=== PATIENT | female | born 1950 ===

== ENCOUNTER 2020-10-10 16:27 | Outpatient (REF) | payer MEDICARE, SELFPAY | END 2020-10-10 16:28 | disposition home or self-care (01) | LOC: HO.LAB 16:27 | PROVIDERS: Visit Provider Internal Medicine | DX: Z20.828 Contact with and (suspected) exposure to other viral communicable diseases (principal) | CPT/HCPCS: C9803; U0003 ==

== ENCOUNTER 2020-11-04 18:41 | Emergency (ER) | payer MEDICARE, MEDICAID, SELFPAY ==
[2020-11-04 18:52] VITALS: BP 143/68; PULSE 75; RESP 18; TEMP 36.9; O2SAT 97; BMI 31.4
[2020-11-04 19:17] LABS: Glucose Urine UA NEG (NEG); Leukocyte Esterase Urine NEG (NEG); Nitrite Urine NEG (NEG); PH 5.5 (5.0-8.0); Specific Gravity - Urine 1.025 (1.005-1.025); Urine Blood NEG (NEG); Urine Ketones NEG (NEG); Urine Protein NEG (NEG-TRACE)
[2020-11-04 19:18] LABS: Appearance Urine CLEAR; Color Urine YELLOW
--- NOTE | 2020-11-04 21:12 | ED.AMS ---
HPI - Altered Mental Status General Chief Complaint: Altered Mental Status Stated Complaint: mutiple complaints Time Seen by Provider: 11/04/20 20:57 Source: patient Mode of arrival: ambulatory Limitations: no limitations History of Present Illness HPI narrative: patient is brought to emergency room by her family, according to the patient's family, the patient has been acting odd and paranoid for 1 week now. According to the patient, she is here because her primary care physician told her that her ammonia level is high which has never happened before, patient complaining diffuse itching throughout her body, abdominal bloating, nausea and vomiting. Patient denies diarrhea. Patient denies alcohol abuse Related Data Allergies Allergy/AdvReac Type Severity Reaction Status Date / Time No Known Allergies Allergy Unverified 08/15/20 15:03 Review of Systems Review of Systems: Constitutional : No Weight loss, No Fever, No Chills, No Night Sweats, No Fatigue, No Malaise ENT/Mouth : No Hearing loss, No Ear Pain, No Nasal Congestion, No Sinus Pain, No Hoarseness, No sore throat, No Rhinorrhea, No Swallowing Difficulty Eyes: No Eye Pain, No Swelling, No Redness, No Foreign Body, No Discharge, No Vision Changes Cardiovascular : No Chest Pain, No SOB, No Dyspnea on Exertion, No Orthopnea, No Edema, No Palpitations Respiratory : No Cough, No Sputum, No Wheezing, No Smoke Exposure, No Dyspnea Gastrointestinal : patient complaining of nausea and bloating, No Vomiting, No Diarrhea, No Constipation, No Hematochezia, No Melena Genitourinary : no irregular bleeding, No Dysuria, No Urinary Frequency, No Hematuria, No Urinary Incontinence, No Urgency, No Flank Pain, No Urinary Flow Changes, No Hesitancy Musculoskeletal : No joint pain, No Myalgias, No Joint Swelling Skin : No Skin Lesions, No rash, complaining of intermittent diffuse body itching Neuro : No Weakness, No Numbness, No Paresthesias, No Loss of Consciousness, No Dizziness, No Headache Psych : No Anxiety/Panic, No Depression, No SI/HI/AH/VH, No Social Issues, Heme/Lymph: No Bruising, No Bleeding,No Lymphadenopathy Endocrine : No Polyuria, No Polydipsia, No Temperature Intolerance PMF Past Medical History Medical History (Updated 11/05/20 @ 01:44 by Rebeca Berrios MD) CKD (chronic kidney disease) HTN (hypertension) Surgical History (Updated 11/04/20 @ 18:55 by Naresh Rowley) Kidney transplant recipient Social History Social History Advance Directives: No Advance Directives Information Provided: Yes Physical Exam Vital Signs: Vital Signs: Last Vital Signs Temp 98.1 F 11/04/20 22:39 Pulse 60 11/04/20 22:39 Resp 20 11/04/20 22:39 BP 139/79 11/04/20 22:39 Pulse Ox 97 11/04/20 22:39 Body Mass Index 31.4 Appearance: Alert. Oriented X3. No acute distress. Eyes: Pupils equal, round and reactive to light. ENT: Pharynx normal. Neck: Normal inspection. Neck supple. No lymph nodes noted. No crepitus CVS: Normal heart rate and rhythm. Pulses normal. Normal S1 and S2 Respiratory: No respiratory distress. Breath sounds normal. No Wheezing. No rales Abdomen: Soft and nontender. No rigidity. No distention. good BS x4 Skin: Skin warm and dry. Normal skin color. Normal skin turgor. Extremities: No lower extremity edema. No lower extremity edema. No Lacerations. No Rash Neuro: Oriented X 3. No motor deficit. No sensory deficit. Moving all extermities. No slurred speech. Psych: Pt A&Ox#, patient does not seemed confused, not acting oddly or paranoid. Patient's behavior within normal limits Course Course Course Narrative: I discussed the labs and ultrasound with the patient, patient aware that she will follow-up with surgery as outpatient. Patient instructed to call for a follow-up appointment. At this time, patient has no pain at all. However, given her symptoms of abdominal bloating and abdominal distension along with ultrasound findings, we will go ahead and ask her to follow up with surgery MDM - Altered Mental Status Lab Data Result diagrams: 11/04/20 21:35 11/04/20 21:35 Labs: Lab Results 11/04/20 11/04/20 11/04/20 Range/Units 19:08 21:34 21:35 WBC 4.5 L (4.8-10.8) X10*3/uL RBC 4.71 (4.20-5.50) X10*6/uL Hgb 12.2 (12.0-16.0) g/dl Hct 40.3 (37-47) % MCV 85.6 (80-98) fL MCH 25.9 L (27.0-33.0) pg MCHC 30.3 L (31.0-35.0) g/dl RDW 16.7 H (11.0-16.0) % Plt Count 278 (160-400) X10*3/uL MPV 10.8 (9.4-12.3) fL Immature Gran % (Auto) 0.2 (0.0-0.4) % Neut % (Auto) 60.1 (45-73) % Lymph % (Auto) 25.7 (20-40) % [place] % (Auto) 11.6 H (2-11) % Eos % (Auto) 2.2 (0-4) % Baso % (Auto) 0.2 (0-2) % Lymph # (Auto) 1.2 (1.2-4.9) X10*3/uL [place] # (Auto) 0.5 (0.1-1.2) X10*3/uL Eos # (Auto) 0.1 (0.0-0.4) X10*3/uL Baso # (Auto) 0.0 (0.0-0.2) X10*3/uL Abs Immat Gran (auto) 0.01 (0.00-0.03) X10*3/uL Absolute Neuts (auto) 2.7 (2.0-8.3) X10*3/uL Absolute Nucleated RBC 0.000 (0.0-0.012) X10*3/uL Nucleated RBC % (auto) 0.0 (0.0-0.2) /100WBC Sodium (135-145) mmol/L Potassium (3.3-5.1) mmol/l Chloride (96-108) mmol/L Carbon Dioxide (22-29) mmol/L Anion Gap (12-20) BUN (9-16) mg/dL Creatinine (0.5-1.4) mg/dL Estim Creat Clear Calc Estimated GFR Random Glucose (60-115) mg/dL Calcium (8.4-10.2) mg/dL Total Bilirubin (0.0-1.0) mg/dL Direct Bilirubin (0.0-0.5) mg/dL AST (5-31) U/L ALT (0-31) U/L Alkaline Phosphatase (39-117) U/L Ammonia 32 (13-55) umol/L Total Protein (6.5-8.0) g/dL Albumin (3.5-5.0) g/dL Lipase (8-78) U/L Urine Color YELLOW Urine Appearance CLEAR Urine pH 5.5 (5.0-8.0) Ur Specific [place] 1.025 (1.005-1.025) Urine Protein NEG (NEG-TRACE) MG/DL Urine Glucose (UA) NEG (NEG) MG/DL Urine Ketones NEG (NEG) MG/DL Urine Blood NEG (NEG) Urine Nitrite NEG (NEG) Ur Leukocyte Esterase NEG (NEG) 11/04/20 Range/Units 21:35 WBC (4.8-10.8) X10*3/uL RBC (4.20-5.50) X10*6/uL Hgb (12.0-16.0) g/dl Hct (37-47) % MCV (80-98) fL MCH (27.0-33.0) pg MCHC (31.0-35.0) g/dl RDW (11.0-16.0) % Plt Count (160-400) X10*3/uL MPV (9.4-12.3) fL Immature Gran % (Auto) (0.0-0.4) % Neut % (Auto) (45-73) % Lymph % (Auto) (20-40) % [place] % (Auto) (2-11) % Eos % (Auto) (0-4) % Baso % (Auto) (0-2) % Lymph # (Auto) (1.2-4.9) X10*3/uL [place] # (Auto) (0.1-1.2) X10*3/uL Eos # (Auto) (0.0-0.4) X10*3/uL Baso # (Auto) (0.0-0.2) X10*3/uL Abs Immat Gran (auto) (0.00-0.03) X10*3/uL Absolute Neuts (auto) (2.0-8.3) X10*3/uL Absolute Nucleated RBC (0.0-0.012) X10*3/uL Nucleated RBC % (auto) (0.0-0.2) /100WBC Sodium 138 (135-145) mmol/L Potassium 4.4 (3.3-5.1) mmol/l Chloride 101 (96-108) mmol/L Carbon Dioxide 27 (22-29) mmol/L Anion Gap 14 (12-20) BUN 18 H (9-16) mg/dL Creatinine 0.94 (0.5-1.4) mg/dL Estim Creat Clear Calc 50.2 Estimated GFR 59 Random Glucose 122 H (60-115) mg/dL Calcium 10.1 (8.4-10.2) mg/dL Total Bilirubin 0.9 (0.0-1.0) mg/dL Direct Bilirubin 0.6 H (0.0-0.5) mg/dL AST 47 H (5-31) U/L ALT 102 H (0-31) U/L Alkaline Phosphatase 303 H (39-117) U/L Ammonia (13-55) umol/L Total Protein 7.6 (6.5-8.0) g/dL Albumin 4.2 (3.5-5.0) g/dL Lipase 15 (8-78) U/L Urine Color Urine Appearance Urine pH (5.0-8.0) Ur Specific [place] (1.005-1.025) Urine Protein (NEG-TRACE) MG/DL Urine Glucose (UA) (NEG) MG/DL Urine Ketones (NEG) MG/DL Urine Blood (NEG) Urine Nitrite (NEG) Ur Leukocyte Esterase (NEG) Imaging Data US - abdomen: Radiologist's impression: PANCREAS: Visualized pancreatic head and body are normal. Tail obscured by interposed bowel gas. LIVER: Mildly increased echogenicity suggestive of hepatic steatosis. The liver is normal in size. The liver contour is normal. No focal hepatic lesion. There is no intrahepatic biliary duct dilatation seen. GALLBLADDER: Sludge present within the gallbladder. The gallbladder wall thickness is at the upper limits of normal, however no pericholecystic fluid or inflammation. Sonographic Garber sign is negative. COMMON BILE DUCT: Normal in caliber measuring 0.6 cm in diameter. RIGHT KIDNEY: [place] kidney is atrophic but otherwise unremarkable. OTHER: Right lower quadrant renal allograft is normal in appearance. No hydronephrosis. FREE FLUID: None. US/US abdomen limited IMPRESSION: Cholelithiasis without sonographic evidence of cholecystitis. Query hepatic steatosis. Unremarkable right lower quadrant renal allograft. Discharge Plan Discharge Clinical Impression: Abdominal distention, non-gaseous, Cholelithiasis without cholecystitis Patient Disposition: Home, Self-Care Instructions: Biliary Colic (ED) Additional Instructions: Por favor, llama a la oficina de cirugia hoy para hacer guerda yissel. Usted tiene lodo en grimes vesicula. Si tiene dolor abdominal, si dominick sintomas empeoran, por favor regrese a emergencias
[2020-11-04 21:43] LABS: MANUAL DIFF FLAG NO
[2020-11-04 22:06] LABS: Basophils Percent Auto 0.2 % (0-2); Eosinophils Absolute Auto 0.1 X10*3/uL (0.0-0.4); Eosinophils Percent Auto 2.2 % (0-4); Hematocrit 40.3 % (37-47); Hemoglobin 12.2 g/dl (12.0-16.0); Imm Gran Abs Auto 0.01 X10*3/uL (0.00-0.03); Imm Gran Pct Auto 0.2 % (0.0-0.4); Lymphocytes Absolute Auto 1.2 X10*3/uL (1.2-4.9); Lymphocytes Percent Auto 25.7 % (20-40); Mean Corpuscular HGB Conc 30.3 g/dl (31.0-35.0); Mean Corpuscular Hemoglobin 25.9 pg (27.0-33.0); Mean Corpuscular Volume 85.6 fL (80-98); Mean Platelet Volume 10.8 fL (9.4-12.3); Monocytes Absolute Auto 0.5 X10*3/uL (0.1-1.2); Monocytes Percent Auto 11.6 % (2-11); Neutrophils Absolute Auto 2.7 X10*3/uL (2.0-8.3); Neutrophils Percent Auto 60.1 % (45-73); Platelet Count 278 X10*3/uL (160-400); Red Blood Count 4.71 X10*6/uL (4.20-5.50); Red Cell Distribution Width 16.7 % (11.0-16.0); White Blood Count 4.5 X10*3/uL (4.8-10.8)
[2020-11-04 22:11] LABS: Ammonia 32 umol/L (13-55)
[2020-11-04 22:20] LABS: Alanine Aminotransferase 102 U/L (0-31); Albumin Level 4.2 g/dL (3.5-5.0); Alkaline Phosphatase 303 U/L (39-117); Anion Gap 14 (12-20); Aspartate Amino Transferase 47 U/L (5-31); Bilirubin Direct 0.6 mg/dL (0.0-0.5); Bilirubin Total 0.9 mg/dL (0.0-1.0); Blood Urea Nitrogen 18 mg/dL (9-16); Calcium 10.1 mg/dL (8.4-10.2); Carbon Dioxide 27 mmol/L (22-29); Chloride 101 mmol/L (96-108); Creatinine Clr Calc Pharmacy 50.2; Estimated Glomerular Filt Rate 59; Glucose Random 122 mg/dL (60-115); Lipase 15 U/L (8-78); Potassium 4.4 mmol/l (3.3-5.1); Sodium 138 mmol/L (135-145); Total Protein 7.6 g/dL (6.5-8.0)
[2020-11-04 22:39] VITALS: BP 139/79; PULSE 60; RESP 20; TEMP 36.7; O2SAT 97
--- NOTE | 2020-11-04 23:42 | US_ITS ---
EXAMINATION: US ABDOMEN LIMITED CLINICAL INFORMATION: Bloating and elevated LFTs. COMPARISON: None TECHNIQUE: Real-time imaging of the right upper quadrant abdominal viscera. FINDINGS: PANCREAS: Visualized pancreatic head and body are normal. Tail obscured by interposed bowel gas. LIVER: Mildly increased echogenicity suggestive of hepatic steatosis. The liver is normal in size. The liver contour is normal. No focal hepatic lesion. There is no intrahepatic biliary duct dilatation seen. GALLBLADDER: Sludge present within the gallbladder. The gallbladder wall thickness is at the upper limits of normal, however no pericholecystic fluid or inflammation. Sonographic Garber sign is negative. COMMON BILE DUCT: Normal in caliber measuring 0.6 cm in diameter. RIGHT KIDNEY: [place] kidney is atrophic but otherwise unremarkable. OTHER: Right lower quadrant renal allograft is normal in appearance. No hydronephrosis. FREE FLUID: None. US/US abdomen limited IMPRESSION: Cholelithiasis without sonographic evidence of cholecystitis. Query hepatic steatosis. Unremarkable right lower quadrant renal allograft.
[2020-11-05 02:00] VITALS: BP 139/79; PULSE 60
== END 2020-11-05 02:31 | disposition home or self-care (01) ==
PROVIDERS: Emergency Provider Emergency Medicine; PCP Internal Medicine
DX: R14.0 Abdominal distension (gaseous) (principal); K80.20 Calculus of gallbladder without cholecystitis without obstruction; I12.9 Hypertensive chronic kidney disease with stage 1 through stage 4 chronic kidney disease, or unspecified chronic kidney disease; N18.9 Chronic kidney disease, unspecified
CPT/HCPCS: 36415; 76705; 80048; 80076; 81003; 82140; 83690; 85025; 99283; 99284

== ENCOUNTER → 2020-11-25 15:15 | Outpatient (BNVA) | payer MEDICARE, SELFPAY | PROVIDERS: PCP Internal Medicine; Visit Provider Surgery | DX: K80.20 Calculus of gallbladder without cholecystitis without obstruction (principal); Z94.0 Kidney transplant status | CPT/HCPCS: 99202 ==

== ENCOUNTER → 2020-12-18 14:26 | Outpatient (BNVA) | payer MEDICARE, SELFPAY | PROVIDERS: PCP Internal Medicine; Visit Provider Physician Assistant | DX: R74.8 Abnormal levels of other serum enzymes (principal) | CPT/HCPCS: Q3014 ==

== ENCOUNTER → 2021-01-16 12:43 | Outpatient (BNVA) | payer MEDICARE, SELFPAY | PROVIDERS: PCP Internal Medicine; Visit Provider Physician Assistant | DX: Z76.89 Persons encountering health services in other specified circumstances (principal) | CPT/HCPCS: Q3014 ==

== ENCOUNTER 2021-08-27 07:49 | Day surgery (SDC) | payer MEDICARE, SELFPAY ==
[2021-08-22 13:34] VITALS: BMI 35.5
--- NOTE | 2021-08-22 14:04 | P.CONAN_ITS ---
Documented by User: Terrie Wood NP 08/22/21 14:08 HPI - Anesthesia Eval Consult details Narrative: 71yo F for Colonoscopy s/p renal transplant 2017. AV fistula RUE NO BP or IV on RIGHT. No dialysis at this time. PMFSH Active Problems Active Problems: All Active Problems (Updated 08/22/21 @ 13:39 by Rosie Teixeira RN) Elevated liver enzymes (Acute) Gallstone (Acute) HTN (hypertension) (Acute) CKD (chronic kidney disease) (Acute) Past Medical History Medical History (Updated 08/22/21 @ 13:39 by Rosie Teixeira RN) AV fistula CKD (chronic kidney disease) COVID-19 vaccine series completed Gallstone HTN (hypertension) Family History Family History (Updated 11/25/20 @ 15:33 by Melissa Walters Nikia) Brother History of prostate cancer Maternal Uncle History of colon cancer Maternal Grandmother History of stomach cancer Surgical History Surgical History (Updated 08/21/21 @ 13:51 by Rosie Teixeira RN) History of section Hx of colonoscopy Hx of hysterectomy Kidney transplant recipient Social History Social History (Updated 01/16/21 @ 12:47 by Anna Marie Leal Nikia) Household Members Other:: lives sharona Alcohol intake: never Patient Tobacco Use Status: Never used Tobacco Use of substances other than those prescribed or required for medical reasons: No Have you been hit, kicked, punched, or otherwise hurt by someone within the past year? If so, by whom?: No Are you DNR?: No Advance Directives: No (does not have HCP-form sent per request patient & daughter) Advance Directives Information Provided: No (as above noted) Advance Directives on File: No Recently lost weight without trying: No Eating poorly because of decreased appetite: No Nutrition Risks: No Nutritional Risk Poor oral hygiene: No (wears partial) Meds Allergies Allergy/AdvReac Type Severity Reaction Status Date / Time No Known Allergies Allergy Verified 01/16/21 12:44 Home Medications Medication Instructions Recorded Confirmed Last Taken Type amlodipine 2.5 mg tablet 2.5 mg PO DAILY 11/25/20 08/21/21 Unknown History cholecalciferol (vitamin D3) 50 50 mcg PO DAILY 11/25/20 08/21/21 Unknown History mcg (2,000 unit) chewable tablet cinacalcet 30 mg tablet 30 mg PO DAILY 11/25/20 08/21/21 Unknown History magnesium oxide 400 mg PO BID 11/25/20 12/18/20 Unknown History metoprolol tartrate 25 mg tablet 25 mg PO DAILY 11/25/20 08/21/21 Unknown History mycophenolate sodium 360 mg 360 mg PO BID 11/25/20 08/21/21 Unknown History tablet,delayed release omeprazole 20 mg capsule,delayed 20 mg PO DAILY 11/25/20 08/21/21 Unknown History release tacrolimus 1 mg capsule, 1 mg PO BID 11/25/20 08/21/21 Unknown History immediate-release Exam Exam Date and Time: August 22, 2021 1404 Height,Weight and Vital Signs: Height 5 ft Weight 82.554 kg Pertinent Lab Results Pertinent Lab Results: 07/25/21 BUN 19 Creat 1.1 K 4.5 Na 140 CO2 24 WBC 3.5 Hgb 13.3 Hct 42.7 PLT 214 Assessment and Plan Assessment Anesthesia Assessment: Chart Reviewed Documented by User: Quintin Robles MD 08/27/21 08:05 [facility] Past Medical History Medical History (Updated 08/22/21 @ 13:39 by Rosie Teixeira RN) AV fistula CKD (chronic kidney disease) COVID-19 vaccine series completed Gallstone HTN (hypertension) Family History Family History (Updated 11/25/20 @ 15:33 by DARIAN Chaudhry) Brother History of prostate cancer Maternal Uncle History of colon cancer Maternal Grandmother History of stomach cancer Family history of problems with anesthesia: No Surgical History Surgical History (Updated 08/21/21 @ 13:51 by Rosie Teixeira RN) History of section Hx of colonoscopy Hx of hysterectomy Kidney transplant recipient History of Problems with Anesthesia: No Social History Social History (Updated 01/16/21 @ 12:47 by DARIAN Bazan) Household Members Other:: lives sharona Alcohol intake: never Patient Tobacco Use Status: Never used Tobacco Use of substances other than those prescribed or required for medical reasons: No Have you been hit, kicked, punched, or otherwise hurt by someone within the past year? If so, by whom?: No Are you DNR?: No Advance Directives: No (does not have HCP-form sent per request patient & daughter) Advance Directives Information Provided: No (as above noted) Advance Directives on File: No Recently lost weight without trying: No Eating poorly because of decreased appetite: No Nutrition Risks: No Nutritional Risk Poor oral hygiene: No (wears partial) Meds Allergies Allergy/AdvReac Type Severity Reaction Status Date / Time No Known Allergies Allergy Verified 01/16/21 12:44 Home Medications Medication Instructions Recorded Confirmed Last Taken Type amlodipine 2.5 mg tablet 2.5 mg PO DAILY 11/25/20 08/21/21 Unknown History cholecalciferol (vitamin D3) 50 50 mcg PO DAILY 11/25/20 08/21/21 Unknown History mcg (2,000 unit) chewable tablet cinacalcet 30 mg tablet 30 mg PO DAILY 11/25/20 08/21/21 Unknown History magnesium oxide 400 mg PO BID 11/25/20 12/18/20 Unknown History metoprolol tartrate 25 mg tablet 25 mg PO DAILY 11/25/20 08/21/21 Unknown History mycophenolate sodium 360 mg 360 mg PO BID 11/25/20 08/21/21 Unknown History tablet,delayed release omeprazole 20 mg capsule,delayed 20 mg PO DAILY 11/25/20 08/21/21 Unknown History release tacrolimus 1 mg capsule, 1 mg PO BID 11/25/20 08/21/21 Unknown History immediate-release Exam Airway Mallampati Class: II TM Dist: >3cm Neck ROM: Full Partial: Upper Loose/Missing/Broken Teeth: Yes (many lower missing) Heart: [id number] Lungs: cta b/l Assessment and Plan Assessment Anesthesia Assessment: Anesthesia Plan Discussed Final Anesthetic Review Family History of Problems with Anesthesia: No History of Problems with Anesthesia: No NPO: Yes ASA Class: IV Final Preanesthetic Review: No Changes in Pt Med Stat, Meds/Allgs Chart Reviewed, Consent Obtained/Reviewed and Anes Risks/Benef Reviewed Patient Risk: High Procedure Risk: Low Assessment/Block/Sedation in SS: Assess/Block/Sedation-SS Anesthetic Plan Anesthetic Plan: MAC: and Agree w/ Assess. and Plan Disposition: Standard PACU
[2021-08-27 08:05] VITALS: BP 122/74; PULSE 93; RESP 16; TEMP 36.1; O2SAT 99
[2021-08-27] MEDS: 0.9 % Sodium Chloride 1,000 ML 100 ML IVCONT (08:29)
[2021-08-27 09:24] VITALS: BP 125/65; PULSE 75; RESP 16; TEMP 36.8; O2SAT 99
--- NOTE | 2021-08-27 09:25 | PM.OP ---
Brief Operative Note Date of Service: 08/27/21 Pre-op diagnosis: Screening Post-op diagnosis: other (Diverticulosis) Procedure: Colonoscopy to the cecum and TI Surgeon: Ramin Booth Anesthesia: MAC Was an [employer] used for this Procedure?: No Estimated blood loss (mL): 0 Pathology: none sent Condition: stable Disposition: PACU
[2021-08-27 09:39] VITALS: BP 111/78; PULSE 68; RESP 16; TEMP 36.8; O2SAT 97
--- NOTE | 2021-08-27 18:19 | OP_ITS ---
SURGEON: Ramin Booth MD INDICATIONS: The patient presents for evaluation of colorectal cancer screening. Full consent has been obtained from her for this, including risks of bleeding and perforation. PREOPERATIVE DIAGNOSIS: Colorectal cancer screening. POSTOPERATIVE DIAGNOSIS: PROCEDURE PERFORMED: Colonoscopy to cecum and terminal ileum. ESTIMATED BLOOD LOSS: COMPLICATIONS: ANESTHESIA: Monitored anesthesia care. ASSISTANTS: SPECIMENS: POSTOPERATIVE DIAGNOSES: Colorectal cancer screening, sigmoid diverticulosis, and internal hemorrhoids. DESCRIPTION OF PROCEDURE: The patient was placed in the left lateral decubitus position. The digital rectal exam revealed no abnormalities. The Olympus video pediatric colonoscope was entered into the rectum and advanced easily to the cecum. Once in the cecum, I did identify normal-appearing cecal pouch with appendiceal orifice and a normal-appearing ileocecal valve. The terminal ileum was cannulated and appeared normal. The scope was withdrawn back in the colon. The entire cecum and ileocecal valve appeared normal. The scope was slowly withdrawn assessing all mucosal surfaces carefully. Preparation was excellent. I did not visualize any sign of polyps, colitis, nor angiodysplasia. There was a mild amount of sigmoid diverticulosis. In the rectum, scope was retroflexed visualizing small internal hemorrhoids, but no other pathology. The rectal mucosa appeared normal. The scope was straightened and withdrawn from the patient. She tolerated the procedure well and was returned to recovery area in stable condition. IMPRESSION: 1. Mild sigmoid diverticulosis. 2. Small internal hemorrhoids. PLAN: Given today's negative exam and her age, and no family history of colon cancer, I do not think she will need any further screening colonoscopies. She will otherwise see me on a p.r.n. basis. Ramin Booth MD RMDa/APRILL / [id number]
== END 2021-08-27 10:19 | disposition home or self-care (01) ==
PROVIDERS: PCP Internal Medicine; Visit Provider Internal Medicine
PROC: 0DJD8ZZ Inspection of Lower Intestinal Tract, Via Natural or Artificial Opening Endoscopic (ICD-10-PCS; CPT 45378; principal; 2021-08-27 08:30)
DX: Z12.11 Encounter for screening for malignant neoplasm of colon (principal); K57.30 Diverticulosis of large intestine without perforation or abscess without bleeding; K64.8 Other hemorrhoids; I12.9 Hypertensive chronic kidney disease with stage 1 through stage 4 chronic kidney disease, or unspecified chronic kidney disease; N18.9 Chronic kidney disease, unspecified; Z87.19 Personal history of other diseases of the digestive system; Z94.0 Kidney transplant status
CPT/HCPCS: G0121

== ENCOUNTER 2022-10-12 14:38 | Outpatient (REF) | payer MEDICARE, SELFPAY ==
--- NOTE | ~2022-10-12 | MM_ITS ---
EXAMINATION: MM SCREENING DIGITAL BREAST TOMOSYNTHESIS, BILATERAL CLINICAL INFORMATION: Screening. Asymptomatic. COMPARISON: Mammography: 03/24/2019, 03/18/2018, 02/01/2017 TECHNIQUE: Digital breast tomosynthesis is performed in both the craniocaudal and mediolateral oblique views along with computer-aided detection (CAD). Synthesized 2D images are generated from the tomosynthesis. FINDINGS: There are scattered areas of fibroglandular density (ACR BI-RADS breast composition Category b). There are no significant masses, abnormal calcifications, or other abnormalities. Parenchymal pattern is similar to prior studies. There is no developing density or architectural abnormality. The axilla and skin contours are unremarkable. No significant changes. MM/MM tomosynthesis screening BI IMPRESSION: No mammographic evidence of malignancy. ASSESSMENT: BI-RADS 1: Negative RECOMMENDATION: Routine annual mammography screening. This patient's information was entered into a reminder system with a target due date for their next mammogram.
== END 2022-10-12 14:39 | disposition home or self-care (01) ==
LOC: HO.MAMMO 14:38
PROVIDERS: Visit Provider Internal Medicine
DX: Z12.31 Encounter for screening mammogram for malignant neoplasm of breast (principal)
CPT/HCPCS: 77063; 77067

== ENCOUNTER 2024-01-05 11:02 | Outpatient (REF) | payer OTHER, SELFPAY ==
[2024-01-05 12:46] LABS: Anion Gap 13 (12-20); Blood Urea Nitrogen 15 mg/dL (9-16); Calcium 8.9 mg/dL (8.4-10.2); Carbon Dioxide 26 mmol/L (22-29); Chloride 106 mmol/L (96-108); Cholesterol 145 mg/dL (<200); Estimated Glomerular Filt Rate 53; Glucose Random 129 mg/dL (60-115); HDL Cholesterol 53 mg/dL (>40); LDL Cholesterol Calculated 73 mg/dL (<100); Potassium 4.5 mmol/L (3.3-5.1); Sodium 140 mmol/L (135-145); Triglycerides 97 mg/dL (<150)
[2024-01-05 14:22] LABS: Reflex LDLD? No
== END 2024-01-05 11:03 | disposition home or self-care (01) ==
LOC: HO.LAB 11:02
PROVIDERS: PCP Internal Medicine; Visit Provider Internal Medicine
DX: I10 Essential (primary) hypertension (principal); E78.2 Mixed hyperlipidemia
CPT/HCPCS: 36415; 80048; 80061

== ENCOUNTER → 2024-02-02 12:45 | Outpatient (BNV) | payer OTHER, SELFPAY | PROVIDERS: PCP Internal Medicine; Visit Provider Radiology Diagnostic Radiology | DX: Z12.31 Encounter for screening mammogram for malignant neoplasm of breast (principal) | CPT/HCPCS: 77063; 77067 ==

== ENCOUNTER 2024-02-02 12:59 | Outpatient (REF) | payer OTHER, SELFPAY | END 2024-02-02 13:00 | disposition home or self-care (01) | LOC: HO.MAMMO 12:59 | PROVIDERS: PCP Internal Medicine; Visit Provider Internal Medicine | DX: Z12.31 Encounter for screening mammogram for malignant neoplasm of breast (principal) | CPT/HCPCS: 77063; 77067 ==

== ENCOUNTER 2024-02-04 14:04 | Outpatient (REF) | payer OTHER, SELFPAY ==
--- NOTE | ~2024-02-04 | XR_ITS ---
EXAMINATION: XR KNEE, LEFT CLINICAL INFORMATION: Chronic left knee pain. COMPARISON: None available. TECHNIQUE: Two views of the left knee. FINDINGS: There is mild loss of tricompartment joint space with lateral compartment periarticular spurring. No loose bodies, acute fracture or bony erosive changes. There is moderate suprapatellar joint effusion seen. XR/XR knee LT 2V IMPRESSION: Moderate degenerative changes left knee with moderate suprapatellar joint effusion. No visible acute fracture or dislocation seen.
== END 2024-02-04 14:05 | disposition home or self-care (01) ==
LOC: HO.HHCX 14:04
PROVIDERS: Visit Provider Student in an Organized Health Care Education/Training Program
DX: M25.562 Pain in left knee (principal); G89.29 Other chronic pain
CPT/HCPCS: 73560

== ENCOUNTER 2024-02-04 15:37 | Outpatient (REF) | payer OTHER, SELFPAY ==
--- NOTE | ~2024-02-04 | US_ITS ---
EXAMINATION: US VENOUS ULTRASOUND WITH DOPPLER LOWER EXTREMITY, LEFT CLINICAL INFORMATION: Left lower leg pain. COMPARISON: Left lower extremity deep venous study June 14, 2018 TECHNIQUE: Ultrasound of the deep veins is performed from the hip to the calf with compression sonography and color and pulse Doppler assessment. Spectral analysis with color-flow imaging is performed. FINDINGS: There is normal venous compression and respiratory variation and augmented flow. The visualized common femoral vein, superficial femoral vein, profunda femoral vein, popliteal vein, and the trifurcation region shows no evidence of deep venous thrombosis. Popliteal fossa cyst measuring 5.1 x 1.2 x 3.1 cm. US/US venous duplex LE LT IMPRESSION: No DVT demonstrated in the left lower extremity.
== END 2024-02-04 15:38 | disposition home or self-care (01) ==
LOC: HO.US 15:37
PROVIDERS: Visit Provider Student in an Organized Health Care Education/Training Program
DX: M79.662 Pain in left lower leg (principal)
CPT/HCPCS: 93971

== ENCOUNTER 2024-03-03 09:45 | Outpatient (REF) | payer OTHER, SELFPAY ==
--- NOTE | ~2024-03-03 | XR_ITS ---
EXAMINATION: XR KNEE, LEFT CLINICAL INFORMATION: Pain in unspecified knee. COMPARISON: 02/04/2024. TECHNIQUE: AP standing view of bilateral knees. [place] and lateral views of the left knee. FINDINGS: AP Standing View of the Right Knee: The bones are diffusely demineralized. Moderate narrowing of the medial compartment with tiny medial marginal osteophytes. Chondrocalcinosis in the medial and lateral compartments. Left Knee: Moderate joint effusion. Moderate tricompartmental osteophytes. Moderate narrowing of the medial compartment with irregularity of the subjacent articular surface of the medial femoral condyle. Chondrocalcinosis in the medial and lateral compartments. Advanced degenerative changes in the patellofemoral compartment. XR/XR knee LT 3V IMPRESSION: Moderate degenerative changes bilateral knees.
== END 2024-03-03 09:46 | disposition home or self-care (01) ==
LOC: HO.HOSX 09:45
PROVIDERS: Visit Provider Physician Assistant
DX: M17.12 Unilateral primary osteoarthritis, left knee (principal); M79.662 Pain in left lower leg
CPT/HCPCS: 73562; 99202

== ENCOUNTER 2024-03-03 10:02 | Outpatient (AMB) | payer OTHER, SELFPAY ==
--- NOTE | 2024-03-03 10:17 | A.OFFVIS_ITS ---
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 Patient reports off and on pain for about a month or 2. Pain is on the medial and lateral aspect of the knee. Patient finds relief with heating pad and a topical compound cream. Pain is worse when walking, sitting and using the stairs. 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 Patient is accompanied in the office today by her daughter. Patient is currently being followed by Dr. 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 She was referred for a LLE ultrasound to evaluate for DVTs. While in the office today the patient reports intermittent pain for 1-2 months. She reports her pain is on the medial and lateral aspect of her right knee. She finds relief with a heating pad and topical compound cream. She claims her pain increases with ambulating, sitting, and with use of stairs. She reports the edema has subsided. [facility] Medical History (Updated 03/03/24 @ 11:34 by Lorelei Archer) COVID-19 vaccine series completed AV fistula Gallstone HTN (hypertension) CKD (chronic kidney disease) Surgical History (System 01/10/24 @ 11:18 by Fouzia Llanos) Hx of hysterectomy Hx of colonoscopy History of section Kidney transplant recipient Family History (System 01/10/24 @ 11:18 by Fouzia Llanos) Brother History of prostate cancer Maternal Uncle History of colon cancer Maternal Grandmother History of stomach cancer Social History (Updated 03/03/24 @ 10:32 by Florian Styles) Household Members Other:: lives sharona Alcohol intake: never Patient Tobacco Use Status: Never used Tobacco Current occupational status: retired and disabled Review of Systems Const All systems reviewed & are unremarkable except as noted in HPI and below Physical Exam Vital Signs: BMI result Body Mass Index 35.5 Const General: cooperative and no acute distress Orientation/consciousness: patient oriented x3 Resp Effort & Inspection: normal respiratory effort and able to speak in complete sentences Cardio Peripheral pulses: Peripheral pulses 2+ throughout Skin General skin exam: no rashes or lesions noted Neuro General: patient oriented x3 Extrem Other: Left knee: Normal to inspection. No ecchymosis, erythema, or joint effusion. Tenderness to palpation to the medial or lateral joint lines. Full knee extension and flexion. NVI. Assessment & Plan Assessment & Plan (1) Osteoarthritis of left knee: Code(s): M17.12 - Unilateral primary osteoarthritis, left knee Qualifiers: Osteoarthritis type: unspecified Qualified Code(s): M17.12 - Unilateral primary osteoarthritis, left knee Plan Ms. Shay is a 73-year-old Nauruan speaking female, with a PMH of kidney transplant, who presents in the office today, as a new patient, for an evaluation of left lower extremity pain and edema. Patient is accompanied in the office today by her daughter. Patient is currently being followed by Dr. 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 She was referred for a LLE ultrasound to evaluate for DVTs. While in the office today the patient reports intermittent pain for 1-2 months. She reports her pain is on the medial and lateral aspect of her right knee. She finds relief with a heating pad and topical compound cream. She claims her pain increases with ambulating, sitting, and with use of stairs. She reports the edema has subsided. Patient was given a reaction knee brace, off the shelf, while in the office today. We discussed the role of cortisone injections at this time, however, the patient?s daughter would like to reach out to the kidney specialist to make sure a cortisone injection would not affect the kidney status post transplant. My business card was given for them to call if they wish to move forward. Follow up will be PRN, or sooner if needed. X-rays of the left knee which were obtained while in the office today and were reviewed by me, Stella Reeves PA-C, revealed osteoarthritis. Ultrasound of the left lower extremity, obtained on 02/04/2024, revealed: No DVT demonstrated in the left lower extremity. X-rays of the left knee, obtained on 02/04/2024, which revealed: Moderate degenerative changes left knee with moderate suprapatellar joint effusion. No visible acute fracture or dislocation. Ultrasound of the left lower extremity, obtained on 01/26/2024, revealed: Partially visualized nonocclusive thrombus in the peroneal veins measuring at least 3.1 cm. Patient Instructions: Scribed by Lorelei Archer biomedical engineering director, for Stella Reeves PA-C on 03/03/2024 at 10:05 am, EST. Coding Level of Care Code New Pt Level 4 (17102) Diagnoses Osteoarthritis of left knee, unspecified osteoarthritis type M17.12 Osteoarthritis type: unspecified
[2024-03-03 10:23] VITALS: BMI 35.5
== END 2024-03-03 12:08 | disposition home or self-care (01) ==
PROVIDERS: PCP Internal Medicine; Visit Provider Physician Assistant
DX: M17.12 Unilateral primary osteoarthritis, left knee (principal)
CPT/HCPCS: 99203

== ENCOUNTER 2024-04-04 11:37 | Outpatient (REF) | payer OTHER, SELFPAY ==
[2024-04-04 12:44] LABS: Estimated Average Glucose 146 mg/dL; Hemoglobin A1c % 6.7 % (<6.0)
[2024-04-04 12:55] LABS: Glucose Random 126 mg/dL (60-115)
== END 2024-04-04 11:38 | disposition home or self-care (01) ==
LOC: HO.LAB 11:37
PROVIDERS: PCP Internal Medicine; Visit Provider Internal Medicine
DX: R73.09 Other abnormal glucose (principal)
CPT/HCPCS: 36415; 82947; 83036

== ENCOUNTER 2024-05-19 11:09 | Outpatient (AMB) | payer OTHER, SELFPAY ==
--- NOTE | 2024-05-19 11:13 | A.OFFVIS_ITS ---
Intake Visit Reasons: O/V Left knee/ req injection Intake Note: Koki is a 73 year old female who presents today for a injection for her left knee. Allergies No Known Allergies Allergy (Verified 05/19/24 11:23) HPI HPI O/V Left knee/ req injection : Details: 73-year-old [place] speaking female, with a PMH of kidney transplant, who presents in the office today for follow-up of left knee pain. I last saw the patient on 03/03/2024, when she was placed in a reaction knee brace. We discussed the role of cortisone injections, however, due to the patient history of kidney transplant clearance from her kidney specialist was requested. The patient notified the office she received clearance from her provider. [facility] Medical History (Updated 03/03/24 @ 11:34 by Lorelei Archer) COVID-19 vaccine series completed AV fistula Gallstone HTN (hypertension) CKD (chronic kidney disease) Surgical History (System 01/10/24 @ 11:18 by Fouzia Llanos) Hx of hysterectomy Hx of colonoscopy History of section Kidney transplant recipient Family History (System 01/10/24 @ 11:18 by Fouzia Llanos) Brother History of prostate cancer Maternal Uncle History of colon cancer Maternal Grandmother History of stomach cancer Social History (Updated 03/03/24 @ 10:32 by Florian Styles) Household Members Other:: lives sharona Alcohol intake: never Patient Tobacco Use Status: Never used Tobacco Current occupational status: retired and disabled Review of Systems Const All systems reviewed & are unremarkable except as noted in HPI and below Physical Exam Const General: cooperative and no acute distress Orientation/consciousness: patient oriented x3 Resp Effort & Inspection: normal respiratory effort and able to speak in complete sentences Cardio Peripheral pulses: Peripheral pulses 2+ throughout Skin General skin exam: no rashes or lesions noted Neuro General: patient oriented x3 Extrem Other: Left knee: Normal to inspection. No ecchymosis, erythema, or joint effusion. Tenderness to palpation to the medial or lateral joint lines. Full knee extension and flexion. NVI. Office Procedures Joint Injection/Drain Joint Injection/Drain Primary Site: left knee Prep: site was prepped using aseptic technique, ethochloride spray was applied and injection warnings given Injected: 80 mg of, DepoMedrol, with 8 mL of (2% plain lido ) and in the joint Approach Used: anterolateral Procedure: The patient tolerated the procedure well, but had some pain with the injection and there was some relief with the local anesthesia Coding 40920 - Large joint Procedure code (CPT) selection complete Assessment & Plan Assessment & Plan (1) Osteoarthritis of left knee: Code(s): M17.12 - Unilateral primary osteoarthritis, left knee Category: Medical Qualifiers: Osteoarthritis type: unspecified Qualified Code(s): M17.12 - Unilateral primary osteoarthritis, left knee Plan Ms. Shay is a 73-year-old [place] speaking female, with a PMH of kidney transplant, who presents in the office today for follow-up of left knee pain. I last saw the patient on 03/03/2024, when she was placed in a reaction knee brace. We discussed the role of cortisone injections, however, due to the patient history of kidney transplant clearance from her kidney specialist was requested. The patient notified the office she received clearance from her provider.? The patient was offered a?cortisone injection in the left knee with 80 mg of DepoMedrol. The patient was explained the risk, benefits, and alternatives to receiving this injection. After receiving consent for the injection, the patient had the procedure done while in the office today. The patient tolerated the procedure well with no complications. Follow-up will be PRN, or sooner if needed.? Patient Instructions: Scribed by Lo Guillen outside medical sales representative, for Stella Reeves PA-C on 05/19/2024 at 11:30 AM EST.? Coding Level of Care Code Est Pt Level 3 (18036) Diagnoses Osteoarthritis of left knee, unspecified osteoarthritis type M17.12 Osteoarthritis type: unspecified CPT Codes Coding - 66794 Large joint: 38386 - Large joint ([id number])
== END 2024-05-19 11:23 | disposition home or self-care (01) ==
PROVIDERS: PCP Internal Medicine; Visit Provider Physician Assistant
DX: M17.12 Unilateral primary osteoarthritis, left knee (principal)
CPT/HCPCS: 20610; 99213

== ENCOUNTER → 2024-05-19 11:09 | Outpatient (BNVA) | payer OTHER, SELFPAY | PROVIDERS: PCP Internal Medicine; Visit Provider Physician Assistant | DX: M17.12 Unilateral primary osteoarthritis, left knee (principal); Z94.0 Kidney transplant status | CPT/HCPCS: 20610; 99212; J1010 ==

== ENCOUNTER 2024-07-13 14:26 | Outpatient (REF) | payer OTHER, SELFPAY ==
--- NOTE | ~2024-07-13 | XR_ITS ---
EXAMINATION: XR CHEST CLINICAL INFORMATION: Weight loss COMPARISON: Chest radiograph from 09/12/2019 TECHNIQUE: 2 views of the chest were obtained. FINDINGS: No focal consolidation. No pneumothorax. Trachea is midline. Cardiac no large pleural effusion. Degenerative changes of the thoracolumbar spine. Soft tissues are unremarkable. XR/XR chest 2V IMPRESSION: No acute cardiopulmonary process.
[2024-07-13 16:44] LABS: TSH reflex Free T4 1.25 uIU/mL (0.32-4.0)
[2024-07-13 16:59] LABS: Erythrocyte Sedimentation Rate 6 MM/HR (0-20)
== END 2024-07-13 14:27 | disposition home or self-care (01) ==
LOC: HO.HHCL 14:26
PROVIDERS: Visit Provider Internal Medicine
DX: R63.4 Abnormal weight loss (principal)
CPT/HCPCS: 36415; 71046; 84443; 85652

== ENCOUNTER 2024-08-11 13:44 | Outpatient (REF) | payer OTHER, SELFPAY ==
--- NOTE | ~2024-08-11 | CT_ITS ---
EXAMINATION: CT ABDOMEN AND PELVIS WITHOUT CONTRAST CLINICAL INFORMATION: Rule out pancreatic lesion. Abnormal weight loss. COMPARISON: None available. TECHNIQUE: Multidetector volumetric imaging was performed from the superior aspect of the liver through the pubic symphysis. Sagittal and coronal reformatted images were obtained on the technologist's workstation. This CT examination was performed using dose optimization techniques as appropriate, variously including the following: *Automated exposure control *Adjustment of mA and/or kV according to patient size (this includes techniques or standardized protocols for targeted exams where dose is matched to indication/reason for exam; i.e. extremities or head) *Use of iterative reconstruction technique DLP: 386 mGy-cm FINDINGS: LUNG BASES: The visualized lung bases are unremarkable. LIVER, GALLBLADDER, AND BILIARY TREE: The liver is normal in size, shape, and attenuation. No focal hepatic lesion or biliary ductal dilatation is present. The gallbladder is contracted but otherwise unremarkable with no evidence of radiopaque gallstones, or obvious pericholecystic inflammatory changes. PANCREAS: There is marked fatty replacement of the pancreas. No pancreatic mass, calcifications or ductal dilatation seen. SPLEEN: Unremarkable. ADRENAL GLANDS: Unremarkable. KIDNEYS AND URETERS: The [place] kidneys are tiny and atrophic. A transplant kidney is present in the right iliac fossa. BLADDER: Unremarkable. GASTROINTESTINAL TRACT: There is sigmoid diverticulosis present without diverticulitis. The small and large bowel are otherwise unremarkable. The appendix is unremarkable. ABDOMINAL WALL: No significant hernia is appreciated. LYMPH NODES: No retroperitoneal lymphadenopathy. VASCULAR: Calcific atherosclerotic changes are present in the ectatic aorta and iliac vessels. There is no evidence of an abdominal aortic aneurysm. PELVIC VISCERA: Unremarkable. OSSEOUS STRUCTURES: Degenerative changes are present in the lower thoracic spine. There is marked grade 1 anterolisthesis of L5 upon S1. CT/CT abdomen pelvis wo IV con IMPRESSION: 1. A cause for the patient's weight loss has not been found. 2. The thick walled appearance of the contracted gallbladder warrants gallbladder ultrasound for better assessment. 3. Incidental note made of marked fatty replacement of the pancreas, atrophic [place] kidneys with transplant kidney in the right iliac fossa, sigmoid diverticulosis without diverticulitis and degenerative changes in the spine with grade 1 anterolisthesis of L5 upon S1. Fleischner guidelines were followed. Electronically signed by: Tank Dumont MD 08/30/2024 12:39 AM EDT RP
== END 2024-08-11 13:45 | disposition home or self-care (01) ==
LOC: HO.CT 13:44
PROVIDERS: PCP Internal Medicine; Visit Provider Internal Medicine
DX: R63.4 Abnormal weight loss (principal)
CPT/HCPCS: 74176

== ENCOUNTER 2024-08-18 18:06 | Outpatient (REF) | payer OTHER, SELFPAY ==
--- NOTE | ~2024-08-18 | MR_ITS ---
EXAMINATION: MR KNEE WITHOUT CONTRAST, LEFT CLINICAL INFORMATION: Severe left knee pain. COMPARISON: Radiographs 03/03/2024. TECHNIQUE: MRI of the knee without contrast was performed using routine sequences on a high-field scanner. FINDINGS: MENISCI: Medial Meniscus: Irregular inner margin tearing of the posterior horn extending from the meniscal root. Severe degenerative changes of the extruded meniscal body. Lateral Meniscus: Severe degeneration of the extruded meniscal body with complex tearing at the junction with the anterior horn. Inner margin tearing extends along the anterior horn. LIGAMENTS: Cruciate: Mucoid degeneration and possible ill-defined partial tearing of the anterior cruciate ligament. The posterior cruciate ligament appears intact. Collateral: Intact. EXTENSOR MECHANISM: Intact. ARTICULAR CARTILAGE/BONE: Patellofemoral Compartment: Near full-thickness cartilage loss and surface irregularity throughout the lateral patellar facet as well as the superior aspect of the medial patellar facet and the lateral trochlea superiorly. Medial Compartment: There is an osteochondral lesion of the weightbearing femoral condyle, which may be the sequela of a prior subchondral insufficiency fracture. The in situ osteochondral fragment measures 1.9 x 1.4 x 0.5 cm. The underlying concave defect measures up to 0.8 cm in depth and there is extensive surrounding bone marrow edema. Cartilage thinning at the peripheral aspect of the tibia medially. Lateral Compartment: There is a partial-thickness cartilage loss of the posterior weightbearing femoral condyle. Prominent marginal osteophytes. JOINT FLUID AND BURSAE: Large joint effusion with mild diffuse synovitis. Small Jordan's cyst. MR/MR knee LT wo con IMPRESSION: 1. Irregular inner margin tearing of the posterior horn of the medial meniscus extending from the meniscal root with severe degenerative changes of the extruded meniscal body. 2. Severe degeneration and complex tearing of the lateral meniscus at the junction of the anterior horn and extruded meniscal body. 3. Moderate patellofemoral and medial compartment osteoarthritis. There is 1.9 x 1.4 x 0.5 cm in situ osteochondral lesion/unstable OCD of the weightbearing medial femoral condyle with extensive surrounding bone marrow edema. 4. Large joint effusion with mild diffuse synovitis. Small Jordan's cyst. 5. Mucoid degeneration and possible ill-defined partial tearing of the anterior cruciate ligament. Electronically signed by: Lalo Caputo MD 08/21/2024 12:03 PM EDT RP
== END 2024-08-18 18:07 | disposition home or self-care (01) ==
LOC: HO.MRI 18:06
PROVIDERS: PCP Internal Medicine; Visit Provider Internal Medicine
DX: M17.12 Unilateral primary osteoarthritis, left knee (principal)
CPT/HCPCS: 73721

== ENCOUNTER 2024-09-01 14:28 | Outpatient (AMB) | payer OTHER, SELFPAY ==
--- NOTE | 2024-09-01 14:39 | HO.NEPHOV_ITS ---
Vital Signs 09/01/24 14:42 Height 4 ft 11 in Weight 162 lb 2 oz BMI 32.7 BP 100/70 Blood Pressure Location Lt brachial Position Sitting Pulse 73 Pulse Source Pulse Oximeter Pulse Oximetry (%) 98 Oxygen Delivery Method Room Air Intake Visit Reasons: Prev Pt from RTANE/ Conf Catalogue Illustrator Required: Yes Catalogue Illustrator Services: Catalogue Illustrator Of[place] Declined [place] [place] Illustr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 be?compliant?medications.??Her tacrolimus?dosage?has?been?on?the?lower?side.??He?was?accompanied?by?daughter?fe els?highe rlevel?of?tacrolimus?was?not?tolerated?by?her?mother.??She?does?not?have?any?vas cular?or?cardiovascular?symptoms.??She?has?not?seen?a?nurse practitioner physician assistant.??She?has?no ?urinary?symptoms?or?side?effects?from?i mmunosuppression.??She?has?taken?the?flu?vaccination.??She?maintains?good?hydrat ion?and?avoids?nonsteroidal?anti-inflammatories.?[place]oes?not?have?any?nausea,?vo miting,?diarrhea,?chest?pain,?shortness? of?breath,?paroxysmal?nocturnal?dyspnea,?orthopnea,?pedal?edema,?orthostatic?sym ptoms,?hematuria.??She?has?not?had?any?antibiotics?recently.??She?denies?any?hem aturia.??She?feels?well. [facility] Medical History (Updated 09/01/24 @ 16:45 by Justo Ott MD) IgA nephropathy COVID-19 vaccine series completed AV fistula Gallstone HTN (hypertension) CKD (chronic kidney disease) Surgical History (Updated 09/01/24 @ 15:11 by Justo Ott MD) Hx of hysterectomy Hx of colonoscopy History of section Kidney transplant recipient Family History Brother History of prostate cancer Maternal Uncle History of colon cancer Maternal Grandmother History of stomach cancer Social History Household Members Other:: lives sharona Alcohol intake: never Patient Tobacco Use Status: Never used Tobacco Current occupational status: retired and disabled Review of Systems Const All systems reviewed & are unremarkable except as noted in HPI and below Physical Exam Vital Signs: Last Vital Signs Pulse 73 09/01/24 14:42 BP 100/70 09/01/24 14:42 Pulse Ox 98 09/01/24 14:42 Oxygen Delivery Method Room Air 09/01/24 14:42 BMI result Body Mass Index 32.7 Const General: comfortable and no acute distress Orientation/consciousness: patient oriented x3 HEENT Head: Yes normocephalic Mouth: Normal oral and palatal mucosa present Eyes EOM: EOMs intact bilaterally Neck Neck: Yes supple Resp Auscultation: clear to auscultation bilaterally Cardio Jugular venous distension: no JVD Rate: regular rate GI Palpation (GI): Soft to palpation Auscultation: normal bowel sounds General: Yes no CVA tenderness Back/Spine/Pelvis Back: no CVA tenderness Skin General skin exam: no rashes or lesions noted Neuro General: patient oriented x3 and moves all extremities Extrem General: Yes no pedal edema Results Reviewed Nephrology Results: Sodium 140 mmol/L (135-145) 01/05/24 Potassium 4.5 mmol/L (3.3-5.1) 01/05/24 Chloride 106 mmol/L (96-108) 01/05/24 Carbon Dioxide 26 mmol/L (22-29) 01/05/24 BUN 15 mg/dL (9-16) 01/05/24 Creatinine 1.02 mg/dL (0.5-1.4) 01/05/24 Calcium 8.9 mg/dL (8.4-10.2) 01/05/24 Assessment & Plan Assessment & Plan (1) Kidney transplant recipient: Comment: 2017 Code(s): Z94.0 - Kidney transplant status Category: Surgical (2) HTN (hypertension): Code(s): I10 - Essential (primary) hypertension Category: Medical Qualifiers: Hypertension type: primary hypertension Qualified Code(s): I10 - Essential (primary) hypertension Plan 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 nurse practitioner physician assistant.??She?maintains?good?hydration?and?avoids?nonsteroidal?anti-inflam matories.??Her?tacrolimus?levels?were?on?the?lower?side?but?the?family?has?been? reluctant?to?go?up?on?the?dose.??I?ordered?follow up?lab?work.??I?did?not?make?any?medication?changes?today.??All?questions?answer ed.??Follow-up?appointment?given. Orders: Orders Creatinine Today I10 - Essential (primary) hypertension, Z94.0 - Kidney transplant status Magnesium Today I10 - Essential (primary) hypertension, Z94.0 - Kidney transplant status Tacrolimus Prograf Today I10 - Essential (primary) hypertension, Z94.0 - Kidney transplant status UA and rflx microscopic Today I10 - Essential (primary) hypertension, Z94.0 - Kidney transplant status Complete Blood Count Auto Diff Today I10 - Essential (primary) hypertension, Z94.0 - Kidney transplant status Blood Urea Nitrogen Today I10 - Essential (primary) hypertension, Z94.0 - Kidney transplant status Electrolytes Today I10 - Essential (primary) hypertension, Z94.0 - Kidney transplant status Calcium Today I10 - Essential (primary) hypertension, Z94.0 - Kidney transplant status Phosphorus Today I10 - Essential (primary) hypertension, Z94.0 - Kidney transplant status Alanine Aminotransferase Today I10 - Essential (primary) hypertension, Z94.0 - Kidney transplant status Aspartate Amino Transferase Today I10 - Essential (primary) hypertension, Z94.0 - Kidney transplant status Protein Creatinine Ratio, Ur Today I10 - Essential (primary) hypertension, Z94.0 - Kidney transplant status Coding Level of Care Code New Pt Level 4 (59188) Diagnoses Kidney transplant recipient Z94.0 Primary hypertension I10 Hypertension type: primary hypertension
[2024-09-01 14:42] VITALS: BP 100/70; PULSE 73; O2SAT 98; BMI 32.7
== END 2024-09-01 15:16 | disposition home or self-care (01) ==
PROVIDERS: PCP Internal Medicine; Visit Provider Internal Medicine Nephrology
DX: I10 Essential (primary) hypertension (principal); Z94.0 Kidney transplant status; Z87.448 Personal history of other diseases of urinary system
CPT/HCPCS: 99204

== ENCOUNTER → 2024-09-01 14:28 | Outpatient (BNVA) | payer OTHER, SELFPAY | PROVIDERS: PCP Internal Medicine; Visit Provider Internal Medicine Nephrology | DX: I10 Essential (primary) hypertension (principal); E78.5 Hyperlipidemia, unspecified; Z94.0 Kidney transplant status; Z79.899 Other long term (current) drug therapy | CPT/HCPCS: 99202 ==

== ENCOUNTER 2024-09-07 09:14 | Outpatient (REF) | payer OTHER, SELFPAY ==
--- NOTE | ~2024-09-07 | US_ITS ---
EXAMINATION: US ABDOMEN COMPLETE CLINICAL INFORMATION: Thickened gallbladder wall on CT, ultrasound recommended by radiologist. COMPARISON: CT abdomen and pelvis 08/11/2024. Limited abdominal ultrasound 11/05/2020. TECHNIQUE: Real-time imaging of the abdominal viscera. FINDINGS: PANCREAS: The visualized portion of the pancreas head and body are normal, portion of the pancreatic body and tail, not visualized are obscured by bowel gas. ABDOMINAL AORTA: Mild atheromatous plaques. INFERIOR VENA CAVA: Visualized portions are normal. LIVER: Normal. The liver is normal in size. The liver contour is normal. Parenchymal echogenicity is normal. No focal hepatic lesion. There is no intrahepatic biliary duct dilatation seen. GALLBLADDER: Normal. The gallbladder is physiologically distended without evidence of stones, sludge, polyps, wall thickening or pericholecystic fluid. COMMON BILE DUCT: Normal in caliber measuring 0.7 cm in diameter. RIGHT KIDNEY: Atrophic, not well visualized. LEFT KIDNEY: Left kidney also atrophic, echogenic, limited visualization. SPLEEN: Normal. The spleen measures 13.4 cm in maximum dimension. FREE FLUID: None. ADDITIONAL FINDINGS: Transplanted right kidney right lower quadrant measure 13.4 cm appear within normal limits. US/US abdomen complete IMPRESSION: 1. No ultrasound evidence of gallbladder disease or gallstones. 2. Atrophic [place] kidneys. 3. 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 Electronically signed by: Corinne Ross MD 10/15/2024 06:46 PM EST
== END 2024-09-07 09:15 | disposition home or self-care (01) ==
LOC: HO.HMGCX 09:14
PROVIDERS: PCP Internal Medicine; Visit Provider Internal Medicine
DX: K82.8 Other specified diseases of gallbladder (principal)
CPT/HCPCS: 76700

== ENCOUNTER 2024-09-18 12:12 | Outpatient (AMB) | payer OTHER, SELFPAY ==
--- NOTE | 2024-09-18 12:25 | MHC.OFFVIS ---
Intake Visit Reasons: OV - left knee OA MRI review Intake Note: Koki is a 73 year old female who presents today for an MRI review of her left knee. She was last seen on 05/19/24 with Stella who injected the left knee Allergies No Known Allergies Allergy (Verified 09/01/24 14:49) HPI HPI OV - left knee OA MRI review: Details: Koki is a 73 year old female who presents today for an MRI review of her left knee. She was last seen on 05/19/24 with Stella who injected the left knee. She states when this 1st flared up several months ago she had severe pain but it has improved. She states that she has pain about twice a week and when she does she can walk for about 10 minutes and has to stop and rest and then she walks again. The most difficulty she has is with stairs and when standing from an extended time in his seated position. She had worse swelling and that has also improved. She is today here with her daughter. Her daughter is particularly concerned about the results of her recent MRI. She is, of note, a renal transplant patient. [facility] Medical History (Updated 09/01/24 @ 16:45 by Justo Ott MD) IgA nephropathy COVID-19 vaccine series completed AV fistula Gallstone HTN (hypertension) CKD (chronic kidney disease) Surgical History (Updated 09/01/24 @ 15:11 by Justo Ott MD) Hx of hysterectomy Hx of colonoscopy History of section Kidney transplant recipient Family History Brother History of prostate cancer Maternal Uncle History of colon cancer Maternal Grandmother History of stomach cancer Social History Household Members Other:: lives sharona Alcohol intake: never Patient Tobacco Use Status: Never used Tobacco Current occupational status: retired and disabled Physical Exam Extrem Other: Fairly normal gait pattern with mild joint effusion left knee and mild tenderness to palpation medial joint line and lateral retropatellar facet. 0-125 degrees of motion. Stable to varus and valgus stress. Results Reviewed Results Reviewed: I personally reviewed relevant radiographs. There is moderate tricompartmental osteoarthritis with chondrocalcinosis and a irregularity of the articular portion of the medial femoral condyle possibly consistent with subchondral collapse. I personally reviewed the MR images. 1. Irregular inner margin tearing of the posterior horn of the medial meniscus extending from the meniscal root with severe degenerative changes of the extruded meniscal body. 2. Severe degeneration and complex tearing of the lateral meniscus at the junction of the anterior horn and extruded meniscal body. 3. Moderate patellofemoral and medial compartment osteoarthritis. There is 1.9 x 1.4 x 0.5 cm in situ osteochondral lesion/unstable OCD of the weightbearing medial femoral condyle with extensive surrounding bone marrow edema. 4. Large joint effusion with mild diffuse synovitis. Small Jordan's cyst. 5. Mucoid degeneration and possible ill-defined partial tearing of the anterior cruciate ligament. Assessment & Plan Assessment & Plan (1) Osteoarthritis of left knee: Code(s): M17.12 - Unilateral primary osteoarthritis, left knee Category: Medical Qualifiers: Osteoarthritis type: unspecified Qualified Code(s): M17.12 - Unilateral primary osteoarthritis, left knee Plan: I had a extended conversation with the patient and her daughter regarding this patient's treatment options. The bottom line is that she has severe tricompartmental osteoarthritis. The daughter asked me to go through the MRI with her and I would like to elucidate the findings to clarify that this is part and parcel of degenerative osteoarthritis and that individually these components should not be thought of as treatable. This is a systemic issue with the knee joint. 1) There is a degenerative posteromedial meniscus tear with extrusion of the meniscal body. This is stable and consistent with a degenerative medial meniscus tear. This is not what is causing her symptoms and I would not recommend isolated treatment of this degenerative tear as well only worsened her arthritic symptoms and will not help her. 2) There is a complex degenerative tear of the anterior horn of the lateral meniscus. This is difficult to treat and would not help her feel any better. I do not recommend treatment for the lateral meniscus tear 3) There is tricompartmental osteoarthritis. Of note there is a large osteochondral defect of the medial femoral condyle. This is consistent with arthritis. The treatment for arthritis in a 73-year-old woman would be arthroplasty. 4) There is a large joint effusion with synovitis and a Jordan's cyst. These are all common findings in a arthritic knee. 5) There is a possible partial tear of the ACL. This is not relevant to her condition and an incidental finding by the radiologist. This does not warrant treatment and is unlikely to cause symptoms. I reviewed this with the daughter and I am not sure she believes may but the treatment for this is symptomatic. Currently the patient is suffering mild symptoms according to her. She is able to walk long distances most days. She did seem to have some benefit from a steroid injection but is not convinced. I think it is reasonable to do physical therapy and to offer her viscosupplementation i.e. a gel injection. I explained this to the patient and her daughter. They would like to proceed forward. I will arrange for a gel injection and physical therapy was ordered. Orders: Orders PT Evaluation and Treatment Today M17.12 - Unilateral primary osteoarthritis, left knee Coding Level of Care Code Est Pt Level 4 (16213) Diagnoses Osteoarthritis of left knee, unspecified osteoarthritis type M17.12 Osteoarthritis type: unspecified
== END 2024-09-18 16:09 | disposition home or self-care (01) ==
PROVIDERS: PCP Internal Medicine; Visit Provider Orthopaedic Surgery
DX: M17.12 Unilateral primary osteoarthritis, left knee (principal)
CPT/HCPCS: 99214

== ENCOUNTER → 2024-09-18 12:12 | Outpatient (BNVA) | payer OTHER, SELFPAY | PROVIDERS: PCP Internal Medicine; Visit Provider Orthopaedic Surgery | DX: M17.12 Unilateral primary osteoarthritis, left knee (principal) | CPT/HCPCS: 99212 ==

== ENCOUNTER 2024-10-24 11:51 | Outpatient (AMB) | payer OTHER, SELFPAY ==
--- NOTE | 2024-10-24 11:56 | MHC.OFFVIS ---
Intake Visit Reasons: Left Knee Durolane Injection Intake Note: Koki is a 73 year old female who presents today for left knee durolane injection Allergies No Known Allergies Allergy (Verified 09/01/24 14:49) HPI HPI Left Knee Durolane Injection: Details: Koki is a 73 year old female who presents today for left knee durolane injection PFSH Medical History (Updated 09/01/24 @ 16:45 by Justo Ott MD) IgA nephropathy COVID-19 vaccine series completed AV fistula Gallstone HTN (hypertension) CKD (chronic kidney disease) Surgical History (Updated 09/01/24 @ 15:11 by Justo Ott MD) Hx of hysterectomy Hx of colonoscopy History of section Kidney transplant recipient Family History Brother History of prostate cancer Maternal Uncle History of colon cancer Maternal Grandmother History of stomach cancer Social History Household Members Other:: lives sharona Alcohol intake: never Patient Tobacco Use Status: Never used Tobacco Current occupational status: retired and disabled Physical Exam Extrem Other: Skin clean dry and intact Office Procedures Joint Inj/Aspir; Non-Pain Clin Joint Injection/Drain Details: Injected Yoselin. Site was prepped using aseptic technique. Patient tolerated the procedure well. Approach Used: lateral parapatellar Shoulders, Hips, Knees, Knee Large Joint Injection 50939: Left Knee Coding Procedure code (CPT) selection complete Assessment & Plan Assessment & Plan (1) Osteoarthritis of left knee: Code(s): M17.12 - Unilateral primary osteoarthritis, left knee Category: Medical Qualifiers: Osteoarthritis type: unspecified Qualified Code(s): M17.12 - Unilateral primary osteoarthritis, left knee Plan: Yoselin injected without complication. A follow up in 3 months. Coding Level of Care Code Est Pt Level 2 (28280) Diagnoses Osteoarthritis of left knee, unspecified osteoarthritis type M17.12 Osteoarthritis type: unspecified CPT Codes Shoulders, Hips, Knees, - Knee Large Joint Injection 55848: Left Knee ([id number])
== END 2024-10-24 12:42 | disposition home or self-care (01) ==
PROVIDERS: PCP Internal Medicine; Visit Provider Orthopaedic Surgery
DX: M17.12 Unilateral primary osteoarthritis, left knee (principal)
CPT/HCPCS: 20610

== ENCOUNTER → 2024-10-24 11:51 | Outpatient (BNVA) | payer OTHER, SELFPAY | PROVIDERS: PCP Internal Medicine; Visit Provider Orthopaedic Surgery | DX: M17.12 Unilateral primary osteoarthritis, left knee (principal) | CPT/HCPCS: 20610; J7318 ==

== ENCOUNTER 2024-10-30 10:16 | Outpatient (REF) | payer OTHER, SELFPAY ==
[2024-10-30 10:30] LABS: MANUAL DIFF FLAG NO
[2024-10-30 10:49] LABS: Basophils Percent Auto 0.1 % (0-2); Eosinophils Absolute Auto 0.1 X10*3/uL (0.0-0.4); Eosinophils Percent Auto 0.7 % (0-4); Hematocrit 40.6 % (37.0-47.0); Hemoglobin 13.1 g/dl (12.0-16.0); Imm Gran Abs Auto 0.02 X10*3/uL (0.00-0.03); Imm Gran Pct Auto 0.3 % (0.0-0.4); Lymphocytes Absolute Auto 1.2 X10*3/uL (1.2-4.9); Lymphocytes Percent Auto 15.9 % (20-40); Mean Corpuscular HGB Conc 32.3 g/dl (31.0-35.0); Mean Corpuscular Hemoglobin 25.7 pg (27.0-33.0); Mean Corpuscular Volume 79.6 fL (80.0-98.0); Mean Platelet Volume 10.4 fL (9.4-12.3); Monocytes Absolute Auto 0.7 X10*3/uL (0.1-1.2); Monocytes Percent Auto 8.9 % (2-11); Neutrophils Absolute Auto 5.4 x10*3/uL (2.0-8.3); Neutrophils Percent Auto 74.1 % (45-73); Platelet Count 212 X10*3/uL (160-400); Red Cell Distribution Width 13.8 % (11.0-16.0); White Blood Count 7.3 X10*3/uL (4.8-10.8)
[2024-10-30 11:19] LABS: Appearance Urine Clear; Color Urine Yellow; Glucose Urine UA Negative (Negative); Leukocyte Esterase Urine Negative (Negative); Nitrite Urine Negative (Negative); Specific Gravity - Urine 1.015 (1.005-1.025); Urine Blood Negative (Negative); Urine Ketones Negative (Negative); Urine Protein Negative (Neg-Trace)
[2024-10-30 11:30] LABS: Alanine Aminotransferase 16 U/L (0-31); Anion Gap 11 (12-20); Aspartate Amino Transferase 22 U/L (5-31); Blood Urea Nitrogen 20 mg/dL (9-16); Calcium 9.3 mg/dL (8.4-10.2); Carbon Dioxide 24 mmol/L (22-29); Chloride 105 mmol/L (96-108); Estimated Glomerular Filt Rate 48; Magnesium 1.7 mg/dL (1.6-2.6); Phosphorus 3.7 mg/dL (2.7-4.5); Potassium 4.1 mmol/L (3.3-5.1); Sodium 136 mmol/L (135-145)
[2024-10-30 11:58] LABS: Creatinine Urine 82.94 mg/dL; Total Protein Urine Random < 7 mg/dL (<12)
[2024-10-31 20:48] LABS: Tacrolimus Prograf 3.2 mcg/L
== END 2024-10-30 10:17 | disposition home or self-care (01) ==
LOC: HO.LAB 10:16
PROVIDERS: PCP Internal Medicine; Visit Provider Internal Medicine Nephrology
DX: I10 Essential (primary) hypertension (principal); Z94.0 Kidney transplant status
CPT/HCPCS: 36415; 80051; 80197; 81003; 82310; 82565; 82570; 83735; 84100; 84156; 84450; 84460; 84520; 85025

== ENCOUNTER 2024-11-01 14:23 | Outpatient (AMB) | payer OTHER, SELFPAY ==
--- NOTE | 2024-11-01 14:33 | HO.NEPHOV_ITS ---
Vital Signs 11/01/24 14:36 Height 4 ft 11 in Weight 166 lb BMI 33.5 BP 110/70 Blood Pressure Location Lt brachial Position Sitting Pulse 82 Pulse Source Pulse Oximeter Pulse Oximetry (%) 97 Oxygen Delivery Method Room Air Intake Visit Reasons: Hypertension/ LVM Business Insight And Analytics Manager Required: Yes Business Insight And Analytics Manager Language: Gas Engineer Services: Business Insight And Analytics Manager Offered & Declined ([facility] intelligence manager services refused. ) Accompanied by: Daughter Allergies No Known Allergies Allergy (Verified 11/01/24 14:35) HPI Comments Details: Koki?seen?in?followfor?transplant?care?she?had?IgA?nephropathy?swelling?any?ESR D.??She?had?a?preemptive?renal?transplant.??She?w as?never?on?dialysis.??She?claims?to?be?compliant?medications.??Her tacrolimus?dosage?has?been?on?the?lower?side.??He?was?accompanied?by?daughter?fe els?higherlevel?of?tacrolimus?was?not?tolerated?by?h er?mother.??She?does?not?have?any?vascular?or?cardiovascular?symptoms.??She?has? not?seen?a?forming machine operator.??She?has?no?urinary?symptoms?or?side?effects?from?immu nosuppression.??She?has?taken?the?flu?va ccination.??She?maintains?good?hydration?and?avoids?nonsteroidal?anti-inflammato srikanth.?Shedoes?not?have?any?nausea,?vomiting,?diarrhea,?chest?pain,?shortness?of? breath,?paroxysmal?nocturnal?dyspnea,?or thopnea,?pedal?edema,?orthostatic?symptoms,?hematuria.??She?has?not?had?any?anti biotics?recently.??She?denies?any?hematuria.??She?feels?well. [facility] Medical History (Updated 09/01/24 @ 16:45 by Justo Ott MD) IgA nephropathy COVID-19 vaccine series completed AV fistula Gallstone HTN (hypertension) CKD (chronic kidney disease) Surgical History Hx of hysterectomy Hx of colonoscopy History of section Kidney transplant recipient Family History Brother History of prostate cancer Maternal Uncle History of colon cancer Maternal Grandmother History of stomach cancer Social History Household Members Other:: lives sharona Alcohol intake: never Patient Tobacco Use Status: Never used Tobacco Current occupational status: retired and disabled Review of Systems Const All systems reviewed & are unremarkable except as noted in HPI and below Physical Exam Vital Signs: Last Vital Signs Pulse 82 11/01/24 14:36 BP 110/70 11/01/24 14:36 Pulse Ox 97 11/01/24 14:36 Oxygen Delivery Method Room Air 11/01/24 14:36 BMI result Body Mass Index 33.5 Const General: comfortable and no acute distress Orientation/consciousness: patient oriented x3 HEENT Head: Yes normocephalic Mouth: Normal oral and palatal mucosa present Eyes EOM: EOMs intact bilaterally Neck Neck: Yes supple Resp Auscultation: clear to auscultation bilaterally Cardio Jugular venous distension: no JVD Rate: regular rate GI Palpation (GI): Soft to palpation Auscultation: normal bowel sounds General: Yes no CVA tenderness Back/Spine/Pelvis Back: no CVA tenderness Skin General skin exam: no rashes or lesions noted Neuro General: patient oriented x3 and moves all extremities Extrem General: Yes no pedal edema Results Reviewed Nephrology Results: Hgb 13.1 g/dl (12.0-16.0) 10/30/24 WBC 7.3 X10*3/uL (4.8-10.8) 10/30/24 Plt Count 212 X10*3/uL (160-400) 10/30/24 Sodium 136 mmol/L (135-145) 10/30/24 Potassium 4.1 mmol/L (3.3-5.1) 10/30/24 Chloride 105 mmol/L (96-108) 10/30/24 Carbon Dioxide 24 mmol/L (22-29) 10/30/24 BUN 20 mg/dL (9-16) H 10/30/24 Creatinine 1.11 mg/dL (0.5-1.4) 10/30/24 Calcium 9.3 mg/dL (8.4-10.2) 10/30/24 Phosphorus 3.7 mg/dL (2.7-4.5) 10/30/24 Urine Protein Negative mg/dL (Neg-Trace) 10/30/24 Urine Creatinine 82.94 mg/dL 10/30/24 Protein/Creatinin Ratio TNP 10/30/24 Assessment & Plan Assessment & Plan (1) Kidney transplant recipient: Comment: 2018 Code(s): Z94.0 - Kidney transplant status Category: Surgical (2) HTN (hypertension): Code(s): I10 - Essential (primary) hypertension Category: Medical Qualifiers: Hypertension type: primary hypertension Qualified Code(s): I10 - Essential (primary) hypertension Plan 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 ??Her?graft?function?has?been?stable.?Her blood?pressure?has?been?at?goal?on?current?medication?regimen..??She?has?dys lipidemia?and?is?on?lipid?lowering?agents.I increased her tacrolimus to 1.5 mg bid. F/U labs ordered. Orders: Orders Calcium 2 Months I10 - Essential (primary) hypertension, Z94.0 - Kidney transplant status Complete Blood Count Auto Diff 2 Months I10 - Essential (primary) hypertension, Z94.0 - Kidney transplant status Tacrolimus Prograf 2 Months I10 - Essential (primary) hypertension, Z94.0 - Kidney transplant status Electrolytes 2 Months I10 - Essential (primary) hypertension, Z94.0 - Kidney transplant status Blood Urea Nitrogen 2 Months I10 - Essential (primary) hypertension, Z94.0 - Kidney transplant status Creatinine 2 Months I10 - Essential (primary) hypertension, Z94.0 - Kidney transplant status Coding Level of Care Code Est Pt Level 4 (39240) Diagnoses Kidney transplant recipient Z94.0 Primary hypertension I10 Hypertension type: primary hypertension
[2024-11-01 14:36] VITALS: BP 110/70; PULSE 82; O2SAT 97; BMI 33.5
== END 2024-11-01 15:02 | disposition home or self-care (01) ==
PROVIDERS: PCP Internal Medicine; Visit Provider Internal Medicine Nephrology
DX: I10 Essential (primary) hypertension (principal); Z94.0 Kidney transplant status
CPT/HCPCS: 99214

== ENCOUNTER → 2024-11-01 14:23 | Outpatient (BNVA) | payer OTHER, SELFPAY | PROVIDERS: PCP Internal Medicine; Visit Provider Internal Medicine Nephrology | DX: I10 Essential (primary) hypertension (principal); Z94.0 Kidney transplant status | CPT/HCPCS: 99212 ==

== ENCOUNTER 2025-01-02 09:48 | Outpatient (REF) | payer OTHER, SELFPAY ==
[2025-01-02 09:59] LABS: MANUAL DIFF FLAG NO
--- OUTSIDE RECORDS SUMMARY | 2025-01-02 10:27 | XMS_ITS | Encounter Summary ---
Author Organization [employer] Address [address] [place] [address] Care Team Providers Care Beer Merchant Name Role Phone Rashaad Tinajero MD Primary Care Provide r Reason for Visit * Reason Onset Date Comments Appointment Request 02/01/2024 Encounter Details Date Type Department Care Team ([facility] st Contact Info) Description 02/01/2024 Telephone [facility] MEDICINE [address] [place], [place] [phone] Rashaad Tinajero MD [address] [place], [place] [phone] Appointment Request Social History Tobacco Use Types Packs/Day Years Used Date Smoking Tobacco: Never Passive Smoke Exposure: Never Smokeless Tobacco: Never Depression Answer Date Recorded Patient Health Questionnaire-9 Score 9 04/01/2023 Housing Stability Answer Date Recorded What is your housing situation today? I have ravin carrizales 09/28/[address] you li ve. Do you have problems with any of the following? None of the above 09/28/2023 Food Insecurity Answer Date Recorded Within the past 12 months, y ou worried that your food would run out before you got money to buy more: Never True 09/28/2023 Within the past 12 months,th e food you bought just didn't last and you didn't have enough money to get more: Never True Transportation Answer Date Recorded In the past 12 months, has l ack of transportation kept you from medical appts, meetings, work or from getting things needed for daily living? No 09/28/2023 Utilities Answer Date Recorded In the past 12 months, has t he electric, gas, oil or water company threatened to shut off services in your home? No 09/28/2023 Depression Answer Date Recorded Patient Health Questionnaire-2 Score 2 04/01/2023 Comments Unknown Sex and Gender Information Value Date Recorded Sex Assigned at Female 09/28/2022 10:15 AM EDT Legal Sex Female 10:15 AM EDT Gender Identity Female 09/28/2022 10:15 AM EDT Sexual Orientation Straight 09/28/2022 10 :15 AM EDT documented as of this encounter Miscellaneous Notes * Telephone Encounter - July Elvis - 02/01/2024 1:17 PM EST Tc from daughter requesting an follow up appointment with provider following an appointment pt had last week with net developer programmer. States net developer programmer sent pt to do an US on the left leg for Blood clot.Heel Nailing Machine Operator also started pt on new medication. Please contact pt daughter at [phone] documented in this encounter Plan of Treatment Upcoming Encounters Date Type Department Care Team (Late st Contact Info) Description 03/05/2025 2:00 PM EDT Office Visit [facility] ADULT DENTAL [address] [place] [address] Kelly, Nelly [address] [place] [address] 03/15/2025 2:15 PM EDT Office Visit [facility] MEDICINE [address] [place] [address] Rashaad Tinajero MD [address] [place] [address] documented as of this encounter Visit Diagnoses Not on filedocumented in this encounter Additional Health Concerns Assessment Noted Time PHQ-9 Depression Total Score: 9 04/01/20 23 12:16 PM EDT documented as of this encounter Care Teams Beer Merchant Relationship Specialty Start Date End Date Rashaad Tinajero MD [address] [place] [address] PCP - General Internal Medicine 06/19/15 documented as of this encounter
--- OUTSIDE RECORDS SUMMARY | 2025-01-02 10:27 | XMS_ITS | Encounter Summary ---
Author Organization [employer] Address [address] [place] [address] Care Team Providers Care Used Car Sales Supervisor Name Role Phone Rashaad Tinajero MD Primary Care Provide r Reason for Visit * Reason Onset Date Comments Results 02/07/2024 Encounter Details Date Type Department Care Team ([facility] st Contact Info) Description 02/07/2024 Telephone [facility] MEDICINE [address] [place], [place] [phone] Rashaad Tinajero MD [address] [place], [place] [phone] Results Social History Tobacco Use Types Packs/Day Years [...] t he electric, gas, oil or water [employer] threatened to shut off services in your [...] encounter Miscellaneous Notes * Telephone Encounter - Eden Navarro RN - 02/11/2024 2:57 PM EDT TC to pt daughter, Area (HIPAA in chart), daughter very upset that no one called her about her mom's results from Wednesday- and US to r/o DVTordered by Walk in provider . (DVT negative and according to the chart pt had a US with nephrology 01.26.24 for same reason also neg for DVT). Daughter called on Wednesday for results. Original message from PAR sent to green team nurses and then green team nurses forwarded to [facility] nurses as ordering provider is a [facility] provider that worked the Walk In last Wednesday02.04.24, to review and advise POC on 02.07.24. Provider communicated test results on 02.10.24. Teamnurses called pt daughter daughter today. Please see previous message. Daughter wanted to know why no one called her until today- this appeals writer apologized and explained that the nurses should have called her to let her know the message was received on 02.07.24 and that we were sending the message to the provider to request her to review and advise. Daughter told me not to make excuses and to stop making excuses. She told me that we are irresponsible and are not doing our jobs properly. Daughter repeatedly told this appeals writer that she called multiple times this week for results and no one answered her until today. This appeals writer attempted to explain that I had spoken to the nurses about how they should have called her back and kept her in the loop that the message was sent to the provider for review. Daughter continued to repeat the same language. This appeals writer attempted to let her know that I heard her and I was trying to help her. Daughter was not hearing this appeals writer nor wanted to listen any longer. She told me that I was not doing a very good job at managing staff and needed to talk to my boss. She asked for OPTOMETRIST/PRACTICE OWNER and BAKERY DEMONSTRATOR names and numbers. Names were provided aswell as extensions. FYI-Pt is scheduled to see PCP 03.07.24, first available, for a POC for knee pain including a medication concern which is documented in a different TC note. This appeals writer offered to have pt see another provider, daughter refused. Will send message to PCP. * Telephone Encounter - Heather Pandey RN - 02/11/2024 11:15 AM EDT Returned call to pt daughter regarding message below. Daughter informed of XR and US results. Pt daughter states that it took a week to get results when pt artificial fly tier received results and referredpt to Ortho right away and stated we are just now getting a call back with no further POC . Daughter states that we at the [facility] are irresponsible and that PCP is unaware of what is happening to pt . This RN advised daughter that a message was sent to human resources manager regarding her concerns and that someone will reach out to her regarding this issue, but in the meantime, I can schedule pt for thenext available appt with PCP and send a high priority message to PCP to advise on further POC in the meantime. Daughter agreed to appt with PCP on 03/07/24 and message being sent to PCP but is still not satisfied with response time and is requesting to file a formal complaint. * Telephone Encounter - Tiesha Smart MD - 02/10/2024 11:11 AM EDT Xray shows arthrits USG is neg for DVT * Telephone Encounter - Raoul Almaraz - 02/09/2024 1:17 PM EDT Tc from pt daughter requesting status on results of X-ray and Ultrasound states they were done lastweek and until today has not received anything yet. Daughter is also requesting to speak with a human resources manager in regards to the matter of delay states that pt kidney specialist has received the results butthey have not and pt leg is swollen and appears to be retaining fluids. * Telephone Encounter - Anup Moore RN - 02/07/2024 1:46 PM EDT Pt requesting xray results. Please advise on result/plan of xray of left knee. Thanks. * Telephone Encounter - Alycia Myers - 02/07/2024 11:46 AM EDT TC from pt daughter requesting call back regarding Results. States would like to review them with PCP Type of results: xray Date when done: 02/04/24 Facility: [facility] [place] TC from pt requesting call back regarding Results. Type of results: US Date when done: 02/04/24 Facility: [facility] documented in this encounter Plan of Treatment Upcoming Encounters Date Type Department Care Team (Late st Contact Info) Description 03/05/2025 2:00 PM EDT Office Visit [facility] ADULT DENTAL [address] [place] [address] Nelly Mendoza [address] [place] [address] 03/15/2025 2:15 PM EDT Office Visit [facility] MEDICINE [address] [place] [address] Rashaad Tinajero MD [address] [place] [address] documented as of this encounter Visit Diagnoses Not on filedocumented in this encounter Additional Health Concerns Assessment Noted Time PHQ-9 Depression Total Score: 9 04/01/20 23 12:16 PM EDT documented as of this encounter Care Teams Used Car Sales Supervisor Relationship Specialty Start Date End Date Rashaad Tinajero MD [address] [place] [id number] PCP - General Internal Medicine 06/19/15 documented as of this encounter
--- OUTSIDE RECORDS SUMMARY | 2025-01-02 10:28 | XMS_ITS | Encounter Summary ---
Author Organization [employer] Address [address] [facility] [address] [place] [address] Care Team Providers Care Town Justice Name Role Phone Rashaad Tinajero MD Primary Care Provide r Reason for Visit * Reason Onset Date Comments February12/25/2024 Encounter Details Date Type Department Care Team ([facility] st Contact Info) Description 12/25/2024 Telephone [facility] MEDICINE [address] [place], [place] [phone] Rashaad Tinajero MD [address] [place] [address] February Recall Social History Tobacco Use Types Packs/Day Years Used Date Smoking Tobacco: Never Passive Smoke Exposure: Never Smokeless Tobacco: Never Alcohol Use Standard Drinks/Week Comments Never 0 (1 standard drink = 0.6 oz pur e alcohol) Depression Answer Date Recorded Patient Health Questionnaire-9 Score 2 07/13/2024 Patient Health Questionnaire-9 Score 2 07/13/2024 Last PHQ-9: Questionnaire Data Not on file 0 07/13/2024 Housing Stability Answer Date Recorded What is your housing situation today? I have ravin carrizales 07/13/[address] you li ve. Do you have problems with any of the following? None of the above 07/13/2024 Food Insecurity Answer Date Recorded Within the past 12 months, y ou worried that your food would run out before you got money to buy more: Never True 07/13/2024 Within the past 12 months,th e food you bought just didn't last and you didn't have enough money to get more: Never True Transportation Answer Date Recorded In the past 12 months, has l ack of transportation kept you from medical appts, meetings, work or from getting things needed for daily living? Yes, it has kept me from medical appointments or getting medications. 07/13/2024 Utilities Answer Date Recorded In the past 12 months, has t he electric, gas, oil or water company threatened to shut off services in your home? 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 Recall letter sent. Appointment: Follow Up Note: DM Month: February With: Donnell Please schedule appointment if Patient calls Back. documented in this encounter Plan of Treatment Upcoming Encounters Date Type Department Care Team (Late st Contact Info) Description 03/05/2025 2:00 PM EDT Office Visit [facility] ADULT DENTAL [address] [place] [address] Kelly, Nelly [address] [place] [address] 03/15/2025 2:15 PM EDT Office Visit [facility] MEDICINE [address] [place] [address] Rashaad Tinajero MD [address] [place] [address] documented as of this encounter Visit Diagnoses Not on filedocumented in this encounter Additional Health Concerns Assessment Noted Time PHQ-9 Depression Total Score: 2 07/13/20 24 1:44 PM EDT documented as of this encounter Care Teams Town Justice Relationship Specialty Start Date End Date Rashaad Tinajero MD [address] [place] [address] PCP - General Internal Medicine 06/19/15 documented as of this encounter
--- OUTSIDE RECORDS SUMMARY | 2025-01-02 10:28 | XMS_ITS | Encounter Summary ---
Author Organization [employer] Address [address] [place] [address] [address] [place] [address] Care Team Providers Care Freight Checker Name Role Phone Rashaad Tinajero MD Primary Care Provide r Encounter Details Date Type Department Care Team (Late st Contact Info) Description 04/08/2023 Abstract [facility] MEDICINE [address] [place] [address] Rashaad Tinajero MD [address] [place] [address] Social History Tobacco Use Types Packs/Day Years Used Date Smoking Tobacco: Never Assessed Depression Answer Date Recorded Patient Health Questionnaire-9 Score 9 04/01/2023 Depression Answer Date Recorded Patient Health Questionnaire-2 Score 2 04/01/2023 Comments Unknown Sex and Gender Information Value Date Recorded Sex Assigned at Female 09/28/2022 10:15 AM EDT Legal Sex Female 10:15 AM EDT Gender Identity Female 09/28/2022 10:15 AM EDT Sexual Orientation Straight 09/28/2022 10 :15 AM EDT COVID-19 Exposure Response Date Recorded In the last 10 days, have yo u been in contact with someone who was confirmed or suspected to have Coronavirus/COVID-19? No / Unsure 04/01/2023 11:39 AM EDT documented as of this encounter Plan of Treatment Upcoming Encounters Date Type Department Care Team (Late st Contact Info) Description 03/05/2025 2:00 PM EDT Office Visit [facility] ADULT DENTAL [address] [place] [address] Nelly Mendoza [address] [place] [address] 03/15/2025 2:15 PM EDT Office Visit [facility] MED[facility]INE [address] [place] [address] Rashaad Tinajero MD [address] [place] [address] Pending Results Name Type Priority Associated Diagnoses Date /Time Colonoscopy GI Routine 08/19/2021 documented as of this encounter Visit Diagnoses Not on filedocumented in this encounter Additional Health Concerns Assessment Noted Time PHQ-9 Depression Total Score: 9 04/01/20 23 12:16 PM EDT documented as of this encounter Care Teams Freight Checker Relationship Specialty Start Date End Date Rashaad Tinajero MD [address] [place] [id number] PCP - General Internal Medicine 06/19/15 documented as of this encounter
--- OUTSIDE RECORDS SUMMARY | 2025-01-02 10:28 | XMS_ITS | Encounter Summary ---
Author Organization [employer] Address [address] [facility] 7[address] [place] [address] Care Team Providers Care Consulting Group Analyst Name Role Phone Rashaad Tinajero MD Primary Care Provide r Reason for Visit * Reason Onset Date Comments Appointment Request 09/28/2023 Encounter Details Date Type Department Care Team ([facility] st Contact Info) Description 09/28/2023 Telephone [facility] MEDICINE [address] [place], [place] [phone] Rashaad Tinajero MD [address] [place], [place] [phone] Appointment Request Social History Tobacco Use Types [...] encounter Miscellaneous Notes * Telephone Encounter - Thalia Shrestha - 09/28/2023 11:14 AM EDT Tc from daughter requesting a PE appt. Knowledge Manager attempted to schedule. No availability. documented in this encounter Plan of Treatment Upcoming Encounters Date Type Department Care Team (Late st Contact Info) Description 03/05/2025 2:00 PM EDT Office Visit [facility] ADULT DENTAL [address] [place] [address] Kelly, Nelly [address] [place] [address] 03/15/2025 2:15 PM EDT Office Visit [facility] MEDICINE [address] [place] [address] Rashaad Tinajero MD [address] [place] [address] documented as of this encounter Visit Diagnoses Not on filedocumented in this encounter Additional Health Concerns Assessment Noted Time PHQ-9 Depression Total Score: 9 04/01/20 23 12:16 PM EDT documented as of this encounter Care Teams Consulting Group Analyst Relationship Specialty Start Date End Date Rashaad Tinajero MD [address] [place] [address] PCP - General Internal Medicine 06/19/15 documented as of this encounter
--- OUTSIDE RECORDS SUMMARY | 2025-01-02 10:28 | XMS_ITS | Clinical Summary ---
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 Diclofenac Sodium 1 % gel Use BID as needed 100 g 2 4 Active Additional Information Patient not taking.Reported on 08/24/2024 amLODIPine (Norvasc) 2.5 MG tablet Take 2.5 mg by mouth. 3 Active Apixaban Starter Pack (Eliquis DVT/PE Starter Pack) 5 MG tablet therapy pack Take 5 mg by mouth. 4 Active ARIPiprazole (Abilify) 2 MG tablet Take 1 tablet by mouth in the morning. 1 Active cholecalciferol 50 MCG (1999 UT) capsule Take 50 mcg by mouth in the morning. Active cholecalciferol (Vitamin D-3) 50 MCG (1999 UT) tablet Take 2,000 Units by mouth. Active metoprolol tartrate (Lopressor) 25 MG tablet Take 12.5 mg by mouth. 3 Active tacrolimus (Prograf) 1 MG capsule take 1 by oral route every am and 1 at pm Active acetaminophen (Tylenol) 500 MG tabletIndicatio ns:Acute pain of left knee Take 1 tablet (500 mg) by mouth every 8 (eight) hours if needed for mild pain. 90 tablet 3 4 Active Blood Glucose Monitoring Suppl (FreeStyle Lite) w/Device kitIndications: Newly diagnosed diabetes (CMS/HCC) 1 Device Once per day. 1 kit 4 Active FreeStyle lancetsIndicati ons:Newly diagnosed diabetes (CMS/HCC) 1 each by Other route Once per day. 100 each 3 4 04/06/20 25 Active FREESTYLE LITE test stripIndication s:Newly diagnosed diabetes (CMS/HCC) Check daily 100 each 11 4 04/06/20 25 Active ferrous sulfate 325 (65 Fe) MG EC tablet 4 Active amoxicillin (Amoxil) 500 MG capsule Take 4 capsules of amoxicillin 500 mg 1 hour prior dental procedure 12 capsule 4 Active Active Problems Problem Noted Date Diagnosed Date Viral upper respiratory tract infection 11/07/20 24 Assessment & Plan (11/07/2024 2:46 PM EST): Patient with c/o mildly productive cough, no fever, no sob, no chills Exam wnl. Lungs CTA B Covid and flu negative Plan: Symptomatic measures Robitussin, tylenol, increase fluids F/u if symptoms do not improve or worsen Missing teeth, acquired 08/31/2024 Generalized gingival recession, severe 4 Dental plaque 08/31/2024 Weight loss 07/13/2024 Assessment & Plan (11/07/2024 2:13 PM EST): She gained 5 lbs since last visit. Recent blood work done by Dr. Anaya 07/13/2024 showed: Normal CBC, BMP, LFTs Of note patient is up to date on her mammogram and colorectal cancer screen. Chest x-ray today was Normal. CT Abdomen was done 08/11/2024 IMPRESSION: 1. A cause for the patient's weight loss has not been found. 2. The thick walled appearance of the contracted gallbladder warrants gallbladder ultrasound for better assessment. 3. Incidental note made of marked fatty replacement of the pancreas, atrophic tangirnaq kidneys with transplant kidney in the right iliac fossa, sigmoid diverticulosis without diverticulitis and degenerative changes in the spine with grade 1 anterolisthesis of L5 upon S1. Abd US 08/2024 showed: IMPRESSION: 1. No ultrasound evidence of gallbladder disease or gallstones. 2. Atrophic tangirnaq kidneys. 3. 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 ESR and TSH Normal Assessment & Plan (08/15/2024 2:00 PM EDT): Since December of this year patient has lost 24 lbs, unexplained. She does c/o loss of appetite but this is of unclear etiology. Recent blood work done by Dr. Anaya 07/13/2024 showed: Normal CBC, BMP, LFTs Of note patient is up to date on her mammogram and colorectal cancer screen. Chest x-ray today was Normal. I ordered a CT Abdomen ( rule out pancreatic lession ). CT was done 08/11/2024 Reading is still pending. ESR and TSH Normal Today weight is stable, has not lost any more weight. Will await CT result Assessment & Plan (07/13/2024 4:31 PM EDT): Since December this year patient has lost 24 lbs, unexplained. She does c/o loss of appetite but this is of unclear etiology. Recent blood work done by Dr. Anaya 07/13/2024 showed: Normal CBC, BMP, LFTs Of note patient is up to date on her mammogram and colorectal cancer screen. Chest x-ray today was Normal. I will order a CT Abdomen ( rule out pancreatic lession ). ESR and TSH Follow up with me in 4 weeks I discussed with patient the need to eat her 3 meals a day. 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 Only a Popliteal fossa cyst measuring 5.1 x 1.2 x 3.1 cm. Plain films showed: Moderate degenerative changes left knee with moderate suprapatellar joint effusion. No visible acute fracture or dislocation seen. Pt seen by Ortho at [facility] on 2 different occasions last 05/19/2024. Received a steroid injection with no good results. Daughter states she continues to c/o pain on her knee and is interested in getting a second opinion. patient was referred to [facility] unfortunately they do not take her insurance. Pt's daughter tells me they are willing to see Dr. Deluna at [facility] Pt underwent an MRI that showed: 1) That eve is a degenerative posteromedial meniscus tear with extrusion of the meniscal body. This is stable and consistent with a degenerative medial meniscus tear. This is not what is causing her symptoms and I would not recommend isolated treatment of this degenerative tear as well only worsened her arthritic symptoms and will not help her. 2) There is a complex degenerative tear of the anterior horn of the lateral meniscus. This is difficult to treat and would not help her feel any better. I do not recommend treatment for the lateral meniscus tear 3) There is tricompartmental osteoarthritis. Of note there is a large osteochondral defect of the medial femoral condyle. This is consistent with arthritis. The treatment for arthritis in a 73-year-old woman would be arthroplasty. 4) There is a large joint effusion with synovitis and a Jordan's cyst. These are all common findings in a arthritic knee. 5) There is a possible partial tear of the ACL. This is not relevant to her condition and an incidental finding by the radiologist. This does not warrant treatment and is unlikely to cause symptoms. Pt was seen by Orthopaedic specialist Dr. Marcello Deluna who reviewed this with the daughter and recommended symptomatic treatment for this. Currently the patient is suffering mild symptoms according to her. She is able to walk long distances most days. Dr. Deluna mentioned that he would arrange for a gel injection and physical therapy. Pt had a recent injection 10/24/2024 Assessment & Plan (08/15/2024 12:10 PM EDT): Patient had a repeat LE US that showed: No evidence of deep venous thrombosis. Only a Popliteal fossa cyst measuring 5.1 x 1.2 x 3.1 cm. Plain films showed: Moderate degenerative changes left knee with moderate suprapatellar joint effusion. No visible acute fracture or dislocation seen. Pt seen by Ortho at [facility] on 2 different occasions last 05/19/2024. Received a steroid injection with no good results. Daughter states she continues to c/o pain on her knee and is interested in getting a second opinion. patient was referred to [facility] unfortunately they do not take her insurance. Pt's daughter tells me they are willing to see Dr. Deluna at [facility] They are awaiting the MRI appointment. Assessment & Plan (07/13/2024 4:22 PM EDT): Patient had a repeat LE US that showed: No evidence of deep venous thrombosis. Only a Popliteal fossa cyst measuring 5.1 x 1.2 x 3.1 cm. Plain films showed: Moderate degenerative changes left knee with moderate suprapatellar joint effusion. No visible acute fracture or dislocation seen. Pt seen by Ortho at [facility] on 2 different occasions last 05/19/2024. Received a steroid injection with no good results. Daughter states she continues to c/o pain on her knee and is interested in getting a second opinion. Plan: Patient has been referred to [facility] Assessment & Plan (04/06/2024 1:26 PM EDT): Patient seen initially at [facility] 01/26/2024 and was diagnosed with a non oclussive peroneal vein thrombus for which she was started on Eliquis. She subsequently presented at our [facility] with c/o posterior knee pain As part of her work up she had a repeat LE US that showed: No evidence of deep venous thrombosis. Only a Popliteal fossa cyst measuring 5.1 x 1.2 x 3.1 cm. Plain films showed: Moderate degenerative changes left knee with moderate suprapatellar joint effusion. No visible acute fracture or dislocation seen. Pt seen by Ortho 03/03/2024 Assessment & Plan (02/15/2024 12:58 PM EDT): Patient seen initially at [facility] 01/26/2024 and was diagnosed with a non oclussive peroneal vein thrombus for which she was started on Eliquis. She subsequently presented at our [facility] with c/o posterior knee pain As part of her work up she had a repeat LE US that showed: No evidence of deep venous thrombosis. Only a Popliteal fossa cyst measuring 5.1 x 1.2 x 3.1 cm. Plain films showed: Moderate degenerative changes left knee with moderate suprapatellar joint effusion. No visible acute fracture or dislocation seen. Pt has already been referred to Ortho by Independent Living Advisor and today we confirmed that appointment is for next month Pt already has a follow up appointment with me in March. Acute deep vein thrombosis (DVT) of left lower e xtremity 02/15/2024 Assessment & Plan (07/13/2024 4:15 PM EDT): Resolved She completed anticoagulation for the duration recommended. Assessment & Plan (04/06/2024 1:26 PM EDT): US done at [facility] showed non oclussive thrombus in the peroneal veins measuring at least 3.1 cm. Pt was started on Eliquis 5 mg po BID started 01/26/2024 by Nephrology Pt was supposed to stay on it x 3 months (until 04/25/2024). It appears this was unprovoked although pt is rather sedentary. Assessment & Plan (02/15/2024 12:58 PM EDT): US done at [facility] showed non oclussive thrombus in the peroneal veins measuring at least 3.1 cm. Pt was started on Eliquis 5 mg po BID started 01/26/2024 by Nephrology Pt to stay on it x 3 months. It appears this was unprovoked although pt is rather sedentary. Class 2 severe obesity due t o excess calories with serious comorbidity and body mass index (BMI) of 36.0 to 36.9 in adult 01/06/2024 Assessment & Plan (01/06/2024 2:29 PM EST): Patient has been counseled and educated about diet and exercise. Personal goal of weight loss discussedPatient has comorbidity of: HTN Type 2 diabetes mellitus wit h kidney complication, without long-term current use of insulin 01/06/2024 Assessment & Plan (11/07/2024 2:14 PM EST): Here for a follow up in regards of her DM Hgb A1c 11/07/2024: 6.6 from 6.5 Pt previously referred to [employer] to adhere to Diabetic diet Plan: continue diabetic diet Assessment & Plan (08/15/2024 12:15 PM EDT): Here for a follow up FBS 04/04/2024 126 Hgb A1c 07/13/2024: 6.5 Pt previously referred to [employer] to adhere to Diabetic diet Plan; continue diabetic diet Assessment & Plan (07/13/2024 1:48 PM EDT): Here for a follow up FBS 04/04/2024 126 Hgb A1c 07/13/2024: 6.5 Pt previously referred to [employer] to adhere to Diabetic diet Plan; continue diabetic diet Assessment & Plan (04/06/2024 1:31 PM EDT): Newly diagnosed DM FBS 04/04/2024 126 Hgb A1c: 6.7 Plan: Pt referred to [employer] to adhere to Diabetic diet Assessment & Plan (01/06/2024 2:30 PM EST): Elevated FBS 129 Repeat ,add Hgb A1c Pes planus 11/04/2023 Assessment & Plan (11/04/2023 11:09 AM EST): Will refer to podiatry Preventative health care 04/01/2023 Assessment & Plan (07/13/2024 1:54 PM EDT): Mammogram: 02/02/2024 NL Birads 1 Pap Smear: 03/27/2013 NL S/P Hysterectomy, no need to continue Colonoscopy: 08/19/2021 Dr. Booth Vaccines Pneumovax: 09/09/1999 Tdap: 03/13/2015 Zoster: 03/13/2015 Dexa scan: 04/21/2016 Assessment & Plan (02/15/2024 12:59 PM EDT): Physical exam today within normal limits Mammogram: 02/02/2024 NL Birads 1 Pap Smear: 03/27/2013 NL S/P Hysterectomy, no need to continue Colonoscopy: 08/19/2021 Dr. Booth Vaccines Pneumovax: 09/09/1999 Tdap: 03/13/2015 Zoster: 03/13/2015 Dexa scan: 04/21/2016 Assessment & Plan (11/04/2023 10:57 AM EST): Physical exam today within normal limits Mammogram: 10/12/2022 NL Birads 1 Pap Smear: 03/27/2013 NL S/P Hysterectomy, no need to continue Colonoscopy: 08/19/2021 Dr. Booth Vaccines Pneumovax: 09/09/1999 Tdap: 03/13/2015 Zoster: 03/13/2015 Dexa scan: 04/21/2016 Assessment & Plan (04/01/2023 11:54 AM EDT): Mammogram: 10/12/2022 NL Birads 1 Pap Smear: 03/27/2013 NL S/P Hysterectomy, no need to continue Colonoscopy: 08/19/2021 Dr. Booth Vaccines Pneumovax: 09/09/1999 Tdap: 03/13/2015 Zoster: 03/13/2015 Dexa scan: 04/21/2016 Diverticulosis of colon 03/04/2022 Cataract 02/11/2021 Anemia of chronic disease 02/11/2021 Kidney replaced by transplant 03/01/2018 Assessment & Plan (11/07/2024 2:05 PM EST): doing well s/p Kidney transplant 09/2017. She is currently on Tacrolimus 1.5 in the morning and 1.5 in the evening. Assessment & Plan (04/01/2023 8:38 AM EDT): doing well s/p Kidney transplant 09/2017. She is currently on Myfortic 2 tabs BID and Tacrolimus 1.5 in the morning and 1.5 in the evening. Stage 3a chronic kidney disease 12/24/2016 Assessment & Plan (07/13/2024 4:16 PM EDT): S/P transplant had stable kidney allograft function. Doing well. Date of Transplant: 10/14/2017 Transplant Type: DD kidney CKD Stage: stage 3 - GFR 30-59 GFR: [address] anaya Assessment & Plan (01/06/2024 2:22 PM EST): S/P transplant had stable kidney allograft function. Doing well. Date of Transplant: 10/14/2017 Transplant Type: DD kidney CKD Stage: stage 3 - GFR 30-59 GFR: 58 Seen by Nephrology Osteoporosis 07/30/2016 Assessment & Plan (04/01/2023 8:39 AM EDT): Seen on Bone densitometry 04/21/2016 I have contacted pts drapery operator to obtain some guidance regarding the treatment for this given her CKD stage IV Essential hypertension 09/19/2015 Assessment & Plan (11/07/2024 2:03 PM EST): Pt is here for a f/u BP controlled She is on a regimen of: Amlodipine 2.5 mg po daily and Metoprolol 12.5 mg po daily Given adequate blood pressure control will continue with current medical regimen. Most recent electrolytes 10/30/2024 were stable. CXRAY done on: 05/14/2018 showed: cardiomegaly and mild interstitial edema patient advised to adhere to a low sodium diet, encouraged about medication compliance. Assessment & Plan (07/13/2024 1:45 PM EDT): Pt is here for a f/u BP controlled She is on a regimen of: Amlodipine 2.5 mg po daily and Metoprolol 12.5 mg po daily Given adequate blood pressure control will continue with current medical regimen. Most recent electrolytes 07/08/2024 were stable. CXRAY done on: 05/14/2018 showed: cardiomegaly and mild interstitial edema patient advised to adhere to a low sodium diet, encouraged about medication compliance. Assessment & Plan (04/06/2024 1:25 PM EDT): Pt is here for a f/u BP controlled She is on a regimen of: Amlodipine 2.5 mg po daily and Metoprolol 12.5 mg po daily Given adequate blood pressure control will continue with current medical regimen. Most recent electrolytes 01/05/2024 were wnl. CXRAY done on: 05/14/2018 showed: cardiomegaly and mild interstitial edema patient advised to adhere to a low sodium diet, encouraged about medication compliance. Assessment & Plan (01/06/2024 2:14 PM EST): Pt is here for a f/u She is on a regimen of: Amlodipine 2.5 mg po daily back in 01/2020 and Metoprolol 12.5 mg po daily Given adequate blood pressure control will continue with current medical regimen. Most recent electrolytes 01/05/2024 were wnl. CXRAY done on: 05/14/2018 showed: cardiomegaly and mild interstitial edema patient advised to adhere to a low sodium diet, encouraged about medication compliance. Assessment & Plan (11/04/2023 10:55 AM EST): Pt is here for a f/u She is on a regimen of: Amlodipine 2.5 mg po daily back in 01/2020 and Metoprolol 12.5 mg po daily Given adequate blood pressure control will continue with current medical regimen. Most recent electrolytes 10/30/2022 were wnl. Today will repeat CXRAY done on: 05/14/2018 showed: cardiomegaly and mild interstitial edema patient advised to adhere to a low sodium diet, encouraged about medication compliance. Assessment & Plan (04/01/2023 11:50 AM EDT): Pt is here for a f/u She is on a regimen of: Amlodipine 2.5 mg po daily back in 01/2020 and Metoprolol 12.5 mg po daily Given adequate blood pressure control will continue with current medical regimen. Most recent electrolytes 10/30/2022 were wnl. CXRAY done on: 05/14/2018 showed: cardiomegaly and mild interstitial edema patient advised to adhere to a low sodium diet, encouraged about medication compliance. Hyperlipidemia 10/31/2012 Assessment & Plan (01/06/2024 2:16 PM EST): Pt here for a f/u Patient with elevated lipids. Most recent lipid profile from: 01/05/2024 Component Ref Range & Units 1 d ago 1 yr ago 2 yr ago Triglycerides <150 mg/dL 97 101 143 Comment: Desirable Triglyceride: ? less than 150 mg/dLBorderline High Triglyceride ??150-199 mg/dLHigh Triglyceride: ?200-499 mg/dLVery High Triglyceride: ? greater than or equal to ?5OO mg/dL Cholesterol <200 mg/dL 145 Comment: Desirable Cholesterol: ?less than 200 mg/dLBorderline High Cholesterol: ??200-239 mg/dLHigh Cholesterol: ? greater than 239 mg/dL LDL Cholesterol Calculated <100 mg/dL 73 Comment: Desirable LDL: ? less than 100 mg/dLNear Optimal/Above Optimal LDL: ??110-129 mg/dLBorderline High LDL: ? 130-159 mg/dLHigh LDL: ?160-189 mg/dLVery High LDL: ? greater than or equal to ? 190 mg/dL HDL Cholesterol >40 mg/dL 53 61 R 68 R Currently on a regimen of : Vytorin 10/10 1 tab po daily Pt stopped taking Atorvastatin due to headaches The Vytorin was started by her Independent Living Advisor Plan: Continue current regimen. advised to try to adhere to a low cholesterol diet, counseled and educated about diet and exercise Assessment & Plan (11/04/2023 10:56 AM EST): Pt here for a f/u Patient with elevated lipids. Most recent lipid profile from: 10/30/2022 shows a total cholesterol of: 147 triglycerides of: 101 HDL of: 61 and LDL of: 68 Currently on a regimen of : Vytorin 10/10 1 tab po daily Pt stopped taking Atorvastatin due to headaches The Vytorin was started by her Independent Living Advisor Plan: Continue current regimen. Repeat Lipid profile advised to try to adhere to a low cholesterol diet, counseled and educated about diet and exercise Assessment & Plan (04/01/2023 11:53 AM EDT): Pt here for a f/u Patient with elevated lipids. Most recent lipid profile from: 10/30/2022 shows a total cholesterol of: 147 triglycerides of: 101 HDL of: 61 and LDL of: 68 Currently on a regimen of : Vytorin 10/ 1 tab po daily Pt stopped taking Atorvastatin due to headaches The Vytorin was started by her Independent Living Advisor Plan: Continue current regimen. advised to try to adhere to a low cholesterol diet, counseled and educated about diet and exercise IgA nephropathy 10/31/2012 10/29/2023 Assessment & Plan (01/06/2024 2:21 PM EST): Hemorrhoids 05/03/2010 Depressive disorder 05/03/2009 Assessment & Plan (04/01/2023 3:48 PM EDT): Used to follow with Dinora psychotherapist at [facility]. No longer seeing anyone on trazodone doing well. Pt with previous c/o paranoia, Pt tells me she was seen by Neurologist at [facility] and was told she was fine She saw a psychiatric prescriber once at [facility] and was prescribed Abilify 2 mg po daily with good results. He drapery operator Dr harrington has continued to prescribed Today she was evaluated by our [facility] clinician Encounters Date Type Department Care Team Description 12/25/2024 Telephone [facility] [address] [place] [address] Rashaad Tinajero MD February11/16/2024 11:00 AM EST Office Visit [facility] [address], [place] [id number] Ruiz-Petty, Chantelle, DDS Missing teeth, acquired (Primary Dx) 11/15/2024 Telephone [facility] [address] [place] [address] Rashaad Tinajero MD [facility] 11/10/2024 Telephone [facility] [address], [place] [id number] Caleb Pandey MA Rx for rollator walker 11/07/2024 1:30 PM EST Office Visit [facility] [address] [place] [address] Rashaad Tinajero MD Essential hypertension (Primary Dx); Type 2 diabetes mellitus with stage 3a chronic kidney disease, without long-term current use of insulin ([facility]); Kidney replaced by transplant; Weight loss; Primary osteoarthritis of left knee; Viral upper respiratory tract infection 11/07/2024 Travel 10/30/2024 Orders Only GENERIC EXTERNAL DATA DEPARTMENT Provider, Generic External Data 10/25/2024 Patient Outreach [facility] [place] [address] Rashaad Tinajero MD Pre-visit Planning (SDOH screening was completed on 07/13/2024) 10/20/2024 3:30 PM EST Office Visit [facility] [address] [facility] [place] [address] Godwin, Chantelle, DDS Missing teeth, acquired (Primary Dx) 10/13/2024 Telephone [facility] [place] [address] Rohini Rodarte, RN Results 10/09/2024 Telephone [facility] [place] [address] Rashaad Tinajero MD Chart Prep 10/06/2024 8:30 AM EST Office Visit [facility] [place] [address] Godwin, Chantelle, DDS Missing teeth, acquired (Primary Dx) from Last 3 Months Immunizations Name Administration Dates Next Due Hep B, Unspecified 09/22/2007,04/27/2007, 007 Influenza High-dose Quadriva lent Preservative Free 08/27/2022 Influenza injectable quadriv alent IIV4 with preservative 10/29/2016,08/26/2015 Influenza injectable quadriv alent preservative free 11/04/2023,08/22/2020,10/17/2019 Influenza, High Dose Seasona l, Preservative Free 08/15/2024,09/08/2018,09/09/2017 Influenza, IIV3, injectable 07/30/2020, 4,11/29/2011 Influenza, Split (incl. joana fied surface antigen) 08/30/2013,08/08/2012 Pneumococcal Conjugate PCV 13 09/19/2015 Pneumococcal Polysaccharide PPSV23 02/12/2012, TD (adult), 2 Lf tetanus tox oid, preservative free, adsorbed 08/27/2022,06/21/1997 Td (adult), unspecified 11/18/2011 Tdap 03/13/2015 Varicella 11/18/2011,10/19/2011 Zoster, live 03/13/2015 Social History Tobacco Use Types Packs/Day Years Used Date Smoking Tobacco: Never Passive Smoke Exposure: Never Smokeless Tobacco: Never Tobacco Cessation:Counseling Given: Not Answered Alcohol Use Standard Drinks/Week Comments Never 0 (1 standard drink = 0.6 oz pur e alcohol) Depression Answer Date Recorded Patient Health Questionnaire-9 Score 2 07/13/2024 Patient Health Questionnaire-9 Score 2 07/13/2024 Last PHQ-9: Questionnaire Data Not on file 0 07/13/2024 Housing Stability Answer Date Recorded What is your housing situation today? I have ravin all 07/13/[address] you li [...] Orientation Straight 09/28/2022 10 :15 AM EDT Last Filed Vital Signs Vital Sign Reading Time Taken Comments Blood Pressure 128/80 11/07/2024 2:20 PM EST Pulse 82 11/07/2024 1:57 PM EST Temperature 36 ??C (96.8 ??F) 11/07/2024 1:57 PM EST Respiratory Rate 20 11/07/2024 1:57 PM EST Oxygen Saturation 97% 11/07/2024 1:57 PM EST Inhaled Oxygen Concentration - - Weight 74.8 kg (165 lb) 11/07/2024 1:57 PM EST Height 149.9 cm (4' 11 ) 11/07/2024 1:57 PM EST Body Mass Index 33.33 11/07/2024 1:57 PM EST Plan of Treatment Upcoming Encounters Date Type Department Care Team (Late st Contact Info) Description 03/05/2025 2:00 PM EDT Office Visit [facility] [address] [place] [address] Kelly, Nelly [address] [place] [address] 03/15/2025 2:15 PM EDT Office Visit [facility] [address] [place] [address] Rashaad Tinajero MD [address] [place] [address] Health Maintenance Due Date Last Done Comments CT Colonography 02/03/1949 FIT DNA/Cologuard 02/03/1949 FIT 02/03/1949 FOBT 02/03/1949 Sigmoidoscopy 02/03/1949 COVID-19 Vaccine (#1) 02/03/1954 Diabetes: Foot Exam 02/03/1959 Eye Exam 02/03/1959 Zoster Vaccines (1 of 2) 05/08/2015 03/13/2015 Pneumococcal Vaccine: 50+ Years (4 of 4 - PCV20 or PCV21) 09/19/2020 09/19/2015, 02/12/2012, 09/09/1999 RSV Patients and Patients Aged 60 years or older (1 - 1-dose 75+ series) 02/04/2024 Lipid Panel 01/05/2025 01/05/2024, 12/0 12/2021, 02/03/2021 Dental Oral Exam 02/22/2025 08/24/2024, 05/27/2016 Dental Prophylaxis 03/02/2025 08/31/2024 Diabetes: Hemoglobin A1C 05/08/2025 024, 07/13/2024, 04/04/2024 Depression Screening 07/13/2025 07/13/2024, 07/13/20 24 SDOH Screening 07/13/2025 07/13/2024 Dental X-Ray: Bitewings 08/25/2025 08/24/2024, 05/27 Alcohol/Substance Use Screening 11/07/2025 11/07/2024 Tobacco Screening 11/07/2025 11/07/2024 Dental X-Ray: Full Mouth 08/25/2027 08/24/2024, 04/30 Colonoscopy 08/19/2031 08/19/2021 Colorectal Cancer Screening 08/19/2031 DTaP/Tdap/Td Vaccines (3 - Td or Tdap) 08/27/2032 08/27/2022, 03/13/2015, 11/18/2011, Additional history exists Hepatitis B Vaccines Completed 09/22/2007, 04/27/2007, 03/24/2007 Hepatitis C Screening Completed 11/13/2020 Influenza Vaccine Completed 08/15/2024, , 08/27/2022, Additional history exists HIB Vaccines Aged Out No longer eligi ble based on patient's age to complete this topic HPV Vaccines Aged Out No longer eligi ble based on patient's age to complete this topic Hepatitis A Vaccines Aged Out No long er eligible based on patient's age to complete this topic IPV Vaccines Aged Out No longer eligi ble based on patient's age to complete this topic Meningococcal Vaccine Aged Out No sindy lucrecia eligible based on patient's age to complete this topic RSV under 20 months Aged Out No longe r eligible based on patient's age to complete this topic Rotavirus Vaccines Aged Out No longer eligible based on patient's age to complete this topic Procedures Procedure Name Priority Date/Time Associated Diagnosis Comments ADJUNCTIVE GENERAL SERVICES - PROFESSIONAL VISITS - CASE PRESENTATION, SUBSEQUENT TO DETAILED AND EXTENSIVE TREATMENT PLANNING Routine 11/16/2024 11:00 AM EST Missing teeth, acquired 29,30,31,24,25,18,19, 20,28 MANDIBULAR PARTIAL DENTURE - RESIN BASE (INCLUDING, RETENTIVE/CLASPING MATERIALS, RESTS, AND TEETH) Routine 11/16/2024 11:00 AM EST Missing teeth, acquired 2,3,7,8,9,10,13,14,15 MAXILLARY PARTIAL DENTURE - RESIN BASE (INCLUDING, RETENTIVE/CLASPING MATERIALS, RESTS, AND TEETH) Routine 11/16/2024 11:00 AM EST Missing teeth, acquired POCT INFLUENZA B (ID NOW RAPID MOLECULAR) Routine 11/07/2024 3:59 PM EST Viral upper respiratory tract infection POCT INFLUENZA A (ID NOW RAPID MOLECULAR) Routine 11/07/2024 3:59 PM EST Viral upper respiratory tract infection POCT COVID-19 AG JAOCBSON ID NOW Routine 11/07/2024 3:58 PM EST Viral upper respiratory tract infection POCT GLYCATED HEMOGLOBIN, TOTAL Routine 11/07/2024 2:03 PM EST Type 2 diabetes mellitus with stage 3a chronic kidney disease, without long-term current use of insulin ([facility]) POCT GLUCOSE Routine 11/07/2024 2:02 PM EST Type 2 diabetes mellitus with stage 3a chronic kidney disease, without long-term current use of insulin ([facility]) TACROLIMUS, HIGHLY SENSITIVE, LC/MS/MS Routine 10/30/2024 10:29 AM EST ALT Routine 10/30/2024 10:29 AM EST AST Routine 10/30/2024 10:29 AM EST MAGNESIUM Routine 10/30/2024 10:29 AM EST PHOSPHATE ( PHOSPHORUS) Routine 10/30/2024 10:29 AM EST CALCIUM Routine 10/30/2024 10:29 AM EST CREATININE, SERUM Routine 10/30/2024 10: 29 AM EST UREA NITROGEN (BUN) Routine 10/30/2024 1 0:29 AM EST ELECTROLYTE PANEL Routine 10/30/2024 10: 29 AM EST CBC WITH AUTO DIFFERENTIAL Routine 10/30/2024 10:29 AM EST PROTEIN CREATININE RATIO, URINE Routine 10/30/2024 10:26 AM EST URINALYSIS WITH REFLEX TO MICROSCOPIC Routine 10/30/2024 10:26 AM EST BITE REGISTRATION Routine 10/20/2024 3:3 0 PM EST Missing teeth, acquired DENTURE IMPRESSION Routine 10/06/2024 8: 30 AM EST Missing teeth, acquired PROPHYLAXIS - ADULT Routine 08/31/2024 1 0:00 AM EDT Missing teeth, acquired Generalized gingival recession, severe Dental plaque DIAGNOSTIC - DIAGNOSTIC IMAGING - INTRAORAL - COMPREHENSIVE SERIES OF RADIOGRAPHIC IMAGES Routine 08/24/2024 10:00 AM EDT COMPREHENSIVE ORAL EVALUATION - NEW OR ESTABLISHED PATIENT Routine 08/24/2024 10:00 AM EDT Encounter for dental examination Periodontal disease Dental plaque LIPID PANEL WITH REFLEX TO DIRECT LDL Routine 01/05/2024 11:16 AM EST Essential hypertension Mixed hyperlipidemia HM COLONOSCOPY Routine 08/19/2021 ZZZ HISTORICAL HEPATITIS C AB W/REFL TO HCV RNA, QN, PCR Routine 11/13/2020 2:05 PM EST from Last 3 Months or Most Recently Relevant to Health Maintenance Results * POCT Rapid Influenza B JACOBSON ID NOW (11/07/2024 3:59 PM EST) [facility] Influenza B Negative Negative, Indeterminate [facility] QC Media Lot # [id number] [facility] Lot# Expiration Date [facility] Swab 11/07/2024 3:59 PM EST us Rashaad Kirk MD POINT OF CARE TEST EN TER/EDIT ORDERABLES Final Result Performing Organization Address [facility] Co de Phone Number [facility] [address] [place] [phone] * POCT Rapid Influenza A JACOBSON ID NOW (11/07/2024 3:59 PM EST) [facility] Influenza A Negative Negative, Indeterminate [facility] QC Media Lot # [id number] [facility] Lot# Expiration Date [facility] Swab 11/07/2024 3:59 PM EST Rashaad Kirk MD POINT OF CARE TEST EN TER/EDIT ORDERABLES Final Result Performing Organization Address [facility] de Phone Number [facility] [address] [place] [phone] * POCT Rapid Covid-19 JACOBSON ID NOW (11/07/2024 3:58 PM EST) [facility] Coronavirus Antigen PCR Negative Negative, Indeterminate, None Detected, Invalid, Specimen unsatisfactory for evaluation, Weakly Positive QC Media Lot # [id number] Lot# Expiration Date Swab 11/07/2024 3:58 PM EST us Rashaad Kirk MD POINT OF CARE TEST EN TER/EDIT ORDERABLES Final Result * (ABNORMAL) POCT HGB A1C (11/07/2024 2:03 PM EST) [facility] Hemoglobin A1C 6.6(A) 4.0 - 6.0 % QC Media Lot # [id number] Lot# Expiration Date Blood 11/07/2024 2:03 PM EST Rashaad Kirk MD POINT OF CARE TEST EN TER/EDIT ORDERABLES Final Result * POCT Glucose (11/07/2024 2:02 PM EST) Glucose Blood, POC 131 60 - 200 mg/dL Comment:Random QC Media Lot # [id number] Lot# Expiration Date Blood Capillary blood specimen / Unknown 11/07/2024 2:02 PM EST Rashaad Kirk MD POINT OF CARE TEST EN TER/EDIT ORDERABLES Final Result * Creatinine, Serum (10/30/2024 10:29 AM EST) Pathologist [facility] Creatinine, Serum 1.11 0.5 - 1.4 mg/dL [facility] Estimated Glomerular Filt Rate 48 [facility] Comment:Chronic Kidney Disea se: Estimated GFR < 60 mL/min/1.15x2Zhvdva Kidney Disease: Estimated GFR < 15 mL/min/1.73m2 10/30/2024 10:2 9 AM EST 10/30/2024 10:29 AM EST Generic External Data Provider LAB BLOOD ORDERAB LES Final Result [facility] [address] [place] [phone] * (ABNORMAL) CBC auto differential (10/30/2024 10:29 AM EST) White Blood Count 7.3 4.8 - 10.8 X10*3/uL [facility] Red Blood Count 5.10 4.20 - 5.50 X10*6/uL [facility] Hemoglobin 13.1 12.0 - 16.0 g/dl [facility] Hematocrit 40.6 37.0 - 47.0 % [facility] Mean Corpuscular Volume 79.6(L) 80.0 - 98.0 fL [facility] Mean Corpuscular Hemoglobin 25.7(L) 27.0 - 33.0 pg [facility] Mean Corpuscular HGB Conc 32.3 31.0 - 35.0 g/dl [facility] Red Cell Distribution Width 13.8 11.0 - 16.0 % [facility] Platelet Count 212 160 - 400 X10*3/uL [facility] Mean Platelet Volume 10.4 9.4 - 12.3 fL [facility] Neutrophils Percent Auto 74.1(H) 45 - 73 % [facility] Imm Gran Pct Auto 0.3 0.0 - 0.4 % [facility] Lymphocytes Percent Auto 15.9(L) 20 - 40 % [facility] Monocytes Percent Auto 8.9 2 - 11 % [facility] Eosinophils Percent Auto 0.7 0 - 4 % [facility] Basophils Percent Auto 0.1 0 - 2 % [facility] NRBC Pct Auto 0.0 0.0 - 0.2 /100WBC [facility] Neutrophils Absolute Auto 5.4 2.0 - 8.3 x10*3/uL [facility] Imm Gran Abs Auto 0.02 0.00 - 0.03 X10*3/uL [facility] Lymphocytes Absolute Auto 1.2 1.2 - 4.9 X10*3/uL [facility] Monocytes Absolute Auto 0.7 0.1 - 1.2 X10*3/uL [facility] Eosinophils Absolute Auto 0.1 0.0 - 0.4 X10*3/uL [facility] Basophils Absolute Auto 0.0 0.0 - 0.2 X10*3/uL [facility] NRBC Abs Auto 0.000 0.0 - 0.012 X10*3/uL [facility] 10/30/2024 10:2 9 AM EST 10/30/2024 10:29 AM EST Generic External Data Provider LAB BLOOD ORDERAB LES Final Result Performing Organization Address [facility] de Phone Number [facility] [address] [place] [phone] * (ABNORMAL) Tacrolimus, Highly Sensitive, LC/MS/MS (10/30/2024 10:29 AM EST) Tacrolimus 3.2(A) mcg/L [facility] Comment:No definitive therap eutic or toxic ranges have beenestablished. Optimal blood drug levels are influencedby type of transplant, patient response, time post-transplant, co-administration of other drugs, anddrug formulation. The following trough range is asuggested guideline: 5.0-20.0 mcg/L.This test was developed and its analytical performancecharacteristics have been determined by [employer]. It has not been cleared or approved by theA. This assay has been validated pursuant to the CLIAregulations and is used for clinical purposes.THIS TEST WAS PERFORMED AT:[employer] [address] [id number] CHACON MD 10/30/2024 10:2 9 AM EST 10/30/2024 10:29 AM EST Generic External Data Provider LAB BLOOD ORDERAB LES Final Result Performing Organization Address [facility] Co de Phone Number [facility] [address] [place] [phone] * (ABNORMAL) BUN (Blood Urea Nitrogen) (10/30/2024 10:29 AM EST) Urea Nitrogen (BUN) 20(H) 9 - 16 mg/dL [facility] 10/30/2024 10:2 9 AM EST 10/30/2024 10:29 AM EST Generic External Data Provider LAB BLOOD ORDERAB LES Final Result Performing Organization Address [facility] de Phone Number [facility] [address] [place] [phone] * ALT (10/30/2024 10:29 AM EST) Alanine Aminotransferase 16 0 - 31 U/L [facility] 10/30/2024 10:2 9 AM EST 10/30/2024 10:29 AM EST Generic External Data Provider LAB BLOOD ORDERAB LES Final Result Performing Organization Address [facility] Phone Number [facility] [address] [place] [phone] * AST (10/30/2024 10:29 AM EST) Aspartate Amino Transferase 22 5 - 31 U/L [facility] 10/30/2024 10:2 9 AM EST 10/30/2024 10:29 AM EST Generic External Data Provider LAB BLOOD ORDERAB LES Final Result Performing Organization Address [facility] Number [facility] [address] [place] [phone] * Phosphate (As Phosphorus) (10/30/2024 10:29 AM EST) Phosphorus 3.7 2.7 - 4.5 mg/dL [facility] 10/30/2024 10:2 9 AM EST 10/30/2024 10:29 AM EST Generic External Data Provider LAB BLOOD ORDERAB LES Final Result Performing Organization Address [facility] Number [facility] [address] [place] [phone] * Magnesium (10/30/2024 10:29 AM EST) Magnesium 1.7 1.6 - 2.6 mg/dL [facility] 10/30/2024 10:2 9 AM EST 10/30/2024 10:29 AM EST Generic External Data Provider LAB BLOOD ORDERAB LES Final Result Performing Organization Address [facility] Phone Number [facility] [address] [place] [phone] * Calcium (10/30/2024 10:29 AM EST) Pathologist [facility] Calcium 9.3 8.4 - 10.2 mg/dL [facility] 10/30/2024 10:2 9 AM EST 10/30/2024 10:29 AM EST Generic External Data Provider LAB BLOOD ORDERAB LES Final Result Performing Organization Address [facility] Number [facility] [address] [place] [phone] * (ABNORMAL) Electrolyte Panel (10/30/2024 10:29 AM EST) [facility] Sodium 136 135 - 145 mmol/L [facility] Potassium 4.1 3.3 - 5.1 mmol/L [facility] Chloride 105 96 - 108 mmol/L [facility] Carbon Dioxide 24 22 - 29 mmol/L [facility] Anion Gap 11(L) 12 - 20 [facility] 10/30/2024 10:2 9 AM EST 10/30/2024 10:29 AM EST Generic External Data Provider LAB BLOOD ORDERAB LES Final Result Performing Organization Address [facility] Phone [facility] [address] [place] [phone] * Protein Creatinine Ratio, Urine (10/30/2024 10:26 AM EST) Creatinine, Urine 82.94 mg/dL [facility] Protein, Total, Random Urine <7 <12 mg/dL [facility] Protein/Creatin ine Ratio, Ur TNP <0.2 [facility] Comment:Unable to calculate urine protein creatinine ratio due tolow creatinine or protein result. 10/30/2024 10:2 6 AM EST 10/30/2024 10:47 AM EST Generic External Data Provider LAB URINE ORDERAB LES Final Result Performing Organization Address [facility]/ZIP Co de Phone Number [facility] [address] [place] [phone] * Urinalysis with Reflex to Microscopic (10/30/2024 10:26 AM EST) Color Urine Yellow [facility] Appearance Urine Clear [facility] PH 6.0 5.0 - 9.0 [facility] Glucose Urine UA Negative Negative mg/dL [facility] Urine Blood Negative Negative [facility] Specific [place] - Urine 1.015 1.005 - 1.025 [facility] Urine Protein Negative Neg-Trace mg/dL [facility] Urine Ketones Negative Negative mg/dL [facility] Nitrite Urine Negative Negative [facility] Leukocyte Esterase Urine Negative Negative [facility] 10/30/2024 10:2 6 AM EST 10/30/2024 10:47 AM EST Generic External Data Provider LAB URINE ORDERAB LES Final Result Performing Organization Address [facility]/ZIP Co de Phone Number [facility] [address] [place] [phone] * Lipid Panel with Reflex to Direct LDL (01/05/2024 11:16 AM EST) Triglycerides 97 <150 mg/dL [facility] Comment:Desirable Triglyceri de: less than 150 mg/dLBorderline High Triglyceride 150-199 mg/dLHigh Triglyceride: 200-499 mg/dLVery High Triglyceride: greater than or equal to 5OO mg/dL Cholesterol 145 <200 mg/dL [facility] Comment:Desirable Cholestero l: less than 200 mg/dLBorderline High Cholesterol: 200-239 mg/dLHigh Cholesterol: greater than 239 mg/dL LDL Cholesterol Calculated 73 <100 mg/dL [facility] Comment:Desirable LDL: less than 100 mg/dLNear Optimal/Above Optimal LDL: 110- 129 mg/dLBorderline High LDL: 130-159 mg/dLHigh LDL: 160-189 mg/dLVery High LDL: greater than or equal to 190 mg/dL HDL Cholesterol 53 >40 mg/dL [facility] Comment:Desirable HDL: great er than 40 mg/dL Note: This HDL assay may give artificially low results in patients with liver disease. Blood 01/05/2024 11:1 6 AM EST 01/05/2024 11:16 AM EST Rashaad Kirk MD LAB BLOOD ORDERABLES Final Result [facility] [address] [place] [phone] * Colonoscopy (08/19/2021) Pathologist [facility] Colonoscopy Normal Normal Historical Provider HEALTH MAINTENANCE Final Result * HEPATITIS C AB W/REFL TO HCV RNA, QN, PCR (11/13/2020 2:05 PM EST) HEPATITIS C ANTIBODY NON-REACT ETHEL NON-REACT ETHEL [facility] INDEX 0.02 <1.00 [facility] Comment: ?? HCV antibody was non-reactive. There is no laboratory ?? evidence of HCV infection. ?? In most cases, no further action is required. However, if recent HCV exposure is suspected, a test for HCV RNA (test code 80233) is suggested. ?? For additional information please refer to http://education.[employer]/faq/HYT95u5 (This link is being provided for informational/ educational purposes only.) ?? 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
[2025-01-02 10:58] LABS: Basophils Percent Auto 0.5 % (0-2); Eosinophils Absolute Auto 0.1 X10*3/uL (0.0-0.4); Eosinophils Percent Auto 1.2 % (0-4); Hematocrit 43.2 % (37.0-47.0); Hemoglobin 13.4 g/dl (12.0-16.0); Imm Gran Abs Auto 0.01 X10*3/uL (0.00-0.03); Imm Gran Pct Auto 0.2 % (0.0-0.4); Lymphocytes Absolute Auto 1.2 X10*3/uL (1.2-4.9); Lymphocytes Percent Auto 28.4 % (20-40); Mean Corpuscular Hemoglobin 25.1 pg (27.0-33.0); Mean Corpuscular Volume 80.9 fL (80.0-98.0); Mean Platelet Volume 11.1 fL (9.4-12.3); Monocytes Absolute Auto 0.5 X10*3/uL (0.1-1.2); Monocytes Percent Auto 10.7 % (2-11); Neutrophils Absolute Auto 2.5 x10*3/uL (2.0-8.3); Platelet Count 210 X10*3/uL (160-400); Red Blood Count 5.34 X10*6/uL (4.20-5.50); Red Cell Distribution Width 14.2 % (11.0-16.0); White Blood Count 4.2 X10*3/uL (4.8-10.8)
[2025-01-02 11:13] LABS: Anion Gap 14 (12-20); Blood Urea Nitrogen 17 mg/dL (9-16); Calcium 9.1 mg/dL (8.4-10.2); Carbon Dioxide 25 mmol/L (22-29); Chloride 106 mmol/L (96-108); Estimated Glomerular Filt Rate 58; Potassium 4.5 mmol/L (3.3-5.1); Sodium 140 mmol/L (135-145)
[2025-01-03 11:39] LABS: Tacrolimus Prograf 4.9 mcg/L
== END 2025-01-02 09:49 | disposition home or self-care (01) ==
LOC: HO.LAB 09:48
PROVIDERS: PCP Internal Medicine; Visit Provider Internal Medicine Nephrology
DX: I10 Essential (primary) hypertension (principal); Z94.0 Kidney transplant status
CPT/HCPCS: 36415; 80051; 80197; 82310; 82565; 84520; 85025

== ENCOUNTER 2025-01-03 13:28 | Outpatient (AMB) | payer OTHER, SELFPAY ==
--- NOTE | 2025-01-03 13:42 | HO.NEPHOV_ITS ---
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.??She?had?a?preemptive?renal?transplant.??She?was?never?on?dialysis.??Sh e?claims?to?be?compliant?medications.??Her tacrolimus?dosage?had been adjusted.??She?was?accompanied?by?daughter?feels?h igherlevel?of?tacrolimus?was?not?tolerated?by?her?mother.??She?does?not?have?any ?vascular?or?cardiovascular?symptoms.??She?has?not?seen?a?computer systems software architect.??She?ames s?no?urinary?symptoms?or?side?effects?fr om?immunosuppression.??She?has?taken?the?flu?vaccination.??She?maintains?good?hy dration?and?avoids?nonsteroidal?anti-inflammatories.?Shedoes?not?have?any?nausea ,?vomiting,?diarrhea,?chest?pain,?shortn ess?of?breath,?paroxysmal?nocturnal?dyspnea,?orthopnea,?pedal?edema,?orthostatic ?symptoms,?hematuria.??She?has?not?had?any?antibiotics?recently.??She?denies?any ?hematuria.??She?feels?well. [facility] Medical History (Updated 09/01/24 @ 16:45 by Justo Ott MD) IgA nephropathy COVID-19 vaccine series completed AV fistula Gallstone HTN (hypertension) CKD (chronic kidney disease) Surgical History Hx of hysterectomy Hx of colonoscopy History of section Kidney transplant recipient Family History Brother History of prostate cancer Maternal Uncle History of colon cancer Maternal Grandmother History of stomach cancer Social History Household Members Other:: lives sharona Alcohol intake: never Patient Tobacco Use Status: Never used Tobacco Current occupational status: retired and disabled Review of Systems Const All systems reviewed & are unremarkable except as noted in HPI and below Physical Exam Vital Signs: Last Vital Signs Pulse 69 01/03/25 13:47 BP 108/60 01/03/25 13:47 Pulse Ox 97 01/03/25 13:47 Oxygen Delivery Method Room Air 01/03/25 13:47 BMI result Body Mass Index 33.7 Const General: comfortable and no acute distress Orientation/consciousness: patient oriented x3 HEENT Head: Yes normocephalic Mouth: Normal oral and palatal mucosa present Eyes EOM: EOMs intact bilaterally Neck Neck: Yes supple Resp Auscultation: clear to auscultation bilaterally Cardio Jugular venous distension: no JVD Rate: regular rate GI Palpation (GI): Soft to palpation Auscultation: normal bowel sounds General: Yes no CVA tenderness Back/Spine/Pelvis Back: no CVA tenderness Skin General skin exam: no rashes or lesions noted Neuro General: patient oriented x3 and moves all extremities Extrem General: Yes no pedal edema Results Reviewed Nephrology Results: Hgb 13.4 g/dl (12.0-16.0) 01/02/25 WBC 4.2 X10*3/uL (4.8-10.8) L 01/02/25 Plt Count 210 X10*3/uL (160-400) 01/02/25 Sodium 140 mmol/L (135-145) 01/02/25 Potassium 4.5 mmol/L (3.3-5.1) 01/02/25 Chloride 106 mmol/L (96-108) 01/02/25 Carbon Dioxide 25 mmol/L (22-29) 01/02/25 BUN 17 mg/dL (9-16) H 01/02/25 Creatinine 0.94 mg/dL (0.5-1.4) 01/02/25 Calcium 9.1 mg/dL (8.4-10.2) 01/02/25 Phosphorus 3.7 mg/dL (2.7-4.5) 10/30/24 Urine Protein Negative mg/dL (Neg-Trace) 10/30/24 Urine Creatinine 82.94 mg/dL 10/30/24 Protein/Creatinin Ratio TNP 10/30/24 Assessment & Plan Assessment & Plan (1) Kidney transplant recipient: Comment: 2016 Code(s): Z94.0 - Kidney transplant status Category: Surgical Plan 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 ??Her?graft?function?has?been?stable.?Her blood?pressure?has?been? at?goal?on?current?medication?regimen..??She?has?dyslipidemia?and?is?on?lipid?lo wering?agents.??She?has?secondary?hyperparathyroidism?and?takes?cinacalcet.?She? has?not?seen?a?computer systems software architect.??She?maint ains?good?hydration?and?avoids?nonsteroidal?anti- inflammatories.??Her?tacrolimus?levels?are okay.?I?ordered?follow up?lab?work.??I?did?not?make?any?medication?changes?today.??All?questions?answer ed.??Follow-up?appointment?given. Orders: Orders Complete Blood Count Auto Diff 3 Months Z94.0 - Kidney transplant status Creatinine 3 Months Z94.0 - Kidney transplant status Phosphorus 3 Months Z94.0 - Kidney transplant status Magnesium 3 Months Z94.0 - Kidney transplant status Aspartate Amino Transferase 3 Months Z94.0 - Kidney transplant status Tacrolimus Prograf 3 Months Z94.0 - Kidney transplant status Blood Urea Nitrogen 3 Months Z94.0 - Kidney transplant status Electrolytes 3 Months Z94.0 - Kidney transplant status Calcium 3 Months Z94.0 - Kidney transplant status Alanine Aminotransferase 3 Months Z94.0 - Kidney transplant status Coding Level of Care Code Est Pt Level 4 (22373) Diagnoses Kidney transplant recipient Z94.0
[2025-01-03 13:47] VITALS: BP 108/60; PULSE 69; O2SAT 97; BMI 33.7
--- OUTSIDE RECORDS SUMMARY | 2025-01-03 14:51 | XMS_ITS | Encounter Summary ---
Author Organization [employer] Address [address] [facility] [address] [place] [address] Care Team Providers Care Field Technical Support Consultant Name Role Phone Rashaad Tinajero MD Primary Care Provide r Encounter Details Date Type Department Care Team (Late st Contact Info) Description 01/02/2025 Orders Only GENERIC EXTERNAL DATA DEPARTMENT Provider, Generic External Data Social History Tobacco Use Types Packs/Day Years [...] your housing situation today? I have ravin sing 07/13/[address] you li [...] Description 03/05/2025 2:00 PM EDT Office Visit [facility] [address] [place] [address] Kelly, Nelly [address] [place] [address] 03/15/2025 2:15 PM EDT Office Visit [facility] [address] [place] [address] Rashaad Tinajero MD [address] [place] [address] documented as of this encounter Procedures Procedure Name Priority Date/Time Associated Diagnosis Comments CREATININE, SERUM Routine 01/02/2025 9:5 6 AM EST CBC WITH AUTO DIFFERENTIAL Routine 01/02/2025 9:56 AM EST TACROLIMUS, HIGHLY SENSITIVE, LC/MS/MS Routine 01/02/2025 9:56 AM EST UREA NITROGEN (BUN) Routine 01/02/2025 9 :56 AM EST CALCIUM Routine 01/02/2025 9:56 AM EST ELECTROLYTE PANEL Routine 01/02/2025 9:5 6 AM EST documented in this encounter Results * (ABNORMAL) Tacrolimus, Highly Sensitive, LC/MS/MS (01/02/2025 9:56 AM EST) Tacrolimus 4.9(A) mcg/L [facility] Comment:No definitive therap eutic or toxic ranges have beenestablished. Optimal blood drug levels are influencedby type of transplant, patient response, time post-transplant, co-administration of other drugs, anddrug formulation. The following trough range is asuggested guideline: 5.0-20.0 mcg/L.This test was developed and its analytical performancecharacteristics have been determined by [employer]. It has not been cleared or approved by theA. This assay has been validated pursuant to the CLIAregulations and is used for clinical purposes.THIS TEST WAS PERFORMED AT:[email or web address] [place] [id number] CHACON MD 01/02/2025 9:56 AM EST 01/02/2025 9:56 AM EST Generic External Data Provider LAB BLOOD ORDERAB LES Final Result Performing Organization Address [facility] Co de Phone Number [facility] [address] [place] [phone] * Calcium (01/02/2025 9:56 AM EST) Calcium 9.1 8.4 - 10.2 mg/dL [facility] 01/02/2025 9:56 AM EST 01/02/2025 9:56 AM EST [employer] External Data Provider LAB BLOOD ORDERAB LES Final Result Performing Organization Address [facility] Co de Phone Number [facility] [address] [place] [phone] * Creatinine, Serum (01/02/2025 9:56 AM EST) Creatinine, Serum 0.94 0.5 - 1.4 mg/dL [facility] Estimated Glomerular Filt Rate 58 [facility] Comment:Chronic Kidney Disea se: Estimated GFR < 60 mL/min/1.30t4Lsqcbu Kidney Disease: Estimated GFR < 15 mL/min/1.73m2 01/02/2025 9:56 AM EST 01/02/2025 9:56 AM EST Generic External Data Provider LAB BLOOD ORDERAB LES Final Result Performing Organization Address [facility] Co de Phone Number [facility] [address] [place] [phone] * (ABNORMAL) BUN (Blood Urea Nitrogen) (01/02/2025 9:56 AM EST) Urea Nitrogen (BUN) 17(H) 9 - 16 mg/dL [facility] 01/02/2025 9:56 AM EST 01/02/2025 9:56 AM EST us Generic External Data Provider LAB BLOOD ORDERAB LES Final Result Performing Organization Address [facility] de Phone Number [facility] [address] [place] [phone] * Electrolyte Panel (01/02/2025 9:56 AM EST) Sodium 140 135 - 145 mmol/L [facility] Potassium 4.5 3.3 - 5.1 mmol/L [facility] Chloride 106 96 - 108 mmol/L [facility] Carbon Dioxide 25 22 - 29 mmol/L [facility] Anion Gap 14 12 - 20 [facility] 01/02/2025 9:56 AM EST 01/02/2025 9:56 AM EST Generic External Data Provider LAB BLOOD ORDERAB LES Final Result Performing Organization Address [facility] Co de Phone Number [facility] [address] [place] [phone] * (ABNORMAL) CBC auto differential (01/02/2025 9:56 AM EST) White Blood Count 4.2(L) 4.8 - 10.8 X10*3/uL [facility] Red Blood Count 5.34 4.20 - 5.50 X10*6/uL [facility] Hemoglobin 13.4 12.0 - 16.0 g/dl [facility] Hematocrit 43.2 37.0 - 47.0 % [facility] Mean Corpuscular Volume 80.9 80.0 - 98.0 fL [facility] Mean Corpuscular Hemoglobin 25.1(L) 27.0 - 33.0 pg [facility] Mean Corpuscular HGB Conc 31.0 31.0 - 35.0 g/dl [facility] Red Cell Distribution Width 14.2 11.0 - 16.0 % [facility] Platelet Count 210 160 - 400 X10*3/uL [facility] Mean Platelet Volume 11.1 9.4 - 12.3 fL [facility] Neutrophils Percent Auto 59.0 45 - 73 % [facility] Imm Gran Pct Auto 0.2 0.0 - 0.4 % [facility] Lymphocytes Percent Auto 28.4 20 - 40 % [facility] Monocytes Percent Auto 10.7 2 - 11 % [facility] Eosinophils Percent Auto 1.2 0 - 4 % [facility] Basophils Percent Auto 0.5 0 - 2 % [facility] NRBC Pct Auto 0.0 0.0 - 0.2 /100WBC [facility] Neutrophils Absolute Auto 2.5 2.0 - 8.3 x10*3/uL [facility] Imm Gran Abs Auto 0.01 0.00 - 0.03 X10*3/uL [facility] Lymphocytes Absolute Auto 1.2 1.2 - 4.9 X10*3/uL [facility] Monocytes Absolute Auto 0.5 0.1 - 1.2 X10*3/uL [facility] Eosinophils Absolute Auto 0.1 0.0 - 0.4 X10*3/uL [facility] Basophils Absolute Auto 0.0 0.0 - 0.2 X10*3/uL [facility] NRBC Abs Auto 0.000 0.0 - 0.012 X10*3/uL [facility] 01/02/2025 9:56 AM EST 01/02/2025 9:56 AM EST us Generic External Data Provider LAB BLOOD ORDERAB LES Final Result Performing Organization Address City/State/[facility] Co de Phone Number [facility] [address] [place] [phone] documented in this encounter Visit Diagnoses Not on filedocumented in this encounter Additional Health Concerns Assessment Noted Time PHQ-9 Depression Total Score: 2 07/13/20 24 1:44 PM EDT documented as of this encounter Care Teams Field Technical Support Consultant Relationship Specialty Start Date End Date Rashaad Tinajero MD [address] [place] [phone] PCP - General Internal Medicine 06/19/15 documented as of this encounter
--- OUTSIDE RECORDS SUMMARY | 2025-01-03 14:51 | XMS_ITS | Encounter Summary ---
Author Organization [employer] Address [address] [facility] 7t [place] [address] Care Team Providers Care Chief Deputy Clerk/Bailiff Name Role Phone Rashaad iTnajero MD Primary Care Provide r Reason for Visit * Reason Onset Date Comments Results 02/07/2024 Encounter Details Date Type Department Care Team ([facility] st Contact Info) Description 02/07/2024 Telephone [facility] [address] [place], [place] [phone] Rashaad Tinajero MD [address] [place], [place] [phone] Results Social History Tobacco Use Types Packs/Day [...] t he electric, gas, oil or water Location Labs threatened to shut off services in your [...] and then green team nurses forwarded to [facility] nurses as ordering provider is a [facility] provider that worked the Walk In last Wednesday02.04.24, to review and advise POC on 02.07.24. Provider communicated test results on 02.10.24. Teamnurses called pt daughter daughter today. Please see previous message. Daughter wanted to know why no one called her until today- this movie writer apologized and explained that the nurses [...] our jobs properly. Daughter repeatedly told this movie writer that she called multiple times this week for results and no one answered her until today. This movie writer attempted to explain that I had spoken to the nurses about how they should have called her back and kept her in the loop that the message was sent to the provider for review. Daughter continued to repeat the same language. This movie writer attempted to let her know that I heard her and I was trying to help her. Daughter was not hearing this movie writer nor wanted to listen any longer. She told me that I was not doing a very good job at managing staff and needed to talk to my boss. She asked for RAT BREEDER and RN TELEMETRY names and numbers. Names were provided aswell as extensions. FYI-Pt is scheduled to see PCP 03.07.24, first available, for a POC for knee pain including a medication concern which is documented in a different TC note. This movie writer offered to have pt see another provider, daughter refused. Will send message to PCP. * Telephone Encounter - Heather Pandey RN - 02/11/2024 11:15 AM EDT Returned call to pt daughter regarding message below. Daughter informed of XR and US results. Pt daughter states that it took a week to get results when pt watch dial stoner received results and referredpt to Ortho right away and stated we are just now getting a call back with no further POC . Daughter states that we at the rust are irresponsible and that PCP is unaware of what is happening to pt . This RN advised daughter that a message was sent to manager landscape regarding her concerns and that someone will [...] is also requesting to speak with a manager landscape in regards to the matter of delay [...] results: xray Date when done: 02/04/24 Facility: [facility] [place] TC from pt requesting call back regarding Results. Type of results: US Date when done: 02/04/24 Facility: [facility] documented in this encounter Plan of Treatment Upcoming Encounters Date Type Department Care Team (Late st Contact Info) Description 03/05/2025 2:00 PM EDT Office Visit [facility] [address] [place] [address] Nelly Mendoza [address] [place] [address] 03/15/2025 2:15 PM EDT Office Visit [facility] [address] [place] [address] Rashaad Tinajero MD [address] [place] [address] documented as of this encounter Visit Diagnoses Not on filedocumented in this encounter Additional Health Concerns Assessment Noted Time PHQ-9 Depression Total Score: 9 04/01/20 23 12:16 PM EDT documented as of this encounter Care Teams Chief Deputy Clerk/Bailiff Relationship Specialty Start Date End Date Rashaad Tinajero MD [address] [place] [phone] PCP - General Internal Medicine 06/19/15 documented as of this encounter
--- OUTSIDE RECORDS SUMMARY | 2025-01-03 14:51 | XMS_ITS | Encounter Summary ---
Author Organization [employer] Address [address] [facility] 7t [place] [address] Care Team Providers Care Plastics Repairer Name Role Phone Rashaad Tinajero MD Primary Care Provide r Reason for Visit * Reason Onset Date Comments Appointment Request 02/01/2024 Encounter Details Date Type Department Care Team ([facility] st Contact Info) Description 02/01/2024 Telephone [facility] [address] [place], [place] [phone] Rashaad Tinajero MD [address] [place], [place] [phone] Appointment Request Social History Tobacco Use Types [...] an appointment pt had last week with sleeve setter lockstitch. States sleeve setter lockstitch sent pt to do an US on the left leg for Blood clot.Outside Sales Inspector also started pt on new medication. Please contact pt daughter at [phone] documented in this encounter Plan of Treatment Upcoming Encounters Date Type Department Care Team (Late st Contact Info) Description 03/05/2025 2:00 PM EDT Office Visit [facility] [address] [place] [address] Kelly, Nelly [address] [place] [address] 03/15/2025 2:15 PM EDT Office Visit [facility] [address] [place] [address] Rashaad Tinajero MD [address] [place] [address] documented as of this encounter Visit Diagnoses Not on filedocumented in this encounter Additional Health Concerns Assessment Noted Time PHQ-9 Depression Total Score: 9 04/01/20 23 12:16 PM EDT documented as of this encounter Care Teams Plastics Repairer Relationship Specialty Start Date End Date Rashaad Tinajero MD [address] [place] [address] PCP - General Internal Medicine 06/19/15 documented as of this encounter
--- OUTSIDE RECORDS SUMMARY | 2025-01-03 14:52 | XMS_ITS | Encounter Summary ---
Author Organization [employer] Address [address] [facility] 7t [place] [address] Care Team Providers Care Putty Tinter Maker Name Role Phone Rashaad Tinajero MD Primary Care Provide r Reason for Visit * Reason Onset Date Comments Appointment Request 09/28/2023 Encounter Details Date Type Department Care Team ([facility] st Contact Info) Description 09/28/2023 Telephone [facility] [address] [place], [place] [phone] Rashaad Tinajero MD [address] [place], [place] [phone] Appointment Request Social History Tobacco Use Types [...] Tc from daughter requesting a PE appt. Sales Merchandise Associate attempted to schedule. No availability. documented in this encounter Plan of Treatment Upcoming Encounters Date Type Department Care Team (Late st Contact Info) Description 03/05/2025 2:00 PM EDT Office Visit [facility]ULT D[facility] [address] [place] [address] Kelly, Nelly [address] [place] [address] 03/15/2025 2:15 PM EDT Office Visit [facility] MED[facility]INE [address] [place] [address] Rashaad Tinajero MD [address] [place] [address] documented as of this encounter Visit Diagnoses Not on filedocumented in this encounter Additional Health Concerns Assessment Noted Time PHQ-9 Depression Total Score: 9 04/01/20 23 12:16 PM EDT documented as of this encounter Care Teams Putty Tinter Maker Relationship Specialty Start Date End Date Rashaad Tinajero MD [address] [place] [address] PCP - General Internal Medicine 06/19/15 documented as of this encounter
--- OUTSIDE RECORDS SUMMARY | 2025-01-03 14:52 | XMS_ITS | Encounter Summary ---
Author Organization [employer] Address [address] [facility] 7t [place] [address] Care Team Providers Care Rental Manager Name Role Phone Rashaad Tinajero MD Primary Care Provide r Reason for Visit * Reason Onset Date Comments February12/25/2024 Encounter Details Date Type Department Care Team ([facility] st Contact Info) Description 12/25/2024 Telephone [facility] MED[facility] [address] [place], [place] [phone] Rashaad Tinajero MD [address] [place] [address] February Recall Social History Tobacco Use Types [...] [place] - 12/25/2024 2:15 PM EST T/C- Energy Conservation Representative Left Voice Mail to return call to schedule an appointment. Recall letter sent. Appointment: Follow Up Note: DM Month: February With: Donnell Please schedule appointment if Patient calls Back. documented in this encounter Plan of Treatment Upcoming Encounters Date Type Department Care Team (Late st Contact Info) Description 03/05/2025 2:00 PM EDT Office Visit [facility]ULT [facility] [address] [place] [address] Kelly, Nelly [address] [place] [address] 03/15/2025 2:15 PM EDT Office Visit [facility] MEDICINE [address] [place] [address] Rashaad Tinajero MD [address] [place] [address] documented as of this encounter Visit Diagnoses Not on filedocumented in this encounter Additional Health Concerns Assessment Noted Time PHQ-9 Depression Total Score: 2 07/13/20 24 1:44 PM EDT documented as of this encounter Care Teams Rental Manager Relationship Specialty Start Date End Date Rashaad Tinajero MD [address] [place] [address] PCP - General Internal Medicine 06/19/15 documented as of this encounter
--- OUTSIDE RECORDS SUMMARY | 2025-01-03 14:52 | XMS_ITS | Clinical Summary ---
Author Organization [employer] Address [address] [place] [address] 7[address] [place] [address] Care Team Providers Care Certified Respiratory Therapist Name Role Phone Rashaad Tinajero MD Primary [...] marked fatty replacement of the pancreas, atrophic eagle kidneys with transplant kidney in the right iliac fossa, sigmoid diverticulosis without diverticulitis and degenerative changes in the spine with grade 1 anterolisthesis of L5 upon S1. Abd US 08/2024 showed: IMPRESSION: 1. No ultrasound evidence of gallbladder disease or gallstones. 2. Atrophic eagle kidneys. 3. Transplanted right kidney right lower [...] dislocation seen. Pt seen by Ortho at [facility] on 2 different occasions last 05/19/2024. Received a steroid injection with no good results. Daughter states she continues to c/o pain on her knee and is interested in getting a second opinion. patient was referred to [facility] unfortunately they do not take her insurance. Pt's daughter tells me they are willing to see Dr. Deluna at [facility] Pt underwent an MRI that showed: 1) [...] dislocation seen. Pt seen by Ortho at [facility] on 2 different occasions last 05/19/2024. Received a steroid injection with no good results. Daughter states she continues to c/o pain on her knee and is interested in getting a second opinion. patient was referred to [facility] unfortunately they do not take her insurance. Pt's daughter tells me they are willing to see Dr. Deluna at [facility] They are awaiting the MRI appointment. Assessment [...] dislocation seen. Pt seen by Ortho at [facility] on 2 different occasions last 05/19/2024. Received a steroid injection with no good results. Daughter states she continues to c/o pain on her knee and is interested in getting a second opinion. 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 She subsequently presented at our [facility] with c/o posterior knee pain As part [...] has already been referred to Ortho by Head Operator and today we confirmed that appointment is for next month Pt already has a follow up appointment with me in March. Acute deep vein thrombosis (DVT) of left lower e xtremity 02/15/2024 Assessment & Plan (07/13/2024 4:15 PM EDT): Resolved She completed anticoagulation for the duration recommended. Assessment & Plan (04/06/2024 1:26 PM EDT): US done at [facility] showed non oclussive thrombus in the peroneal veins measuring at least 3.1 cm. Pt was started on Eliquis 5 mg po BID started 01/26/2024 by Nephrology Pt was supposed to stay on it x 3 months (until 04/25/2024). It appears this was unprovoked although pt is rather sedentary. Assessment & Plan (02/15/2024 12:58 PM EDT): US done at [facility] showed non oclussive thrombus in the peroneal [...] 6.6 from 6.5 Pt previously referred to [facility] to adhere to Diabetic diet Plan: continue diabetic diet Assessment & Plan (08/15/2024 12:15 PM EDT): Here for a follow up FBS 04/04/2024 126 Hgb A1c 07/13/2024: 6.5 Pt previously referred to [facility] to adhere to Diabetic diet Plan; continue diabetic diet Assessment & Plan (07/13/2024 1:48 PM EDT): Here for a follow up FBS 04/04/2024 126 Hgb A1c 07/13/2024: 6.5 Pt previously referred to [facility] to adhere to Diabetic diet Plan; continue diabetic diet Assessment & Plan (04/06/2024 1:31 PM EDT): Newly diagnosed DM FBS 04/04/2024 126 Hgb A1c: 6.7 Plan: Pt referred to [facility] to adhere to Diabetic diet Assessment & [...] Bone densitometry 04/21/2016 I have contacted pts barrel rifler hook to obtain some guidance regarding the treatment [...] headaches The Vytorin was started by her Head Operator Plan: Continue current regimen. advised to try [...] headaches The Vytorin was started by her Head Operator Plan: Continue current regimen. Repeat Lipid profile [...] headaches The Vytorin was started by her Head Operator Plan: Continue current regimen. advised to try to adhere to a low cholesterol diet, counseled and educated about diet and exercise IgA nephropathy 10/31/2012 10/29/2023 Assessment & Plan (01/06/2024 2:21 PM EST): Hemorrhoids 05/03/2010 Depressive disorder 05/03/2009 Assessment & Plan (04/01/2023 3:48 PM EDT): Used to follow with Dinora psychotherapist at [facility]. No longer seeing anyone on trazodone doing well. Pt with previous c/o paranoia, Pt tells me she was seen by Neurologist at [facility] and was told she was fine She saw a psychiatric prescriber once at [facility] and was prescribed Abilify 2 mg po daily with good results. He barrel rifler hook Dr harrington has continued to prescribed Today she was evaluated by our [facility] clinician Encounters Date Type Department Care Team Description 01/02/2025 Orders Only GENERIC EXTERNAL DATA DEPARTMENT Provider, Generic External Data 12/25/2024 Telephone [facility] [address] [place] [address] Rashaad Tinajero MD February11/16/2024 11:00 AM EST Office Visit [facility] [address] [place] [address] Ruiz-Petty, Chantelle, DDS Missing teeth, acquired (Primary Dx) 11/15/2024 Telephone [facility] [address] [place] [address] Rashaad Tinajero MD [facility] 11/10/[address] [address] Caleb Pandey [place] Rx for rollator walker 11/07/2024 1:30 PM EST Office Visit [address] [address] Rashaad Tinajero MD Essential hypertension (Primary Dx); Type 2 diabetes mellitus with stage 3a chronic kidney disease, without long-term current use of insulin ([facility]); Kidney replaced by transplant; Weight loss; Primary osteoarthritis of left knee; Viral upper respiratory tract infection 11/07/2024 Travel 10/30/2024 Orders Only GENERIC EXTERNAL DATA DEPARTMENT Provider, Generic External Data 10/25/2024 Patient Outreach [address] [address] Rashaad Tinajero MD Pre-visit Planning (SDOH screening was completed on 07/13/2024) 10/20/2024 3:30 PM EST Office Visit [facility] [address] [place] [phone] Pravin Connellyfemia, DDS Missing teeth, acquired (Primary Dx) 10/13/[address] [address] Rohini Rodarte, RN Results 10/09/[address] [address] Rashaad Tinajero MD Chart Prep 10/06/2024 8:30 AM EST Office Visit [facility] [address] [place] [phone] Pravin Connellyfemia, DDS Missing teeth, acquired (Primary Dx) from [...] Description 03/05/2025 2:00 PM EDT Office Visit [facility] [address] [place] [address] Kelly, Nelly [address] [place] [address] 03/15/2025 2:15 PM EDT Office Visit [facility] [address] [place] [address] Rashaad Tinajero MD [address] [place] [address] Health Maintenance Due Date Last Done Comments [...] 75+ series) 02/04/2024 Lipid Panel 01/05/2025 01/05/2024, 12/12/2021, 02/03/2021 Dental Oral Exam 02/22/2025 08/24/2024, 05/27/2016 [...] Procedure Name Priority Date/Time Associated Diagnosis Comments TACROLIMUS, HIGHLY SENSITIVE, LC/MS/MS Routine 01/02/2025 9:56 AM EST CALCIUM Routine 01/02/2025 9:56 AM EST CREATININE, SERUM Routine 01/02/2025 9:5 6 AM EST UREA NITROGEN (BUN) Routine 01/02/2025 9 :56 AM EST ELECTROLYTE PANEL Routine 01/02/2025 9:5 6 AM EST CBC WITH AUTO DIFFERENTIAL Routine 01/02/2025 9:56 AM EST [employer] - PROFESSIONAL VISITS - [...] upper respiratory tract infection POCT COVID-19 AG JACOBSON ID NOW Routine 11/07/2024 3:58 PM EST Viral upper respiratory tract infection POCT GLYCATED HEMOGLOBIN, TOTAL Routine 11/07/2024 2:03 PM EST Type 2 diabetes mellitus with stage 3a chronic kidney disease, without long-term current use of insulin ([facility]) POCT GLUCOSE Routine 11/07/2024 2:02 PM EST Type 2 diabetes mellitus with stage 3a chronic kidney disease, without long-term current use of insulin ([facility]) TACROLIMUS, HIGHLY SENSITIVE, LC/MS/MS Routine 10/30/2024 10:29 [...] Recently Relevant to Health Maintenance Results * Creatinine, Serum (01/02/2025 9:56 AM EST) Only the most recent of2 resultswithin the time period is included. Creatinine, Serum 0.94 0.5 - 1.4 mg/dL [facility] Estimated Glomerular Filt Rate 58 [facility] Comment:Chronic Kidney Disea se: Estimated GFR < 60 mL/min/1.56h6Nhofwm Kidney Disease: Estimated GFR < 15 mL/min/1.73m2 01/02/2025 9:56 AM EST 01/02/2025 9:56 AM EST us Generic External Data Provider LAB BLOOD ORDERAB LES Final Result [facility] [address] [place] [phone] * (ABNORMAL) CBC auto differential (01/02/2025 9:56 AM EST) Only the most recent of2 resultswithin the time period is included. White Blood Count 4.2(L) 4.8 - 10.8 X10*3/uL [facility] Red Blood Count 5.34 4.20 - 5.50 X10*6/uL [facility] Hemoglobin 13.4 12.0 - 16.0 g/dl [facility] Hematocrit 43.2 37.0 - 47.0 % [facility] Mean Corpuscular Volume 80.9 80.0 - 98.0 fL [facility] Mean Corpuscular Hemoglobin 25.1(L) 27.0 - 33.0 pg [facility] Mean Corpuscular HGB Conc 31.0 31.0 - 35.0 g/dl [facility] Red Cell Distribution Width 14.2 11.0 - 16.0 % [facility] Platelet Count 210 160 - 400 X10*3/uL [facility] Mean Platelet Volume 11.1 9.4 - 12.3 fL [facility] Neutrophils Percent Auto 59.0 45 - 73 % [facility] Imm Gran Pct Auto 0.2 0.0 - 0.4 % [facility] Lymphocytes Percent Auto 28.4 20 - 40 % [facility] Monocytes Percent Auto 10.7 2 - 11 % [facility] Eosinophils Percent Auto 1.2 0 - 4 % [facility] Basophils Percent Auto 0.5 0 - 2 % [facility] NRBC Pct Auto 0.0 0.0 - 0.2 /100WBC [facility] Neutrophils Absolute Auto 2.5 2.0 - 8.3 x10*3/uL [facility] Imm Gran Abs Auto 0.01 0.00 - 0.03 X10*3/uL [facility] Lymphocytes Absolute Auto 1.2 1.2 - 4.9 X10*3/uL [facility] Monocytes Absolute Auto 0.5 0.1 - 1.2 X10*3/uL [facility] Eosinophils Absolute Auto 0.1 0.0 - 0.4 X10*3/uL [facility] Basophils Absolute Auto 0.0 0.0 - 0.2 X10*3/uL [facility] NRBC Abs Auto 0.000 0.0 - 0.012 X10*3/uL [facility] 01/02/2025 9:56 AM EST 01/02/2025 9:56 AM EST us Generic External Data Provider LAB BLOOD ORDERAB LES Final Result Performing Organization Address [facility] Co de Phone Number [facility] [address] [place] [phone] * (ABNORMAL) Tacrolimus, Highly Sensitive, LC/MS/MS (01/02/2025 9:56 AM EST) Only the most recent of2 resultswithin the time period is included. Tacrolimus 4.9(A) mcg/L [facility] Comment:No definitive therap eutic or toxic ranges have beenestablished. Optimal blood drug levels are influencedby type of transplant, patient response, time post-transplant, co-administration of other drugs, anddrug formulation. The following trough range is asuggested guideline: 5.0-20.0 mcg/L.This test was developed and its analytical performancecharacteristics have been determined by [employer]. It has not been cleared or approved by theA. This assay has been validated pursuant to the CLIAregulations and is used for clinical purposes.THIS TEST WAS PERFORMED AT:[employer] [address] [id number] CHACON MD 01/02/2025 9:56 AM EST 01/02/2025 9:56 AM EST Generic External Data Provider LAB BLOOD ORDERAB LES Final Result Performing Organization Address [facility] de Phone Number [facility] [address] [place] [phone] * (ABNORMAL) BUN (Blood Urea Nitrogen) (01/02/2025 9:56 AM EST) Only the most recent of2 resultswithin the time period is included. Urea Nitrogen (BUN) 17(H) 9 - 16 mg/dL [facility] 01/02/2025 9:56 AM EST 01/02/2025 9:56 AM EST Generic External Data Provider LAB BLOOD ORDERAB LES Final Result Performing Organization Address [facility]/ZIP Co de Phone Number [facility] [address] [place] [phone] * Calcium (01/02/2025 9:56 AM EST) Only the most recent of2 resultswithin the time period is included. Pathologist [facility] Calcium 9.1 8.4 - 10.2 mg/dL [facility] 01/02/2025 9:56 AM EST 01/02/2025 9:56 AM EST Generic External Data Provider LAB BLOOD ORDERAB LES Final Result Performing Organization Address [facility] de Phone Number [facility] [address] [place] [phone] * Electrolyte Panel (01/02/2025 9:56 AM EST) Only the most recent of2 resultswithin the time period is included. [facility] Sodium 140 135 - 145 mmol/L [facility] Potassium 4.5 3.3 - 5.1 mmol/L [facility] Chloride 106 96 - 108 mmol/L [facility] Carbon Dioxide 25 22 - 29 mmol/L [facility] Anion Gap 14 12 - 20 [facility] 01/02/2025 9:56 AM EST 01/02/2025 9:56 AM EST Generic External Data Provider LAB BLOOD ORDERAB LES Final Result Performing Organization Address [facility] Co de Phone Number [facility] [address] [place] [phone] * POCT Rapid Influenza B JACOBSON ID NOW (11/07/2024 3:59 PM EST) Pathologist [facility] Influenza B Negative Negative, Indeterminate [facility] QC Media Lot # [id number] [facility] Lot# Expiration Date [id number] [facility] Swab 11/07/2024 3:59 PM EST us Rashaad Kirk MD POINT OF CARE TEST EN TER/EDIT ORDERABLES Final Result Performing Organization Address [facility] Co de Phone Number [facility] [address] [place] [phone] * POCT Rapid Influenza A JACOBSON ID NOW (11/07/2024 3:59 PM EST) Pathologist [facility] Influenza A Negative Negative, Indeterminate [facility] QC Media Lot # [id number] [facility] Lot# Expiration Date [facility] Swab 11/07/2024 3:59 PM EST us Rashaad Kirk MD POINT OF CARE TEST EN TER/EDIT ORDERABLES Final Result Performing Organization Address [facility] Phone Number [facility] [address] [place] [phone] * POCT Rapid Covid-19 JACOBSON ID NOW (11/07/2024 3:58 PM EST) Pathologist [facility] Coronavirus Antigen PCR Negative Negative, Indeterminate, None Detected, Invalid, Specimen unsatisfactory for evaluation, Weakly Positive QC Media Lot # [id number] Lot# Expiration Date [id number] Swab 11/07/2024 3:58 PM EST us Rashaad Kirk MD POINT OF CARE TEST EN TER/EDIT ORDERABLES Final Result * (ABNORMAL) POCT HGB A1C (11/07/2024 2:03 PM EST) Pathologist [facility] Hemoglobin A1C 6.6(A) 4.0 - 6.0 % QC Media Lot # [id number] Lot# Expiration Date [id number] Blood 11/07/2024 2:0 3 PM EST Rashaad Kirk MD POINT OF CARE TEST EN TER/EDIT ORDERABLES Final Result * POCT Glucose (11/07/2024 2:02 PM EST) Glucose Blood, POC 131 60 - 200 mg/dL Comment:Random QC Media Lot # [id number] Lot# Expiration Date Blood Capillary blood specimen / Unknown 11/07/2024 2:02 PM EST Rashaad Kirk MD POINT OF CARE TEST EN TER/EDIT ORDERABLES Final Result * ALT (10/30/2024 10:29 AM EST) Alanine Aminotransferase 16 0 - 31 U/L [facility] 10/30/2024 10:2 9 AM EST 10/30/2024 10:29 AM EST Generic External Data Provider LAB BLOOD ORDERAB LES Final Result Performing Organization Address [facility]/ZIP Co de Phone Number [facility] [address] [place] [phone] * AST (10/30/2024 10:29 AM EST) Aspartate Amino Transferase 22 5 - 31 U/L [facility] 10/30/2024 10:2 9 AM EST 10/30/2024 10:29 AM EST Generic External Data Provider LAB BLOOD ORDERAB LES Final Result Performing Organization Address [facility] Co de Phone Number [facility] [address] [place] [phone] * Phosphate (As Phosphorus) (10/30/2024 10:29 AM EST) Phosphorus 3.7 2.7 - 4.5 mg/dL [facility] 10/30/2024 10:2 9 AM EST 10/30/2024 10:29 AM EST Generic External Data Provider LAB BLOOD ORDERAB LES Final Result Performing Organization Address [facility] Co de Phone Number [facility] [address] [place] [phone] * Magnesium (10/30/2024 10:29 AM EST) Magnesium 1.7 1.6 - 2.6 mg/dL [facility] 10/30/2024 10:2 9 AM EST 10/30/2024 10:29 AM EST Generic External Data Provider LAB BLOOD ORDERAB LES Final Result Performing Organization Address [facility] Phone Number [facility] [address] [place] [phone] * Protein Creatinine Ratio, Urine (10/30/2024 10:26 AM EST) Creatinine, Urine 82.94 mg/dL [facility] Protein, Total, Random Urine <7 <12 mg/dL [facility] Protein/Creatin ine Ratio, Ur TNP <0.2 [facility] Comment:Unable to calculate urine protein creatinine ratio due tolow creatinine or protein result. 10/30/2024 10:2 6 AM EST 10/30/2024 10:47 AM EST Generic External Data Provider LAB URINE ORDERAB LES Final Result Performing Organization Address [facility] Co de Phone Number [facility] [address] [place] [phone] * Urinalysis with Reflex to Microscopic (10/30/2024 10:26 AM EST) Color Urine Yellow [facility] Appearance Urine Clear [facility] PH 6.0 5.0 - 9.0 [facility] Glucose Urine UA Negative Negative mg/dL [facility] Urine Blood Negative Negative [facility] Specific [place] - Urine 1.015 1.005 - 1.025 [facility] Urine Protein Negative Neg-Trace mg/dL [facility] Urine Ketones Negative Negative mg/dL [facility] Nitrite Urine Negative Negative [facility] Leukocyte Esterase Urine Negative Negative [facility] 10/30/2024 10:2 6 AM EST 10/30/2024 10:47 AM EST us Generic External Data Provider LAB URINE ORDERAB LES Final Result [facility] [address] [place] [phone] * Lipid Panel with Reflex to Direct LDL (01/05/2024 11:16 AM EST) Triglycerides 97 <150 mg/dL [facility] Comment:Desirable Triglyceri de: less than 150 mg/dLBorderline High Triglyceride 150-199 mg/dLHigh Triglyceride: 200-499 mg/dLVery High Triglyceride: greater than or equal to 5OO mg/dL Cholesterol 145 <200 mg/dL [facility] Comment:Desirable Cholestero l: less than 200 mg/dLBorderline High Cholesterol: 200-239 mg/dLHigh Cholesterol: greater than 239 mg/dL LDL Cholesterol Calculated 73 <100 mg/dL [facility] Comment:Desirable LDL: less than 100 mg/dLNear Optimal/Above Optimal LDL: 110- 129 mg/dLBorderline High LDL: 130-159 mg/dLHigh LDL: 160-189 mg/dLVery High LDL: greater than or equal to 190 mg/dL HDL Cholesterol 53 >40 mg/dL [facility] Comment:Desirable HDL: great er than 40 mg/dL Note: This HDL assay may give artificially low results in patients with liver disease. Blood 01/05/2024 11:1 6 AM EST 01/05/2024 11:16 AM EST us Rashaad Kirk MD LAB BLOOD ORDERABLES Final Result [facility] [address] [place] [phone] * Colonoscopy (08/19/2021) Colonoscopy Normal Normal Historical Provider MD HEALTH MAINTENANCE Final Result * HEPATITIS C [...] a test for HCV RNA (test code 93927) is suggested. ?? For additional information please refer to http://education.[employer]/faq/TME26r0 (This link is being provided for informational/ educational purposes only.) ?? 11/13/2020 2:05 PM EST Rashaad Kirk MD HISTORICAL/NON ORDERA BLE LABS Final Result [facility] [address] from Last 3 Months or Most Recently Relevant to Health Maintenance Insurance [facility] COMPLETE [facility] - [facility] Care Teams Certified Respiratory Therapist Relationship Specialty Start Date End Date Rashaad Tinajero MD [address] [place] [phone] PCP - General Internal Medicine 06/19/15
--- OUTSIDE RECORDS SUMMARY | 2025-01-03 14:52 | XMS_ITS | Encounter Summary ---
Author Organization [employer] Address [address] [place] [address] [address] [place] [address] Care Team Providers Care Special Tester Name Role Phone Rashaad Tinajero MD Primary Care Provide r Encounter Details Date Type Department Care Team (Late st Contact Info) Description 04/08/2023 Abstract [facility] MEDICINE [address] [place] [address] Rashaad Tinajero MD [address] [place] [address] Social History Tobacco Use Types Packs/Day Years [...] Description 03/05/2025 2:00 PM EDT Office Visit [facility] ADULT DENTAL [address] [place] [address] Nelly Mendoza [address] [place] [address] 03/15/2025 2:15 PM EDT Office Visit [facility] MEDICINE [address] [place] [address] Rashaad Tinajero MD [address] [place] [address] Pending Results Name Type Priority Associated Diagnoses Date /Time Colonoscopy GI Routine 08/19/2021 documented as of this encounter Visit Diagnoses Not on filedocumented in this encounter Additional Health Concerns Assessment Noted Time PHQ-9 Depression Total Score: 9 04/01/20 23 12:16 PM EDT documented as of this encounter Care Teams Special Tester Relationship Specialty Start Date End Date Rashaad Tinajero MD [address] [place] [id number] PCP - General Internal Medicine 06/19/15 documented as of this encounter
== END 2025-01-03 13:59 | disposition home or self-care (01) ==
PROVIDERS: PCP Internal Medicine; Visit Provider Internal Medicine Nephrology
DX: Z94.0 Kidney transplant status (principal)
CPT/HCPCS: 99214

== ENCOUNTER → 2025-01-03 13:28 | Outpatient (BNVA) | payer OTHER, SELFPAY | PROVIDERS: PCP Internal Medicine; Visit Provider Internal Medicine Nephrology | DX: Z94.0 Kidney transplant status (principal) | CPT/HCPCS: 99212 ==

== ENCOUNTER 2025-01-31 17:03 | Outpatient (REF) | payer OTHER, SELFPAY ==
--- OUTSIDE RECORDS SUMMARY | 2025-01-31 19:26 | XMS_ITS | Encounter Summary ---
Author Organization [employer] Address [address] [place] [address] 7[address] [place] [address] Care Team Providers Care Loader Magazine Grinder Name Role Phone Rashaad Tinajero MD Primary Care Provide r Reason for Visit * Reason Comments Walk-In UTI Symptoms; strong odor and dark urine stated pt's daughter Encounter Details Date Type Department Care Team ([facility] st Contact Info) Description 01/31/2025 3:20 PM EST Office Visit [facility] [address] [place] [address] Joana Benitez MD [address] [place], [place] [phone] UTI symptoms Social History Tobacco Use Types Packs/Day Years [...] AM EDT documented as of this encounter Last Filed Vital Signs Vital Sign Reading Time Taken Comments Blood Pressure 137/78 01/31/2025 3:05 PM EST Pulse 70 01/31/2025 3:05 PM EST Temperature 36.8 ??C (98.2 ??F) 01/31/2025 3:05 PM ES T Respiratory Rate 20 01/31/2025 3:05 PM EST Oxygen Saturation 99% 01/31/2025 3:05 PM EST Inhaled Oxygen Concentration - - Weight 76.7 kg (169 lb 3.2 oz) 01/31/2025 3:05 P M EST Height 149.9 cm (4' 11 ) 01/31/2025 3:05 PM EST Body Mass Index 34.17 01/31/2025 3:05 PM EST documented in this encounter Progress Notes * Joana Courtney MD - 01/31/2025 3:20 PM EST SUBJECTIVE: Koki Shay is a 73 y.o. year old female who presents for UTI symptoms . Acute Concerns: Patient comes today complaining with daughter who reports yesterday urine odor was really strong and that the color was darkish color they got really concerned because patient is status post renal transplant and they wanted to check if she has a UTI or not. Patient denies urinary frequency, urinaryurgency, dysuria, suprapubic pain or pressure, flank pain no urinary symptoms at all Social History Social History Narrative Not on file Patient Active Problem List Diagnosis Hyperlipidemia Essential hypertension Diverticulosis of colon Depressive disorder Stage 3a chronic kidney disease ([facility]) Cataract Anemia of chronic disease Hemorrhoids Kidney replaced by transplant Osteoporosis Preventative health care IgA nephropathy Pes planus Class 2 severe obesity due to excess calories with serious comorbidity and body mass index (BMI) of36.0 to 36.9 in adult ([facility]) Type 2 diabetes mellitus with kidney complication, without long-term current use of insulin [place] Osteoarthritis of left knee Acute deep vein thrombosis (DVT) of left lower extremity [place] Tertiary hyperparathyroidism ([facility] Weight loss Missing teeth, acquired Generalized gingival recession, severe Dental plaque Viral upper respiratory tract infection UTI symptoms No family history on file. Review of Systems Constitutional: Negative. HENT: Negative. Respiratory: Negative. Genitourinary: Negative for decreased urine volume, difficulty urinating, dyspareunia, dysuria, enuresis, flank pain, frequency, genital sores, hematuria, menstrual problem, pelvic pain, urgency, vaginal bleeding, vaginal discharge and vaginal pain. OBJECTIVE: Vitals: 01/31/25 1505 BP: 137/78 BP Location: Left arm Patient Position: Sitting BP Cuff Size: Large adult Pulse: 70 Resp: 20 Temp: 98.2 ??F (36.8 ??C) TempSrc: Oral SpO2: 99% Weight: 169 lb 3.2 oz (76.7 kg) Height: 4' 11 (1.499 m) Physical Exam Constitutional: Appearance: Normal appearance. Pulmonary: Effort: Pulmonary effort is normal. Breath sounds: Normal breath sounds. Abdominal: General: Abdomen is flat. Palpations: Abdomen is soft. Tenderness: There is no abdominal tenderness. There is no right CVA tenderness or left CVA tenderness. Musculoskeletal: Right lower leg: No edema. Left lower leg: No edema. Neurological: Mental Status: She is alert. Follow Up: No follow-ups on file. Current Outpatient Medications on File Prior to Visit Medication Sig Dispense Refill acetaminophen (Tylenol) 500 MG tablet Take 1 tablet (500 mg) by mouth every 8 (eight) hours if needed for mild pain. 90 tablet 3 amLODIPine (Norvasc) 2.5 MG tablet Take 2.5 mg by mouth. amoxicillin (Amoxil) 500 MG capsule Take 4 capsules of amoxicillin 500 mg 1 hour prior dental procedure 12 capsule 0 Apixaban Starter Pack (Eliquis DVT/PE Starter Pack) 5 MG tablet therapy pack Take 5 mg by mouth. ARIPiprazole (Abilify) 2 MG tablet Take 1 tablet by mouth in the morning. Blood Glucose Monitoring Suppl (FreeStyle Lite) w/Device kit 1 Device Once per day. 1 kit 0 cholecalciferol (Vitamin D-3) 50 MCG (2000 UT) tablet Take 2,000 Units by mouth. cholecalciferol 50 MCG (2000 UT) capsule Take 50 mcg by mouth in the morning. Diclofenac Sodium 1 % gel Use BID as needed (Patient not taking: Reported on 08/24/2024) 100 g 2 ferrous sulfate 325 (65 Fe) MG EC tablet FreeStyle lancets 1 each by Other route Once per day. 100 each 3 FREESTYLE LITE test strip Check daily 100 each 11 metoprolol tartrate (Lopressor) 25 MG tablet Take 12.5 mg by mouth. tacrolimus (Prograf) 1 MG capsule take 1 by oral route every am and 1 at pm No current facility-administered medications on file prior to visit. Problem List Items Addressed This Visit UTI symptoms Patient and daughter were reassured, UA done at the office negative for UTI, but I did tell them I will send sample for culture I advised to drink plenty of water and do not hold the urine Relevant Orders POCT Urinalysis (Completed) Culture, Urine, Routine documented in this encounter Miscellaneous Notes * Assessment & Plan Note - Joana Courtney MD - 01/31/2025 3:55 PM EST Associated Problem(s): UTI symptoms Patient and daughter were reassured, UA done at the office negative for UTI, but I did tell them I will send sample for culture I advised to drink plenty of water and do not hold the urine documented in this encounter Plan of Treatment Upcoming Encounters Date Type Department Care Team (Late st Contact Info) Description 03/05/2025 2:00 PM EDT Office Visit [facility] [address] [place] [address] Nelly Mendoza [address] [place] [address] 03/15/2025 2:15 PM EDT Office Visit [facility] MEDICINE [address] [place] [address] Rashaad Tinajero MD [address] [place] [address] Scheduled Orders Name Type Priority Associated Diagnoses Orde r Schedule Culture, Urine, Routine Microbiology Routine UTI symptoms Ordered: 01/31/2025 documented as of this encounter Procedures Procedure Name Priority Date/Time Associated Diagnosis Comments POCT URINALYSIS DIPSTICK Routine 01/31/2025 3:15 PM EST UTI symptoms documented in this encounter Results * POCT Urinalysis (01/31/2025 3:15 PM EST) Color, UA Yellow Clarity, UA Clear Glucose, UA Negative Bilirubin, UA Negative Ketones, UA Negative Spec Grav, UA 1.020 Blood, UA Negative Negative, None Detected pH, UA 5.5 Protein, UA Negative Urobilinogen, UA 0.2 Leukocytes, UA Negative Negative, Rare, Trace Nitrite, UA Negative Negative, None Detected Appearance, UA yellow QC Media Lot # [id number] Lot# Expiration Date Urine 01/31/2025 3:15 PM EST Joana Courtney MD POINT OF CARE TEST EN TER/EDIT ORDERABLES Final Result documented in this encounter Visit Diagnoses Diagnosis UTI symptoms documented in this encounter Additional Health Concerns Assessment Noted Time PHQ-9 Depression Total Score: 2 07/13/20 24 1:44 PM EDT documented as of this encounter Care Teams Loader Magazine Grinder Relationship Specialty Start Date End Date Rashaad Tinajero MD [address] [place] [id number] PCP - General Internal Medicine 06/19/15 documented as of this encounter
--- OUTSIDE RECORDS SUMMARY | 2025-01-31 19:26 | XMS_ITS | Encounter Summary ---
Author Organization [employer] Address [address] [facility] 7t [place] [address] Care Team Providers Care Youth Pastor Name Role Phone Rashaad Tinajero MD Primary Care Provide r Reason for Visit * Reason Onset Date Comments Appointment Request 09/28/2023 Encounter Details Date Type Department Care Team ([facility] st Contact Info) Description 09/28/2023 Telephone [facility] MEDICINE [address] [place], [place] [phone] Rashaad Tinajero MD [address] [place], [place] [phone] Appointment Request Social History Tobacco Use Types [...] Tc from daughter requesting a PE appt. Dental Laboratory Supervisor attempted to schedule. No availability. documented in this encounter Plan of Treatment Upcoming Encounters Date Type Department Care Team (Late st Contact Info) Description 03/05/2025 2:00 PM EDT Office Visit [facility] ADULT DENTAL [address] [place] [address] Kelly, Nelly [address] [place] [address] 03/15/2025 2:15 PM EDT Office Visit [facility] MEDICINE [address] [place] [address] Rashaad Tinajero MD [address] [place] [address] documented as of this encounter Visit Diagnoses Not on filedocumented in this encounter Additional Health Concerns Assessment Noted Time PHQ-9 Depression Total Score: 9 04/01/20 23 12:16 PM EDT documented as of this encounter Care Teams Youth Pastor Relationship Specialty Start Date End Date Rashaad Tinajero MD [address] [place] [address] PCP - General Internal Medicine 06/19/15 documented as of this encounter
--- OUTSIDE RECORDS SUMMARY | 2025-01-31 19:26 | XMS_ITS | Clinical Summary ---
Author Organization [employer] Address [address] [place] [address] 7[address] [place] [address] Care Team Providers Care Pantograph I Engraver Name Role Phone Rashaad Tinajero MD Primary [...] (FreeStyle Lite) w/Device kitIndications: Newly diagnosed diabetes ([facility]/HCC) 1 Device Once per day. 1 kit [...] Active Problems Problem Noted Date Diagnosed Date UTI symptoms 01/31/2025 Assessment & Plan (01/31/2025 3:55 PM EST): Patient and daughter were reassured, UA done at the office negative for UTI, but I did tell them I will send sample for culture I advised to drink plenty of water and do not hold the urine Viral upper respiratory tract infection 11/07/20 24 [...] visit. Recent blood work done by Dr. Freire 07/13/2024 showed: Normal CBC, BMP, LFTs Of [...] marked fatty replacement of the pancreas, atrophic nez perce kidneys with transplant kidney in the right iliac fossa, sigmoid diverticulosis without diverticulitis and degenerative changes in the spine with grade 1 anterolisthesis of L5 upon S1. Abd US 08/2024 showed: IMPRESSION: 1. No ultrasound evidence of gallbladder disease or gallstones. 2. Atrophic nez perce kidneys. 3. 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 ESR and TSH Normal Assessment & Plan (08/15/2024 2:00 PM EDT): Since December of this year patient has lost 24 lbs, unexplained. She does c/o loss of appetite but this is of unclear etiology. Recent blood work done by Dr. Freire 07/13/2024 showed: Normal CBC, BMP, LFTs Of [...] Plan (07/13/2024 4:31 PM EDT): Since December of this year patient has lost 24 lbs, unexplained. She does c/o loss of appetite but this is of unclear etiology. Recent blood work done by Dr. Freire 07/13/2024 showed: Normal CBC, BMP, LFTs Of [...] dislocation seen. Pt seen by Ortho at [facility] on 2 different occasions last 05/19/2024. Received a steroid injection with no good results. Daughter states she continues to c/o pain on her knee and is interested in getting a second opinion. patient was referred to [facility] unfortunately they do not take her insurance. Pt's daughter tells me they are willing to see Dr. Deluna at [facility] Pt underwent an MRI that showed: 1) [...] dislocation seen. Pt seen by Ortho at [facility] on 2 different occasions last 05/19/2024. Received a steroid injection with no good results. Daughter states she continues to c/o pain on her knee and is interested in getting a second opinion. patient was referred to [facility] unfortunately they do not take her insurance. Pt's daughter tells me they are willing to see Dr. Deluna at [facility] They are awaiting the MRI appointment. Assessment [...] dislocation seen. Pt seen by Ortho at [facility] on 2 different occasions last 05/19/2024. Received a steroid injection with no good results. Daughter states she continues to c/o pain on her knee and is interested in getting a second opinion. Plan: Patient has been referred to [facility] Assessment & Plan (04/06/2024 1:26 PM EDT): Patient seen initially at [facility] 01/26/2024 and was diagnosed with a non oclussive peroneal vein thrombus for which she was started on Eliquis. She subsequently presented at our [facility] with c/o posterior knee pain As part [...] 12:58 PM EDT): Patient seen initially at [facility] 01/26/2024 and was diagnosed with a non oclussive peroneal vein thrombus for which she was started on Eliquis. She subsequently presented at our [facility] with c/o posterior knee pain As part [...] has already been referred to Ortho by Restaurant Area Manager and today we confirmed that appointment is for next month Pt already has a follow up appointment with me in March. Acute deep vein thrombosis (DVT) of left lower e xtremity 02/15/2024 Assessment & Plan (07/13/2024 4:15 PM EDT): Resolved She completed anticoagulation for the duration recommended. Assessment & Plan (04/06/2024 1:26 PM EDT): US done at [facility] showed non oclussive thrombus in the peroneal veins measuring at least 3.1 cm. Pt was started on Eliquis 5 mg po BID started 01/26/2024 by Nephrology Pt was supposed to stay on it x 3 months (until 04/25/2024). It appears this was unprovoked although pt is rather sedentary. Assessment & Plan (02/15/2024 12:58 PM EDT): US done at [facility] showed non oclussive thrombus in the peroneal [...] 6.6 from 6.5 Pt previously referred to [employer] to adhere to Diabetic diet Plan: continue diabetic diet Assessment & Plan (08/15/2024 12:15 PM EDT): Here for a follow up FBS 04/04/2024 126 Hgb A1c 07/13/2024: 6.5 Pt previously referred to [employer] to adhere to Diabetic diet Plan; continue diabetic diet Assessment & Plan (07/13/2024 1:48 PM EDT): Here for a follow up FBS 04/04/2024 126 Hgb A1c 07/13/2024: 6.5 Pt previously referred to [employer] to adhere to Diabetic diet Plan; continue diabetic diet Assessment & Plan (04/06/2024 1:31 PM EDT): Newly diagnosed DM FBS 04/04/2024 126 Hgb A1c: 6.7 Plan: Pt referred to [employer] to adhere to Diabetic diet Assessment & [...] 30-59 GFR: [address] freire Assessment & Plan (01/06/2024 2:22 PM EST): S/P transplant had stable kidney allograft function. Doing well. Date of Transplant: 10/14/2017 Transplant Type: DD kidney CKD Stage: stage 3 - GFR 30-59 GFR: 58 Seen by Nephrology Osteoporosis 07/30/2016 Assessment & Plan (04/01/2023 8:39 AM EDT): Seen on Bone densitometry 04/21/2016 I have contacted pts mortgage processing clerk to obtain some guidance regarding the treatment [...] Currently on a regimen of : Vytorin 09/07 1 tab po daily Pt stopped taking Atorvastatin due to headaches The Vytorin was started by her Restaurant Area Manager Plan: Continue current regimen. advised to try [...] headaches The Vytorin was started by her Restaurant Area Manager Plan: Continue current regimen. Repeat Lipid profile [...] headaches The Vytorin was started by her Restaurant Area Manager Plan: Continue current regimen. advised to try to adhere to a low cholesterol diet, counseled and educated about diet and exercise IgA nephropathy 10/31/2012 10/29/2023 Assessment & Plan (01/06/2024 2:21 PM EST): Hemorrhoids 05/03/2010 Depressive disorder 05/03/2009 Assessment & Plan (04/01/2023 3:48 PM EDT): Used to follow with Dinora psychotherapist at [facility]. No longer seeing anyone on trazodone doing well. Pt with previous c/o paranoia, Pt tells me she was seen by Neurologist at [facility] and was told she was fine She saw a psychiatric prescriber once at [facility] and was prescribed Abilify 2 mg po daily with good results. He mortgage processing clerk Dr harrington has continued to prescribed Today she was evaluated by our [facility] clinician Encounters Date Type Department Care Team Description 01/31/2025 3:20 PM EST Office Visit [facility] [address] [place] [phone] Joana Benitez MD UTI symptoms 01/02/2025 Orders Only GENERIC EXTERNAL DATA DEPARTMENT Provider, Generic External Data 12/25/2024 Telephone [facility] [address] [place] [address] Rashaad Tinajero MD February Recall 11/16/2024 11:00 AM EST Office Visit [facility] [address] [facility] [place] [address] RuizDeanneChantelle nicole, DDS Missing teeth, acquired (Primary Dx) 11/15/2024 Telephone [facility] [address] [place] [address] Rashaad Tinajero MD [facility] 11/10/2024 Telephone [facility] [address] [facility] [place] [address] Caleb Pandey MA Rx for rollator walker 11/07/2024 1:30 PM EST Office Visit [facility] [address] [facility] [place] [address] Rashaad Tinajero MD Essential hypertension (Primary Dx); Type 2 diabetes mellitus with stage 3a chronic kidney disease, without long-term current use of insulin ([facility]); Kidney replaced by transplant; Weight loss; Primary osteoarthritis of left knee; Viral upper respiratory tract infection 11/07/2024 Travel from Last 3 Months Immunizations Name Administration [...] Mass Index 34.17 01/31/2025 3:05 PM EST Plan of Treatment Upcoming Encounters Date Type Department Care Team (Late st Contact Info) Description 03/05/2025 2:00 PM EDT Office Visit [facility] [address] [place] [address] Kelly, Nelly [address] [place] [address] 03/15/2025 2:15 PM EDT Office Visit [facility] [address] [place] [address] Rashaad Tinajero MD [address] [place] [address] Health Maintenance Due Date Last Done Comments [...] Routine 01/31/2025 3:15 PM EST UTI symptoms TACROLIMUS, HIGHLY SENSITIVE, LC/MS/MS Routine 01/02/2025 9:56 AM EST CALCIUM Routine 01/02/2025 9:56 AM EST CREATININE, SERUM Routine 01/02/2025 9:5 6 AM EST UREA NITROGEN (BUN) Routine 01/02/2025 9 :56 AM EST ELECTROLYTE PANEL Routine 01/02/2025 9:5 6 AM EST CBC WITH AUTO DIFFERENTIAL Routine 01/02/2025 9:56 AM EST CASE PRESENTATION, DETAILED AND EXTENSIVE TREATMENT PLANNING Routine 11/16/2024 [...] upper respiratory tract infection POCT COVID-19 AG JACOBOSN ID NOW Routine 11/07/2024 3:58 PM EST Viral upper respiratory tract infection POCT GLYCATED HEMOGLOBIN, TOTAL Routine 11/07/2024 2:03 PM EST Type 2 diabetes mellitus with stage 3a chronic kidney disease, without long-term current use of insulin ([facility]/HCC) POCT GLUCOSE Routine 11/07/2024 2:02 PM EST Type 2 diabetes mellitus with stage 3a chronic kidney disease, without long-term current use of insulin (CMS/HCC) PROPHYLAXIS - ADULT Routine 08/31/2024 1 0:00 AM EDT Missing teeth, acquired Generalized gingival recession, severe Dental plaque INTRAORAL - COMPLETE SERIES OF RADIOGRAPHIC IMAGES Routine 08/24/2024 10:00 [...] Relevant to Health Maintenance Results * POCT Urinalysis (01/31/2025 3:15 PM [...] TER/EDIT ORDERABLES Final Result * Creatinine, Serum (01/02/2025 9:56 AM EST) Creatinine, Serum 0.94 0.5 - 1.4 mg/dL [facility] Estimated Glomerular Filt Rate 58 [facility] Comment:Chronic Kidney Disea se: Estimated GFR < 60 mL/min/1.25t0Naoufh Kidney Disease: Estimated GFR < 15 mL/min/1.73m2 01/02/2025 9:56 AM EST 01/02/2025 9:56 AM EST us Generic External Data Provider LAB BLOOD ORDERAB LES Final Result [facility] [address] [place] [phone] * (ABNORMAL) CBC auto differential (01/02/2025 9:56 AM EST) White Blood Count 4.2(L) 4.8 - 10.8 X10*3/uL [facility] Red Blood Count 5.34 4.20 - 5.50 X10*6/uL [facility] Hemoglobin 13.4 12.0 - 16.0 g/dl [facility] Hematocrit 43.2 37.0 - 47.0 % [facility] Mean Corpuscular Volume 80.9 80.0 - 98.0 fL [facility] Mean Corpuscular Hemoglobin 25.1(L) 27.0 - 33.0 pg [facility] Mean Corpuscular HGB Conc 31.0 31.0 - 35.0 g/dl [facility] Red Cell Distribution Width 14.2 11.0 - 16.0 % [facility] Platelet Count 210 160 - 400 X10*3/uL [facility] Mean Platelet Volume 11.1 9.4 - 12.3 fL [facility] Neutrophils Percent Auto 59.0 45 - 73 % [facility] Imm Gran Pct Auto 0.2 0.0 - 0.4 % [facility] Lymphocytes Percent Auto 28.4 20 - 40 % [facility] Monocytes Percent Auto 10.7 2 - 11 % [facility] Eosinophils Percent Auto 1.2 0 - 4 % [facility] Basophils Percent Auto 0.5 0 - 2 % [facility] NRBC Pct Auto 0.0 0.0 - 0.2 /100WBC [facility] Neutrophils Absolute Auto 2.5 2.0 - 8.3 x10*3/uL [facility] Imm Gran Abs Auto 0.01 0.00 - 0.03 X10*3/uL [facility] Lymphocytes Absolute Auto 1.2 1.2 - 4.9 X10*3/uL [facility] Monocytes Absolute Auto 0.5 0.1 - 1.2 X10*3/uL [facility] Eosinophils Absolute Auto 0.1 0.0 - 0.4 X10*3/uL [facility] Basophils Absolute Auto 0.0 0.0 - 0.2 X10*3/uL [facility] NRBC Abs Auto 0.000 0.0 - 0.012 X10*3/uL [facility] 01/02/2025 9:56 AM EST 01/02/2025 9:56 AM EST Generic External Data Provider LAB BLOOD ORDERAB LES Final Result Performing Organization Address [facility] Co de Phone Number [facility] [address] [place] [phone] * (ABNORMAL) Tacrolimus, Highly Sensitive, LC/MS/MS (01/02/2025 9:56 AM EST) Tacrolimus 4.9(A) mcg/L [facility] Comment:No definitive therap eutic or toxic ranges have beenestablished. Optimal blood drug levels are influencedby type of transplant, patient response, time post-transplant, co-administration of other drugs, anddrug formulation. The following trough range is asuggested guideline: 5.0-20.0 mcg/L.This test was developed and its analytical performancecharacteristics have been determined by [employer]. It has not been cleared or approved by theFDA. This assay has been validated pursuant to the CLIAregulations and is used for clinical purposes.THIS TEST WAS PERFORMED AT:[facility] [address] [id number] CHACON MD 01/02/2025 9:56 AM EST 01/02/2025 9:56 AM EST us Generic External Data Provider LAB BLOOD ORDERAB LES Final Result Performing Organization Address City/[facility]/ZIP Co de Phone Number [facility] [address] [place] [phone] * (ABNORMAL) BUN (Blood Urea Nitrogen) (01/02/2025 9:56 AM EST) Urea Nitrogen (BUN) 17(H) 9 - 16 mg/dL [facility] 01/02/2025 9:56 AM EST 01/02/2025 9:56 AM EST us Generic External Data Provider LAB BLOOD ORDERAB LES Final Result Performing Organization Address [facility] Co or Phone Number [facility] [address] [place] [phone] * Calcium (01/02/2025 9:56 AM EST) Calcium 9.1 8.4 - 10.2 mg/dL [facility] 01/02/2025 9:56 AM EST 01/02/2025 9:56 AM EST us Generic External Data Provider LAB BLOOD ORDERAB LES Final Result Performing Organization Address [facility] de Phone Number [facility] [address] [place] [phone] * Electrolyte Panel (01/02/2025 9:56 AM EST) Sodium 140 135 - 145 mmol/L [facility] Potassium 4.5 3.3 - 5.1 mmol/L [facility] Chloride 106 96 - 108 mmol/L [facility] Carbon Dioxide 25 22 - 29 mmol/L [facility] Anion Gap 14 12 - 20 [facility] 01/02/2025 9:56 AM EST 01/02/2025 9:56 AM EST us Generic External Data Provider LAB BLOOD ORDERAB LES Final Result Performing Organization Address [facility]/State/ZIP Co de Phone Number [facility] [address] [place] [phone] * POCT Rapid Influenza B JACOBSON ID NOW (11/07/2024 3:59 PM EST) Influenza B Negative Negative, Indeterminate [facility] QC Media Lot # [id number] [facility] Lot# Expiration Date [facility] Swab 11/07/2024 3:59 PM EST us Rashaad Kirk MD POINT OF CARE TEST EN TER/EDIT ORDERABLES Final Result Performing Organization Address [facility] Co de Phone Number [facility] [address] [place] [phone] * POCT Rapid Influenza A JACOBSON ID NOW (11/07/2024 3:59 PM EST) Influenza A Negative Negative, Indeterminate [facility] QC Media Lot # [id number] [facility] Lot# Expiration Date [facility] Swab 11/07/2024 3:59 PM EST us Rashaad Kirk MD POINT OF CARE TEST EN TER/EDIT ORDERABLES Final Result Performing Organization Address City/[facility]/ZIP Co de Phone Number [facility] [address] [place] [phone] * POCT Rapid Covid-19 JACOBSON ID NOW (11/07/2024 3:58 PM EST) Coronavirus Antigen PCR Negative Negative, Indeterminate, None Detected, Invalid, Specimen unsatisfactory for evaluation, Weakly Positive QC Media Lot # [id number] Lot# Expiration Date Swab 11/07/2024 3:58 PM EST us Rashaad Kirk MD POINT OF CARE TEST EN TER/EDIT ORDERABLES Final Result * (ABNORMAL) POCT HGB A1C (11/07/2024 2:03 PM EST) Hemoglobin A1C 6.6(A) 4.0 - 6.0 % QC Media Lot # [id number] Lot# Expiration Date ,831,130 Blood 11/07/2024 2:03 PM EST Rashaad Kirk MD POINT OF CARE TEST EN TER/EDIT ORDERABLES Final Result * POCT Glucose (11/07/2024 2:02 PM EST) Glucose Blood, POC 131 60 - 200 mg/dL Comment:Random QC Media Lot # [id number] Lot# Expiration Date 209,514 Blood Capillary blood specimen / Unknown 11/07/2024 2:02 PM EST Rashaad Kirk MD POINT OF CARE TEST EN TER/EDIT ORDERABLES Final Result * Lipid Panel with Reflex to Direct LDL (01/05/2024 11:16 AM EST) Triglycerides 97 <150 mg/dL [facility] Comment:Desirable Triglyceri de: less than 150 mg/dLBorderline High Triglyceride 150-199 mg/dLHigh Triglyceride: 200-499 mg/dLVery High Triglyceride: greater than or equal to 5OO mg/dL Cholesterol 145 <200 mg/dL [facility] Comment:Desirable Cholestero l: less than 200 mg/dLBorderline High Cholesterol: 200-239 mg/dLHigh Cholesterol: greater than 239 mg/dL LDL Cholesterol Calculated 73 <100 mg/dL [facility] Comment:Desirable LDL: less than 100 mg/dLNear Optimal/Above Optimal LDL: 110- 129 mg/dLBorderline High LDL: 130-159 mg/dLHigh LDL: 160-189 mg/dLVery High LDL: greater than or equal to 190 mg/dL HDL Cholesterol 53 >40 mg/dL [facility] Comment:Desirable HDL: great er than 40 mg/dL Note: This HDL assay may give artificially low results in patients with liver disease. Blood 01/05/2024 11:1 6 AM EST 01/05/2024 11:16 AM EST Rashaad Kirk MD LAB BLOOD ORDERABLES Final Result [facility] [address] [place] [phone] * Colonoscopy (08/19/2021) Colonoscopy Normal Normal Historical Provider HEALTH MAINTENANCE Final Result * HEPATITIS C AB W/REFL TO HCV RNA, QN, PCR (11/13/2020 2:05 PM EST) HEPATITIS C ANTIBODY NON-REACT [facility] NON-REACT [facility] INDEX 0.02 <1.00 [facility] Comment: ?? HCV antibody was non-reactive. There is no laboratory ?? evidence of HCV infection. ?? In most cases, no further action is required. However, if recent HCV exposure is suspected, a test for HCV RNA (test code 42254) is suggested. ?? For additional information please refer to http://education.[employer]/faq/FUC46s1 (This link is being provided for informational/ educational purposes only.) ?? 11/13/2020 2:05 PM EST Rashaad Kirk MD HISTORICAL/NON ORDERA BLE LABS Final Result [facility] [address] from Last 3 Months or Most Recently Relevant to Health Maintenance Insurance [facility] [place] [phone] DENTAL - [facility] Care Teams Pantograph I Engraver Relationship Specialty Start Date End Date Rashaad Tinajero MD [address] [place] [phone] PCP - General Internal Medicine 06/19/15
--- OUTSIDE RECORDS SUMMARY | 2025-01-31 19:26 | XMS_ITS | Encounter Summary ---
Author Organization [employer] Address [address] [place] [address] [address] [place] [address] Care Team Providers Care Obedience Trainer Name Role Phone Rashaad Tinajero MD Primary Care Provide r Encounter Details Date Type Department Care Team (Late st Contact Info) Description 04/08/[address] [facility] [address] [place] [address] Rashaad Tinajero MD [address] [place] [address] Social History Tobacco Use Types Packs/Day Years [...] Description 03/05/2025 2:00 PM EDT Office Visit [facility] [address] [place] [address] Nelly Mendoza [address] [place] [address] 03/15/2025 2:15 PM EDT Office Visit [facility] [address] [place] [address] Rashaad Tinajero MD [address] [place] [address] Pending Results Name Type Priority Associated Diagnoses Date /Time Colonoscopy GI Routine 08/19/2021 documented as of this encounter Visit Diagnoses Not on filedocumented in this encounter Additional Health Concerns Assessment Noted Time PHQ-9 Depression Total Score: 9 04/01/20 23 12:16 PM EDT documented as of this encounter Care Teams Obedience Trainer Relationship Specialty Start Date End Date Rashaad Tinajero MD [address] [place] [phone] PCP - General Internal Medicine 06/19/15 documented as of this encounter
--- OUTSIDE RECORDS SUMMARY | 2025-01-31 19:26 | XMS_ITS | Encounter Summary ---
Author Organization [email or web address] Address [address] [facility] 7t [place] [address] Care Team Providers Care Heel Breaster Name Role Phone Rashaad Tinajero MD Primary Care Provide r Reason for Visit * Reason Onset Date Comments Results 02/07/2024 Encounter Details Date Type Department Care Team ([facility] st Contact Info) Description 02/07/[address] [facility] MED[facility]INE [address] [place], [place] [phone] Rashaad Tinajero MD [address] [place], [place] [phone] Results Social History Tobacco Use Types Packs/Day [...] t he electric, gas, oil or water [employer] threatened to shut off services in your [...] and then green team nurses forwarded to [facility] nurses as ordering provider is a [facility] provider that worked the Walk In last Wednesday02.04.24, to review and advise POC on 02.07.24. Provider communicated test results on 02.10.24. Teamnurses called pt daughter daughter today. Please see previous message. Daughter wanted to know why no one called her until today- this medical technical writer apologized and explained that the nurses [...] our jobs properly. Daughter repeatedly told this medical technical writer that she called multiple times this week for results and no one answered her until today. This medical technical writer attempted to explain that I had spoken to the nurses about how they should have called her back and kept her in the loop that the message was sent to the provider for review. Daughter continued to repeat the same language. This medical technical writer attempted to let her know that I heard her and I was trying to help her. Daughter was not hearing this medical technical writer nor wanted to listen any longer. She told me that I was not doing a very good job at managing staff and needed to talk to my boss. She asked for BATTERY BUILDER and TECHNICAL SERVICES ASSISTANT names and numbers. Names were provided aswell as extensions. FYI-Pt is scheduled to see PCP 03.07.24, first available, for a POC for knee pain including a medication concern which is documented in a different TC note. This medical technical writer offered to have pt see another provider, daughter refused. Will send message to PCP. * Telephone Encounter - Heather Pandey RN - 02/11/2024 11:15 AM EDT Returned call to pt daughter regarding message below. Daughter informed of XR and US results. Pt daughter states that it took a week to get results when pt campus recruiting coordinator received results and referredpt to Ortho right away and stated we are just now getting a call back with no further POC . Daughter states that we at the [facility] are irresponsible and that PCP is unaware of what is happening to pt . This RN advised daughter that a message was sent to manager registration regarding her concerns and that someone will [...] also requesting to speak with a manager registration in regards to the matter of delay [...] results: xray Date when done: 02/04/24 Facility: [facility] [place] TC from pt requesting call back regarding Results. Type of results: US Date when done: 02/04/24 Facility: [facility] documented in this encounter Plan of Treatment Upcoming Encounters Date Type Department Care Team (Late st Contact Info) Description 03/05/2025 2:00 PM EDT Office Visit [facility] ADULT DENTAL [address] [place] [address] Nelly Mendoza [address] [place] [address] 03/15/2025 2:15 PM EDT Office Visit [facility] MEDICINE [address] [place] [address] Rashaad Tinajero MD [address] [place] [address] documented as of this encounter Visit Diagnoses Not on filedocumented in this encounter Additional Health Concerns Assessment Noted Time PHQ-9 Depression Total Score: 9 04/01/20 23 12:16 PM EDT documented as of this encounter Care Teams Heel Breaster Relationship Specialty Start Date End Date Rashaad Tinajero MD [address] [place] [phone] PCP - General Internal Medicine 06/19/15 documented as of this encounter
--- OUTSIDE RECORDS SUMMARY | 2025-01-31 19:26 | XMS_ITS | Encounter Summary ---
Author Organization [employer] Address [address] [facility] 7t [place] [address] Care Team Providers Care Makeup Sales Consultant Name Role Phone Rashaad Tinajero MD [...] Description 03/05/2025 2:00 PM EDT Office Visit [facility] ADULT DENTAL [address] [place] [address] Kelly, Nelly [address] [place] [address] 03/15/2025 2:15 PM EDT Office Visit [facility] MEDICINE [address] [place] [address] Rashaad Tinajero MD [address] [place] [address] documented as of this encounter Procedures Procedure [...] (01/02/2025 9:56 AM EST) Tacrolimus 4.9(A) mcg/L [facility] Comment:No definitive therap eutic or toxic ranges have beenestablished. Optimal blood drug levels are influencedby type of transplant, patient response, time post-transplant, co-administration of other drugs, anddrug formulation. The following trough range is asuggested guideline: 5.0-20.0 mcg/L.This test was developed and its analytical performancecharacteristics have been determined by [employer]. It has not been cleared or approved by theA. This assay has been validated pursuant to the CLIAregulations and is used for clinical purposes.THIS TEST WAS PERFORMED AT:[facility] [place] [id number] CHACON MD 01/02/2025 9:56 AM EST 01/02/2025 9:56 AM EST Generic External Data Provider LAB BLOOD ORDERAB LES Final Result Performing Organization Address [facility] [address]/[facility] Co de Phone Number [facility] [address] [place] [phone] * Calcium (01/02/2025 9:56 AM EST) Calcium 9.1 8.4 - 10.2 mg/dL [facility] 01/02/2025 9:56 AM EST 01/02/2025 9:56 AM EST [employer] External Data Provider LAB BLOOD ORDERAB LES Final Result Performing Organization Address [facility] [address]/[facility] Co de Phone Number [facility] [address] [place] [phone] * Creatinine, Serum (01/02/2025 9:56 AM EST) Creatinine, Serum 0.94 0.5 - 1.4 mg/dL [facility] Estimated Glomerular Filt Rate 58 [facility] Comment:Chronic Kidney Disea se: Estimated GFR < 60 mL/min/1.73l5Tncclf Kidney Disease: Estimated GFR < 15 mL/min/1.73m2 01/02/2025 9:56 AM EST 01/02/2025 9:56 AM EST Generic External Data Provider LAB BLOOD ORDERAB LES Final Result Performing Organization Address [facility] [address]/[facility] Co de Phone Number [facility] [address] [place] [phone] * (ABNORMAL) BUN (Blood Urea Nitrogen) (01/02/2025 9:56 AM EST) Urea Nitrogen (BUN) 17(H) 9 - 16 mg/dL [facility] 01/02/2025 9:56 AM EST 01/02/2025 9:56 AM EST us Generic External Data Provider LAB BLOOD ORDERAB LES Final Result Performing Organization Address [facility] de Phone Number [facility] [address] [place] [phone] Electrolyte Panel (01/02/2025 9:56 AM EST) Sodium 140 135 - 145 mmol/L [facility] Potassium 4.5 3.3 - 5.1 mmol/L [facility] Chloride 106 96 - 108 mmol/L [facility] Carbon Dioxide 25 22 - 29 mmol/L [facility] Anion Gap 14 12 - 20 [facility] 01/02/2025 9:56 AM EST 01/02/2025 9:56 AM EST Generic External Data Provider LAB BLOOD ORDERAB LES Final Result Performing Organization Address [facility] [address]/[facility] Co de Phone Number [facility] [address] [place] [phone] * (ABNORMAL) CBC auto differential (01/02/2025 9:56 AM EST) White Blood Count 4.2(L) 4.8 - 10.8 X10*3/uL [facility] Red Blood Count 5.34 4.20 - 5.50 X10*6/uL [facility] Hemoglobin 13.4 12.0 - 16.0 g/dl [facility] Hematocrit 43.2 37.0 - 47.0 % [facility] Mean Corpuscular Volume 80.9 80.0 - 98.0 fL [facility] Mean Corpuscular Hemoglobin 25.1(L) 27.0 - 33.0 pg [facility] Mean Corpuscular HGB Conc 31.0 31.0 - 35.0 g/dl [facility] Red Cell Distribution Width 14.2 11.0 - 16.0 % [facility] Platelet Count 210 160 - 400 X10*3/uL [facility] Mean Platelet Volume 11.1 9.4 - 12.3 fL [facility] Neutrophils Percent Auto 59.0 45 - 73 % [facility] Imm Gran Pct Auto 0.2 0.0 - 0.4 % [facility] Lymphocytes Percent Auto 28.4 20 - 40 % [facility] Monocytes Percent Auto 10.7 2 - 11 % [facility] Eosinophils Percent Auto 1.2 0 - 4 % [facility] Basophils Percent Auto 0.5 0 - 2 % [facility] NRBC Pct Auto 0.0 0.0 - 0.2 /100WBC [facility] Neutrophils Absolute Auto 2.5 2.0 - 8.3 x10*3/uL [facility] Imm Gran Abs Auto 0.01 0.00 - 0.03 X10*3/uL [facility] Lymphocytes Absolute Auto 1.2 1.2 - 4.9 X10*3/uL [facility] Monocytes Absolute Auto 0.5 0.1 - 1.2 X10*3/uL [facility] Eosinophils Absolute Auto 0.1 0.0 - 0.4 X10*3/uL [facility] Basophils Absolute Auto 0.0 0.0 - 0.2 X10*3/uL [facility] NRBC Abs Auto 0.000 0.0 - 0.012 X10*3/uL [facility] 01/02/2025 9:56 AM EST 01/02/2025 9:56 AM EST us Generic External Data Provider LAB BLOOD ORDERAB LES Final Result Performing Organization Address City/State/[facility] Co de Phone Number [facility] [address] [place] [phone] documented in this encounter Visit Diagnoses Not on filedocumented in this encounter Additional Health Concerns Assessment Noted Time PHQ-9 Depression Total Score: 2 07/13/20 24 1:44 PM EDT documented as of this encounter Care Teams Makeup Sales Consultant Relationship Specialty Start Date End Date Rashaad Tinajero MD [address] [place] [phone] PCP - General Internal Medicine 06/19/15 documented as of this encounter
--- OUTSIDE RECORDS SUMMARY | 2025-01-31 19:26 | XMS_ITS | Encounter Summary ---
Author Organization [employer] Address [address] [facility] 7t [place] [address] Care Team Providers Care Parimutuel Cashier Name Role Phone Rashaad Tinajero MD Primary Care Provide r Reason for Visit * Reason Onset Date Comments Appointment Request 02/01/2024 Encounter Details Date Type Department Care Team ([facility] st Contact Info) Description 02/01/2024 Telephone [facility] MEDICINE [address] [place], [place] [phone] Rashaad Tinajero MD [address] [place], [place] [phone] Appointment Request Social History Tobacco Use Types [...] an appointment pt had last week with supervisor hard candy. States supervisor hard candy sent pt to do an US on the left leg for Blood clot.Corn Grower also started pt on new medication. Please contact pt daughter at [phone] documented in this encounter Plan of Treatment Upcoming Encounters Date Type Department Care Team (Late st Contact Info) Description 03/05/2025 2:00 PM EDT Office Visit [facility] ADULT DENTAL [address] [place] [address] Kelly, Nelly [address] [place] [address] 03/15/2025 2:15 PM EDT Office Visit [facility] MEDICINE [address] [place] [address] Rashaad Tinajero MD [address] [place] [address] documented as of this encounter Visit Diagnoses Not on filedocumented in this encounter Additional Health Concerns Assessment Noted Time PHQ-9 Depression Total Score: 9 04/01/20 23 12:16 PM EDT documented as of this encounter Care Teams Parimutuel Cashier Relationship Specialty Start Date End Date Rashaad Tinajero MD [address] [place] [address] PCP - General Internal Medicine 06/19/15 documented as of this encounter
== END 2025-01-31 17:04 | disposition home or self-care (01) ==
LOC: HO.HHCLNP 17:03
PROVIDERS: Visit Provider Internal Medicine
DX: R39.9 Unspecified symptoms and signs involving the genitourinary system (principal)
CPT/HCPCS: 87086

== ENCOUNTER 2025-03-22 10:10 | Outpatient (REF) | payer OTHER, SELFPAY ==
[2025-03-22 10:26] LABS: MANUAL DIFF FLAG NO
[2025-03-22 10:41] LABS: Basophils Percent Auto 0.5 % (0-2); Eosinophils Absolute Auto 0.1 X10*3/uL (0.0-0.4); Eosinophils Percent Auto 1.9 % (0-4); Hematocrit 39.3 % (37.0-47.0); Hemoglobin 12.8 g/dl (12.0-16.0); Imm Gran Abs Auto 0.01 X10*3/uL (0.00-0.03); Imm Gran Pct Auto 0.3 % (0.0-0.4); Lymphocytes Absolute Auto 1.1 X10*3/uL (1.2-4.9); Lymphocytes Percent Auto 29.2 % (20-40); Mean Corpuscular HGB Conc 32.6 g/dl (31.0-35.0); Mean Corpuscular Volume 79.9 fL (80.0-98.0); Monocytes Absolute Auto 0.4 X10*3/uL (0.1-1.2); Neutrophils Absolute Auto 2.1 x10*3/uL (2.0-8.3); Neutrophils Percent Auto 56.1 % (45-73); Platelet Count 208 X10*3/uL (160-400); Red Blood Count 4.92 X10*6/uL (4.20-5.50); Red Cell Distribution Width 13.6 % (11.0-16.0); White Blood Count 3.7 X10*3/uL (4.8-10.8)
[2025-03-22 11:15] LABS: Alanine Aminotransferase 13 U/L (0-31); Anion Gap 13 (12-20); Aspartate Amino Transferase 23 U/L (5-31); Blood Urea Nitrogen 18 mg/dL (9-16); Calcium 9.2 mg/dL (8.4-10.2); Carbon Dioxide 24 mmol/L (22-29); Chloride 105 mmol/L (96-108); Cholesterol 136 mg/dL (<200); Estimated Glomerular Filt Rate 54; HDL Cholesterol 59 mg/dL (>40); LDL Cholesterol Calculated 63 mg/dL (<100); Magnesium 1.7 mg/dL (1.6-2.6); Phosphorus 3.4 mg/dL (2.7-4.5); Potassium 4.4 mmol/L (3.3-5.1); Sodium 138 mmol/L (135-145); Triglycerides 73 mg/dL (<150)
--- OUTSIDE RECORDS SUMMARY | 2025-03-22 11:43 | XMS_ITS | Encounter Summary ---
Author Organization [employer] Address [address] [facility] 7t [place] [address] Care Team Providers Care Racecar Driver Name Role Phone Rashaad Tinajero MD Primary Care Provide r Reason for Visit * Reason Onset Date Comments Appointment Request 02/01/2024 Encounter Details Date Type Department Care Team ([facility] st Contact Info) Description 02/01/2024 Telephone [facility] MEDICINE [address] [place], [place] [phone] Rashaad Tinajero MD [address] [place], [place] [phone] Appointment Request Social History Tobacco Use Types [...] an appointment pt had last week with grinder set up operator thread tool. States grinder set up operator thread tool sent pt to do an US on the left leg for Blood clot.Director It Project also started pt on new medication. Please contact pt daughter at [phone] documented in this encounter Plan of Treatment Upcoming Encounters Date Type Department Care Team (Late st Contact Info) Description 09/17/2025 1:00 PM EDT Office Visit [facility] ADULT DENTAL [address] [place] [address] KellyNicholasNelly [address] [place] [address] documented as of this encounter Visit Diagnoses Not on filedocumented in this encounter Additional Health Concerns Assessment Noted Time PHQ-9 Depression Total Score: 9 04/01/20 23 12:16 PM EDT documented as of this encounter Care Teams Racecar Driver Relationship Specialty Start Date End Date Rashaad Tinajero MD [address] [place] [address] PCP - General Internal Medicine 06/19/15 documented as of this encounter
--- OUTSIDE RECORDS SUMMARY | 2025-03-22 11:43 | XMS_ITS | Encounter Summary ---
Author Organization [employer] Address [address] [place] [address] 7t [place] [address] Care Team Providers Care Verification Engineer Name Role Phone Rashaad Tinajero MD Primary Care Provide r Encounter Details Date Type Department Care Team (Late st Contact Info) Description 04/08/2023 Abstract [facility] MEDICINE [address] [place] [address] Rashaad Tinajero MD [address] [place] [address] Social History Tobacco Use Types Packs/Day Years [...] Description 09/17/2025 1:00 PM EDT Office Visit [facility] ADULT DENTAL [address] [place] [address] Nelly Mendoza [address] [place] [address] Pending Results Name Type Priority Associated Diagnoses Date /Time Hm Colonoscopy GI Routine 08/19/2021 documented as of this encounter Visit Diagnoses Not on filedocumented in this encounter Additional Health Concerns Assessment Noted Time PHQ-9 Depression Total Score: 9 04/01/20 23 12:16 PM EDT documented as of this encounter Care Teams Verification Engineer Relationship Specialty Start Date End Date Rashaad Tinajero MD [address] [place] [address] PCP - General Internal Medicine 06/19/15 documented as of this encounter
--- OUTSIDE RECORDS SUMMARY | 2025-03-22 11:43 | XMS_ITS | Encounter Summary ---
Author Organization [employer] Address [address] [facility] 7t [place] [address] Care Team Providers Care Volleyball Assistant Coach Name Role Phone Rashaad Tinajero MD Primary Care Provide r Reason for Visit * Reason Onset Date Comments Appointment Request 09/28/2023 Encounter Details Date Type Department Care Team ([facility] st Contact Info) Description 09/28/2023 Telephone [facility] MEDICINE [address] [place], [place] [phone] Rashaad Tinajero MD [address] [place], [place] [phone] Appointment Request Social History Tobacco Use Types [...] Tc from daughter requesting a PE appt. Farm Implement Mechanic attempted to schedule. No availability. documented in this encounter Plan of Treatment Upcoming Encounters Date Type Department Care Team (Late st Contact Info) Description 09/17/2025 1:00 PM EDT Office Visit [facility] ADULT DENTAL [address] [place] [address] Kelly, Nelly [address] [place] [address] documented as of this encounter Visit Diagnoses Not on filedocumented in this encounter Additional Health Concerns Assessment Noted Time PHQ-9 Depression Total Score: 9 04/01/20 23 12:16 PM EDT documented as of this encounter Care Teams Volleyball Assistant Coach Relationship Specialty Start Date End Date Rashaad Tinajero MD [address] [place] [address] PCP - General Internal Medicine 06/19/15 documented as of this encounter
--- OUTSIDE RECORDS SUMMARY | 2025-03-22 11:43 | XMS_ITS | Clinical Summary ---
Author Organization [employer] Address [address] [place] [address] [address] [place] [address] Care Team Providers Care Cafeteria Aide Name Role Phone Rashaad Tinajero MD Primary Care Provide r Allergies Active Allergy Reactions Criticality Noted Date Comments Rosuvastatin 10/31/2012 Medications * This document contains information received from the source organization and may not represent a complete record from that organization. amLODIPine (Norvasc) 2.5 MG tablet Take 2.5 mg by mouth. 3 Active ARIPiprazole (Abilify) 2 MG tablet Take 1 tablet by mouth in the morning. 1 Active cholecalcifero l 50 MCG (1999) capsule Take 50 mcg by mouth in the morning. Active metoprolol tartrate (Lopressor) 25 MG tablet Take 12.5 mg by mouth. 3 Active tacrolimus (Prograf) 1 MG capsule take 1 by oral route every am and 1 at pm Active acetaminophen (Tylenol) 500 MG tabletIndicati ons:Acute pain of left knee Take 1 tablet (500 mg) by mouth every 8 (eight) hours if needed for mild pain. 90 tablet 3 4 Active ferrous sulfate 325 (65 Fe) MG EC tablet 4 Active amoxicillin (Amoxil) 500 MG capsule Take 4 capsules of amoxicillin 500 mg 1 hour prior dental procedure 12 capsule 4 Active Diclofenac Sodium 1 % gel Use BID as needed 100 g 2 4 03/15/20 25 Discontin ued(Thera py completed ) Apixaban Starter Pack (Eliquis DVT/PE Starter Pack) 5 MG tablet therapy pack Take 5 mg by mouth. 4 03/15/20 25 Discontin ued(Thera py completed ) cholecalcifero l (Vitamin D-3) 50 MCG (1999) tablet Take 2,000 Units by mouth. 03/15/20 25 Discontin ued(Thera py completed ) Blood Glucose Monitoring Suppl (FreeStyle Lite) w/Device kitIndications :Newly diagnosed diabetes (CMS/HCC) 1 Device Once per day. 1 kit 4 03/15/20 25 Discontin ued(Thera py completed ) FreeStyle lancetsIndicat ions:Newly diagnosed diabetes (CMS/HCC) 1 each by Other route Once per day. 100 each 3 4 03/15/20 25 Discontin ued(Thera py completed ) FREESTYLE LITE test stripIndicatio ns:Newly diagnosed diabetes (CMS/HCC) Check daily 100 each 11 4 03/15/20 25 Discontin ued(Thera py completed ) Active Problems Problem Noted Date Diagnosed Date [...] 08/31/2024 Weight loss 07/13/2024 Assessment & Plan (03/15/2025 2:21 PM EDT): Pt continues to gain weight Recent blood work done by Dr. Anaya [...] marked fatty replacement of the pancreas, atrophic [place] kidneys with transplant kidney in the right iliac fossa, sigmoid diverticulosis without diverticulitis and degenerative changes in the spine with grade 1 anterolisthesis of L5 upon S1. Abd US 08/2024 showed: IMPRESSION: 1. No ultrasound evidence of gallbladder disease or gallstones. 2. Atrophic [place] kidneys. 3. 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 Abd US 08/2024 showed: IMPRESSION: 1. No ultrasound evidence of gallbladder disease or gallstones. 2. Atrophic [place] kidneys. 3. Transplanted right kidney right lower [...] & Plan (07/13/2024 4:31 PM EDT): Since February of this year patient has lost 24 [...] day. 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 Pt seen by Ortho at [facility] on 2 different occasions last 05/19/2024. Received a steroid injection with no good results. Daughter states she continues to c/o pain on her knee and is interested in getting a second opinion. patient was referred to [facility] unfortunately they do not take her insurance. Pt's daughter tells me they are willing to see Dr. Deluna at [facility] Pt underwent an MRI that showed: 1) [...] dislocation seen. Pt seen by Ortho at [facility] on 2 different occasions last 05/19/2024. Received a steroid injection with no good results. Daughter states she continues to c/o pain on her knee and is interested in getting a second opinion. patient was referred to [facility] unfortunately they do not take her insurance. Pt's daughter tells me they are willing to see Dr. Deluna at [facility] They are awaiting the MRI appointment. Assessment [...] dislocation seen. Pt seen by Ortho at [facility] on 2 different occasions last 05/19/2024. Received a steroid injection with no good results. Daughter states she continues to c/o pain on her knee and is interested in getting a second opinion. Plan: Patient has been referred to [facility] Assessment & Plan (04/06/2024 1:26 PM EDT): Patient seen [place] [facility] [place] and was diagnosed with a non oclussive peroneal vein thrombus for which she was started on Eliquis. She subsequently presented at our [facility] with c/o posterior knee pain As part [...] 12:58 PM EDT): Patient seen initially at [facility] [place]20[place] and was diagnosed with a non oclussive peroneal vein thrombus for which she was started on Eliquis. She subsequently presented at our [facility] with c/o posterior knee pain As part [...] has already been referred to Ortho by [employer] and today we confirmed that appointment is for next month Pt already has a follow up appointment with me in March. Obesity due to excess calories with serious saleem rbidity 01/06/2024 Assessment & Plan (03/15/2025 2:22 PM EDT): Patient has been counseled and educated about diet and exercise. Personal goal of weight loss discussedPatient has comorbidity of: HTN Assessment & Plan (01/06/2024 2:29 PM EST): Patient has been counseled and educated about diet and exercise. Personal goal of weight loss discussedPatient has comorbidity of: HTN Type 2 diabetes mellitus wit h kidney complication, without long-term current use of insulin 01/06/2024 Assessment & Plan (03/15/2025 2:22 PM EDT): Patient here for a follow up in regards of her DM Hgb A1c 03/15/2025: 6.6 Pt previously referred to [facility] [employer] to adhere to Diabetic diet Plan: continue diabetic diet alone Assessment & Plan (11/07/2024 2:14 PM EST): Here for a follow up in regards of her DM Hgb A1c 11/07/2024: 6.6 from 6.5 Pt previously referred to [employer] to adhere to Diabetic diet Plan: continue diabetic diet Assessment & Plan (08/15/2024 12:15 PM EDT): Here for a follow up FBS 04/04/2024 126 Hgb A1c 07/13/2024: 6.5 Pt previously referred to [employer] to adhere to Diabetic diet Plan; continue diabetic diet Assessment & Plan (07/13/2024 1:48 PM EDT): Here for a follow up FBS 04/04/2024 126 Hgb A1c 07/13/2024: 6.5 Pt previously referred to [employer] to adhere to Diabetic diet Plan; continue diabetic diet Assessment & Plan (04/06/2024 1:31 PM EDT): Newly diagnosed DM FBS 04/04/2024 126 Hgb A1c: 6.7 Plan: Pt referred to [employer] to adhere to Diabetic diet Assessment & Plan (01/06/2024 2:30 PM EST): Elevated FBS 129 Repeat ,add Hgb A1c Pes planus 11/04/2023 Assessment & Plan (11/04/2023 11:09 AM EST): Will refer to podiatry Preventative health care 04/01/2023 Assessment & Plan (03/15/2025 2:28 PM EDT): Mammogram: 02/02/2024 NL Birads 1, repeat ordered Pap Smear: 03/27/2013 NL S/P Hysterectomy, no need to continue Colonoscopy: 08/19/2021 Dr. Booth Vaccines Pneumovax: 09/09/1999 Td: 2021 Zoster: 03/13/2015 Dexa scan: 04/21/2016 Assessment & Plan (07/13/2024 1:54 PM EDT): [...] chronic kidney disease 12/24/2016 Assessment & Plan (03/15/2025 2:31 PM EDT): S/P transplant had stable kidney allograft function. Doing well. Date of Transplant: 10/14/2017 Transplant Type: DD kidney CKD Stage: stage 3 - GFR 30-59 GFR: 58 Seen by Nephrology last 01/03/2025: Dr Tru kumar Assessment & Plan (07/13/2024 4:16 PM EDT): [...] Bone densitometry 04/21/2016 I have contacted pts president & ceo to obtain some guidance regarding the treatment for this given her CKD stage IV Essential hypertension 09/19/2015 Assessment & Plan (03/15/2025 2:19 PM EDT): Pt is here for a f/u BP controlled She is on a regimen of: Amlodipine 2.5 mg po daily and Metoprolol 12.5 mg po daily Given adequate blood pressure control will continue with current medical regimen. Most recent electrolytes Lab Results Component Value Date NA 140 01/02/2025 NA 136 10/30/2024 K 4.5 01/02/2025 K 4.1 10/30/2024 CL 106 01/02/2025 CL 105 10/30/2024 BUN 17 (H) 01/02/2025 BUN 20 (H) 10/30/2024 CREATININE 0.94 01/02/2025 CREATININE 1.11 10/30/2024 Stable CXRAY done on: 05/14/2018 showed: cardiomegaly and mild interstitial edema patient advised to adhere to a low sodium diet, encouraged about medication compliance. Assessment & Plan (11/07/2024 2:03 PM EST): [...] headaches The Vytorin was started by her [employer] Helper Plan: Continue current regimen. advised to try [...] headaches The Vytorin was started by her Exterminator Helper Plan: Continue current regimen. Repeat Lipid profile [...] headaches The Vytorin was started by her Exterminator Helper Plan: Continue current regimen. advised to try to adhere to a low cholesterol diet, counseled and educated about diet and exercise IgA nephropathy 10/31/2012 10/29/2023 Assessment & Plan (01/06/2024 2:21 PM EST): Hemorrhoids 05/03/2010 Depressive disorder 05/03/2009 Assessment & Plan (04/01/2023 3:48 PM EDT): Used to follow with Dinora psychotherapist at [facility]. No longer seeing anyone on trazodone doing well. Pt with previous c/o paranoia, Pt tells me she was seen by Neurologist at [facility] and was told she was fine She saw a psychiatric prescriber once [place] [facility] and was prescribed Abilify 2 mg po daily with good results. He president & ceo Dr harrington has continued to prescribed Today she was evaluated by our [facility] clinician Resolved Problems Problem Noted Date Diagnosed Date Resolved Date UTI symptoms 01/31/2025 03/15/2025 Assessment & Plan (01/31/2025 3:55 PM EST): Patient and daughter were reassured, UA done at the office negative for UTI, but I did tell them I will send sample for culture I advised to drink plenty of water and do not hold the urine Acute deep vein thrombosis ( DVT) of left lower extremity 02/15/2024 03/15/2025 Assessment & Plan (07/13/2024 4:15 PM EDT): Resolved She completed anticoagulation for the duration recommended. Assessment & Plan (04/06/2024 1:26 PM EDT): US done [place] [facility] showed non oclussive thrombus in the peroneal veins measuring at least 3.1 cm. Pt was started on Eliquis 5 mg po BID started 01/26/2024 by Nephrology Pt was supposed to stay on it x 3 months (until 04/25/2024). It appears this was unprovoked although pt is rather sedentary. Assessment & Plan (02/15/2024 12:58 PM EDT): US done [place] [facility] showed non oclussive thrombus in the peroneal veins measuring at least 3.1 cm. Pt was started on Eliquis 5 mg po BID started 01/26/2024 by Nephrology Pt to stay on it x 3 months. It appears this was unprovoked although pt is rather sedentary. Encounters Date Type Department Care Team Description 03/22/2025 Orders Only GENERIC EXTERNAL DATA DEPARTMENT Provider, Generic External Data 03/20/2025 Telephone [facility] MED[facility] [address] [facility] [place] [address] Rashaad Tinajero MD Appointment Request 03/15/2025 2:15 PM EDT Office Visit [facility] [address] [facility] [place] [address] Rashaad Tinajero MD Essential hypertension (Primary Dx); Type 2 diabetes mellitus with stage 3a chronic kidney disease, without long-term current use of insulin (CMS/HCC); Stage 3a chronic kidney disease (CMS/HCC); Weight loss; Tertiary hyperparathyroidism (CMS/HCC); Class 1 obesity due to excess calories with serious comorbidity and body mass index (BMI) of 34.0 to 34.9 in adult; Dietary counseling; Exercise counseling; Preventative health care; Breast cancer screening by mammogram 03/15/2025 Travel 03/08/2025 1:00 PM EDT Office Visit [facility] D[facility]AL [address] [facility] [address] Nelly Mendoza Dental plaque (Primary Dx); Generalized gingival recession, severe; Missing teeth, acquired 03/08/2025 Patient Outreach [facility] [address] [place] [address] Rashaad Tinajero MD Pre-visit Planning (SDOH unable to reach [facility]) 03/05/2025 2:00 PM EDT Office Visit [facility] ADULT DENTAL [address] [place] [address] Nelly Mendoza 02/27/2025 Telephone [facility] MED[facility]INE [address] [place] [address] Rashaad Tinajero MD Chart Prep 01/31/2025 3:20 PM EST Office Visit [facility] WALK[facility]IN [facility] [address] [place] [address] Joana Benitez MD UTI symptoms 01/02/2025 Orders Only GENERIC EXTERNAL DATA DEPARTMENT Provider, Generic External Data 12/25/2024 Telephone [facility] [address] [place] [address] Rashaad Tinajero MD February Recall from Last 3 Months Immunizations Name Administration [...] Sign Reading Time Taken Comments Blood Pressure 136/75 03/15/2025 2:15 PM EDT Pulse 70 03/15/2025 2:15 PM EDT Temperature 36.2 ??C (97.1 ??F) 03/15/2025 2:15 PM ED T Respiratory Rate 18 03/15/2025 2:15 PM EDT Oxygen Saturation 98% 03/15/2025 2:15 PM EDT Inhaled Oxygen Concentration - - Weight 78.3 kg (172 lb 9.6 oz) 03/15/2025 2:15 P M EDT Height 149.9 cm (4' 11 ) 03/15/2025 2:15 PM EDT Body Mass Index 34.86 03/15/2025 2:15 PM EDT Plan of Treatment Upcoming Encounters Date Type Department Care Team (Late st Contact Info) Description 09/17/2025 1:00 PM EDT Office Visit [facility] ADULT DENTAL [address] [place], [place] [phone] Kelly, Nelly [address] [place], [place] [phone] Health Maintenance Due Date Last Done Comments COVID-19 Vaccine (#1) 02/03/1956 Diabetes: Foot Exam 02/03/1959 Eye Exam 02/03/1959 Zoster Vaccines (1 of 2) 05/08/2015 03/13/2015 Pneumococcal Vaccine: 50+ Years (4 of 4 - PCV20 or PCV21) 09/19/2020 09/19/2015, 02/12/2012, 09/09/1999 RSV Patients and Patients Aged 60 years or older (1 - 1-dose 75+ series) 02/04/2024 Dental Oral Exam 02/22/2025 08/24/2024, 05/27/2016 Depression Screening 07/13/2025 07/13/2024, 07/13/20 24 SDOH Screening 07/13/2025 07/13/2024 Dental X-Ray: Bitewings 08/25/2025 08/24/2024, 05/27 Dental Prophylaxis 09/08/2025 03/08/2025, 08/31/2024 Diabetes: Hemoglobin A1C 09/14/2025 025, 11/07/2024, 07/13/2024, Additional history exists Alcohol/Substance Use Screening 11/07/2025 11/07/2024 Tobacco Screening 03/15/2026 03/15/2025 Lipid Panel 03/22/2026 03/22/2025, 02/05/2024, 10/30/2022, Additional history exists Dental X-Ray: Full Mouth 08/25/2027 08/24/2024, 06/07/2016 DTaP/Tdap/Td Vaccines (3 - Td or Tdap) 08/27/2032 08/27/2022, 03/13/2015, 11/18/2011, Additional history exists Hepatitis B Vaccines Completed 09/22/2007, 04/27/2007, 03/24/2007 Hepatitis C Screening Completed 11/13/2020 Colonoscopy Discontinued 08/19/2021 Colorectal Cancer Screening Discontinued Influenza Vaccine Completed 08/15/2024, , 08/27/2022, Additional history exists CT Colonography Discontinued FIT DNA/Cologuard Discontinued FIT Discontinued FOBT Discontinued HIB Vaccines Aged Out No longer eligi [...] on patient's age to complete this topic Sigmoidoscopy Discontinued Procedures Procedure Name Priority Date/Time Associated Diagnosis Comments ALT Routine 03/22/2025 10:24 AM EDT AST Routine 03/22/2025 10:24 AM EDT MAGNESIUM Routine 03/22/2025 10:24 AM EDT PHOSPHATE ( PHOSPHORUS) Routine 03/22/2025 10:24 AM EDT CALCIUM Routine 03/22/2025 10:24 AM EDT CREATININE, SERUM Routine 03/22/2025 10: 24 AM EDT UREA NITROGEN (BUN) Routine 03/22/2025 1 0:24 AM EDT ELECTROLYTE PANEL Routine 03/22/2025 10: 24 AM EDT CBC WITH AUTO DIFFERENTIAL Routine 03/22/2025 10:24 AM EDT LIPID PANEL, STANDARD Routine 03/22/2025 10:24 AM EDT Essential hypertension POCT GLYCOSYLATED HEMOGLOBIN (HGB A1C) Routine 03/15/2025 2:17 PM EDT Type 2 diabetes mellitus with stage 3a chronic kidney disease, without long-term current use of insulin ([facility]) POCT GLUCOSE Routine 03/15/2025 2:17 PM EDT Type 2 diabetes mellitus with stage 3a chronic kidney disease, without long-term current use of insulin ([facility]) ORAL HYGIENE INSTRUCTIONS Routine 03/08/2025 1:00 PM EDT Dental plaque Generalized gingival recession, severe Missing teeth, acquired PROPHYLAXIS - ADULT Routine 03/08/2025 1 :00 PM EDT Dental plaque NO CHARGE VISIT Routine 03/05/2025 2:00 PM EDT CULTURE, URINE, ROUTINE Routine 01/31/2025 3:29 PM EST UTI symptoms POCT URINALYSIS DIPSTICK Routine 01/31/2025 3:15 PM EST UTI symptoms TACROLIMUS, HIGHLY SENSITIVE, LC/MS/MS Routine 01/02/2025 9:56 AM EST CALCIUM Routine 01/02/2025 9:56 AM EST CREATININE, SERUM Routine 01/02/2025 9:5 6 AM EST UREA NITROGEN (BUN) Routine 01/02/2025 9 :56 AM EST ELECTROLYTE PANEL Routine 01/02/2025 9:5 6 AM EST CBC WITH AUTO DIFFERENTIAL Routine 01/02/2025 9:56 AM EST INTRAORAL - COMPLETE SERIES OF RADIOGRAPHIC IMAGES Routine 08/24/2024 10:00 AM EDT COMPREHENSIVE ORAL EVALUATION - NEW OR ESTABLISHED PATIENT Routine 08/24/2024 10:00 AM EDT Encounter for dental examination Periodontal disease Dental plaque HM COLONOSCOPY Routine 08/19/2021 ZZZ HISTORICAL HEPATITIS C AB W/REFL TO HCV RNA, QN, PCR Routine 11/13/2020 2:05 PM EST from Last 3 Months or Most Recently Relevant to Health Maintenance Results * Creatinine, Serum (03/22/2025 10:24 AM EDT) Only the most recent of2 resultswithin the time period is included. Creatinine, Serum 1.00 0.5 - 1.4 mg/dL [facility] Estimated Glomerular Filt Rate 54 [facility] Comment:Chronic Kidney Disea se: Estimated GFR < 60 mL/min/[id number] Kidney Disease: Estimated GFR < 15 mL/min/1.73m2 03/22/2025 10:2 4 AM EDT 03/22/2025 10:24 AM EDT us Generic External Data Provider LAB BLOOD ORDERAB LES Final Result [facility] [address] [place] [phone] * (ABNORMAL) CBC auto differential (03/22/2025 10:24 AM EDT) Only the most recent of2 resultswithin the time period is included. White Blood Count 3.7(L) 4.8 - 10.8 X10*3/uL [facility] Red Blood Count 4.92 4.20 - 5.50 X10*6/uL [facility] Hemoglobin 12.8 12.0 - 16.0 g/dl [facility] Hematocrit 39.3 37.0 - 47.0 % [facility] Mean Corpuscular Volume 79.9(L) 80.0 - 98.0 fL [facility] Mean Corpuscular Hemoglobin 26.0(L) 27.0 - 33.0 pg [facility] Mean Corpuscular HGB Conc 32.6 31.0 - 35.0 g/dl [facility] Red Cell Distribution Width 13.6 11.0 - 16.0 % [facility] Platelet Count 208 160 - 400 X10*3/uL [facility] Mean Platelet Volume 10.0 9.4 - 12.3 fL [facility] Neutrophils Percent Auto 56.1 45 - 73 % [facility] Imm Gran Pct Auto 0.3 0.0 - 0.4 % [facility] Lymphocytes Percent Auto 29.2 20 - 40 % [facility] Monocytes Percent Auto 12.0(H) 2 - 11 % [facility] Eosinophils Percent Auto 1.9 0 - 4 % [facility] Basophils Percent Auto 0.5 0 - 2 % [facility] NRBC Pct Auto 0.0 0.0 - 0.2 /100WBC [facility] Neutrophils Absolute Auto 2.1 2.0 - 8.3 x10*3/uL [facility] Imm Gran Abs Auto 0.01 0.00 - 0.03 X10*3/uL [facility] Lymphocytes Absolute Auto 1.1(L) 1.2 - 4.9 X10*3/uL [facility] Monocytes Absolute Auto 0.4 0.1 - 1.2 X10*3/uL [facility] Eosinophils Absolute Auto 0.1 0.0 - 0.4 X10*3/uL [facility] Basophils Absolute Auto 0.0 0.0 - 0.2 X10*3/uL [facility] NRBC Abs Auto 0.000 0.0 - 0.012 X10*3/uL [facility] 03/22/2025 10:2 4 AM EDT 03/22/2025 10:24 AM EDT us Generic External Data Provider LAB BLOOD ORDERAB LES Final Result Performing Organization Address [facility] Phone Number [facility] [address] [place] [phone] * (ABNORMAL) BUN (Blood Urea Nitrogen) (03/22/2025 10:24 AM EDT) Only the most recent of2 resultswithin the time period is included. Urea Nitrogen (BUN) 18(H) 9 - 16 mg/dL [facility] 03/22/2025 10:2 4 AM EDT 03/22/2025 10:24 AM EDT us Generic External Data Provider LAB BLOOD ORDERAB LES Final Result Performing Organization Address [facility] [address] [place] [phone] * ALT (03/22/2025 10:24 AM EDT) Alanine Aminotransferase 13 0 - 31 U/L [facility] 03/22/2025 10:2 4 AM EDT 03/22/2025 10:24 AM EDT us Generic External Data Provider LAB BLOOD ORDERAB LES Final Result Performing Organization Address [facility] Phone Number [facility] [address] [place] [address] [phone] * AST (03/22/2025 10:24 AM EDT) Aspartate Amino Transferase 23 5 - 31 U/L [facility] 03/22/2025 10:2 4 AM EDT 03/22/2025 10:24 AM EDT us Generic External Data Provider LAB BLOOD ORDERAB LES Final Result [facility] [address] [place] [address] [phone] * Phosphate (As Phosphorus) (03/22/2025 10:24 AM EDT) Phosphorus 3.4 2.7 - 4.5 mg/dL [facility] 03/22/2025 10:2 4 AM EDT 03/22/2025 10:24 AM EDT Generic External Data Provider LAB BLOOD ORDERAB LES Final Result Performing Organization Address [facility] Co de Phone Number [facility] [address] [place] [address] [phone] * Magnesium (03/22/2025 10:24 AM EDT) Magnesium 1.7 1.6 - 2.6 mg/dL [facility] 03/22/2025 10:2 4 AM EDT 03/22/2025 10:24 AM EDT Generic External Data Provider LAB BLOOD ORDERAB LES Final Result Performing Organization Address [facility] Number [facility] [address] [place] [address] [phone] * Calcium (03/22/2025 10:24 AM EDT) Only the most recent of2 resultswithin the time period is included. Calcium 9.2 8.4 - 10.2 mg/dL [facility] 03/22/2025 10:2 4 AM EDT 03/22/2025 10:24 AM EDT Generic External Data Provider LAB BLOOD ORDERAB LES Final Result Performing Organization Address [facility] Co de Phone Number [facility] [address] [place] [phone] * Lipid Panel, Standard (03/22/2025 10:24 AM EDT) Triglycerides 73 <150 mg/dL [facility] Comment:Desirable Triglyceri de: less than 150 mg/dLBorderline High Triglyceride 150-199 mg/dLHigh Triglyceride: 200-499 mg/dLVery High Triglyceride: greater than or equal to 5OO mg/dL Cholesterol 136 <200 mg/dL [facility] Comment:Desirable Cholestero l: less than 200 mg/dLBorderline High Cholesterol: 200-239 mg/dLHigh Cholesterol: greater than 239 mg/dL LDL Cholesterol Calculated 63 <100 mg/dL [facility] Comment:Desirable LDL: less than 100 mg/dLNear Optimal/Above Optimal LDL: 110- 129 mg/dLBorderline High LDL: 130-159 mg/dLHigh LDL: 160-189 mg/dLVery High LDL: greater than or equal to 190 mg/dL HDL Cholesterol 59 >40 mg/dL [facility] Comment:Desirable HDL: great er than 40 mg/dL Note: This HDL assay may give artificially low results in patients with liver disease. Blood Venous blood specimen / Unknown 03/22/2025 10:24 AM EDT 03/22/2025 10:24 AM EDT us Rashaad Kirk MD LAB BLOOD ORDERABLES Final Result [facility] [address] [place] [phone] * Electrolyte Panel (03/22/2025 10:24 AM EDT) Only the most recent of2 resultswithin the time period is included. Sodium 138 135 - 145 mmol/L [facility] Potassium 4.4 3.3 - 5.1 mmol/L [facility] Chloride 105 96 - 108 mmol/L [facility] Carbon Dioxide 24 22 - 29 mmol/L [facility] Anion Gap 13 12 - 20 [facility] 03/22/2025 10:2 4 AM EDT 03/22/2025 10:24 AM EDT us Generic External Data Provider LAB BLOOD ORDERAB LES Final Result Performing Organization Address City/[facility]/ZIP Co de Phone Number [facility] [address] [place] [phone] * (ABNORMAL) POCT glycosylated hemoglobin (Hgb A1c) (03/15/2025 2:17 PM EDT) Hemoglobin A1C 6.6(A) 4.0 - 6.0 % QC Media Lot # [id number] Lot# Expiration Date , Blood Capillary blood specimen / Unknown 03/15/2025 2:17 PM EDT us Rashaad Kirk MD POINT OF CARE TEST EN TER/EDIT ORDERABLES Final Result * POCT glucose manually resulted (03/15/2025 2:17 PM EDT) Glucose Blood, POC 163 60 - 200 mg/dL QC Media Lot # [id number] Lot# Expiration Date [id number] Blood Capillary blood specimen / Unknown 03/15/2025 2:17 PM EDT us Rashaad Kirk MD POINT OF CARE TEST EN TER/EDIT ORDERABLES Final Result * Culture, Urine, Routine (01/31/2025 3:29 PM EST) Urine Urine specimen obtained by clean catch procedure / Unknown 01/31/2025 3:29 PM EST 01/31/2025 5:04 PM EST Comment:UACC Narrative [facility] - 02/02/2025 11:52 AM EST Urine Culture Report Result Urine Culture < 10,000 cfu/ml Specimen Source: Urine clean catch us Joana Courtney MD LAB MICROBIOLOGY - GE NERAL ORDERABLES Final Result [facility] [address] [place] [phone] * POCT Urinalysis (01/31/2025 3:15 PM EST) [...] Expiration Date Urine 01/31/2025 3:15 PM EST us Joana Courtney MD POINT OF CARE TEST EN TER/EDIT ORDERABLES Final Result * (ABNORMAL) Tacrolimus, Highly Sensitive, LC/MS/MS (01/02/2025 9:56 AM EST) Tacrolimus 4.9(A) mcg/L [facility] Comment:No definitive therap eutic or toxic ranges have beenestablished. Optimal blood drug levels are influencedby type of transplant, patient response, time post-transplant, co-administration of other drugs, anddrug formulation. The following trough range is asuggested guideline: 5.0-20.0 mcg/L.This test was developed and its analytical performancecharacteristics have been determined by [facility]. It has not been cleared or approved by theFDA. This assay has been validated pursuant to the CLIAregulations and is used for clinical purposes.THIS TEST WAS PERFORMED AT:[facility] [place] [phone] CHACON MD 01/02/2025 9:56 AM EST 01/02/2025 9:56 AM EST us Generic External Data Provider LAB BLOOD ORDERAB LES Final Result [facility] [address] [place] [phone] * Colonoscopy (08/19/2021) Colonoscopy Normal Normal Historical Provider MD HEALTH MAINTENANCE Final Result * HEPATITIS C AB W/REFL TO HCV RNA, QN, PCR (11/13/2020 2:05 PM EST) HEPATITIS C ANTIBODY NON-REACT ETHEL NON-REACT ETHEL [facility] INDEX 0.02 <1.00 [facility] Comment: ?? HCV antibody was non-reactive. There is no laboratory ?? evidence of HCV infection. ?? In most cases, no further action is required. However, if recent HCV exposure is suspected, a test for HCV RNA (test code 96509) is suggested. ?? For additional information please refer to [email or web address]/[email or web address] (This link is being provided for informational/ educational purposes only.) ?? 11/13/2020 2:05 PM EST Rashaad Kirk MD HISTORICAL/NON ORDERA BLE LABS Final Result [facility] [address] from Last 3 Months or Most Recently Relevant to Health Maintenance Insurance [facility] Care Teams Cafeteria Aide Relationship Specialty Start Date End Date Rashaad Tinajero MD [address] [place] [phone] PCP - General Internal Medicine 06/19/15
--- OUTSIDE RECORDS SUMMARY | 2025-03-22 11:43 | XMS_ITS | Encounter Summary ---
Author Organization [employer] Address [address] [facility] 7t [place] [address] Care Team Providers Care Cafeteria Food Server Name Role Phone Rashaad Tinajero MD Primary Care Provide r Encounter Details Date Type Department Care Team (Late st Contact Info) Description 03/22/2025 Orders Only GENERIC EXTERNAL DATA [...] Description 09/17/2025 1:00 PM EDT Office Visit [facility] [address] [place] [phone] Kelly, Nelly [address] [place] [address] documented as of this encounter Procedures Procedure Name Priority Date/Time Associated Diagnosis Comments CREATININE, SERUM Routine 03/22/2025 10: 24 AM EDT CBC WITH AUTO DIFFERENTIAL Routine 03/22/2025 10:24 AM EDT UREA NITROGEN (BUN) Routine 03/22/2025 1 0:24 AM EDT ALT Routine 03/22/2025 10:24 AM EDT AST Routine 03/22/2025 10:24 AM EDT PHOSPHATE ( PHOSPHORUS) Routine 03/22/2025 10:24 AM EDT MAGNESIUM Routine 03/22/2025 10:24 AM EDT CALCIUM Routine 03/22/2025 10:24 AM EDT ELECTROLYTE PANEL Routine 03/22/2025 10: 24 AM EDT documented in this encounter Results * ALT (03/22/2025 10:24 AM EDT) Alanine Aminotransferase 13 0 - 31 U/L [facility] 03/22/2025 10:2 4 AM EDT 03/22/2025 10:24 AM EDT us Generic External Data Provider LAB BLOOD ORDERAB LES Final Result Performing Organization Address [facility] de Phone Number [facility] [address] [place] [address] [phone] * AST (03/22/2025 10:24 AM EDT) Aspartate Amino Transferase 23 5 - 31 U/L [facility] 03/22/2025 10:2 4 AM EDT 03/22/2025 10:24 AM EDT Generic External Data Provider LAB BLOOD ORDERAB LES Final Result Performing Organization Address [facility] de Phone Number [facility] [address] [place] [address] [phone] * Magnesium (03/22/2025 10:24 AM EDT) Magnesium 1.7 1.6 - 2.6 mg/dL [facility] 03/22/2025 10:2 4 AM EDT 03/22/2025 10:24 AM EDT Generic External Data Provider LAB BLOOD ORDERAB LES Final Result Performing Organization Address [facility] de Phone Number [facility] [address] [place] [address] [phone] * Phosphate (As Phosphorus) (03/22/2025 10:24 AM EDT) Phosphorus 3.4 2.7 - 4.5 mg/dL [facility] 03/22/2025 10:2 4 AM EDT 03/22/2025 10:24 AM EDT us Generic External Data Provider LAB BLOOD ORDERAB LES Final Result Performing Organization Address [facility] Co de Phone Number [facility] [address] [place] [address] [phone] * Calcium (03/22/2025 10:24 AM EDT) Calcium 9.2 8.4 - 10.2 mg/dL [facility] 03/22/2025 10:2 4 AM EDT 03/22/2025 10:24 AM EDT Generic External Data Provider LAB BLOOD ORDERAB LES Final Result Performing Organization Address [facility] Co de Phone Number [facility] [address] [place] [address] [phone] * Creatinine, Serum (03/22/2025 10:24 AM EDT) Creatinine, Serum 1.00 0.5 - 1.4 mg/dL [facility] Estimated Glomerular Filt Rate 54 [facility] Comment:Chronic Kidney Disea se: Estimated GFR < 60 mL/min/1.73e0Qhiolb Kidney Disease: Estimated GFR < 15 mL/min/1.73m2 03/22/2025 10:2 4 AM EDT 03/22/2025 10:24 AM EDT Generic External Data Provider LAB BLOOD ORDERAB LES Final Result Performing Organization Address [facility] Co de Phone Number [facility] [address] [place] [phone] * (ABNORMAL) BUN (Blood Urea Nitrogen) (03/22/2025 10:24 AM EDT) Urea Nitrogen (BUN) 18(H) 9 - 16 mg/dL [facility] 03/22/2025 10:2 4 AM EDT 03/22/2025 10:24 AM EDT Generic External Data Provider LAB BLOOD ORDERAB LES Final Result Performing Organization Address [facility]/ZIP Co de Phone Number [facility] [address] [place] [phone] * Electrolyte Panel (03/22/2025 10:24 AM EDT) [facility] Sodium 138 135 - 145 mmol/L [facility] Potassium 4.4 3.3 - 5.1 mmol/L [facility] Chloride 105 96 - 108 mmol/L [facility] Carbon Dioxide 24 22 - 29 mmol/L [facility] Anion Gap 13 12 - 20 [facility] 03/22/2025 10:2 4 AM EDT 03/22/2025 10:24 AM EDT Generic External Data Provider LAB BLOOD ORDERAB LES Final Result Performing Organization Address [facility] de Phone Number [facility] [address] [place] [address] [phone] * (ABNORMAL) CBC auto differential (03/22/2025 10:24 AM EDT) [facility] White Blood Count 3.7(L) 4.8 - 10.8 X10*3/uL [facility] Red Blood Count 4.92 4.20 - 5.50 X10*6/uL [facility] Hemoglobin 12.8 12.0 - 16.0 g/dl [facility] Hematocrit 39.3 37.0 - 47.0 % [facility] Mean Corpuscular Volume 79.9(L) 80.0 - 98.0 fL [facility] Mean Corpuscular Hemoglobin 26.0(L) 27.0 - 33.0 pg [facility] Mean Corpuscular HGB Conc 32.6 31.0 - 35.0 g/dl [facility] Red Cell Distribution Width 13.6 11.0 - 16.0 % [facility] Platelet Count 208 160 - 400 X10*3/uL [facility] Mean Platelet Volume 10.0 9.4 - 12.3 fL [facility] Neutrophils Percent Auto 56.1 45 - 73 % [facility] Imm Gran Pct Auto 0.3 0.0 - 0.4 % [facility] Lymphocytes Percent Auto 29.2 20 - 40 % [facility] Monocytes Percent Auto 12.0(H) 2 - 11 % [facility] Eosinophils Percent Auto 1.9 0 - 4 % [facility] Basophils Percent Auto 0.5 0 - 2 % [facility] NRBC Pct Auto 0.0 0.0 - 0.2 /100WBC [facility] Neutrophils Absolute Auto 2.1 2.0 - 8.3 x10*3/uL [facility] Imm Gran Abs Auto 0.01 0.00 - 0.03 X10*3/uL [facility] Lymphocytes Absolute Auto 1.1(L) 1.2 - 4.9 X10*3/uL [facility] Monocytes Absolute Auto 0.4 0.1 - 1.2 X10*3/uL [facility] Eosinophils Absolute Auto 0.1 0.0 - 0.4 X10*3/uL [facility] Basophils Absolute Auto 0.0 0.0 - 0.2 X10*3/uL [facility] NRBC Abs Auto 0.000 0.0 - 0.012 X10*3/uL [facility] 03/22/2025 10:2 4 AM EDT 03/22/2025 10:24 AM EDT us Generic External Data Provider LAB BLOOD ORDERAB LES Final Result [facility] [address] [place] [phone] documented in this encounter Visit Diagnoses Not on filedocumented in this encounter Additional Health Concerns Assessment Noted Time PHQ-9 Depression Total Score: 2 07/13/20 24 1:44 PM EDT documented as of this encounter Care Teams Cafeteria Food Server Relationship Specialty Start Date End Date Rashaad Tinajero MD [address] [place] [phone] PCP - General Internal Medicine 06/19/15 documented as of this encounter
--- OUTSIDE RECORDS SUMMARY | 2025-03-22 11:43 | XMS_ITS | Encounter Summary ---
Author Organization [employer] Address [address] [facility] 7t [place] [address] Care Team Providers Care Printed Circuit Boards Router Name Role Phone Rashaad Tinajero MD Primary Care Provide r Reason for Visit * Reason Onset Date Comments Appointment Request 03/20/2025 Encounter Details Date Type Department Care Team ([facility] st Contact Info) Description 03/20/2025 Telephone [facility] [address] [place], [place] [phone] Rashaad Tinajero MD [address] [place] [address] Appointment Request Social History Tobacco Use Types [...] encounter Miscellaneous Notes * Telephone Encounter - Nancy Palomares - 03/20/2025 9:14 AM EDT Called Patient left vm, advised to call back and schedule f/u with PCP 15 min around 06/14/2025 forDM ok to schedule if Patient calls back. documented in this encounter Plan of Treatment Upcoming Encounters Date Type Department Care Team (Late st Contact Info) Description 09/17/2025 1:00 PM EDT Office Visit [facility] [address] [place] [phone] Kelly, Nelly [address] [place] [phone] documented as of this encounter Visit Diagnoses Not on filedocumented in this encounter Additional Health Concerns Assessment Noted Time PHQ-9 Depression Total Score: 2 07/13/20 24 1:44 PM EDT documented as of this encounter Care Teams Printed Circuit Boards Router Relationship Specialty Start Date End Date Rashaad Tinajero MD [address] [place] [address] PCP - General Internal Medicine 06/19/15 documented as of this encounter
--- OUTSIDE RECORDS SUMMARY | 2025-03-22 11:43 | XMS_ITS | Encounter Summary ---
Author Organization [employer] Address [address] [facility] 7t [place] [address] Care Team Providers Care Evening Anchor Name Role Phone Rashaad Tinajero MD Primary Care Provide r Reason for Visit * Reason Onset Date Comments Results 02/07/2024 Encounter Details Date Type Department Care Team ([facility] st Contact Info) Description 02/07/2024 Telephone [facility] [address] [place], [place] [phone] Rashaad Tinajero MD [address] [place], [place] [phone] Results Social History Tobacco Use Types Packs/Day [...] t he electric, gas, oil or water [employer] threatened to shut off services in your [...] and then green team nurses forwarded to [facility] nurses as ordering provider is a [facility] provider that worked the Walk In last Wednesday02.04.24, to review and advise POC on 02.07.24. Provider communicated test results on 02.10.24. Teamnurses called pt daughter daughter today. Please see previous message. Daughter wanted to know why no one called her until today- this specifications writer apologized and explained that the nurses [...] our jobs properly. Daughter repeatedly told this specifications writer that she called multiple times this week for results and no one answered her until today. This specifications writer attempted to explain that I had spoken to the nurses about how they should have called her back and kept her in the loop that the message was sent to the provider for review. Daughter continued to repeat the same language. This specifications writer attempted to let her know that I heard her and I was trying to help her. Daughter was not hearing this specifications writer nor wanted to listen any longer. She told me that I was not doing a very good job at managing staff and needed to talk to my boss. She asked for TYPEWRITER REPAIRER and BRIM GREASER OPERATOR names and numbers. Names were provided aswell as extensions. FYI-Pt is scheduled to see PCP 03.07.24, first available, for a POC for knee pain including a medication concern which is documented in a different TC note. This specifications writer offered to have pt see another provider, daughter refused. Will send message to PCP. * Telephone Encounter - Heather Pandey RN - 02/11/2024 11:15 AM EDT Returned call to pt daughter regarding message below. Daughter informed of XR and US results. Pt daughter states that it took a week to get results when pt buyer agent received results and referredpt to Ortho right away and stated we are just now getting a call back with no further POC . Daughter states that we at the [facility] are irresponsible and that PCP is unaware of what is happening to pt . This RN advised daughter that a message was sent to baseball club manager regarding her concerns and that someone [...] is also requesting to speak with a baseball club manager in regards to the matter of [...] results: xray Date when done: 02/04/24 Facility: [facility] [place] TC from pt requesting call back regarding Results. Type of results: US Date when done: 02/04/24 Facility: [facility] documented in this encounter Plan of Treatment Upcoming Encounters Date Type Department Care Team (Late st Contact Info) Description 09/17/2025 1:00 PM EDT Office Visit [facility] [address] [place] [phone] Kelly Nelly [address] [place] [address] documented as of this encounter Visit Diagnoses Not on filedocumented in this encounter Additional Health Concerns Assessment Noted Time PHQ-9 Depression Total Score: 9 04/01/20 23 12:16 PM EDT documented as of this encounter Care Teams Evening Anchor Relationship Specialty Start Date End Date Rashaad Tinajero MD [address] [place] [address] PCP - General Internal Medicine 06/19/15 documented as of this encounter
[2025-03-23 07:54] LABS: Tacrolimus Prograf 4.5 mcg/L
== END 2025-03-22 10:11 | disposition home or self-care (01) ==
LOC: HO.LAB 10:10
PROVIDERS: Absent Provider Internal Medicine; PCP Internal Medicine; Visit Provider Internal Medicine Nephrology
DX: I10 Essential (primary) hypertension (principal); Z94.0 Kidney transplant status
CPT/HCPCS: 36415; 80051; 80061; 80197; 82310; 82565; 83735; 84100; 84450; 84460; 84520; 85025

== ENCOUNTER 2025-03-30 13:34 | Outpatient (AMB) | payer OTHER, SELFPAY ==
--- NOTE | 2025-03-30 13:38 | HO.NEPHOV_ITS ---
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 tolerated?by?her?mother.??She?does?not?have?any?vascular?or?cardiovascular?sympt oms.??She?has?not?seen?a?wet milling wheel operator.? ?She?has?no?urinary?symptoms?or?side?effects?from?immunosuppression.??She?has?ta oliver?the?flu?vaccination.??She?maintains?good?hydration?and?avoids?nonsteroidal?a nti-inflammatories.?Shedoes?not?have?any ?nausea,?vomiting,?diarrhea,?chest?pain,?shortness?of?breath,?paroxysmal?nocturn al?dyspnea,?orthopnea,?pedal?edema,?orthostatic?symptoms,?hematuria.??She?has?no t?had?any?antibiotics?recently.??She?denies?any?hematuria.??She?feels?well. [facility] Medical History (Updated 03/30/25 @ 13:41 by Justo Ott MD) IgA nephropathy COVID-19 vaccine series completed AV fistula Gallstone HTN (hypertension) CKD (chronic kidney disease) Surgical History Hx of hysterectomy Hx of colonoscopy History of section Kidney transplant recipient Family History Brother History of prostate cancer Maternal Uncle History of colon cancer Maternal Grandmother History of stomach cancer Social History Household Members Other:: lives sharona Alcohol intake: never Patient Tobacco Use Status: Never used Tobacco Current occupational status: retired and disabled Review of Systems Const All systems reviewed & are unremarkable except as noted in HPI and below Physical Exam Const General: comfortable and no acute distress Orientation/consciousness: patient oriented x3 HEENT Head: Yes normocephalic Mouth: Normal oral and palatal mucosa present Eyes EOM: EOMs intact bilaterally Neck Neck: Yes supple Resp Auscultation: clear to auscultation bilaterally Cardio Jugular venous distension: no JVD Rate: regular rate GI Palpation (GI): Soft to palpation Auscultation: normal bowel sounds General: Yes no CVA tenderness Back/Spine/Pelvis Back: no CVA tenderness Skin General skin exam: no rashes or lesions noted Neuro General: patient oriented x3 and moves all extremities Extrem General: Yes no pedal edema Results Reviewed Nephrology Results: Hgb 12.8 g/dl (12.0-16.0) 03/22/25 WBC 3.7 X10*3/uL (4.8-10.8) L 03/22/25 Plt Count 208 X10*3/uL (160-400) 03/22/25 Sodium 138 mmol/L (135-145) 03/22/25 Potassium 4.4 mmol/L (3.3-5.1) 03/22/25 Chloride 105 mmol/L (96-108) 03/22/25 Carbon Dioxide 24 mmol/L (22-29) 03/22/25 BUN 18 mg/dL (9-16) H 03/22/25 Creatinine 1.00 mg/dL (0.5-1.4) 03/22/25 Calcium 9.2 mg/dL (8.4-10.2) 03/22/25 Phosphorus 3.4 mg/dL (2.7-4.5) 03/22/25 Urine Protein Negative mg/dL (Neg-Trace) 10/30/24 Urine Creatinine 82.94 mg/dL 10/30/24 Protein/Creatinin Ratio TNP 12/02/24 Assessment & Plan Assessment & Plan (1) HTN (hypertension): Code(s): I10 - Essential (primary) hypertension Category: Medical Qualifiers: Hypertension type: primary hypertension Qualified Code(s): I10 - Essential (primary) hypertension (2) Kidney transplant recipient: Comment: 2016 Code(s): Z94.0 - Kidney transplant status Category: Surgical Plan 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 I did not make any medication changes today; F/U given Orders: Orders Complete Blood Count Auto Diff 3 Months I10 - Essential (primary) hypertension, Z94.0 - Kidney transplant status Calcium 3 Months I10 - Essential (primary) hypertension, Z94.0 - Kidney transplant status Creatinine 3 Months I10 - Essential (primary) hypertension, Z94.0 - Kidney transplant status Phosphorus 3 Months I10 - Essential (primary) hypertension, Z94.0 - Kidney transplant status Magnesium 3 Months I10 - Essential (primary) hypertension, Z94.0 - Kidney transplant status Alanine Aminotransferase 3 Months I10 - Essential (primary) hypertension, Z94.0 - Kidney transplant status Aspartate Amino Transferase 3 Months I10 - Essential (primary) hypertension, Z94.0 - Kidney transplant status Tacrolimus Prograf 3 Months I10 - Essential (primary) hypertension, Z94.0 - Kidney transplant status Electrolytes 3 Months I10 - Essential (primary) hypertension, Z94.0 - Kidney transplant status Blood Urea Nitrogen 3 Months I10 - Essential (primary) hypertension, Z94.0 - Kidney transplant status Coding Level of Care Code Est Pt Level 4 (44064) Diagnoses Primary hypertension I10 Hypertension type: primary hypertension Kidney transplant recipient Z94.0
[2025-03-30 13:44] VITALS: BP 100/70; PULSE 91; O2SAT 97; BMI 34.1
--- OUTSIDE RECORDS SUMMARY | 2025-03-30 13:49 | XMS_ITS | Encounter Summary ---
Author Organization [employer] Address [address] [facility] [address] [place] [address] Care Team Providers Care Developer Designer Name Role Phone Rashaad Tinajero MD Primary Care Provide r Reason for Visit * Reason Onset Date Comments Appointment Request 02/01/2024 Encounter Details Date Type Department Care Team ([facility] st Contact Info) Description 02/01/2024 Telephone [facility] MEDICINE [address] [place], [place] [phone] Rashaad Tinajero MD [address] [place], [place] [phone] Appointment Request Social History Tobacco Use Types [...] an appointment pt had last week with chief radiologic technologist. States chief radiologic technologist sent pt to do an US on the left leg for Blood clot.Social Media Intern also started pt on new medication. Please contact pt daughter at [phone] documented in this encounter Plan of Treatment Upcoming Encounters Date Type Department Care Team (Late st Contact Info) Description 09/17/2025 1:00 PM EDT Office Visit [facility] ADULT DENTAL [address] [place] [address] KellyNicholasNelly [address] [place] [address] documented as of this encounter Visit Diagnoses Not on filedocumented in this encounter Additional Health Concerns Assessment Noted Time PHQ-9 Depression Total Score: 9 04/01/20 23 12:16 PM EDT documented as of this encounter Care Teams Developer Designer Relationship Specialty Start Date End Date Rashaad Tinajero MD [address] [place] [address] PCP - General Internal Medicine 06/19/15 documented as of this encounter
--- OUTSIDE RECORDS SUMMARY | 2025-03-30 13:49 | XMS_ITS | Encounter Summary ---
Author Organization [employer] Address [address] [place] [address] 7[address] [place] [address] Care Team Providers Care Biological Aide Name Role Phone Rashaad Tinajero MD Primary Care Provide r Encounter Details Date Type Department Care Team (Late st Contact Info) Description 04/08/2023 Abstract [facility] MEDICINE [address] [place] [address] Rashaad Tinajero MD [address] [place] [address] Social History Tobacco Use Types Packs/Day Years [...] Description 09/17/2025 1:00 PM EDT Office Visit [facility] ADULT DENTAL [address] [place] [address] Nelly Mendoza [address] [place] [address] Pending Results Name Type Priority Associated Diagnoses Date /Time Hm Colonoscopy GI Routine 08/19/2021 documented as of this encounter Visit Diagnoses Not on filedocumented in this encounter Additional Health Concerns Assessment Noted Time PHQ-9 Depression Total Score: 9 04/01/20 23 12:16 PM EDT documented as of this encounter Care Teams Biological Aide Relationship Specialty Start Date End Date Rashaad Tinajero MD [address] [place] [address] PCP - General Internal Medicine 06/19/15 documented as of this encounter
--- OUTSIDE RECORDS SUMMARY | 2025-03-30 13:49 | XMS_ITS | Encounter Summary ---
Author Organization [employer] Address [address] [facility] [address] [place] [address] Care Team Providers Care Spinning Lathe Operator Hydraulic Name Role Phone Rashaad Tinajero MD Primary Care Provide r Reason for Visit * Reason Onset Date Comments Appointment Request 09/28/2023 Encounter Details Date Type Department Care Team ([facility] st Contact Info) Description 09/28/2023 Telephone [facility] MED[facility]INE [address] [place], [place] [phone] Rashaad Tinajero MD [address] [place], [place] [phone] Appointment Request Social History Tobacco Use Types [...] Tc from daughter requesting a PE appt. [place] attempted to schedule. No availability. documented in this encounter Plan of Treatment Upcoming Encounters Date Type Department Care Team (Late st Contact Info) Description 09/17/2025 1:00 PM EDT Office Visit [facility] ADULT DENTAL [address] [place] [address] Kelly, Nelly [address] [place] [address] documented as of this encounter Visit Diagnoses Not on filedocumented in this encounter Additional Health Concerns Assessment Noted Time PHQ-9 Depression Total Score: 9 04/01/20 23 12:16 PM EDT documented as of this encounter Care Teams Spinning Lathe Operator Hydraulic Relationship Specialty Start Date End Date Rashaad Tinajero MD [address] [place] [address] PCP - General Internal Medicine 06/19/15 documented as of this encounter
--- OUTSIDE RECORDS SUMMARY | 2025-03-30 13:49 | XMS_ITS | Encounter Summary ---
Author Organization [employer] Address [address] [facility] [address] [place] [address] Care Team Providers Care National Sales Consultant Name Role Phone Rashaad Tinajero MD Primary Care Provide r Reason for Visit * Reason Onset Date Comments Results 02/07/2024 Encounter Details Date Type Department Care Team ([facility] st Contact Info) Description 02/07/2024 Telephone [facility] MEDICINE [address] [place], [place] [phone] Rashaad Tinajero MD [address] [place], [place] [phone] Results Social History Tobacco Use Types Packs/Day [...] t he electric, gas, oil or water [employer] threatened to shut off services in your [...] encounter Miscellaneous Notes * Telephone Encounter - dEen Navarro RN - 02/11/2024 2:57 PM EDT [...] and then green team nurses forwarded to [facility] nurses as ordering provider is a [facility] provider that worked the Walk In last Wednesday02.04.24, to review and advise POC on 02.07.24. Provider communicated test results on 02.10.24. Teamnurses called pt daughter daughter today. Please see previous message. Daughter wanted to know why no one called her until today- this designer writer apologized and explained that the nurses [...] our jobs properly. Daughter repeatedly told this designer writer that she called multiple times this week for results and no one answered her until today. This designer writer attempted to explain that I had spoken to the nurses about how they should have called her back and kept her in the loop that the message was sent to the provider for review. Daughter continued to repeat the same language. This designer writer attempted to let her know that I heard her and I was trying to help her. Daughter was not hearing this designer writer nor wanted to listen any longer. She told me that I was not doing a very good job at managing staff and needed to talk to my boss. She asked for [employer]PER[employer]OR [employer] and APPLICATION SUPPORT names and numbers. Names were provided aswell as extensions. FYI-Pt is scheduled to see PCP 03.07.24, first available, for a POC for knee pain including a medication concern which is documented in a different TC note. This designer writer offered to have pt see another provider, daughter refused. Will send message to PCP. * Telephone Encounter - Heather Pandey RN - 02/11/2024 11:15 AM EDT Returned call to pt daughter regarding message below. Daughter informed of XR and US results. Pt daughter states that it took a week to get results when pt temporary help agency referral clerk received results and referredpt to Ortho right away and stated we are just now getting a call back with no further POC . Daughter states that we at the [facility] are irresponsible and that PCP is unaware of what is happening to pt . This RN advised daughter that a message was sent to proposal development manager regarding her concerns and that someone [...] is also requesting to speak with a proposal development manager in regards to the matter of [...] results: xray Date when done: 02/04/24 Facility: [facility] [place] TC from pt requesting call back regarding Results. Type of results: US Date when done: 02/04/24 Facility: [facility] documented in this encounter Plan of Treatment Upcoming Encounters Date Type Department Care Team (Late st Contact Info) Description 09/17/2025 1:00 PM EDT Office Visit [facility] ADULT DENTAL [address] [place] [address] Kelly Nelly [address] [place] [address] documented as of this encounter Visit Diagnoses Not on filedocumented in this encounter Additional Health Concerns Assessment Noted Time PHQ-9 Depression Total Score: 9 04/01/20 23 12:16 PM EDT documented as of this encounter Care Teams National Sales Consultant Relationship Specialty Start Date End Date Rashaad Tinajero MD [address] [place] [address] PCP - General Internal Medicine 06/19/15 documented as of this encounter
--- OUTSIDE RECORDS SUMMARY | 2025-03-30 13:49 | XMS_ITS | Clinical Summary ---
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 Abd US 08/2024 showed: IMPRESSION: 1. No ultrasound evidence of gallbladder disease or gallstones. 2. Atrophic [place] kidneys. 3. 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 Abd US 08/2024 showed: IMPRESSION: 1. No ultrasound evidence of gallbladder disease or gallstones. 2. Atrophic [place] kidneys. 3. Transplanted right kidney right lower [...] seen. Pt seen by Ortho at [facility] on 2 different occasions last 05/19/2024. Received a steroid injection with no good results. Daughter states she continues to c/o pain on her knee and is interested in getting a second opinion. patient was referred to [facility] unfortunately they do not take her insurance. Pt's daughter tells me they are willing to see Dr. Deluna at [facility] Pt underwent an MRI that showed: 1) [...] seen. Pt seen by Ortho at [facility] on 2 different occasions last 05/19/2024. Received a steroid injection with no good results. Daughter states she continues to c/o pain on her knee and is interested in getting a second opinion. patient was referred to [facility] unfortunately they do not take her insurance. Pt's daughter tells me they are willing to see Dr. Deluna at [facility] They are awaiting the MRI appointment. Assessment [...] seen. Pt seen by Ortho at [facility] on 2 different occasions last 05/19/2024. Received a steroid injection with no good results. Daughter states she continues to c/o pain on her knee and is interested in getting a second opinion. 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 She subsequently presented at our [facility] with c/o posterior knee pain As part [...] has already been referred to Ortho by Laundry Bag Punch Operator and today we confirmed that appointment [...] A1c 03/15/2025: 6.6 Pt previously referred to Telecommunications Professional to adhere to Diabetic diet Plan: continue diabetic diet alone Assessment & Plan (11/07/2024 2:14 PM EST): Here for a follow up in regards of her DM Hgb A1c 11/07/2024: 6.6 from 6.5 Pt previously referred to Telecommunications Professional to adhere to Diabetic diet Plan: continue diabetic diet Assessment & Plan (08/15/2024 12:15 PM EDT): Here for a follow up FBS 04/04/2024 126 Hgb A1c 07/13/2024: 6.5 Pt previously referred to Telecommunications Professional to adhere to Diabetic diet Plan; continue diabetic diet Assessment & Plan (07/13/2024 1:48 PM EDT): Here for a follow up FBS 04/04/2024 126 Hgb A1c 07/13/2024: 6.5 Pt previously referred to Telecommunications Professional to adhere to Diabetic diet Plan; continue diabetic diet Assessment & Plan (04/06/2024 1:31 PM EDT): Newly diagnosed DM FBS 04/04/2024 126 Hgb A1c: 6.7 Plan: Pt referred to Telecommunications Professional to adhere to Diabetic diet Assessment & [...] Bone densitometry 04/21/2016 I have contacted pts chick sexer to obtain some guidance regarding the treatment [...] headaches The Vytorin was started by her Laundry Bag Punch Operator Plan: Continue current regimen. advised to [...] headaches The Vytorin was started by her Laundry Bag Punch Operator Plan: Continue current regimen. Repeat Lipid [...] headaches The Vytorin was started by her Laundry Bag Punch Operator Plan: Continue current regimen. advised to try to adhere to a low cholesterol diet, counseled and educated about diet and exercise IgA nephropathy 10/31/2012 10/29/2023 Assessment & Plan (01/06/2024 2:21 PM EST): Hemorrhoids 05/03/2010 Depressive disorder 05/03/2009 Assessment & Plan (04/01/2023 3:48 PM EDT): Used to follow with Dinora psychotherapist at [facility]. No longer seeing anyone on trazodone doing well. Pt with previous c/o paranoia, Pt tells me she was seen by Neurologist at [facility] and was told she was fine She saw a psychiatric prescriber once at [facility] and was prescribed Abilify 2 mg po daily with good results. He chick sexer Dr harrington has continued to prescribed Today she was evaluated by our [facility] clinician Resolved Problems Problem Noted [...] (04/06/2024 1:26 PM EDT): US done at [facility] showed non oclussive thrombus in the peroneal veins measuring at least 3.1 cm. Pt was started on Eliquis 5 mg po BID started 01/26/2024 by Nephrology Pt was supposed to stay on it x 3 months (until 04/25/2024). It appears this was unprovoked although pt is rather sedentary. Assessment & Plan (02/15/2024 12:58 PM EDT): US done at [facility] showed non oclussive thrombus in [...] DEPARTMENT Provider, Generic External Data 03/20/2025 Telephone [facility] MEDICINE [address] [place] [address] Rashaad Tinajero MD Appointment Request 03/15/2025 2:15 PM EDT Office Visit [facility] MEDICINE [address] [place] [address] Rashaad Tinajero MD Essential hypertension (Primary Dx); [...] Travel 03/08/2025 1:00 PM EDT Office Visit [facility] ADULT DENTAL [address] [place] [address] Nelly Mendoza Dental plaque (Primary Dx); Generalized gingival recession, severe; Missing teeth, acquired 03/08/2025 Patient Outreach [facility] CHC MED & PEDS [address] [place] [address] Rashaad Tinajero MD Pre-visit Planning (SDOH unable to reach [facility]) 03/05/2025 2:00 PM EDT Office Visit [facility] ADULT DENTAL [address] [place] [address] Nelly Mendoza 02/27/2025 Telephone [facility] MEDICINE [address] [place] [address] Rashaad Tinajero MD Chart Prep 01/31/2025 3:20 PM EST Office Visit [facility] WALK-IN CENTER [address] [place] [address] Joana Benitez MD UTI symptoms 01/02/2025 Orders Only GENERIC EXTERNAL DATA DEPARTMENT Provider, Generic External Data from Last 3 Months Immunizations Name Administration [...] Description 09/17/2025 1:00 PM EDT Office Visit [facility] ADULT DENTAL [address] [place], [place] [phone] Kelly Nelly [address] [place], [place] [phone] Health Maintenance Due Date Last Done Comments [...] Screening 03/15/2026 03/15/2025 Lipid Panel 03/22/2026 03/22/2025, 05/2024, 10/30/2022, Additional history exists Dental X-Ray: Full Mouth 08/25/2027 08/24/2024, 04/30 DTaP/Tdap/Td Vaccines (3 - Td or Tdap) [...] Diagnosis Comments TACROLIMUS, HIGHLY SENSITIVE, LC/MS/MS Routine 03/22/2025 10:24 AM EDT ALT Routine 03/22/2025 10:24 AM [...] disease, without long-term current use of insulin ([facility]) POCT GLUCOSE Routine 03/15/2025 2:17 PM EDT Type 2 diabetes mellitus with stage 3a chronic kidney disease, without long-term current use of insulin ([facility]) ORAL HYGIENE INSTRUCTIONS Routine 03/08/2025 1:00 [...] Creatinine, Serum 1.00 0.5 - 1.4 mg/dL [facility] Estimated Glomerular Filt Rate 54 [facility] Comment:Chronic Kidney Disea se: Estimated GFR < 60 mL/min/[id number] Kidney Disease: Estimated GFR < 15 mL/min/1.73m2 03/22/2025 10:2 4 AM EDT 03/22/2025 10:24 AM EDT us Generic External Data Provider LAB BLOOD ORDERAB LES Final Result [facility] [address] [place] [phone] * (ABNORMAL) CBC auto differential (03/22/2025 10:24 AM EDT) Only the most recent of2 resultswithin the time period is included. White Blood Count 3.7(L) 4.8 - 10.8 X10*3/uL [facility] Red Blood Count 4.92 4.20 - 5.50 X10*6/uL [facility] Hemoglobin 12.8 12.0 - 16.0 g/dl [facility] Hematocrit 39.3 37.0 - 47.0 % [facility] Mean Corpuscular Volume 79.9(L) 80.0 - 98.0 fL [facility] Mean Corpuscular Hemoglobin 26.0(L) 27.0 - 33.0 pg [facility] Mean Corpuscular HGB Conc 32.6 31.0 - 35.0 g/dl [facility] Red Cell Distribution Width 13.6 11.0 - 16.0 % [facility] Platelet Count 208 160 - 400 X10*3/uL [facility] Mean Platelet Volume 10.0 9.4 - 12.3 fL [facility] Neutrophils Percent Auto 56.1 45 - 73 % [facility] Imm Gran Pct Auto 0.3 0.0 - 0.4 % [facility] Lymphocytes Percent Auto 29.2 20 - 40 % [facility] Monocytes Percent Auto 12.0(H) 2 - 11 % [facility] Eosinophils Percent Auto 1.9 0 - 4 % [facility] Basophils Percent Auto 0.5 0 - 2 % [facility] NRBC Pct Auto 0.0 0.0 - 0.2 /100WBC [facility] Neutrophils Absolute Auto 2.1 2.0 - 8.3 x10*3/uL [facility] Imm Gran Abs Auto 0.01 0.00 - 0.03 X10*3/uL [facility] Lymphocytes Absolute Auto 1.1(L) 1.2 - 4.9 X10*3/uL [facility] Monocytes Absolute Auto 0.4 0.1 - 1.2 X10*3/uL [facility] Eosinophils Absolute Auto 0.1 0.0 - 0.4 X10*3/uL [facility] Basophils Absolute Auto 0.0 0.0 - 0.2 X10*3/uL [facility] NRBC Abs Auto 0.000 0.0 - 0.012 X10*3/uL [facility] 03/22/2025 10:2 4 AM EDT 03/22/2025 10:24 AM EDT us Generic External Data Provider LAB BLOOD ORDERAB LES Final Result Performing Organization Address [facility] Co de Phone Number [facility] [address] [place] [phone] * (ABNORMAL) Tacrolimus, Highly Sensitive, LC/MS/MS (03/22/2025 10:24 AM EDT) Only the most recent of2 resultswithin the time period is included. Tacrolimus 4.5(A) mcg/L [facility] Comment:No definitive therap eutic or toxic ranges have beenestablished. Optimal blood drug levels are influencedby type of transplant, patient response, time post-transplant, co-administration of other drugs, anddrug formulation. The following trough range is asuggested guideline: 5.0-20.0 mcg/L.This test was developed and its analytical performancecharacteristics have been determined by [employer]. It has not been cleared or approved by theFDA. This assay has been validated pursuant to the CLIAregulations and is used for clinical purposes.THIS TEST WAS PERFORMED AT:[employer] [address] [phone] CHACON MD 03/22/2025 10:2 4 AM EDT 03/22/2025 10:24 AM EDT Generic External Data Provider LAB BLOOD ORDERAB LES Final Result Performing Organization Address [facility] Co de Phone Number [facility] [address] [place] [phone] * (ABNORMAL) BUN (Blood Urea Nitrogen) (03/22/2025 10:24 AM EDT) Only the most recent of2 resultswithin the time period is included. Urea Nitrogen (BUN) 18(H) 9 - 16 mg/dL [facility] 03/22/2025 10:2 4 AM EDT 03/22/2025 10:24 AM EDT us Generic External Data Provider LAB BLOOD ORDERAB LES Final Result Performing Organization Address [facility]/ZIP Co de Phone Number [facility] [address] [place] [phone] * ALT (03/22/2025 10:24 AM EDT) Alanine Aminotransferase 13 0 - 31 U/L [facility] 03/22/2025 10:2 4 AM EDT 03/22/2025 10:24 AM EDT us Generic External Data Provider LAB BLOOD ORDERAB LES Final Result Performing Organization Address [facility] [place] Phone Number [facility] [address] [place] [phone] * AST (03/22/2025 10:24 AM EDT) Aspartate Amino Transferase 23 5 - 31 U/L [facility] 03/22/2025 10:2 4 AM EDT 03/22/2025 10:24 AM EDT us Generic External Data Provider LAB BLOOD ORDERAB LES Final Result Performing Organization Address [facility] Co de Phone Number [facility] [address] [place] [phone] * Phosphate (As Phosphorus) (03/22/2025 10:24 AM EDT) Phosphorus 3.4 2.7 - 4.5 mg/dL [facility] 03/22/2025 10:2 4 AM EDT 03/22/2025 10:24 AM EDT us Generic External Data Provider LAB BLOOD ORDERAB LES Final Result Performing Organization Address [facility] Co de Phone Number [facility] [address] [place] [phone] * Magnesium (03/22/2025 10:24 AM EDT) Magnesium 1.7 1.6 - 2.6 mg/dL [facility] 03/22/2025 10:2 4 AM EDT 03/22/2025 10:24 AM EDT Generic External Data Provider LAB BLOOD ORDERAB LES Final Result Performing Organization Address City/[facility]/ZIP Co de Phone Number [facility] [address] [place] [phone] * Calcium (03/22/2025 10:24 AM EDT) Only the most recent of2 resultswithin the time period is included. Pathologist [facility] Calcium 9.2 8.4 - 10.2 mg/dL [facility] 03/22/2025 10:2 4 AM EDT 03/22/2025 10:24 AM EDT Generic External Data Provider LAB BLOOD ORDERAB LES Final Result Performing Organization Address City/[facility] de Phone Number [facility] [address] [place] [phone] * Lipid Panel, Standard (03/22/2025 10:24 AM EDT) Triglycerides 73 <150 mg/dL [facility] Comment:Desirable Triglyceri de: less than 150 mg/dLBorderline High Triglyceride 150-199 mg/dLHigh Triglyceride: 200-499 mg/dLVery High Triglyceride: greater than or equal to 5OO mg/dL Cholesterol 136 <200 mg/dL [facility] Comment:Desirable Cholestero l: less than 200 mg/dLBorderline High Cholesterol: 200-239 mg/dLHigh Cholesterol: greater than 239 mg/dL LDL Cholesterol Calculated 63 <100 mg/dL [facility] Comment:Desirable LDL: less than 100 mg/dLNear Optimal/Above Optimal LDL: 110- 129 mg/dLBorderline High LDL: 130-159 mg/dLHigh LDL: 160-189 mg/dLVery High LDL: greater than or equal to 190 mg/dL HDL Cholesterol 59 >40 mg/dL [facility] Comment:Desirable HDL: great er than 40 mg/dL Note: This HDL assay may give artificially low results in patients with liver disease. Blood Venous blood specimen / Unknown 03/22/2025 10:24 AM EDT 03/22/2025 10:24 AM EDT us Rashaad Kirk MD LAB BLOOD ORDERABLES Final Result Performing Organization Address [facility] Co de Phone Number [facility] [address] [place] [phone] * Electrolyte Panel (03/22/2025 10:24 AM EDT) Only the most recent of2 resultswithin the time period is included. Sodium 138 135 - 145 mmol/L [facility] Potassium 4.4 3.3 - 5.1 mmol/L [facility] Chloride 105 96 - 108 mmol/L [facility] Carbon Dioxide 24 22 - 29 mmol/L [facility] Anion Gap 13 12 - 20 [facility] 03/22/2025 10:2 4 AM EDT 03/22/2025 10:24 AM EDT us Generic External Data Provider LAB BLOOD ORDERAB LES Final Result Performing Organization Address [facility] Co de Phone Number [facility] [address] [place] [phone] * (ABNORMAL) POCT glycosylated hemoglobin (Hgb A1c) (03/15/2025 2:17 PM EDT) Hemoglobin A1C 6.6(A) 4.0 - 6.0 % QC Media Lot # [id number] Lot# Expiration Date 773, Blood Capillary blood specimen / Unknown 03/15/2025 2:17 PM EDT Result [facility] Rashaad Kirk MD POINT OF CARE TEST EN TER/EDIT ORDERABLES Final Result * POCT glucose manually resulted (03/15/2025 2:17 PM EDT) Glucose Blood, POC 163 60 - 200 mg/dL QC Media Lot # [id number] Lot# Expiration Date Blood Capillary blood specimen / Unknown 03/15/2025 2:17 PM EDT Result [facility] Rashaad Kirk MD POINT OF CARE TEST EN TER/EDIT ORDERABLES Final Result * Culture, Urine, Routine (01/31/2025 3:29 PM EST) Urine Urine specimen obtained by clean catch procedure / Unknown 01/31/2025 3:29 PM EST 01/31/2025 5:04 PM EST Comment:UACC Narrative [facility] - 02/02/2025 11:52 AM EST Urine Culture Report Result Urine Culture < 10,000 cfu/ml Specimen Source: Urine clean catch Joana Courtney MD LAB MICROBIOLOGY - NERGA ORDERABLES Final Result [facility] [address] [place] [phone] * POCT Urinalysis (01/31/2025 3:15 PM [...] TEST EN TER/EDIT ORDERABLES Final Result * Hm Colonoscopy (08/19/2021) Colonoscopy Normal Normal Historical Provider HEALTH MAINTENANCE Final Result * HEPATITIS C AB W/REFL TO HCV RNA, QN, PCR (11/13/2020 2:05 PM EST) HEPATITIS C ANTIBODY NON-REACT ETHEL NON-REACT [facility] INDEX 0.02 <1.00 [facility] Comment: ?? HCV antibody was non-reactive. There is no laboratory ?? evidence of HCV infection. ?? In most cases, no further action is required. However, if recent HCV exposure is suspected, a test for HCV RNA (test code 66580) is suggested. ?? For additional information please refer to http://[employer]/faq/OOQ33j2 (This link is being provided for informational/ educational purposes only.) ?? 11/13/2020 2:05 PM EST Rashaad Kirk MD HISTORICAL/NON ORDERA BLE LABS Final Result Performing Organization Address City/State/[facility] Co de Phone Number [facility] [address] from Last 3 Months or Most Recently Relevant to Health Maintenance Insurance [facility] [address] [address] [facility] Care Teams Chief Pilot Relationship Specialty Start Date End Date Rashaad Tinajero MD [address] [place] [phone] PCP - General Internal Medicine 06/19/15
== END 2025-03-30 14:04 | disposition home or self-care (01) ==
LOC: HO.HKA 13:35
PROVIDERS: PCP Internal Medicine; Visit Provider Internal Medicine Nephrology
DX: I10 Essential (primary) hypertension (principal); Z94.0 Kidney transplant status
CPT/HCPCS: 99214

== ENCOUNTER → 2025-03-30 13:34 | Outpatient (BNVA) | payer OTHER, SELFPAY | PROVIDERS: PCP Internal Medicine; Visit Provider Internal Medicine Nephrology | DX: I10 Essential (primary) hypertension (principal); Z94.0 Kidney transplant status | CPT/HCPCS: 99212 ==

== ENCOUNTER 2025-06-08 14:22 | Outpatient (AMB) | payer OTHER, SELFPAY ==
--- OUTSIDE RECORDS SUMMARY | 2025-06-08 14:26 | XMS_ITS | Encounter Summary ---
Author Organization [employer] Address [address] [facility] 7t [place] [address] Care Team Providers Care Scientific Research Manager Name Role Phone Rashaad Tinajero MD Primary Care Provide r Reason for Visit * Reason Onset Date Comments Results 02/07/2024 Encounter Details Date Type Department Care Team ([facility] st Contact Info) Description 02/07/2024 Telephone [facility] MEDICINE [address] [place], [place] [phone] Rashaad Tinajero MD [address] [place], [place] [phone] Results Social History Tobacco Use Types Packs/Day Years Used Date Smoking Tobacco: Never Passive Smoke Exposure: Never Smokeless Tobacco: Never Depression Answer Date Recorded Patient Health Questionnaire-9 Score 9 04/01/2023 Housing Stability Answer Date Recorded What is your housing situation today? I have ravinaura carrizales 09/28/[address] you [...] t he electric, gas, oil or water Shipping Company threatened to shut off services in your [...] and then green team nurses forwarded to [facility] nurses as ordering provider is a [facility] provider that worked the Walk In last Wednesday02.04.24, to review and advise POC on 02.07.24. Provider communicated test results on 02.10.24. Teamnurses called pt daughter daughter today. Please see previous message. Daughter wanted to know why no one called her until today- this engineering technical writer apologized and explained that the [...] our jobs properly. Daughter repeatedly told this engineering technical writer that she called multiple times this week for results and no one answered her until today. This engineering technical writer attempted to explain that I had spoken to the nurses about how they should have called her back and kept her in the loop that the message was sent to the provider for review. Daughter continued to repeat the same language. This engineering technical writer attempted to let her know that I heard her and I was trying to help her. Daughter was not hearing this engineering technical writer nor wanted to listen any longer. She told me that I was not doing a very good job at managing staff and needed to talk to my boss. She asked for PLAYROOM ATTENDANT and TRIMMER MACHINE OPERATOR names and numbers. Names were provided aswell as extensions. FYI-Pt is scheduled to see PCP 03.07.24, first available, for a POC for knee pain including a medication concern which is documented in a different TC note. This engineering technical writer offered to have pt see another provider, daughter refused. Will send message to PCP. * Telephone Encounter - Heather Pandey RN - 02/11/2024 11:15 AM EDT Returned call to pt daughter regarding message below. Daughter informed of XR and US results. Pt daughter states that it took a week to get results when pt drilling fluids specialist received results and referredpt to Ortho right away and stated we are just now getting a call back with no further POC . Daughter states that we at the [facility] are irresponsible and that PCP is unaware of what is happening to pt . This RN advised daughter that a message was sent to educational manager regarding her concerns and that someone [...] is also requesting to speak with a educational manager in regards to the matter of [...] results: xray Date when done: 02/04/24 Facility: walk in [facility] from pt requesting call back regarding Results. Type of results: US Date when done: 02/04/24 Facility: [facility] documented in this encounter Plan of Treatment Upcoming Encounters Date Type Department Care Team (Late st Contact Info) Description 06/21/2025 3:00 PM EDT Office Visit [facility] MEDICINE [address] [place] [address] Rashaad Tinajero MD [address] [place] [address] 09/17/2025 1:00 PM EDT Office Visit [facility] ADULT DENTAL [address] [place] [address] Nelly Mendoza [address] [place] [address] documented as of this encounter Visit Diagnoses Not on filedocumented in this encounter Additional Health Concerns Assessment Noted Time PHQ-9 Depression Total Score: 9 04/01/20 23 12:16 PM EDT documented as of this encounter Care Teams Scientific Research Manager Relationship Specialty Start Date End Date Rashaad Tinajero MD [address] [place] [phone] PCP - General Internal Medicine 06/19/15 documented as of this encounter
--- NOTE | 2025-06-08 14:32 | MHC.OFFWIV ---
Intake Vital Signs 06/08/25 14:33 Height 4 ft 11 in Weight 172 lb BMI 34.7 BP 120/74 Blood Pressure Location Lt brachial Position Sitting Pulse 81 Pulse Source Pulse Oximeter Temp 98.2 F Temp Source Oral Pulse Oximetry (%) 97 Oxygen Delivery Method Room Air Intake Visit Reasons: EP LT knee swelling/Pain Intake Note: presents with radiating left knee pain and swelling after tripping last week, denies falling Patient Tobacco Use Status: Never used Tobacco Allergies No Known Allergies Allergy (Verified 06/08/25 14:37) Do you need a note to return to daycare/school/sports/work: No HPI HPI Comments History of Present Illness Details This is a 74-year-old Turkmen speaking female with a past medical history of hypertension, chronic kidney disease s/p renal transplant presenting for evaluation of left knee pain. Patient states that she has had chronic pain in her left knee for over 1 year but approximately 2 weeks ago she tripped over a branch in her yard, twisting her left knee, which exacerbated her chronic pain. The patient's grandson, who is interpreting, is unaware of what medication she has been taking for her discomfort. Patient states that her pain is worse with ambulation. She denies having any fevers or chills. [facility] Medical History IgA nephropathy COVID-19 vaccine series completed AV fistula Gallstone HTN (hypertension) CKD (chronic kidney disease) Surgical History Hx of hysterectomy Hx of colonoscopy History of section Kidney transplant recipient Family History Brother History of prostate cancer Maternal Uncle History of colon cancer Maternal Grandmother History of stomach cancer Social History Household Members Other:: lives sharona Alcohol intake: never Patient Tobacco Use Status: Never used Tobacco Current occupational status: retired and disabled Review of Systems Const All systems reviewed & are unremarkable except as noted in HPI and below Reports no additional complaints, Denies body aches, Denies chills and Denies fever(s) Musc Reports arthralgias (left knee) Skin/Breast Reports system reviewed and no additional complaints, except as documented, Denies change in pigmentation, Denies changing lesions and Denies lesions Neuro Reports no additional complaints Physical Exam Vital Signs: Last Vital Signs Temp 98.2 F 06/08/25 14:33 Pulse 81 06/08/25 14:33 BP 120/74 06/08/25 14:33 Pulse Ox 97 06/08/25 14:33 Oxygen Delivery Method Room Air 06/08/25 14:33 BMI result Body Mass Index 34.7 Const General: cooperative, comfortable, no acute distress, well developed and other (obese) Nutritional Appearance: obese Orientation/consciousness: patient oriented x3 Limitations: no limitations Skin Other: There is no erythema or warmth to touch upon examination of the left knee; there is minimal edema focally located on the medial aspect of the anterior left knee that is not tender to direct examination. Neuro General: patient oriented x3 Extrem General: Yes full ROM (passive ROM left knee intact, no pain to palpation of anterior knee joint), No calf tenderness and Yes edema (minimal medial left knee edema) Left lower extremity: full ROM, no joint enlargement, hip/thigh (minimal discomfort distal iliotibial band only) and knee Details: abnormal to inspection, normal ROM and knee ligament exam normal; no abrasions, no crepitus, no deformity and no unusual warmth Psych Appearance: grossly normal Mental Status: mental status grossly normal Affect: normal affect Attitude: cooperative Assessment & Plan Assessment & Plan (1) Strain of left knee: Comment: Patient is evaluated with her grandson. There is no evidence of a cellulitis or septic knee upon clinical evaluation. Given her history, coupled with her examination no further imaging is warranted at this time. Patient will be discharged home with anti-inflammatory medication. Code(s): S86.912A - Strain of unspecified muscle(s) and tendon(s) at lower leg level, left leg, initial encounter Qualifiers: Encounter type: initial encounter Qualified Code(s): S86.912A - Strain of unspecified muscle(s) and tendon(s) at lower leg level, left leg, initial encounter Plan: Prednisone 40 mg daily x5 days; follow-up with PCP within 7-10 days. Medications: New prednisone 40 mg (2 x 20 mg) PO DAILY 10 tabs 0RF Coding Level of Care Code Est Pt Level 3 (43608) Diagnoses Strain of left knee, initial encounter S86.912A Encounter type: initial encounter Time Spent (min) 20
[2025-06-08 14:33] VITALS: BP 120/74; PULSE 81; TEMP 36.8; O2SAT 97; BMI 34.7
== END 2025-06-08 15:20 | disposition home or self-care (01) ==
PROVIDERS: PCP Internal Medicine; Visit Provider Physician Assistant
DX: S86.912A Strain of unspecified muscle(s) and tendon(s) at lower leg level, left leg, initial encounter (principal)

== ENCOUNTER → 2025-06-08 14:22 | Outpatient (BNVA) | payer OTHER, SELFPAY | PROVIDERS: PCP Internal Medicine; Visit Provider Physician Assistant | DX: S86.912A Strain of unspecified muscle(s) and tendon(s) at lower leg level, left leg, initial encounter (principal) | CPT/HCPCS: 99212 ==

== ENCOUNTER 2025-06-27 09:39 | Outpatient (REF) | payer OTHER, SELFPAY ==
[2025-06-27 10:05] LABS: MANUAL DIFF FLAG NO
--- OUTSIDE RECORDS SUMMARY | 2025-06-27 10:13 | XMS_ITS | Encounter Summary ---
Author Organization [employer] Address [address] [place] [address] Care Team Providers Care Fixed Income Manager Name Role Phone Rashaad Tinajero MD Primary Care Provide r Reason for Visit * Reason Onset Date Comments Results 02/07/2024 Encounter Details Date Type Department Care Team ([facility] st Contact Info) Description 02/07/2024 Telephone [facility] MEDICINE [address], [place] [phone] Rashaad Tinajero MD [address], [place] [phone] Results Social History Tobacco Use Types Packs/Day [...] t he electric, gas, oil or water [employer] threatened to shut off services in your [...] and then green team nurses forwarded to [facility] nurses as ordering provider is a [facility] provider that worked the Walk In last Wednesday02.04.24, to review and advise POC on 02.07.24. Provider communicated test results on 02.10.24. Teamnurses called pt daughter daughter today. Please see previous message. Daughter wanted to know why no one called her until today- this machine sign writer apologized and explained that the nurses [...] our jobs properly. Daughter repeatedly told this machine sign writer that she called multiple times this week for results and no one answered her until today. This machine sign writer attempted to explain that I had spoken to the nurses about how they should have called her back and kept her in the loop that the message was sent to the provider for review. Daughter continued to repeat the same language. This machine sign writer attempted to let her know that I heard her and I was trying to help her. Daughter was not hearing this machine sign writer nor wanted to listen any longer. She told me that I was not doing a very good job at managing staff and needed to talk to my boss. She asked for COKE PRODUCTION HEATER and RAW MATERIAL PLANNER names and numbers. Names were provided aswell as extensions. FYI-Pt is scheduled to see PCP 03.07.24, first available, for a POC for knee pain including a medication concern which is documented in a different TC note. This machine sign writer offered to have pt see another provider, daughter refused. Will send message to PCP. * Telephone Encounter - Heather Pandey RN - 02/11/2024 11:15 AM EDT Returned call to pt daughter regarding message below. Daughter informed of XR and US results. Pt daughter states that it took a week to get results when pt bilingual nanny received results and referredpt to Ortho right away and stated we are just now getting a call back with no further POC . Daughter states that we at the [facility] are irresponsible and that PCP is unaware of what is happening to pt . This RN advised daughter that a message was sent to manager leadership development regarding her concerns and that someone will [...] also requesting to speak with a manager leadership development in regards to the matter of delay [...] results: xray Date when done: 02/04/24 Facility: [facility] [place] TC from pt requesting call back regarding Results. Type of results: US Date when done: 02/04/24 Facility: [facility] [place] documented in this encounter Plan of Treatment Upcoming Encounters Date Type Department Care Team (Late st Contact Info) Description 09/17/2025 1:00 PM EDT Office Visit [facility] ADULT DENTAL [address] [place] [address] Kelly, Nelly [address] [place] [address] documented as of this encounter Visit Diagnoses Not on filedocumented in this encounter Additional Health Concerns Assessment Noted Time PHQ-9 Depression Total Score: 9 04/01/20 23 12:16 PM EDT documented as of this encounter Care Teams Fixed Income Manager Relationship Specialty Start Date End Date Rashaad Tinajero MD [address] [place] [address] PCP - General Internal Medicine 06/19/15 documented as of this encounter
[2025-06-27 10:27] LABS: Hematocrit 41.4 % (37.0-47.0); Hemoglobin 13.3 g/dl (12.0-16.0); Imm Gran Abs Auto 0.00 X10*3/uL (0.00-0.03); Imm Gran Pct Auto 0.0 % (0.0-0.4); Lymphocytes Absolute Auto 1.1 X10*3/uL (1.2-4.9); Mean Corpuscular HGB Conc 32.1 g/dl (31.0-35.0); Mean Corpuscular Hemoglobin 25.6 pg (27.0-33.0); Mean Corpuscular Volume 79.6 fL (80.0-98.0); NRBC Abs Auto 0.000 X10*3/uL (0.0-0.012); NRBC Pct Auto 0.0 /100WBC (0.0-0.2); Platelet Count 191 X10*3/uL (160-400); Red Blood Count 5.20 X10*6/uL (4.20-5.50); White Blood Count 3.4 X10*3/uL (4.8-10.8)
[2025-06-27 11:00] LABS: Alanine Aminotransferase 17 U/L (0-31); Anion Gap 12 (12-20); Aspartate Amino Transferase 26 U/L (5-31); Blood Urea Nitrogen 15 mg/dL (9-16); Calcium 8.8 mg/dL (8.4-10.2); Carbon Dioxide 24 mmol/L (22-29); Chloride 107 mmol/L (96-108); Estimated Glomerular Filt Rate 53; Magnesium 1.7 mg/dL (1.6-2.6); Potassium 4.2 mmol/L (3.3-5.1); Sodium 139 mmol/L (135-145)
[2025-06-28 11:23] LABS: Tacrolimus Prograf 4.7 mcg/L
== END 2025-06-27 09:40 | disposition home or self-care (01) ==
LOC: HO.LAB 09:39
PROVIDERS: PCP Internal Medicine; Visit Provider Internal Medicine Nephrology
DX: Z51.81 Encounter for therapeutic drug level monitoring (principal); I10 Essential (primary) hypertension; Z94.0 Kidney transplant status; Z79.621 Long term (current) use of calcineurin inhibitor
CPT/HCPCS: 36415; 80048; 80197; 83735; 84100; 84450; 84460; 85025

== ENCOUNTER 2025-06-29 15:42 | Outpatient (AMB) | payer OTHER, SELFPAY ==
--- NOTE | 2025-06-29 15:44 | HO.NEPHOV_ITS ---
Vital Signs 06/29/25 15:49 Height 4 ft 11 in Weight 170 lb 2 oz BMI 34.4 BP 110/70 Blood Pressure Location Lt brachial Position Sitting Pulse 79 Pulse Source Pulse Oximeter Pulse Oximetry (%) 98 Oxygen Delivery Method Room Air Intake Visit Reasons: 3 MO FU/ LVM International First Officer Required: Yes International First Officer Language: Hospitality Team Member Services: International First Officer Offered & Declined ([facility] International First Officer services refused ) Accompanied by: Grand Child Allergies No Known Allergies Allergy (Verified 06/29/25 15:48) HPI Comments Details: Koki?seen?in?followfor?transplant?care?she?had?IgA?nephropathy?swelling?any?ESR D.??She?had?a?preemptive?renal?transplant.??She ?was?never?on?dialysis.??She?claims?to?be?compliant?medications.??HerShe?was?acc ompanied?by?daughter?feels?higherlevel?of?tacrolimus?was?not?tolerated?by?her?mo ther.??She?does?not?have?any?vascular?or ?cardiovascular?symptoms.??She?has?not?seen?a?publication director.??She?has?no?urinary ?symptoms?or?side?effects?from?immunosuppression.??She?has?taken?the?flu?vaccina tion.??She?maintains?good?hydration?and? avoids?nonsteroidal?anti-inflammatories.?Shedoes?not?have?any?nausea,?vomiting,? diarrhea,?chest?pain,?shortness?of?breath,?paroxysmal?nocturnal?dyspnea,?orthopn ea,?pedal?edema,?orthostatic?symptoms,?h ematuria.??She?has?not?had?any?antibiotics?recently.??She?denies?any?hematuria.? ?She?feels?well. [facility] Medical History IgA nephropathy COVID-19 vaccine series completed AV fistula Gallstone HTN (hypertension) CKD (chronic kidney disease) Surgical History Hx of hysterectomy Hx of colonoscopy History of section Kidney transplant recipient Family History Brother History of prostate cancer Maternal Uncle History of colon cancer Maternal Grandmother History of stomach cancer Social History Household Members Other:: lives sharona Alcohol intake: never Patient Tobacco Use Status: Never used Tobacco Current occupational status: retired and disabled Review of Systems Const All systems reviewed & are unremarkable except as noted in HPI and below Physical Exam Vital Signs: Last Vital Signs Pulse 79 06/29/25 15:49 BP 110/70 06/29/25 15:49 Pulse Ox 98 06/29/25 15:49 Oxygen Delivery Method Room Air 06/29/25 15:49 BMI result Body Mass Index 34.4 Const General: comfortable and no acute distress Orientation/consciousness: patient oriented x3 HEENT Head: Yes normocephalic Mouth: Normal oral and palatal mucosa present Eyes EOM: EOMs intact bilaterally Neck Neck: Yes supple Resp Auscultation: clear to auscultation bilaterally Cardio Jugular venous distension: no JVD Rate: regular rate GI Palpation (GI): Soft to palpation Auscultation: normal bowel sounds General: Yes no CVA tenderness Back/Spine/Pelvis Back: no CVA tenderness Skin General skin exam: no rashes or lesions noted Neuro General: patient oriented x3 and moves all extremities Extrem General: Yes no pedal edema Results Reviewed Nephrology Results: Hgb, (12.0-16.0) 13.3 g/dl 06/27/25 WBC, (4.8-10.8) 3.4 X10*3/uL L 06/27/25 Plt Count, (160-400) 191 X10*3/uL 06/27/25 Sodium, (135-145) 139 mmol/L 06/27/25 Potassium, (3.3-5.1) 4.2 mmol/L 06/27/25 Chloride, (96-108) 107 mmol/L 06/27/25 Carbon Dioxide, (22-29) 24 mmol/L 06/27/25 BUN, (9-16) 15 mg/dL 06/27/25 Creatinine, (0.5-1.4) 1.02 mg/dL 06/27/25 Calcium, (8.4-10.2) 8.8 mg/dL 06/27/25 Phosphorus, (2.7-4.5) 3.6 mg/dL 06/27/25 Assessment & Plan Assessment & Plan (1) HTN (hypertension): Code(s): I10 - Essential (primary) hypertension Category: Medical Qualifiers: Hypertension type: primary hypertension Qualified Code(s): I10 - Essential (primary) hypertension (2) Kidney transplant recipient: Comment: 2019 Code(s): Z94.0 - Kidney transplant status Category: Surgical Plan A urea?had?ESRD?from?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? 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 I did not make any medication changes today; F/U given Orders: Orders Tacrolimus Prograf 2 Months I10 - Essential (primary) hypertension, Z94.0 - Kidney transplant status Calcium 2 Months I10 - Essential (primary) hypertension, Z94.0 - Kidney transplant status Phosphorus 2 Months I10 - Essential (primary) hypertension, Z94.0 - Kidney transplant status Parathyroid Hormone Intact 2 Months I10 - Essential (primary) hypertension, Z94.0 - Kidney transplant status Vitamin D 25-OH Total 2 Months I10 - Essential (primary) hypertension, Z94.0 - Kidney transplant status Hemoglobin A1c 2 Months I10 - Essential (primary) hypertension, Z94.0 - Kidney transplant status Complete Blood Count Auto Diff 2 Months I10 - Essential (primary) hypertension, Z94.0 - Kidney transplant status Electrolytes 2 Months I10 - Essential (primary) hypertension, Z94.0 - Kidney transplant status Blood Urea Nitrogen 2 Months I10 - Essential (primary) hypertension, Z94.0 - Kidney transplant status Creatinine 2 Months I10 - Essential (primary) hypertension, Z94.0 - Kidney transplant status Coding Level of Care Code Est Pt Level 4 (90102) Diagnoses Primary hypertension I10 Hypertension type: primary hypertension Kidney transplant recipient Z94.0
--- OUTSIDE RECORDS SUMMARY | 2025-06-29 15:44 | XMS_ITS | Encounter Summary ---
Author Organization [employer] Address [address] [place] [address] Care Team Providers Care Performance Test Architect Name Role Phone Rashaad Tinajero MD Primary Care Provide r Reason for Visit * Reason Onset Date Comments Results 02/07/2024 Encounter Details Date Type Department Care Team ([facility] st Contact Info) Description 02/07/2024 Telephone [facility] MEDICINE [address] [place], [place] [phone] Rashaad Tinajero MD [address] [place], [place] [phone] Results Social History Tobacco Use Types Packs/Day [...] t he electric, gas, oil or water [employer] threatened to shut off services in your [...] and then green team nurses forwarded to [facility] nurses as ordering provider is a [facility] provider that worked the Walk In last Wednesday02.04.24, to review and advise POC on 02.07.24. Provider communicated test results on 02.10.24. Teamnurses called pt daughter daughter today. Please see previous message. Daughter wanted to know why no one called her until today- this creative services writer apologized and explained that the nurses [...] our jobs properly. Daughter repeatedly told this creative services writer that she called multiple times this week for results and no one answered her until today. This creative services writer attempted to explain that I had spoken to the nurses about how they should have called her back and kept her in the loop that the message was sent to the provider for review. Daughter continued to repeat the same language. This creative services writer attempted to let her know that I heard her and I was trying to help her. Daughter was not hearing this creative services writer nor wanted to listen any longer. She told me that I was not doing a very good job at managing staff and needed to talk to my boss. She asked for [employer]DC ARCHITECT and ASSOCIATE CIVIL ENGINEER names and numbers. Names were provided aswell as extensions. FYI-Pt is scheduled to see PCP 03.07.24, first available, for a POC for knee pain including a medication concern which is documented in a different TC note. This creative services writer offered to have pt see another provider, daughter refused. Will send message to PCP. * Telephone Encounter - Heather Pandey RN - 02/11/2024 11:15 AM EDT Returned call to pt daughter regarding message below. Daughter informed of XR and US results. Pt daughter states that it took a week to get results when pt concrete float maker received results and referredpt to Ortho right away and stated we are just now getting a call back with no further POC . Daughter states that we at the [facility] are irresponsible and that PCP is unaware of what is happening to pt . This RN advised daughter that a message was sent to dairy store manager regarding her concerns and that someone [...] is also requesting to speak with a dairy store manager in regards to the matter of [...] results: xray Date when done: 02/04/24 Facility: [facility] [place] TC from pt requesting call back regarding Results. Type of results: US Date when done: 02/04/24 Facility: [facility] [place] documented in this encounter Plan of Treatment Upcoming Encounters Date Type Department Care Team (Late st Contact Info) Description 09/17/2025 1:00 PM EDT Office Visit [facility] ADULT DENTAL [address] [place] [address] Kelly, Nelly [address] [place] [address] documented as of this encounter Visit Diagnoses Not on filedocumented in this encounter Additional Health Concerns Assessment Noted Time PHQ-9 Depression Total Score: 9 04/01/20 23 12:16 PM EDT documented as of this encounter Care Teams Performance Test Architect Relationship Specialty Start Date End Date Rashaad Tinajero MD [address] [place] [address] PCP - General Internal Medicine 06/19/15 documented as of this encounter
[2025-06-29 15:49] VITALS: BP 110/70; PULSE 79; O2SAT 98; BMI 34.4
== END 2025-06-29 16:04 | disposition home or self-care (01) ==
LOC: HO.HKA 15:42
PROVIDERS: PCP Internal Medicine; Visit Provider Internal Medicine Nephrology
DX: I10 Essential (primary) hypertension (principal); Z94.0 Kidney transplant status
CPT/HCPCS: 99214

== ENCOUNTER → 2025-06-29 15:42 | Outpatient (BNVA) | payer OTHER, SELFPAY | PROVIDERS: PCP Internal Medicine; Visit Provider Internal Medicine Nephrology | DX: I10 Essential (primary) hypertension (principal); Z94.0 Kidney transplant status | CPT/HCPCS: 99212 ==

== ENCOUNTER 2025-07-20 15:32 | Outpatient (REF) | payer OTHER, SELFPAY ==
--- OUTSIDE RECORDS SUMMARY | 2025-07-20 15:33 | XMS_ITS | Encounter Summary ---
Author Organization [employer] Address [address] [place] [address] Care Team Providers Care Pharmaceutical Plant Operator Name Role Phone Rashaad Tinajero MD Primary Care Provide r Reason for Visit * Reason Onset Date Comments Results 02/07/2024 Encounter Details Date Type Department Care Team ([facility] st Contact Info) Description 02/07/2024 Telephone [facility] MEDICINE [address] [place], [place] [phone] Rashaad Tinajero MD [address] [place], [place] [phone] Results Social History Tobacco Use Types Packs/Day [...] t he electric, gas, oil or water [email or web address] threatened to shut off services in your [...] and then green team nurses forwarded to [facility] nurses as ordering provider is a [facility] provider that worked the Walk In last Wednesday02.04.24, to review and advise POC on 02.07.24. Provider communicated test results on 02.10.24. Teamnurses called pt daughter daughter today. Please see previous message. Daughter wanted to know why no one called her until today- this news writer apologized and explained that the nurses [...] our jobs properly. Daughter repeatedly told this news writer that she called multiple times this week for results and no one answered her until today. This news writer attempted to explain that I had spoken to the nurses about how they should have called her back and kept her in the loop that the message was sent to the provider for review. Daughter continued to repeat the same language. This news writer attempted to let her know that I heard her and I was trying to help her. Daughter was not hearing this news writer nor wanted to listen any longer. She told me that I was not doing a very good job at managing staff and needed to talk to my boss. She asked for SOLAR SYSTEM INSTALLER and OBSTETRICS TECH names and numbers. Names were provided aswell as extensions. FYI-Pt is scheduled to see PCP 03.07.24, first available, for a POC for knee pain including a medication concern which is documented in a different TC note. This news writer offered to have pt see another provider, daughter refused. Will send message to PCP. * Telephone Encounter - Heather Pandey RN - 02/11/2024 11:15 AM EDT Returned call to pt daughter regarding message below. Daughter informed of XR and US results. Pt daughter states that it took a week to get results when pt teenage babysitter received results and referredpt to Ortho right away and stated we are just now getting a call back with no further POC . Daughter states that we at the [facility] are irresponsible and that PCP is unaware of what is happening to pt . This RN advised daughter that a message was sent to online communications manager regarding her concerns and that someone [...] for DVT * Telephone Encounter - Raoul Amlaraz - 02/09/2024 1:17 PM EDT Tc from pt daughter requesting status on results of X-ray and Ultrasound states they were done lastweek and until today has not received anything yet. Daughter is also requesting to speak with a online communications manager in regards to the matter of [...] results: xray Date when done: 02/04/24 Facility: [facility] [place] TC from pt requesting call back regarding Results. Type of results: US Date when done: 02/04/24 [place] [facility] [place] documented in this encounter Plan of Treatment Upcoming Encounters Date Type Department Care Team (Late st Contact Info) Description 09/17/2025 1:00 PM EDT Office Visit [facility] ADULT DENTAL [address] [place] [address] Kelly, Nelly [address] [place] [address] documented as of this encounter Visit Diagnoses Not on filedocumented in this encounter Additional Health Concerns Assessment Noted Time PHQ-9 Depression Total Score: 9 04/01/20 23 12:16 PM EDT documented as of this encounter Care Teams Pharmaceutical Plant Operator Relationship Specialty Start Date End Date Rashaad Tinajero MD [address] [place] [address] PCP - General Internal Medicine 06/19/15 documented as of this encounter
== END 2025-07-20 15:33 | disposition home or self-care (01) ==
LOC: HO.MAMMO 15:32
PROVIDERS: PCP Internal Medicine; Visit Provider Internal Medicine
DX: Z12.31 Encounter for screening mammogram for malignant neoplasm of breast (principal)
CPT/HCPCS: 77063; 77067

== ENCOUNTER → 2025-07-20 15:45 | Outpatient (BNV) | payer OTHER, SELFPAY | PROVIDERS: PCP Internal Medicine; Visit Provider Internal Medicine | DX: Z12.31 Encounter for screening mammogram for malignant neoplasm of breast (principal) | CPT/HCPCS: 77063; 77067 ==

== ENCOUNTER 2025-08-28 09:42 | Outpatient (REF) | payer OTHER, SELFPAY ==
[2025-08-28 10:01] LABS: MANUAL DIFF FLAG NO
[2025-08-28 10:33] LABS: Hematocrit 41.9 % (37.0-47.0); Hemoglobin 13.2 g/dl (12.0-16.0); Imm Gran Abs Auto 0.01 X10*3/uL (0.00-0.03); Imm Gran Pct Auto 0.2 % (0.0-0.4); Lymphocytes Absolute Auto 1.2 X10*3/uL (1.2-4.9); Mean Corpuscular HGB Conc 31.5 g/dl (31.0-35.0); Mean Corpuscular Hemoglobin 25.6 pg (27.0-33.0); Mean Corpuscular Volume 81.2 fL (80.0-98.0); NRBC Abs Auto 0.000 X10*3/uL (0.0-0.012); NRBC Pct Auto 0.0 /100WBC (0.0-0.2); Platelet Count 213 X10*3/uL (160-400); Red Blood Count 5.16 X10*6/uL (4.20-5.50); White Blood Count 4.3 X10*3/uL (4.8-10.8)
--- OUTSIDE RECORDS SUMMARY | 2025-08-28 10:34 | XMS_ITS | Encounter Summary ---
Author Organization [employer] Address [address] [place] [address] Care Team Providers Care Customer Advocacy Manager Name Role Phone Rashaad Tinajero MD Primary Care Provide r Reason for Visit * Reason Onset Date Comments Appointment Request 02/01/2024 Encounter Details Date Type Department Care Team ([facility] st Contact Info) Description 02/01/2024 Telephone [facility] MEDICINE [address] [place], [place] [phone] Rashaad Tinajero MD [address] [place], [place] [phone] Appointment Request Social History Tobacco Use Types [...] an appointment pt had last week with funeral home assistant. States funeral home assistant sent pt to do an US on the left leg for Blood clot.[employer] also started pt on new medication. Please contact pt daughter at [phone] documented in this encounter Plan of Treatment Upcoming Encounters Date Type Department Care Team (Late st Contact Info) Description 09/17/2025 12:45 PM EDT Office Visit [facility] ADULT DENTAL [address] [place] [address] Kelly, Nelly [address] [place] [address] 11/06/2025 3:00 PM EST Office Visit [facility] MEDICINE [address] [place] [address] Rashaad Tinajero MD [address] [place] [address] documented as of this encounter Visit Diagnoses Not on filedocumented in this encounter Additional Health Concerns Assessment Noted Time PHQ-9 Depression Total Score: 9 04/01/20 23 12:16 PM EDT documented as of this encounter Care Teams Customer Advocacy Manager Relationship Specialty Start Date End Date Rashaad Tinajero MD [address] [place] [address] PCP - General Internal Medicine 06/19/15 documented as of this encounter
--- OUTSIDE RECORDS SUMMARY | 2025-08-28 10:34 | XMS_ITS | Encounter Summary ---
Author Organization [employer] Address [address] [facility] [address] [place] [address] Care Team Providers Care Gliding Pilot Instructor Name Role Phone Rashaad Tinajero MD Primary Care Provide r Reason for Visit * Reason Onset Date Comments Results 02/07/2024 Encounter Details Date Type Department Care Team ([facility] st Contact Info) Description 02/07/2024 Telephone [facility] [address], [place] [phone] Rashaad Tinajero MD [address], [place] [phone] Results Social History Tobacco Use Types Packs/Day [...] t he electric, gas, oil or water [employer] threatened to shut off services in your [...] and then green team nurses forwarded to [facility] nurses as ordering provider is a [facility] provider that worked the Walk In last Wednesday02.04.24, to review and advise POC on 02.07.24. Provider communicated test results on 02.10.24. Teamnurses called pt daughter daughter today. Please see previous message. Daughter wanted to know why no one called her until today- this television script writer apologized and explained that the nurses [...] our jobs properly. Daughter repeatedly told this television script writer that she called multiple times this week for results and no one answered her until today. This television script writer attempted to explain that I had spoken to the nurses about how they should have called her back and kept her in the loop that the message was sent to the provider for review. Daughter continued to repeat the same language. This television script writer attempted to let her know that I heard her and I was trying to help her. Daughter was not hearing this television script writer nor wanted to listen any longer. She told me that I was not doing a very good job at managing staff and needed to talk to my boss. She asked for CANDLE MAKER and BASS VIOL REPAIRER names and numbers. Names were provided aswell as extensions. FYI-Pt is scheduled to see PCP 03.07.24, first available, for a POC for knee pain including a medication concern which is documented in a different TC note. This television script writer offered to have pt see another provider, daughter refused. Will send message to PCP. * Telephone Encounter - Heather Pandey RN - 02/11/2024 11:15 AM EDT Returned call to pt daughter regarding message below. Daughter informed of XR and US results. Pt daughter states that it took a week to get results when pt infectious disease technician received results and referredpt to Ortho right away and stated we are just now getting a call back with no further POC . Daughter states that we at the [facility] are irresponsible and that PCP is unaware of what is happening to pt . This RN advised daughter that a message was sent to manager residential regarding her concerns and that someone will [...] also requesting to speak with a manager residential in regards to the matter of delay [...] Date when done: 02/04/24 Facility: walk in center TC from pt requesting call back regarding Results. Type of results: US Date when done: 02/04/24 [place] [facility] [place] in this encounter Plan of Treatment Upcoming Encounters Date Type Department Care Team (Late st Contact Info) Description 09/17/2025 12:45 PM EDT Office Visit [facility] [address] [place] [address] Nelly Mendoza [address] [place] [address] 11/06/2025 3:00 PM EST Office Visit [facility] [address] [place] [address] Rashaad Tinajero MD [address] [place] [address] documented as of this encounter Visit Diagnoses Not on filedocumented in this encounter Additional Health Concerns Assessment Noted Time PHQ-9 Depression Total Score: 9 04/01/20 23 12:16 PM EDT documented as of this encounter Care Teams Gliding Pilot Instructor Relationship Specialty Start Date End Date Rashaad Tinajero MD [address] [place] [address] PCP - General Internal Medicine 06/19/15 documented as of this encounter
--- OUTSIDE RECORDS SUMMARY | 2025-08-28 10:34 | XMS_ITS | Encounter Summary ---
Author Organization [employer] Address [address] [place] [address] [address] [place] [address] Care Team Providers Care Facility Maintenance Worker Name Role Phone Rashaad Tinajero MD Primary Care Provide r Encounter Details Date Type Department Care Team (Late st Contact Info) Description 04/08/2023 Abstract [facility] MED[facility] [address] [place] [address] Rashaad Tinajero MD [address] [place] [address] Social History Tobacco Use Types Packs/Day Years [...] Description 09/17/2025 12:45 PM EDT Office Visit [facility] AD[facility] DENT[facility] [address] [place] [address] Nelly Mendoza [address] [place] [address] 11/06/2025 3:00 PM EST Office Visit [facility] MED[facility] [address] [place] [address] Rashaad Tinajero MD [address] [place] [address] Pending Results Name Type Priority Associated Diagnoses Date /Time Colonoscopy GI Routine 08/19/2021 documented as of this encounter Visit Diagnoses Not on filedocumented in this encounter Additional Health Concerns Assessment Noted Time PHQ-9 Depression Total Score: 9 04/01/20 23 12:16 PM EDT documented as of this encounter Care Teams Facility Maintenance Worker Relationship Specialty Start Date End Date Rashaad Tinajero MD [address] [place] [address] PCP - General Internal Medicine 06/19/15 documented as of this encounter
--- OUTSIDE RECORDS SUMMARY | 2025-08-28 10:34 | XMS_ITS | Encounter Summary ---
Author Organization [employer] Address [address] [facility] [address] [place] [address] Care Team Providers Care Child & Adolescent Psychiatrist Name Role Phone Rashaad Tinajero MD Primary Care Provide r Reason for Visit * Reason Onset Date Comments Appointment Request 09/28/2023 Encounter Details Date Type Department Care Team ([facility] st Contact Info) Description 09/28/2023 Telephone [facility] [address] [place], [place] [phone] Rashaad Tinajero MD [address], [place] [phone] Appointment Request Social History Tobacco Use Types [...] Tc from daughter requesting a PE appt. Kitchen Designer attempted to schedule. No availability. documented in this encounter Plan of Treatment Upcoming Encounters Date Type Department Care Team (Late st Contact Info) Description 09/17/2025 12:45 PM EDT Office Visit [facility]ULT [facility] [address] [place] [address] Kelly, Nelly [address] [place] [address] 11/06/2025 3:00 PM EST Office Visit [facility] [address] [place] [address] Rashaad Tinajero MD [address] [place] [address] documented as of this encounter Visit Diagnoses Not on filedocumented in this encounter Additional Health Concerns Assessment Noted Time PHQ-9 Depression Total Score: 9 04/01/20 23 12:16 PM EDT documented as of this encounter Care Teams Child & Adolescent Psychiatrist Relationship Specialty Start Date End Date Rashaad Tinajero MD [address] [place] [address] PCP - General Internal Medicine 06/19/15 documented as of this encounter
--- OUTSIDE RECORDS SUMMARY | 2025-08-28 10:34 | XMS_ITS | Clinical Summary ---
Author Organization [employer] Address [address] [place] [address] [address] [place] [address] Care Team Providers Care Electrician Supervisor Airplane Name Role Phone Rashaad Tinajero MD Primary Care Provide r Allergies Active Allergy Reactions Criticality Noted Date Comments Rosuvastatin 10/31/2012 Medications * This document contains information received from the source organization and may not represent a complete record from that organization. amLODIPine (Norvasc) 2.5 MG tablet Take 2.5 mg by mouth. 07/15/2023 Active ARIPiprazole (Abilify) 2 MG tablet Take 1 tablet by mouth in the morning. 10/24/2021 Active cholecalciferol 50 MCG (2000 UT) capsule Take 50 mcg by mouth in the morning. Active metoprolol tartrate (Lopressor) 25 MG tablet Take 12.5 mg by mouth. 08/18/2023 Active tacrolimus (Prograf) 1 MG capsule take 1 by oral route every am and 1 at pm Active acetaminophen (Tylenol) 500 MG tabletIndication s:Acute pain of left knee Take 1 tablet (500 mg) by mouth every 8 (eight) hours if needed for mild pain. 90 tablet 3 02/15/2024 Active ferrous sulfate 325 (65 Fe) MG EC tablet 07/20/2024 Active FREESTYLE LITE test stripIndications :Type 2 diabetes mellitus with stage 3a chronic kidney disease, without long-term current use of insulin ([facility]) Use to test blood sugar 1 times daily 100 each 12 06/21/2025 Active Lancets miscIndications: Type 2 diabetes mellitus with stage 3a chronic kidney disease, without long-term current use of insulin ([facility]) Use to test blood sugar 1 times daily 100 each 06/21/2025 Active Alcohol Swabs 70 % padsIndications: Type 2 diabetes mellitus with stage 3a chronic kidney disease, without long-term current use of insulin (HCC) Use to test blood sugar 1 times daily 100 each 06/21/2025 Active Blood Glucose Monitoring Suppl (FreeStyle Chenoa Lite) w/Device kitIndications:T ype 2 diabetes mellitus with stage 3a chronic kidney disease, without long-term current use of insulin (HCC) Use to test blood sugar 1 times daily 1 kit 06/21/2025 Active Active Problems Problem Noted Date Diagnosed Date Viral upper respiratory tract infection 11/07/20 Assessment & Plan (11/07/2024 2:46 PM EST): [...] marked fatty replacement of the pancreas, atrophic [place] kidneys with transplant kidney in the right iliac fossa, sigmoid diverticulosis without diverticulitis and degenerative changes in the spine with grade 1 anterolisthesis of L5 upon S1. Abd US 08/2024 showed: IMPRESSION: 1. No ultrasound evidence of gallbladder disease or gallstones. 2. Atrophic [place] kidneys. 3. Transplanted right kidney right lower [...] marked fatty replacement of the pancreas, atrophic [place] kidneys with transplant kidney in the right iliac fossa, sigmoid diverticulosis without diverticulitis and degenerative changes in the spine with grade 1 anterolisthesis of L5 upon S1. Abd US 08/2024 showed: IMPRESSION: 1. No ultrasound evidence of gallbladder disease or gallstones. 2. Atrophic [place] kidneys. 3. Transplanted right kidney right lower [...] of left knee 02/15/2024 Assessment & Plan (06/21/2025 3:47 PM EDT): Patient here for a follow up, Seen at [facility] [place] [facility] in [place] 06/08/2025 Pt was sent home on Prednisone no imaging was done. Previously pt had a LE US that showed: No evidence of deep venous thrombosis. Only a Popliteal fossa cyst measuring 5.1 x 1.2 x 3.1 cm. Plain films showed: Moderate degenerative changes left knee with moderate suprapatellar joint effusion. No visible acute fracture or dislocation seen. Pt seen by Ortho at [facility] [place] on 2 different occasions last 05/19/2024. Received a steroid injection with no good results. Daughter stated she continued to c/o pain on her knee and was interested in getting a second opinion. patient was referred to [facility] unfortunately they do not take her insurance. Pt's daughter told me they were willing to see Dr. Deluna at [facility] [place] Pt underwent an MRI that showed: 1) That eve is a degenerative posteromedial meniscus tear with extrusion of the meniscal body. This is stable and consistent with a degenerative medial meniscus tear. Dr Deluna stated that This was not what is causing her symptoms and he would not recommend isolated treatment of this degenerative tear as well only worsened her arthritic symptoms and will not help her. 2) There is a complex degenerative tear of the anterior horn of the lateral meniscus. Dr. Deluna stated This was difficult to treat and would not help her feel any better. He did not recommend treatment for the lateral meniscus tear 3) There is tricompartmental osteoarthritis. Of note there is a large osteochondral defect of the medial femoral condyle. This is consistent with arthritis. He stated that the treatment for arthritis in a 73-year-old woman would be arthroplasty. 4) There is a large joint effusion with synovitis and a Jordan's cyst. Dr Deluna stated that These are all common findings in a arthritic knee. 5) There is a possible partial tear of the ACL. And lastly Dr Deluna stated This is not relevant to her condition and an incidental finding by the radiologist. This does not warrant treatment and is unlikely to cause symptoms. Dr. Marcello Deluna who reviewed this with the daughter and recommended symptomatic treatment for this. Dr. Deluna mentioned that he would arrange for a gel injection and physical therapy. Pt had an injection 10/24/2024 Assessment & Plan (11/07/2024 2:12 PM EST): Patient had a repeat LE US that showed: No evidence of deep venous thrombosis. Only a Popliteal fossa cyst measuring 5.1 x 1.2 x 3.1 cm. Plain films showed: Moderate degenerative changes left knee with moderate suprapatellar joint effusion. No visible acute fracture or dislocation seen. Pt seen by Ortho at [facility] [place] on 2 different occasions last 05/19/2024. Received a steroid injection with no good results. Daughter states she continues to c/o pain on her knee and is interested in getting a second opinion. patient was referred to [facility] unfortunately they do not take her insurance. Pt's daughter tells me they are willing to see Dr. Deluna at [facility] [place] Pt underwent an MRI that showed: 1) [...] dislocation seen. Pt seen by Ortho at [facility] [place] on 2 different occasions last 05/19/2024. Received a steroid injection with no good results. Daughter states she continues to c/o pain on her knee and is interested in getting a second opinion. patient was referred to [facility] unfortunately they do not take her insurance. Pt's daughter tells me they are willing to see Dr. Deluna at [facility] [place] They are awaiting the MRI appointment. Assessment [...] dislocation seen. Pt seen by Ortho at [facility] [place] [place] on 2 different occasions last 05/19/2024. Received a steroid injection with no good results. Daughter states she continues to c/o pain on her knee and is interested in getting a second opinion. 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 She subsequently presented at our [facility] with c/o posterior knee pain As part [...] 12:58 PM EDT): Patient seen initially at [facility] 01/26/2024 and was diagnosed with a non oclussive peroneal vein thrombus for which she was started on Eliquis. She subsequently presented at our [facility] with c/o posterior knee pain As part [...] has already been referred to Ortho by [employer] and today we confirmed that appointment is [...] use of insulin 01/06/2024 Assessment & Plan (06/21/2025 4:03 PM EDT): Patient here for a follow up in regards of her DM Hgb A1c 06/21/2025: 7.1 from 6.6 Pt previously referred to [employer] to adhere to Diabetic diet Not checking BG Glucometer sent Plan: Start checking BG continue diabetic diet alone until she bring soha glucometer 3 month follow up Assessment & Plan (03/15/2025 2:22 PM EDT): Patient here for a follow up in regards of her DM Hgb A1c 03/15/2025: 6.6 Pt previously referred to [employer] to adhere to Diabetic diet Plan: continue diabetic diet alone Assessment & Plan (11/07/2024 2:14 PM EST): Here for a follow up in regards of her DM Hgb A1c 11/07/2024: 6.6 from 6.5 Pt previously referred to [employer] to adhere to Diabetic diet Plan: continue diabetic diet Assessment & Plan (08/15/2024 12:15 PM EDT): Here for a follow up FBS 04/04/2024 126 Hgb A1c 07/13/2024: 6.5 Pt previously referred to [employer] to adhere to Diabetic diet Plan; continue diabetic diet Assessment & Plan (07/13/2024 1:48 PM EDT): Here for a follow up FBS 04/04/2024 126 Hgb A1c 07/13/2024: 6.5 Pt previously referred to [employer] to adhere to Diabetic diet Plan; continue diabetic diet Assessment & Plan (04/06/2024 1:31 PM EDT): Newly diagnosed DM FBS 04/04/2024 126 Hgb A1c: 6.7 Plan: Pt referred to [employer] to adhere to Diabetic diet Assessment & Plan (01/06/2024 2:30 PM EST): Elevated FBS 129 Repeat ,add Hgb A1c Pes planus 11/04/2023 Assessment & Plan (06/21/2025 3:56 PM EDT): Will refer to podiatry Assessment & Plan (11/04/2023 11:09 AM EST): [...] replaced by transplant 03/01/2018 Assessment & Plan (06/21/2025 3:40 PM EDT): Doing well s/p Kidney transplant 09/2017. She is currently on Tacrolimus 1.5 in the morning and 1.5 in the evening. Under the care of Renal last seen 03/30/2025 Assessment & Plan (11/07/2024 2:05 PM EST): [...] the evening. Stage 3a chronic kidney disease (CMS/HCC) 2016 Assessment & Plan (06/21/2025 3:40 PM EDT): Under the care of Dr Kemp Last seen: 03/30/2025 S/P transplant had stable kidney allograft function. Doing well. Date of Transplant: 10/14/2017 Transplant Type: DD kidney CKD Stage: stage 3 - GFR 30-59 GFR: 58 Assessment & Plan (03/15/2025 2:31 PM EDT): S/P transplant had stable kidney allograft function. Doing well. Date of Transplant: 10/14/2017 Transplant Type: DD kidney CKD Stage: stage 3 - GFR 30-59 GFR: 58 Seen by Nephrology last 01/03/2025: Dr Tru kemp Assessment & Plan (07/13/2024 4:16 PM EDT): [...] Bone densitometry 04/21/2016 I have contacted pts roll on worker to obtain some guidance regarding the treatment for this given her CKD stage IV Essential hypertension 09/19/2015 Assessment & Plan (06/21/2025 3:42 PM EDT): Pt is here for a f/u BP controlled She is on a regimen of: Amlodipine 2.5 mg po daily and Metoprolol 12.5 mg po daily Given adequate blood pressure control will continue with current medical regimen. Most recent electrolytes Lab Results Component Value Date NA 138 03/22/2025 NA 140 01/02/2025 K 4.4 03/22/2025 K 4.5 01/02/2025 CL 105 03/22/2025 CL 106 01/02/2025 BUN 18 (H) 03/22/2025 BUN 17 (H) 01/02/2025 CREATININE 1.00 03/22/2025 CREATININE 0.94 01/02/2025 Stable Repeat BMP patient advised to adhere to a low sodium diet, encouraged about medication compliance. Assessment & Plan (03/15/2025 2:19 PM EDT): [...] medication compliance. Hyperlipidemia 10/31/2012 Assessment & Plan (06/21/2025 3:58 PM EDT): Pt here for a f/u Patient with elevated lipids. Most recent lipid profile from: Lab Results Component Value Date TRIG 73 03/22/2025 TRIG 97 01/05/2024 CHOL 136 03/22/2025 CHOL 145 01/05/2024 LDLCHOLCAL 63 03/22/2025 LDLCHOLCAL 73 01/05/2024 HDL 59 03/22/2025 HDL 53 01/05/2024 Currently on a regimen of : Vytorin 09/07 1 tab po daily Pt stopped taking Atorvastatin due to headaches The Vytorin was started by her Cell [employer] Pinner Plan: Continue current regimen. advised to try to adhere to a low cholesterol diet, counseled and educated about diet and exercise Assessment & Plan (01/06/2024 2:16 PM EST): Pt here for a f/u Patient with elevated lipids. Most recent lipid profile from: 01/05/2024 Component Ref Range & Units 1 d ago 1 yr ago 2 yr ago Triglycerides <150 mg/dL 97 101 143 Comment: Desirable Triglyceride: less than 150 mg/dLBorderline High Triglyceride 150-199 mg/dLHigh Triglyceride: 200-499 mg/dLVery High Triglyceride: greater than or equal to 5OO mg/dL Cholesterol <200 mg/dL 145 Comment: Desirable Cholesterol: less than 200 mg/dLBorderline High Cholesterol: 200-239 mg/dLHigh Cholesterol: greater than 239 mg/dL LDL Cholesterol Calculated <100 mg/dL 73 Comment: Desirable LDL: less than 100 mg/dLNear Optimal/Above Optimal LDL: 110-129 mg/dLBorderline High LDL: 130-159 mg/dLHigh LDL: 160-189 mg/dLVery High LDL: greater than or equal to 190 mg/dL HDL Cholesterol >40 mg/dL 53 61 R 68 R Currently on a regimen of : Vytorin 09/07 1 tab po daily Pt stopped taking Atorvastatin due to headaches The Vytorin was started by her Cell Assembly Pinner Plan: Continue current regimen. advised to try [...] Currently on a regimen of : Vytorin 1010 1 tab po daily Pt stopped taking Atorvastatin due to headaches The Vytorin was started by her Cell Assembly Pinner Plan: Continue current regimen. Repeat Lipid profile [...] headaches The Vytorin was started by her Cell Assembly Pinner Plan: Continue current regimen. advised to try to adhere to a low cholesterol diet, counseled and educated about diet and exercise IgA nephropathy 10/31/2012 10/29/2023 Assessment & Plan (01/06/2024 2:21 PM EST): Hemorrhoids 05/03/2010 Depressive disorder 05/03/2009 Assessment & Plan (04/01/2023 3:48 PM EDT): Used to follow with Dinora psychotherapist at [facility]. No longer seeing anyone on trazodone doing well. Pt with previous c/o paranoia, Pt tells me she was seen by Neurologist at [facility] and was told she was fine She saw a psychiatric prescriber once at [facility] and was prescribed Abilify 2 mg po daily with good results. He roll on worker Dr harrington has continued to prescribed Today she was evaluated by our [facility] clinician Resolved Problems Problem Noted Date Diagnosed [...] (04/06/2024 1:26 PM EDT): US done at [facility] showed non oclussive thrombus in the peroneal veins measuring at least 3.1 cm. Pt was started on Eliquis 5 mg po BID started 01/26/2024 by Nephrology Pt was supposed to stay on it x 3 months (until 04/25/2024). It appears this was unprovoked although pt is rather sedentary. Assessment & Plan (02/15/2024 12:58 PM EDT): US done at [facility] showed non oclussive thrombus in the peroneal veins measuring at least 3.1 cm. Pt was started on Eliquis 5 mg po BID started 01/26/2024 by Nephrology Pt to stay on it x 3 months. It appears this was unprovoked although pt is rather sedentary. Encounters Date Type Department Care Team Description 08/28/2025 Orders Only GENERIC EXTERNAL DATA DEPARTMENT Provider, Generic External Data 08/15/[address] [facility] [address] [place] [address] Rashaad Tinajero MD October08/02/[address] [facility] [address] [place] [address] Rashaad Tinajero MD 06/27/2025 Orders Only GENERIC EXTERNAL DATA DEPARTMENT Provider, Generic External Data 06/21/2025 3:00 PM EDT Office Visit [facility] [address] [place] [phone] Rashaad Tinajero MD Type 2 diabetes mellitus with stage 3a chronic kidney disease, without long-term current use of insulin ([facility]) (Primary Dx); Essential hypertension; Mixed hyperlipidemia; Stage 3a chronic kidney disease (CMS/HCC); Kidney replaced by transplant; Primary osteoarthritis of left knee; Pes planus of both feet; Tinea marlee 06/21/2025 Travel 06/14/[address] [facility] [address] [place], [place] [phone] Rashaad Tinajero MD Pre-visit Planning ([facility] unable to reach [facility]) 06/06/2025 Travel from Last 3 Months Immunizations Immunization Administration Dates Next Due Hep B, Unspecified [...] Sign Reading Time Taken Comments Blood Pressure 140/96 06/21/2025 3:07 PM EDT no chest pain, palpitations, or SOB Pulse 75 06/21/2025 3:07 PM EDT Temperature 36.3 C (97.4 F) 06/21/2025 3:07 PM EDT Respiratory Rate 20 06/21/2025 3:07 PM EDT Oxygen Saturation 98% 06/21/2025 3:0 7 PM EDT Inhaled Oxygen Concentration - - Weight 77.2 kg (170 lb 3.2 oz) 06/21/2025 3:07 PM EDT Height 149.9 cm (4' 11 ) 06/21/2025 3:0 7 PM EDT Body Mass Index 34.38 06/21/2025 3:07 PM EDT Plan of Treatment Upcoming Encounters Date Type Department Care Team (Late st Contact Info) Description 09/17/2025 12:45 PM EDT Office Visit [facility] [address] [place] [phone] Nicholas Mendozaaris [address] [place] [address] 11/06/2025 3:00 PM EST Office Visit [facility] [address] [place] [address] Rashaad Tinajero MD [address] [place] [address] Health Maintenance Due Date Last Done Comments [...] 08/24/2024, 05/27/2016 Depression Screening 07/13/2025 07/13/2024, 07/13/20 SDOH Screening 07/13/2025 07/13/2024 Diagnostic Breast Imaging 07/26/2025 Influenza Vaccine (#1) 2025 , 11/04/2023, 08/27/2022, Additional history exists Dental X-Ray: Bitewings 08/25/2025 08/24/2024, 05/27 Dental Prophylaxis 09/08/2025 03/08/2025, 08/31/2024 Diabetes: Hemoglobin A1C 09/21/2025 025, 03/15/2025, 11/07/2024, Additional history exists Alcohol/Substance Use Screening 11/07/2025 11/07/2024 Lipid Panel 03/22/2026 03/22/2025, 02/0 05/2024, 10/30/2022, Additional history exists Tobacco Screening 06/21/2026 06/21/2025 Dental X-Ray: Full Mouth 08/25/2027 08/24/2024, 04/30 DTaP/Tdap/Td Vaccines (3 - Td or Tdap) 08/27/2032 08/27/2022, 03/13/2015, 11/18/2011, Additional history exists Hepatitis B Vaccines Completed 09/22/2007, 04/27/2007, 03/24/2007 Hepatitis C Screening Completed 11/13/2020 Colonoscopy Discontinued 08/19/2021 Colorectal Cancer Screening Discontinued CT Colonography Discontinued FIT DNA/Cologuard Discontinued FIT [...] patient's age to complete this topic Meningococcal B Vaccine Aged Out No l onger eligible based on patient's age to complete [...] Procedure Name Priority Date/Time Associated Diagnosis Comments CBC WITH AUTO DIFFERENTIAL Routine 08/28/2025 9:59 AM EDT BI MAMMOGRAM SCREENING TOMOSYNTHESIS BILATERAL Routine 07/20/2025 3:40 PM EDT Breast cancer screening by mammogram TACROLIMUS, HIGHLY SENSITIVE, LC/MS/MS Routine 06/27/2025 10:04 AM EDT ALT Routine 06/27/2025 10:04 AM EDT AST Routine 06/27/2025 10:04 AM EDT MAGNESIUM Routine 06/27/2025 10:04 AM EDT PHOSPHATE ( PHOSPHORUS) Routine 06/27/2025 10:04 AM EDT CBC WITH AUTO DIFFERENTIAL Routine 06/27/2025 10:04 AM EDT BASIC METABOLIC PANEL Routine 06/27/2025 10:04 AM EDT Essential hypertension POCT GLYCOSYLATED HEMOGLOBIN (HGB A1C) Routine 06/21/2025 4:01 PM EDT Type 2 diabetes mellitus with stage 3a chronic kidney disease, without long-term current use of insulin ([facility]) POCT GLUCOSE Routine 06/21/2025 3:11 PM EDT Type 2 diabetes mellitus with stage 3a chronic kidney disease, without long-term current use of insulin ([facility]) LIPID PANEL, STANDARD Routine 03/22/2025 10:24 AM EDT Essential hypertension PROPHYLAXIS - ADULT Routine 03/08/2025 1 :00 PM EDT Dental plaque INTRAORAL - COMPLETE SERIES OF [...] Recently Relevant to Health Maintenance Results * (ABNORMAL) CBC auto differential (08/28/2025 9:59 AM EDT) Only the most recent of2 resultswithin the time period is included. White Blood Count 4.3(L) 4.8 - 10.8 X10*3/uL [facility] Red Blood Count 5.16 4.20 - 5.50 X10*6/uL [facility] Hemoglobin 13.2 12.0 - 16.0 g/dl [facility] Hematocrit 41.9 37.0 - 47.0 % [facility] Mean Corpuscular Volume 81.2 80.0 - 98.0 fL [facility] Mean Corpuscular Hemoglobin 25.6(L) 27.0 - 33.0 pg [facility] Mean Corpuscular HGB Conc 31.5 31.0 - 35.0 g/dl [facility] Red Cell Distribution Width 13.7 11.0 - 16.0 % [facility] Platelet Count 213 160 - 400 X10*3/uL [facility] Mean Platelet Volume 11.0 9.4 - 12.3 fL [facility] Neutrophils Percent Auto 60.6 45 - 73 % [facility] Imm Gran Pct Auto 0.2 0.0 - 0.4 % [facility] Lymphocytes Percent Auto 27.1 20 - 40 % [facility] Monocytes Percent Auto 10.4 2 - 11 % [facility] Eosinophils Percent Auto 1.2 0 - 4 % [facility] Basophils Percent Auto 0.5 0 - 2 % [facility] NRBC Pct Auto 0.0 0.0 - 0.2 /100WBC [facility] Neutrophils Absolute Auto 2.6 2.0 - 8.3 x10*3/uL [facility] Imm Gran Abs Auto 0.01 0.00 - 0.03 X10*3/uL [facility] Lymphocytes Absolute Auto 1.2 1.2 - 4.9 X10*3/uL [facility] Monocytes Absolute Auto 0.4 0.1 - 1.2 X10*3/uL [facility] Eosinophils Absolute Auto 0.1 0.0 - 0.4 X10*3/uL [facility] Basophils Absolute Auto 0.0 0.0 - 0.2 X10*3/uL [facility] NRBC Abs Auto 0.000 0.0 - 0.012 X10*3/uL [facility] 08/28/2025 9:59 AM EDT 08/28/2025 9:59 AM EDT us Generic External Data Provider LAB BLOOD ORDERAB LES Final Result Performing Organization Address City/State/[facility] Co de Phone Number [facility] [address] [place] [phone] * BI Mammogram Screening Tomosynthesis Bilateral (07/20/2025 3:40 PM EDT) Anatomical Region Laterality Modality Breast Bilateral Mammography 07/20/2025 3:40 PM EDT Narrative 07/25/2025 10:42 AM EDT [facility] [address] [place] [address] Mammography Report Signed Patient: Koki Shay MR#: [id number] : 02/03/1951 Acct:[id number] Age/Sex: 74 / F ADM Date: 07/20/25 Loc: [facility] Attending Dr: Rashaad Turner MD Ordering Physician: Rashaad Turner MD Results: 0Incomplete: Needs Additional Imaging Evaluation Date of Service: 07/20/25 Follow Up: Additional Imagi ng Procedure(s): MM tomosynthesis screening BI Accession Number(s): [id number] cc: Rashaad Turner MD EXAMINATION: MM SCREENING DIGITAL BREAST TOMOSYNTHESIS, BILATERAL CLINICAL INFORMATION: Screening. Asymptomatic. COMPARISON: Mammography: Comparison is made with available priors TECHNIQUE: Digital breast mammography with tomosynthesis is performed in both the craniocaudal and mediolateral oblique views along with computer-aided detection (CAD). FINDINGS: There are scattered areas of fibroglandular density (ACR BI-RADS breast composition Category b). Right: Focal asymmetry upper outer breast middle to posterior depth. No suspicious calcifications or other abnormal findings. Left: There are no significant masses, abnormal calcifications, or other abnormalities. MM/MM tomosynthesis screening BI IMPRESSION: Additional imaging is recommended ASSESSMENT: BI-RADS BI-RADS 0 - Incomplete: Needs additional Imaging. RECOMMENDATION: 1. Additional views of the right breast. 2. Targeted ultrasound if warranted after review of the additional views. 3. Radiology department staff will contact the patient for additional imaging. Additional Imaging required This examination should not preclude the clinical evaluation of a suspicious palpable abnormality. This patient's information was entered into a reminder system with a target due date for their next mammogram. Electronically signed by: Jane Guaman DO 07/25/2025 10:40 AM EDT Dictated By: Jane Guaman DO Signed By: <Electronically signed by Jane Guaman DO in OV> 07/25/25 1040 DD/ 1540 TD/TT: 07/20/25 1555 Manager Strategic Alliances: Procedure Note Donotuseinterpreter, Image - 07/25/2025 [facility]'[address] [place] [address] Mammography Report Signed Patient: Pablo Shay#: [id number] : 9Acct:[id number] Age/Sex: 74 / FADM Date: 07/20/25 Loc: HO.MAMMO Attending Dr: Rashaad Turner MD Ordering Physician: Rashaad Turner MD Results: 0Incomplete: Needs Additional Imaging Evaluation Date of Service: 07/20/25Follow Up: Additional Imagi ng Procedure(s): MM tomosynthesis screening BI Accession Number(s): [id number] cc: Rashaad Turner MD EXAMINATION: MM SCREENING DIGITAL BREAST TOMOSYNTHESIS, BILATERAL CLINICAL INFORMATION: Screening. Asymptomatic. COMPARISON: Mammography: Comparison is made with available priors TECHNIQUE: Digital breast mammography with tomosynthesis is performed in both the craniocaudal and mediolateral oblique views along with computer-aided detection (CAD). FINDINGS: There are scattered areas of fibroglandular density (ACR BI-RADS breast composition Category b). Right: Focal asymmetry upper outer breast middle to posterior depth. No suspicious calcifications or other abnormal findings. Left: There are no significant masses, abnormal calcifications, or other abnormalities. MM/MM tomosynthesis screening BI IMPRESSION: Additional imaging is recommended ASSESSMENT: BI-RADS BI-RADS 0 - Incomplete: Needs additional Imaging. RECOMMENDATION: 1. Additional views of the right breast. 2. Targeted ultrasound if warranted after review of the additional views. 3. Radiology department staff will contact the patient for additional imaging. Additional Imaging required This examination should not preclude the clinical evaluation of a suspicious palpable abnormality. This patient's information was entered into a reminder system with a target due date for their next mammogram. Electronically signed by: Jane Guaman DO 07/25/2025 10:40 AM EDT Dictated By: Jane Guaman DO Signed By: <Electronically signed by Jane Guaman DO in OV> 07/25/25 1040 DD/ 1540 TD/TT: 07/20/25 1555 Manager Strategic Alliances: us Rashaad Kirk MD IMG BI PROCEDURES Nader chester Result - Final * (ABNORMAL) Tacrolimus, Highly Sensitive, LC/MS/MS (06/27/2025 10:04 AM EDT) Tacrolimus 4.7(A) mcg/L [facility] Comment:No definitive therap eutic or toxic ranges have beenestablished. Optimal blood drug levels are influencedby type of transplant, patient response, time post-transplant, co-administration of other drugs, anddrug formulation. The following trough range is asuggested guideline: 5.0-20.0 mcg/L.This test was developed and its analytical performancecharacteristics have been determined by [employer]. It has not been cleared or approved by theA. This assay has been validated pursuant to the CLIAregulations and is used for clinical purposes.THIS TEST WAS PERFORMED AT:[employer] [place] [id number] CHACON MD 06/27/2025 10:0 4 AM EDT 06/27/2025 10:04 AM EDT Generic External Data Provider LAB BLOOD ORDERAB LES Final Result Performing Organization Address [facility] Co de Phone Number [facility] [address] [place] [phone] * ALT (06/27/2025 10:04 AM EDT) Pathologist [facility] Alanine Aminotransferase 17 0 - 31 U/L [facility] 06/27/2025 10:0 4 AM EDT 06/27/2025 10:04 AM EDT Generic External Data Provider LAB BLOOD ORDERAB LES Final Result Performing Organization Address [facility] Co de Phone Number [facility] [address] [place] [phone] * AST (06/27/2025 10:04 AM EDT) [facility] Aspartate Amino Transferase 26 5 - 31 U/L [facility] 06/27/2025 10:0 4 AM EDT 06/27/2025 10:04 AM EDT Generic External Data Provider LAB BLOOD ORDERAB LES Final Result Performing Organization Address [facility] Co de Phone Number [facility] [address] [place] [phone] * Phosphate (As Phosphorus) (06/27/2025 10:04 AM EDT) [facility] Phosphorus 3.6 2.7 - 4.5 mg/dL [facility] 06/27/2025 10:0 4 AM EDT 06/27/2025 10:04 AM EDT Generic External Data Provider LAB BLOOD ORDERAB LES Final Result Performing Organization Address [facility] Co de Phone Number [facility] [address] [place] [phone] * Magnesium (06/27/2025 10:04 AM EDT) [facility] Magnesium 1.7 1.6 - 2.6 mg/dL [facility] 06/27/2025 10:0 4 AM EDT 06/27/2025 10:04 AM EDT Generic External Data Provider LAB BLOOD ORDERAB LES Final Result Performing Organization Address [facility] de Phone Number [facility] [address] [place] [phone] * (ABNORMAL) Basic Metabolic Panel (06/27/2025 10:04 AM EDT) [facility] Sodium 139 135 - 145 mmol/L [facility] Potassium 4.2 3.3 - 5.1 mmol/L [facility] Chloride 107 96 - 108 mmol/L [facility] Carbon Dioxide 24 22 - 29 mmol/L [facility] Anion Gap 12 12 - 20 [facility] Urea Nitrogen (BUN) 15 9 - 16 mg/dL [facility] Creatinine, Serum 1.02 0.5 - 1.4 mg/dL [facility] Estimated Glomerular Filt Rate 53 [facility] Comment:Chronic Kidney Disea se: Estimated GFR < 60 mL/min/1.75v6Lsfcsj Kidney Disease: Estimated GFR < 15 mL/min/1.73m2 Glucose 169(H) 60 - 115 mg/dL [facility] Calcium 8.8 8.4 - 10.2 mg/dL [facility] Blood Venous blood specimen / Unknown 06/27/2025 10:04 AM EDT 06/27/2025 10:04 AM EDT Rashaad Kirk MD LAB BLOOD ORDERABLES Final Result Performing Organization Address City/State/[facility] Co de Phone Number [facility] [address] [place] [phone] * (ABNORMAL) POCT glycosylated hemoglobin (Hgb A1c) (06/21/2025 4:01 PM EDT) Hemoglobin A1C 7.1(A) 4.0 - 5.7 % QC Media Lot # [id number] Lot# Expiration Date Blood Capillary blood specimen / Unknown 06/21/2025 4:01 PM EDT Rashaad Kirk MD POINT OF CARE TEST EN TER/EDIT ORDERABLES Final Result * POCT Glucose (06/21/2025 3:11 PM EDT) Glucose Blood, POC 135 60 - 200 mg/dL [employer] Media Lot # [id number] Lot# Expiration Date Blood Capillary blood specimen / Unknown 06/21/2025 3:11 PM EDT Rashaad Kirk MD POINT OF CARE TEST EN TER/EDIT ORDERABLES Final Result * Lipid Panel, Standard (03/22/2025 10:24 AM EDT) Triglycerides 73 <150 mg/dL [facility] Comment:Desirable Triglyceri de: less than 150 mg/dLBorderline High Triglyceride 150-199 mg/dLHigh Triglyceride: 200-499 mg/dLVery High Triglyceride: greater than or equal to 5OO mg/dL Cholesterol 136 <200 mg/dL [facility] Comment:Desirable Cholestero l: less than 200 mg/dLBorderline High Cholesterol: 200-239 mg/dLHigh Cholesterol: greater than 239 mg/dL LDL Cholesterol Calculated 63 <100 mg/dL [facility] Comment:Desirable LDL: less than 100 mg/dLNear Optimal/Above Optimal LDL: 110- 129 mg/dLBorderline High LDL: 130-159 mg/dLHigh LDL: 160-189 mg/dLVery High LDL: greater than or equal to 190 mg/dL HDL Cholesterol 59 >40 mg/dL [facility] Comment:Desirable HDL: great er than 40 mg/dL Note: This HDL assay may give artificially low results in patients with liver disease. Blood Venous blood specimen / Unknown 03/22/2025 10:24 AM EDT 03/22/2025 10:24 AM EDT Rashaad Kirk MD LAB BLOOD ORDERABLES Final Result [facility] [address] [place] [phone] * Hm Colonoscopy (08/19/2021) Colonoscopy Normal Normal Ce Marti MD HEALTH MAINTENANCE Final Result * HEPATITIS C AB W/REFL TO HCV RNA, QN, PCR (11/13/2020 2:05 PM EST) HEPATITIS C ANTIBODY NON-REACT ETHEL NON-REACT ETHEL [facility] INDEX 0.02 <1.00 [facility] Comment: HCV antibody was non-reactive. There is no laboratory evidence of HCV infection. In most cases, no further action is required. However, if recent HCV exposure is suspected, a test for HCV RNA (test code 55654) is suggested. For additional information please refer to http://[employer].ResQU/faq/UIY13l3 (This link is being provided for informational/ educational purposes only.) 11/13/2020 2:05 PM EST us Rashaad Kirk MD HISTORICAL/NON ORDERA BLE LABS Final Result [facility] [address] from Last 3 Months or Most Recently Relevant to Health Maintenance Insurance [facility] DUAL COMPLETE D[facility]AL - [facility] [employer] Care Teams Electrician Supervisor Airplane Relationship Specialty Start Date End Date Rashaad Tinajero MD [address] [place] [phone] PCP - General Internal Medicine 06/19/15
--- OUTSIDE RECORDS SUMMARY | 2025-08-28 10:35 | XMS_ITS | Encounter Summary ---
Author Organization [employer] Address [address] [facility] 7t [place] [address] Care Team Providers Care Customer Sales Advisor Name Role Phone Rashaad Tinajero MD Primary Care Provide r Reason for Visit * Reason Comments Med Refill Encounter Details Date Type Department Care Team ([facility] st Contact Info) Description 08/02/2025 Refill [facility] [address] [place], [place] [phone] Rashaad Tinajero MD [address] [place], [place] [phone] Social History Tobacco Use Types Packs/Day Years [...] Office Visit [facility] [address] [place] [address] Kelly, Nelly [address] [place] [address] 11/06/2025 3:00 PM EST Office Visit [facility] [address] [place] [address] Rashaad Tinajero MD [address] [place] [address] documented as of this encounter Visit Diagnoses Not on filedocumented in this encounter Additional Health Concerns Assessment Noted Time PHQ-9 Depression Total Score: 2 07/13/20 24 1:44 PM EDT documented as of this encounter Care Teams Customer Sales Advisor Relationship Specialty Start Date End Date Rashaad Tinajero MD [address] [place] [phone] PCP - General Internal Medicine 06/19/15 documented as of this encounter
[2025-08-28 11:01] LABS: Anion Gap 12 (12-20); Blood Urea Nitrogen 15 mg/dL (9-16); Calcium 9.0 mg/dL (8.4-10.2); Carbon Dioxide 27 mmol/L (22-29); Chloride 105 mmol/L (96-108); Estimated Glomerular Filt Rate 52; Parathyroid Hormone Intact 126.1 pg/mL (8.7-77.1); Potassium 4.2 mmol/L (3.3-5.1); Sodium 140 mmol/L (135-145)
[2025-08-29 06:39] LABS: Tacrolimus Prograf 5.5 mcg/L
== END 2025-08-28 09:43 | disposition home or self-care (01) ==
LOC: HO.LAB 09:42
PROVIDERS: PCP Internal Medicine; Visit Provider Internal Medicine Nephrology
DX: I10 Essential (primary) hypertension (principal); Z13.1 Encounter for screening for diabetes mellitus; Z13.21 Encounter for screening for nutritional disorder; Z94.0 Kidney transplant status
CPT/HCPCS: 36415; 80051; 80197; 82306; 82310; 82565; 83036; 83970; 84100; 84520; 85025

== ENCOUNTER 2025-08-31 15:37 | Outpatient (AMB) | payer OTHER, SELFPAY ==
--- OUTSIDE RECORDS SUMMARY | 2025-08-31 15:39 | XMS_ITS | Encounter Summary ---
Author Organization [employer] Address [address] [facility] 7t [place] [address] Care Team Providers Care Client Professional Name Role Phone Rashaad Tinajero MD Primary Care Provide r Reason for Visit * Reason Comments Med Refill Encounter Details Date Type Department Care Team ([facility] st Contact Info) Description 08/02/2025 Refill [facility] [address] [place], [place] [phone] Rashaad Tinajero MD [address] [place], [place] [phone] Social History Tobacco Use Types Packs/Day Years [...] housing situation today? I have ravinaura carrizales 07/13/[address] you [...] Description 09/17/2025 12:45 PM EDT Office Visit [facility] [address] [place] [address] Kelly, Nelly [address] [place] [address] 11/06/2025 3:00 PM EST Office Visit [facility] [address] [place] [address] Rashaad Tinajero MD [address] [place] [address] documented as of this encounter Visit Diagnoses Not on filedocumented in this encounter Additional Health Concerns Assessment Noted Time PHQ-9 Depression Total Score: 2 07/13/20 24 1:44 PM EDT documented as of this encounter Care Teams Client Professional Relationship Specialty Start Date End Date Rashaad Tinajero MD [address] [place] [phone] PCP - General Internal Medicine 06/19/15 documented as of this encounter
--- OUTSIDE RECORDS SUMMARY | 2025-08-31 15:39 | XMS_ITS | Encounter Summary ---
Author Organization [employer] Address [address] [facility] 7[address] [place] [address] Care Team Providers Care Paddock Judge Name Role Phone Rashaad Tinajero MD Primary Care Provide r Reason for Visit * Reason Onset Date Comments Results 02/07/2024 Encounter Details Date Type Department Care Team ([facility] st Contact Info) Description 02/07/2024 Telephone [facility] [address] [place], [place] [phone] Rashaad Tinajero MD [address] [place], [place] [phone] Results Social History Tobacco Use Types Packs/Day [...] t he electric, gas, oil or water [employer] threatened to shut off services in your [...] and then green team nurses forwarded to [facility] nurses as ordering provider is a [facility] provider that worked the Walk In last Wednesday02.04.24, to review and advise POC on 02.07.24. Provider communicated test results on 02.10.24. Teamnurses called pt daughter daughter today. Please see previous message. Daughter wanted to know why no one called her until today- this underwriter mortgage loan apologized and explained that the nurses should [...] our jobs properly. Daughter repeatedly told this underwriter mortgage loan that she called multiple times this week for results and no one answered her until today. This underwriter mortgage loan attempted to explain that I had spoken to the nurses about how they should have called her back and kept her in the loop that the message was sent to the provider for review. Daughter continued to repeat the same language. This underwriter mortgage loan attempted to let her know that I heard her and I was trying to help her. Daughter was not hearing this underwriter mortgage loan nor wanted to listen any longer. She told me that I was not doing a very good job at managing staff and needed to talk to my boss. She asked for SUPERVISOR WATERPROOFING and PROFESSOR OF FOREST PLANNING names and numbers. Names were provided aswell as extensions. FYI-Pt is scheduled to see PCP 03.07.24, first available, for a POC for knee pain including a medication concern which is documented in a different TC note. This underwriter mortgage loan offered to have pt see another provider, daughter refused. Will send message to PCP. * Telephone Encounter - Heather Pandey RN - 02/11/2024 11:15 AM EDT Returned call to pt daughter regarding message below. Daughter informed of XR and US results. Pt daughter states that it took a week to get results when pt medical record administrator received results and referredpt to Ortho right away and stated we are just now getting a call back with no further POC . Daughter states that we at the [facility] are irresponsible and that PCP is unaware of what is happening to pt . This RN advised daughter that a message was sent to building and construction manager regarding her concerns and that someone [...] is also requesting to speak with a building and construction manager in regards to the matter of [...] Description 09/17/2025 12:45 PM EDT Office Visit [facility] [address] [place] [address] Nelly Mendoza [address] [place] [address] 11/06/2025 3:00 PM EST Office Visit [facility] [address] [place] [address] Rashaad Tinajero MD [address] [place] [address] documented as of this encounter Visit Diagnoses Not on filedocumented in this encounter Additional Health Concerns Assessment Noted Time PHQ-9 Depression Total Score: 9 04/01/20 23 12:16 PM EDT documented as of this encounter Care Teams Paddock Judge Relationship Specialty Start Date End Date Rashaad Tinajero MD [address] [place] [phone] PCP - General Internal Medicine 06/19/15 documented as of this encounter
--- OUTSIDE RECORDS SUMMARY | 2025-08-31 15:39 | XMS_ITS | Clinical Summary ---
Author Organization [employer] Address [address] [place] [address] [address] [place] [address] Care Team Providers Care Hospital Liaison Name Role Phone Rashaad Tinajero MD Primary [...] long-term current use of insulin ([facility]) Use to test blood sugar 1 times daily 100 each 12 06/21/2025 Active Lancets miscIndications: Type 2 diabetes mellitus with stage 3a chronic kidney disease, without long-term current use of insulin ([facility]) Use to test blood sugar 1 times daily 100 each 06/21/2025 Active Alcohol Swabs 70 % padsIndications: Type 2 diabetes mellitus with stage 3a chronic kidney disease, without long-term current use of insulin (HCC) Use to test blood sugar 1 times daily 100 each 06/21/2025 Active Blood Glucose Monitoring Suppl (FreeStyle Montague Lite) w/Device kitIndications:T ype 2 diabetes mellitus [...] marked fatty replacement of the pancreas, 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 Abd US 08/2024 showed: IMPRESSION: 1. No ultrasound evidence of gallbladder disease or gallstones. 2. Atrophic tulalip kidneys. 3. Transplanted right kidney right lower [...] marked fatty replacement of the pancreas, 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 Abd US 08/2024 showed: IMPRESSION: 1. No ultrasound evidence of gallbladder disease or gallstones. 2. Atrophic tulalip kidneys. 3. Transplanted right kidney right lower [...] here for a follow up, Seen at [facility] in [place] 06/08/2025 Pt was sent home on Prednisone no imaging was done. Previously pt had a LE US that showed: No evidence of deep venous thrombosis. Only a Popliteal fossa cyst measuring 5.1 x 1.2 x 3.1 cm. Plain films showed: Moderate degenerative changes left knee with moderate suprapatellar joint effusion. No visible acute fracture or dislocation seen. Pt seen by Ortho at [facility] on 2 different occasions last 05/19/2024. Received a steroid injection with no good results. Daughter stated she continued to c/o pain on her knee and was interested in getting a second opinion. patient was referred to [facility] unfortunately they do not take her insurance. Pt's daughter told me they were willing to see Dr. Deluna at [facility] Pt underwent an MRI [...] dislocation seen. Pt seen by Ortho at [facility] on 2 different occasions last 05/19/2024. Received a steroid injection with no good results. Daughter states she continues to c/o pain on her knee and is interested in getting a second opinion. patient was referred to [facility] unfortunately they do not take her insurance. Pt's daughter tells me they are willing to see Dr. Deluna at [facility] Pt underwent an MRI [...] dislocation seen. Pt seen by Ortho at [facility] on 2 different occasions last 05/19/2024. Received a steroid injection with no good results. Daughter states she continues to c/o pain on her knee and is interested in getting a second opinion. patient was referred to [facility] unfortunately they do not take her insurance. Pt's daughter tells me they are willing to see Dr. Deluna at [facility] They are awaiting the [...] dislocation seen. Pt seen by Ortho at [facility] on 2 different occasions last 05/19/2024. Received a steroid injection with no good results. Daughter states she continues to c/o pain on her knee and is interested in getting a second opinion. 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 She subsequently presented at our [facility] with c/o posterior knee pain [...] has already been referred to Ortho by Brush Worker and today we confirmed that appointment is [...] 7.1 from 6.6 Pt previously referred to Video Player [employer]ic to adhere to Diabetic diet Not checking BG Glucometer sent Plan: Start checking BG continue diabetic diet alone until she bring soha glucometer 3 month follow up Assessment & Plan (03/15/2025 2:22 PM EDT): Patient here for a follow up in regards of her DM Hgb A1c 03/15/2025: 6.6 Pt previously referred to [employer] to adhere to Diabetic diet Plan: continue diabetic diet alone Assessment & Plan (11/07/2024 2:14 PM EST): Here for a follow up in regards of her DM Hgb A1c 11/07/2024: 6.6 from 6.5 Pt previously referred to [employer] Player [employer] to adhere to Diabetic diet Plan: continue diabetic diet Assessment & Plan (08/15/2024 12:15 PM EDT): Here for a follow up FBS 04/04/2024 126 Hgb A1c 07/13/2024: 6.5 Pt previously referred to [employer] Player [employer] to adhere to Diabetic diet Plan; continue diabetic diet Assessment & Plan (07/13/2024 1:48 PM EDT): Here for a follow up FBS 04/04/2024 126 Hgb A1c 07/13/2024: 6.5 Pt previously referred to Video Player [employer]ic to adhere to Diabetic diet Plan; continue diabetic diet Assessment & Plan (04/06/2024 1:31 PM EDT): Newly diagnosed DM FBS 04/04/2024 126 Hgb A1c: 6.7 Plan: Pt referred to [employer] to adhere to Diabetic diet Assessment & [...] Bone densitometry 04/21/2016 I have contacted pts water regulator and valve repairer to obtain some guidance regarding the treatment [...] headaches The Vytorin was started by her Brush Worker Plan: Continue current regimen. advised to try [...] headaches The Vytorin was started by her Brush Worker Plan: Continue current regimen. advised to try [...] headaches The Vytorin was started by her Brush Worker Plan: Continue current regimen. Repeat Lipid profile [...] headaches The Vytorin was started by her Brush Worker Plan: Continue current regimen. advised to try to adhere to a low cholesterol diet, counseled and educated about diet and exercise IgA nephropathy 10/31/2012 10/29/2023 Assessment & Plan (01/06/2024 2:21 PM EST): Hemorrhoids 05/03/2010 Depressive disorder 05/03/2009 Assessment & Plan (04/01/2023 3:48 PM EDT): Used to follow with Dinora psychotherapist at [facility]. No longer seeing anyone on trazodone doing well. Pt with previous c/o paranoia, Pt tells me she was seen by Neurologist at [facility] and was told she was fine She saw a psychiatric prescriber once at [facility] and was prescribed Abilify 2 mg po daily with good results. He water regulator and valve repairer Dr harrington has continued to prescribed Today she was evaluated by our [facility] clinician Resolved Problems Problem Noted [...] (04/06/2024 1:26 PM EDT): US done at [facility] showed non oclussive thrombus in the peroneal veins measuring at least 3.1 cm. Pt was started on Eliquis 5 mg po BID started 01/26/2024 by Nephrology Pt was supposed to stay on it x 3 months (until 04/25/2024). It appears this was unprovoked although pt is rather sedentary. Assessment & Plan (02/15/2024 12:58 PM EDT): US done at [facility] showed non oclussive thrombus in the peroneal [...] DEPARTMENT Provider, Generic External Data 08/15/2025 Telephone [facility] [address] [place] [address] Rashaad Tinajero MD October08/02/2025 Refill [facility] [address] [place] [address] Rashaad Tinajero MD 06/27/2025 Orders Only GENERIC EXTERNAL DATA DEPARTMENT Provider, Generic External Data 06/21/2025 3:00 PM EDT Office Visit [facility] [address] [place] [phone] Rashaad Tinajero MD Type 2 diabetes mellitus with stage 3a chronic kidney disease, without long-term current use of insulin ([facility]) (Primary Dx); Essential hypertension; Mixed hyperlipidemia; Stage 3a chronic kidney disease (CMS/HCC); Kidney replaced by transplant; Primary osteoarthritis of left knee; Pes planus of both feet; Tinea marlee 06/21/2025 Travel 06/14/2025 Patient Outreach [facility] [address], [place] [phone] Rashaad Tinajero MD Pre-visit Planning ([facility] unable to reach [facility]) 06/06/2025 Travel from Last 3 Months [...] Description 09/17/2025 12:45 PM EDT Office Visit [facility] [address] [place] [phone] Nicholas Mendozaaris [address] [place] [address] 11/06/2025 3:00 PM EST Office Visit [facility] [address] [place] [phone] Rashaad Tinajero MD [address] [place] [address] Health Maintenance Due Date Last Done Comments [...] 08/24/2024, 05/27 Dental Prophylaxis 09/08/2025 03/08/2025, 08/31/2024 Alcohol/Substance Use Screening 11/07/2025 11/07/2024 Diabetes: Hemoglobin A1C 11/27/2025 025, 06/21/2025, 03/15/2025, Additional history exists Lipid Panel 03/22/2026 03/22/2025, 02/0 05/2024, 10/30/2022, [...] Diagnosis Comments TACROLIMUS, HIGHLY SENSITIVE, LC/MS/MS Routine 08/28/2025 9:59 AM EDT VITAMIN D,25-OH,TOTAL,IA Routine 08/28/2025 9:59 AM EDT PTH, INTACT WITHOUT CALCIUM Routine 08/28/2025 9:59 AM EDT PHOSPHATE ( PHOSPHORUS) Routine 08/28/2025 9:59 AM EDT CALCIUM Routine 08/28/2025 9:59 AM EDT CREATININE, SERUM Routine 08/28/2025 9:5 9 AM EDT UREA NITROGEN (BUN) Routine 08/28/2025 9 :59 AM EDT ELECTROLYTE PANEL Routine 08/28/2025 9:5 9 AM EDT HEMOGLOBIN A1C Routine 08/28/2025 9:59 AM EDT CBC WITH AUTO DIFFERENTIAL Routine 08/28/2025 9:59 [...] disease, without long-term current use of insulin ([facility]) POCT GLUCOSE Routine 06/21/2025 3:11 PM EDT Type 2 diabetes mellitus with stage 3a chronic kidney disease, without long-term current use of insulin ([facility]) LIPID PANEL, STANDARD Routine 03/22/2025 [...] Recently Relevant to Health Maintenance Results * Vitamin D, 25-Hydroxy, Total, Immunoassay (08/28/2025 9:59 AM EDT) Vitamin D 25-OH Total 69.2 >30 ng/mL [facility] Comment: Health Based Reference Values*< 20 ng/mL Fiuxmqror58-20 ng/mL Insufficient> 30 ng/mL Sufficient*Monique ORELLANA. N Engl J Med. 2007;357:266-280There is no well-established upper level of normal vitamin Dlevels. Some laboratories use 50 ng/mL as an upper limit ofnormal. However, toxicity is patient-dependent and may occurat any level. Careful correlation with the patient'spresentation is necessary and, if there is concern forvitamin D toxicity, treatment should be consideredirrespective of the serum level.Care must be taken in interpreting Vitamin D results fromdifferent laboratories and methodologies. Published datademonstrated that results from patients undergoinghemodialysis may show a negative bias when tested withvarious automated 25-OH vitamin D assays when compared toLC-MS/MS.When testing samples from patients whose predominant form ofVitamin D is Vitamin D2, such as patients receiving VitaminD2 supplementation, results that are subtherapeutic shouldbe confirmed with another method such as LC-MS/MS. 08/28/2025 9:59 AM EDT 08/28/2025 9:59 AM EDT us Generic External Data Provider LAB BLOOD ORDERAB LES Final Result [facility] [address] [place] [phone] * Creatinine, Serum (08/28/2025 9:59 AM EDT) Creatinine, Serum 1.03 0.5 - 1.4 mg/dL [facility] Estimated Glomerular Filt Rate 52 [facility] Comment:Chronic Kidney Disea se: Estimated GFR < 60 mL/min/1.57x1Pgeksy Kidney Disease: Estimated GFR < 15 mL/min/1.73m2 08/28/2025 9:59 AM EDT 08/28/2025 9:59 AM EDT us Generic External Data Provider LAB BLOOD ORDERAB LES Final Result [facility] [address] [place] [phone] [phone] * (ABNORMAL) CBC auto differential (08/28/2025 9:59 AM EDT) Only the most recent of2 resultswithin the time period is included. White Blood Count 4.3(L) 4.8 - 10.8 X10*3/uL [facility] Red Blood Count 5.16 4.20 - 5.50 X10*6/uL [facility] Hemoglobin 13.2 12.0 - 16.0 g/dl [facility] Hematocrit 41.9 37.0 - 47.0 % [facility] Mean Corpuscular Volume 81.2 80.0 - 98.0 fL [facility] Mean Corpuscular Hemoglobin 25.6(L) 27.0 - 33.0 pg [facility] Mean Corpuscular HGB Conc 31.5 31.0 - 35.0 g/dl [facility] Red Cell Distribution Width 13.7 11.0 - 16.0 % [facility] Platelet Count 213 160 - 400 X10*3/uL [facility] Mean Platelet Volume 11.0 9.4 - 12.3 fL [facility] Neutrophils Percent Auto 60.6 45 - 73 % [facility] Imm Gran Pct Auto 0.2 0.0 - 0.4 % [facility] Lymphocytes Percent Auto 27.1 20 - 40 % [facility] Monocytes Percent Auto 10.4 2 - 11 % [facility] Eosinophils Percent Auto 1.2 0 - 4 % [facility] Basophils Percent Auto 0.5 0 - 2 % [facility] NRBC Pct Auto 0.0 0.0 - 0.2 /100WBC [facility] Neutrophils Absolute Auto 2.6 2.0 - 8.3 x10*3/uL [facility] Imm Gran Abs Auto 0.01 0.00 - 0.03 X10*3/uL [facility] Lymphocytes Absolute Auto 1.2 1.2 - 4.9 X10*3/uL [facility] Monocytes Absolute Auto 0.4 0.1 - 1.2 X10*3/uL [facility] Eosinophils Absolute Auto 0.1 0.0 - 0.4 X10*3/uL [facility] Basophils Absolute Auto 0.0 0.0 - 0.2 X10*3/uL [facility] NRBC Abs Auto 0.000 0.0 - 0.012 X10*3/uL [facility] 08/28/2025 9:59 AM EDT 08/28/2025 9:59 AM EDT us Generic External Data Provider LAB BLOOD ORDERAB LES Final Result [facility] [address] [place] [phone] * Tacrolimus, Highly Sensitive, LC/MS/MS (08/28/2025 9:59 AM EDT) Only the most recent of2 resultswithin the time period is included. Tacrolimus 5.5 mcg/L [facility] Comment:No definitive therap eutic or toxic ranges have beenestablished. Optimal blood drug levels are influencedby type of transplant, patient response, time post-transplant, co-administration of other drugs, anddrug formulation. The following trough range is asuggested guideline: 5.0-20.0 mcg/L.This test was developed and its analytical performancecharacteristics have been determined by [email or web address]. It has not been cleared or approved by theFDA. This assay has been validated pursuant to the CLIAregulations and is used for clinical purposes.THIS TEST WAS PERFORMED AT:[facility] [place] [phone] CHACON MD 08/28/2025 9:59 AM EDT 08/28/2025 9:59 AM EDT us Generic External Data Provider LAB BLOOD ORDERAB LES Final Result Performing Organization Address [facility] de Phone Number [facility] [address] [place] [phone] * BUN (Blood Urea Nitrogen) (08/28/2025 9:59 AM EDT) Urea Nitrogen (BUN) 15 9 - 16 mg/dL [facility] 08/28/2025 9:59 AM EDT 08/28/2025 9:59 AM EDT Generic External Data Provider LAB BLOOD ORDERAB LES Final Result Performing Organization Address [facility] de Phone Number [facility] [address] [place] [phone] * Phosphate (As Phosphorus) (08/28/2025 9:59 AM EDT) Only the most recent of2 resultswithin the time period is included. Phosphorus 3.7 2.7 - 4.5 mg/dL [facility] 08/28/2025 9:59 AM EDT 08/28/2025 9:59 AM EDT us Generic External Data Provider LAB BLOOD ORDERAB LES Final Result Performing Organization Address [facility] de Phone Number [facility] [address] [place] [phone] * (ABNORMAL) PTH, Intact Without Calcium (08/28/2025 9:59 AM EDT) Parathyroid Hormone, Intact 126.1(H) 8.7 - 77.1 pg/mL [facility] 08/28/2025 9:59 AM EDT 08/28/2025 9:59 AM EDT Generic External Data Provider LAB BLOOD ORDERAB LES Final Result Performing Organization Address [facility]/ZIP Co de Phone Number [facility] [address] [place] [phone] * (ABNORMAL) Hemoglobin A1c (08/28/2025 9:59 AM EDT) Hemoglobin A1c 7.0(H) <6.0 % [facility] Comment:Hemoglobin A1C Refer ence Range Adults: 4.8 - 6.0 % Non diabetic: < 6.0 % Goal: < 7.0 %Additional Action Suggested: > 8.0 %Note: Hemoglobin A1c results are invalid for patients with abnormal amounts of HbF. Blood transfusions may impact the HbA1c concentration in the patient sample. Estimated Average Glucose 154 mg/dL [facility] Comment:eAG = Estimated ave rage glucose which is %A1C expressed asaverage glucose, using the formula of the K2M-EkuyoihVophskd Glucose study (ADAG), Diabetes Care, Vol.31,#8,Jun. 2007 08/28/2025 9:59 AM EDT 08/28/2025 9:59 AM EDT us Generic External Data Provider LAB BLOOD ORDERAB LES Final Result Performing Organization Address [facility] de Phone Number [facility] [address] [place] [phone] * Calcium (08/28/2025 9:59 AM EDT) Calcium 9.0 8.4 - 10.2 mg/dL [facility] 08/28/2025 9:59 AM EDT 08/28/2025 9:59 AM EDT us Generic External Data Provider LAB BLOOD ORDERAB LES Final Result Performing Organization Address [facility] Co de Phone Number [facility] [address] [place] [phone] * Electrolyte Panel (08/28/2025 9:59 AM EDT) Sodium 140 135 - 145 mmol/L [facility] Potassium 4.2 3.3 - 5.1 mmol/L [facility] Chloride 105 96 - 108 mmol/L [facility] Carbon Dioxide 27 22 - 29 mmol/L [facility] Anion Gap 12 12 - 20 [facility] 08/28/2025 9:59 AM EDT 08/28/2025 9:59 AM EDT us Generic External Data Provider LAB BLOOD ORDERAB LES Final Result [facility] [address] [place] [phone] * BI Mammogram Screening Tomosynthesis Bilateral (07/20/2025 3:40 PM EDT) Anatomical Region Laterality Modality Breast Bilateral Mammography 07/20/2025 3:40 PM EDT Narrative 07/25/2025 10:42 AM EDT [facility] [address] [place] [address] Mammography Report Signed Patient: Koki Shay MR#: [id number] : 02/03/1951 Acct:[id number] Age/Sex: 74 / F ADM Date: 07/20/25 Loc: HO.MAMMO Attending Dr: Rashaad Turner MD Ordering Physician: Rashaad Turner MD Results: 0Incomplete: Needs Additional Imaging Evaluation Date of Service: 07/20/25 Follow Up: Additional Imagi ng Procedure(s): MM tomosynthesis screening BI Accession Number(s): [id number] cc: Rashaad Turner MD EXAMINATION: MM SCREENING [...] 07/25/25 1040 DD/ 1540 TD/TT: 07/20/25 1555 Pmo Analyst: Procedure Note Donotuseinterpreter, Image - [facility]/25/[facility] [address] [place] [address] Mammography Report Signed Patient: Pablo Shay#: [id number] : 9Acct:[id number] Age/Sex: 74 / FADM Date: 07/20/25 Loc: HO.MAMMO Attending Dr: Rashaad Turner MD Ordering Physician: Rashaad Turner MD Results: 0Incomplete: Needs Additional Imaging Evaluation Date of Service: 07/20/25Follow Up: Additional Imagi ng Procedure(s): MM tomosynthesis screening BI Accession Number(s): [id number] cc: Rashaad Turner MD EXAMINATION: MM SCREENING [...] Jane Guaman DO 07/25/2025 10:40 AM EDT Workstation: [email or web address] Dictated By: Jane Guaman DO Signed By: <Electronically signed by Jane Guaman DO in OV> 07/25/25 1040 DD/ 1540 TD/TT: 07/20/25 1555 Pmo Analyst: Rashaad Kirk MD IMG BI PROCEDURES Nader chester Result - Final * ALT (06/27/2025 10:04 AM EDT) Alanine Aminotransferase 17 0 - 31 U/L [facility] 06/27/2025 10:0 4 AM EDT 06/27/2025 10:04 AM EDT us Generic External Data Provider LAB BLOOD ORDERAB LES Final Result [facility] [address] [place] [phone] * AST (06/27/2025 10:04 AM EDT) Aspartate Amino Transferase 26 5 - 31 U/L [facility] 06/27/2025 10:0 4 AM EDT 06/27/2025 10:04 AM EDT us Generic External Data Provider LAB BLOOD ORDERAB LES Final Result Performing Organization Address [facility]/ZIP Co de Phone Number [facility] [address] [place] [phone] * Magnesium (06/27/2025 10:04 AM EDT) Magnesium 1.7 1.6 - 2.6 mg/dL [facility] 06/27/2025 10:0 4 AM EDT 06/27/2025 10:04 AM EDT Generic External Data Provider LAB BLOOD ORDERAB LES Final Result Performing Organization Address [facility] de Phone Number [facility] [address] [place] [phone] * (ABNORMAL) Basic Metabolic Panel (06/27/2025 10:04 AM EDT) Sodium 139 135 - 145 mmol/L [facility] Potassium 4.2 3.3 - 5.1 mmol/L [facility] Chloride 107 96 - 108 mmol/L [facility] Carbon Dioxide 24 22 - 29 mmol/L [facility] Anion Gap 12 12 - 20 [facility] Urea Nitrogen (BUN) 15 9 - 16 mg/dL [facility] Creatinine, Serum 1.02 0.5 - 1.4 mg/dL [facility] Estimated Glomerular Filt Rate 53 [facility] Comment:Chronic Kidney Disea se: Estimated GFR < 60 mL/min/1.26s3Hphdwj Kidney Disease: Estimated GFR < 15 mL/min/1.73m2 Glucose 169(H) 60 - 115 mg/dL [facility] Calcium 8.8 8.4 - 10.2 mg/dL [facility] Blood Venous blood specimen / Unknown 06/27/2025 10:04 AM EDT 06/27/2025 10:04 AM EDT us Rashaad Kirk MD LAB BLOOD ORDERABLES Final Result [facility] [address] [place] [phone] * (ABNORMAL) POCT glycosylated hemoglobin (Hgb A1c) (06/21/2025 4:01 PM EDT) Hemoglobin A1C 7.1(A) 4.0 - 5.7 % QC Media Lot # [id number] Lot# Expiration Date Blood Capillary blood specimen / Unknown 06/21/2025 4:01 PM EDT us Rashaad Kirk MD POINT OF CARE TEST EN TER/EDIT ORDERABLES Final Result * POCT Glucose (06/21/2025 3:11 PM EDT) Glucose Blood, POC 135 60 - 200 mg/dL [employer] Lot # [id number] Lot# Expiration Date Blood Capillary blood specimen / Unknown 06/21/2025 3:11 PM EDT us Rashaad Kirk MD POINT OF CARE TEST EN TER/EDIT ORDERABLES Final Result * Lipid Panel, Standard (03/22/2025 10:24 AM EDT) Triglycerides 73 <150 mg/dL [facility] Comment:Desirable Triglyceri de: less than 150 mg/dLBorderline High Triglyceride 150-199 mg/dLHigh Triglyceride: 200-499 mg/dLVery High Triglyceride: greater than or equal to 5OO mg/dL Cholesterol 136 <200 mg/dL [facility] Comment:Desirable Cholestero l: less than 200 mg/dLBorderline High Cholesterol: 200-239 mg/dLHigh Cholesterol: greater than 239 mg/dL LDL Cholesterol Calculated 63 <100 mg/dL [facility] Comment:Desirable LDL: less than 100 mg/dLNear Optimal/Above Optimal LDL: 110- 129 mg/dLBorderline High LDL: 130-159 mg/dLHigh LDL: 160-189 mg/dLVery High LDL: greater than or equal to 190 mg/dL HDL Cholesterol 59 >40 mg/dL [facility] Comment:Desirable HDL: great er than 40 mg/dL Note: This HDL assay may give artificially low results in patients with liver disease. Blood Venous blood specimen / Unknown 03/22/2025 10:24 AM EDT 03/22/2025 10:24 AM EDT Rashaad Kirk MD LAB BLOOD ORDERABLES Final Result [facility] [address] [place] [phone] [phone] * Colonoscopy (08/19/2021) Colonoscopy Normal Normal Historical Provider HEALTH MAINTENANCE Final Result * HEPATITIS C AB W/REFL TO HCV RNA, QN, PCR (11/13/2020 2:05 PM EST) HEPATITIS C ANTIBODY NON-REACT ETHEL NON-REACT ETHEL [facility] INDEX 0.02 <1.00 [facility] Comment: HCV antibody was non-reactive. There is no laboratory evidence of HCV infection. In most cases, no further action is required. However, if recent HCV exposure is suspected, a test for HCV RNA (test code 05712) is suggested. For additional information please refer to http://education.[employer]/faq/[email or web address] (This link is being provided for informational/ educational purposes only.) 11/13/2020 2:05 PM EST Rashaad Kirk MD HISTORICAL/NON ORDERA BLE LABS Final Result [facility] [address] from Last 3 Months or Most Recently Relevant to Health Maintenance [place] [facility] [place] [facility] [place] Care Teams Hospital Liaison Relationship Specialty Start Date End Date Rashaad Tinajero MD [address] [place] [address] PCP - General Internal Medicine 06/19/15
--- OUTSIDE RECORDS SUMMARY | 2025-08-31 15:39 | XMS_ITS | Encounter Summary ---
Author Organization [employer] Address [address] [facility] 7t [place] [address] Care Team Providers Care Chief Mate Name Role Phone Rashaad Tinajero MD Primary Care Provide r Reason for Visit * Reason Onset Date Comments Appointment Request 02/01/2024 Encounter Details Date Type Department Care Team ([facility] st Contact Info) Description 02/01/[address] [facility] [address] [place], [place] [phone] Rashaad Tinajero MD [address] [place], [place] [phone] Appointment Request Social History Tobacco Use Types [...] an appointment pt had last week with ear nose throat physician. States ear nose throat physician sent pt to do an US on the left leg for Blood clot.Care Services Manager also started pt on new medication. Please contact pt daughter at [phone] documented in this encounter Plan of Treatment Upcoming Encounters Date Type Department Care Team (Late st Contact Info) Description 09/17/2025 12:45 PM EDT Office Visit [facility] ADULT DENT[facility] [address] [place] [address] Kelly, Nelly [address] [place] [address] 11/06/2025 3:00 PM EST Office Visit [facility] [address] [place] [address] Rashaad Tinajero MD [address] [place] [address] documented as of this encounter Visit Diagnoses Not on filedocumented in this encounter Additional Health Concerns Assessment Noted Time PHQ-9 Depression Total Score: 9 04/01/20 23 12:16 PM EDT documented as of this encounter Care Teams Chief Mate Relationship Specialty Start Date End Date Rashaad Tinajero MD [address] [place] [address] PCP - General Internal Medicine 06/19/15 documented as of this encounter
--- OUTSIDE RECORDS SUMMARY | 2025-08-31 15:39 | XMS_ITS | Encounter Summary ---
Author Organization [employer] Address [address] [facility] 7t [place] [address] Care Team Providers Care Fusing Machine Tender Name Role Phone Rashaad Tinajero MD Primary Care Provide r Encounter Details Date Type Department Care Team (Late st Contact Info) Description 08/28/2025 Orders Only GENERIC EXTERNAL DATA [...] t he electric, gas, oil or water [employer] threatened to shut off services in your [...] Description 09/17/2025 12:45 PM EDT Office Visit [facility] ADULT DENTAL [address] [place] [address] Kelly, Nelly [address] [place] [address] 11/06/2025 3:00 PM EST Office Visit [facility] [address] [place] [address] Rashaad Tinajero MD [address] [place] [address] documented as of this encounter Procedures Procedure Name Priority Date/Time Associated Diagnosis Comments VITAMIN D,25-OH,TOTAL,IA Routine 08/28/2025 9:59 AM EDT CREATININE, SERUM Routine 08/28/2025 9:5 9 AM EDT CBC WITH AUTO DIFFERENTIAL Routine 08/28/2025 9:59 AM EDT TACROLIMUS, HIGHLY SENSITIVE, LC/MS/MS Routine 08/28/2025 9:59 AM EDT UREA NITROGEN (BUN) Routine 08/28/2025 9 :59 AM EDT PHOSPHATE ( PHOSPHORUS) Routine 08/28/2025 9:59 AM EDT PTH, INTACT WITHOUT CALCIUM Routine 08/28/2025 9:59 AM EDT HEMOGLOBIN A1C Routine 08/28/2025 9:59 AM EDT CALCIUM Routine 08/28/2025 9:59 AM EDT ELECTROLYTE PANEL Routine 08/28/2025 9:5 9 AM EDT documented in this encounter Results * Tacrolimus, Highly Sensitive, LC/MS/MS (08/28/2025 9:59 AM EDT) Tacrolimus 5.5 mcg/L [facility] Comment:No definitive therap eutic or toxic ranges have beenestablished. Optimal blood drug levels are influencedby type of transplant, patient response, time post-transplant, co-administration of other drugs, anddrug formulation. The following trough range is asuggested guideline: 5.0-20.0 mcg/L.This test was developed and its analytical performancecharacteristics have been determined by [employer] It has not been cleared or approved by theFDA. This assay has been validated pursuant to the CLIAregulations and is used for clinical purposes.THIS TEST WAS PERFORMED AT:[id number] [place] [id number] CHACON MD 08/28/2025 9:59 AM EDT 08/28/2025 9:59 AM EDT us Generic External Data Provider LAB BLOOD ORDERAB LES Final Result [facility] [address] [place] [phone] [phone] * Vitamin D, 25-Hydroxy, Total, Immunoassay (08/28/2025 9:59 AM EDT) Vitamin D 25-OH Total 69.2 >30 ng/mL [facility] Comment: Health Based Reference Values*< 20 ng/mL [id number] ng/mL Insufficient> 30 ng/mL Sufficient*Monique ORELLANA. N [...] ORDERAB LES Final Result Performing Organization Address City/[facility]/ZIP Co de Phone Number [facility] [address] [place] [phone] * (ABNORMAL) PTH, Intact Without Calcium (08/28/2025 9:59 AM EDT) Parathyroid Hormone, Intact 126.1(H) 8.7 - 77.1 pg/mL [facility] 08/28/2025 9:59 AM EDT 08/28/2025 9:59 AM EDT Generic External Data Provider LAB BLOOD ORDERAB LES Final Result Performing Organization Address [facility]/ZIP Co de Phone Number [facility] [address] [place] [phone] * Phosphate (As Phosphorus) (08/28/2025 9:59 AM EDT) Phosphorus 3.7 2.7 - 4.5 mg/dL [facility] 08/28/2025 9:59 AM EDT 08/28/2025 9:59 AM EDT Generic External Data Provider LAB BLOOD ORDERAB LES Final Result Performing Organization Address [facility] Co de Phone Number [facility] [address] [place] [phone] * Calcium (08/28/2025 9:59 AM EDT) Calcium 9.0 8.4 - 10.2 mg/dL [facility] 08/28/2025 9:59 AM EDT 08/28/2025 9:59 AM EDT Generic External Data Provider LAB BLOOD ORDERAB LES Final Result Performing Organization Address [facility] de Phone Number [facility] [address] [place] [phone] * Creatinine, Serum (08/28/2025 9:59 AM EDT) Creatinine, Serum 1.03 0.5 - 1.4 mg/dL [facility] Estimated Glomerular Filt Rate 52 [facility] Comment:Chronic Kidney Disea se: Estimated GFR < 60 mL/min/1.47f8Susfjl Kidney Disease: Estimated GFR < 15 mL/min/1.73m2 08/28/2025 9:59 AM EDT 08/28/2025 9:59 AM EDT us Generic External Data Provider LAB BLOOD ORDERAB LES Final Result Performing Organization Address [facility] Co de Phone Number [facility] [address] [place] [phone] * BUN (Blood Urea Nitrogen) (08/28/2025 9:59 AM EDT) Urea Nitrogen (BUN) 15 9 - 16 mg/dL [facility] 08/28/2025 9:59 AM EDT 08/28/2025 9:59 AM EDT Generic External Data Provider LAB BLOOD ORDERAB LES Final Result Performing Organization Address [facility]/ZIP Co de Phone Number [facility] [address] [place] [phone] * Electrolyte Panel (08/28/2025 9:59 AM EDT) Sodium 140 135 - 145 mmol/L [facility] Potassium 4.2 3.3 - 5.1 mmol/L [facility] Chloride 105 96 - 108 mmol/L [facility] Carbon Dioxide 27 22 - 29 mmol/L [facility] Anion Gap 12 12 - 20 [facility] 08/28/2025 9:59 AM EDT 08/28/2025 9:59 AM EDT Generic External Data Provider LAB BLOOD ORDERAB LES Final Result Performing Organization Address [facility] de Phone Number [facility] [address] [place] [phone] * (ABNORMAL) Hemoglobin A1c (08/28/2025 9:59 AM EDT) Hemoglobin A1c 7.0(H) <6.0 % [facility] Comment:Hemoglobin A1C Refer ence Range Adults: 4.8 - 6.0 % Non diabetic: < 6.0 % Goal: < 7.0 %Additional Action Suggested: > 8.0 %Note: Hemoglobin A1c results are invalid for patients with abnormal amounts of HbF. Blood transfusions may impact the HbA1c concentration in the patient sample. Estimated Average Glucose 154 mg/dL [facility] Comment:eAG = Estimated ave rage glucose which is %A1C expressed asaverage glucose, using the formula of the Z7Y-ZlmbxyhDnjnfzw Glucose study (ADAG), Diabetes Care, Vol.31,#8,Jun. 2007 08/28/2025 9:59 AM EDT 08/28/2025 9:59 AM EDT us Generic External Data Provider LAB BLOOD ORDERAB LES Final Result [facility] [address] [place] [phone] * (ABNORMAL) CBC auto differential (08/28/2025 9:59 AM EDT) White Blood Count 4.3(L) 4.8 - 10.8 X10*3/uL [facility] Red Blood Count 5.16 4.20 - 5.50 X10*6/uL [facility] Hemoglobin 13.2 12.0 - 16.0 g/dl [facility] Hematocrit 41.9 37.0 - 47.0 % [facility] Mean Corpuscular Volume 81.2 80.0 - 98.0 fL [facility] Mean Corpuscular Hemoglobin 25.6(L) 27.0 - 33.0 pg [facility] Mean Corpuscular HGB Conc 31.5 31.0 - 35.0 g/dl [facility] Red Cell Distribution Width 13.7 11.0 - 16.0 % [facility] Platelet Count 213 160 - 400 X10*3/uL [facility] Mean Platelet Volume 11.0 9.4 - 12.3 fL [facility] Neutrophils Percent Auto 60.6 45 - 73 % [facility] Imm Gran Pct Auto 0.2 0.0 - 0.4 % [facility] Lymphocytes Percent Auto 27.1 20 - 40 % [facility] Monocytes Percent Auto 10.4 2 - 11 % [facility] Eosinophils Percent Auto 1.2 0 - 4 % [facility] Basophils Percent Auto 0.5 0 - 2 % [facility] NRBC Pct Auto 0.0 0.0 - 0.2 /100WBC [facility] Neutrophils Absolute Auto 2.6 2.0 - 8.3 x10*3/uL [facility] Imm Gran Abs Auto 0.01 0.00 - 0.03 X10*3/uL [facility] Lymphocytes Absolute Auto 1.2 1.2 - 4.9 X10*3/uL [facility] Monocytes Absolute Auto 0.4 0.1 - 1.2 X10*3/uL [facility] Eosinophils Absolute Auto 0.1 0.0 - 0.4 X10*3/uL [facility] Basophils Absolute Auto 0.0 0.0 - 0.2 X10*3/uL [facility] NRBC Abs Auto 0.000 0.0 - 0.012 X10*3/uL [facility] 08/28/2025 9:59 AM EDT 08/28/2025 9:59 AM EDT us Generic External Data Provider LAB BLOOD ORDERAB LES Final Result Performing Organization Address City/State/[facility] Co de Phone Number [facility] [address] [place] [phone] documented in this encounter Visit Diagnoses Not on filedocumented in this encounter Additional Health Concerns Assessment Noted Time PHQ-9 Depression Total Score: 2 07/13/20 24 1:44 PM EDT documented as of this encounter Care Teams Fusing Machine Tender Relationship Specialty Start Date End Date Rashaad Tinajero MD [address] [place] [phone] PCP - General Internal Medicine 06/19/15 documented as of this encounter
--- OUTSIDE RECORDS SUMMARY | 2025-08-31 15:39 | XMS_ITS | Encounter Summary ---
Author Organization [employer] Address [address] [facility] 7t [place] [address] Care Team Providers Care Network Consultant Name Role Phone Rashaad Tinajero MD Primary Care Provide r Reason for Visit * Reason Onset Date Comments Appointment Request 09/28/2023 Encounter Details Date Type Department Care Team ([facility] st Contact Info) Description 09/28/2023 Telephone [facility] [address] [place], [place] [phone] Rashaad Tinajero MD [address] [place], [place] [phone] Appointment Request Social History Tobacco Use Types [...] Tc from daughter requesting a PE appt. Medicare Compliance Auditor attempted to schedule. No availability. documented in this encounter Plan of Treatment Upcoming Encounters Date Type Department Care Team (Late st Contact Info) Description 09/17/2025 12:45 PM EDT Office Visit [facility] [address] [place] [address] Kelly, Nelly [address] [place] [address] 11/06/2025 3:00 PM EST Office Visit [facility] [address] [place] [address] Rashaad Tinajero MD [address] [place] [address] documented as of this encounter Visit Diagnoses Not on filedocumented in this encounter Additional Health Concerns Assessment Noted Time PHQ-9 Depression Total Score: 9 04/01/20 23 12:16 PM EDT documented as of this encounter Care Teams Network Consultant Relationship Specialty Start Date End Date Rashaad Tinajero MD [address] [place] [address] PCP - General Internal Medicine 06/19/15 documented as of this encounter
--- OUTSIDE RECORDS SUMMARY | 2025-08-31 15:39 | XMS_ITS | Encounter Summary ---
Author Organization [employer] Address [address] [place] [address] 7t [place] [address] Care Team Providers Care Tank Inspector Name Role Phone Rashaad Tinajero MD Primary Care Provide r Encounter Details Date Type Department Care Team (Late st Contact Info) Description 04/08/2023 Abstract [facility] [address] [place] [address] Rashaad Tinajero MD [address] [place] [address] Social History Tobacco Use Types Packs/Day Years [...] Description 09/17/2025 12:45 PM EDT Office Visit [facility] [address] [place] [address] Nelly Mendoza [address] [place] [address] 11/06/2025 3:00 PM EST Office Visit [facility] [address] [place] [address] Rashaad Tianjero MD [address] [place] [address] Pending Results Name Type Priority Associated Diagnoses Date /Time Colonoscopy GI Routine 08/19/2021 documented as of this encounter Visit Diagnoses Not on filedocumented in this encounter Additional Health Concerns Assessment Noted Time PHQ-9 Depression Total Score: 9 04/01/20 23 12:16 PM EDT documented as of this encounter Care Teams Tank Inspector Relationship Specialty Start Date End Date Rashaad Tinajero MD [address] [place] [address] PCP - General Internal Medicine 06/19/15 documented as of this encounter
--- NOTE | 2025-08-31 15:48 | HO.NEPHOV_ITS ---
Vital Signs 08/31/25 15:51 Height 4 ft 11 in Weight 168 lb 6 oz BMI 34.0 BP 116/70 Blood Pressure Location Lt brachial Position Sitting Pulse 76 Pulse Source Pulse Oximeter Pulse Oximetry (%) 98 Oxygen Delivery Method Room Air Intake Visit Reasons: 2mon Transplant f/u w/labs-LVM Open Pit Quarry Supervisor Required: Yes Open Pit Quarry Supervisor Language: Content Analyst Services: Open Pit Quarry Supervisor Offered & Declined ([facility] Open Pit Quarry Supervisor services refused ) Accompanied by: Grand Child Allergies No Known Allergies Allergy (Verified 08/31/25 15:50) HPI Comments Details: Koki?seen?in?followfor?transplant?care?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 She?was?never?on?dialysis.??She?claims?to?be?compliant?medications.??HerShe?was? accompanied?by?da ughter?feels?higherlevel?of?tacrolimus?was?not?tolerated?by?her?mother.??She?vaz s?not?have?any?vascular?or?cardiovascular?symptoms.??She?has?not?seen?a?dermatol ogist.??She?has?no?urinary?symptoms?or?s hair?effects?from?immunosuppression.??She?has?taken?the?flu?vaccination.??She?julius ntains?good?hydration?and?avoids?nonsteroidal?anti-inflammatories.?Shedoes?not?h ave?any?nausea,?vomiting,?diarrhea,?ches t?pain,?shortness?of?breath,?paroxysmal?nocturnal?dyspnea,?orthopnea,?pedal?sheldon a,?orthostatic?symptoms,?hematuria.??She?has?not?had?any?antibiotics?recently.?? She?denies?any?hematuria.??She?feels?well. [facility] Medical History IgA nephropathy COVID-19 vaccine series completed AV fistula Gallstone HTN (hypertension) CKD (chronic kidney disease) Surgical History Hx of hysterectomy Hx of colonoscopy History of section Kidney transplant recipient Family History Brother History of prostate cancer Maternal Uncle History of colon cancer Maternal Grandmother History of stomach cancer Social History Household Members Other:: lives sharona Alcohol intake: never Patient Tobacco Use Status: Never used Tobacco Current occupational status: retired and disabled Review of Systems Const All systems reviewed & are unremarkable except as noted in HPI and below Physical Exam Vital Signs: Last Vital Signs Pulse 76 08/31/25 15:51 BP 116/70 08/31/25 15:51 Pulse Ox 98 08/31/25 15:51 Oxygen Delivery Method Room Air 08/31/25 15:51 BMI result Body Mass Index 34.0 Const General: comfortable and no acute distress Orientation/consciousness: patient oriented x3 HEENT Head: Yes normocephalic Mouth: Normal oral and palatal mucosa present Eyes EOM: EOMs intact bilaterally Neck Neck: Yes supple Resp Auscultation: clear to auscultation bilaterally Cardio Jugular venous distension: no JVD Rate: regular rate GI Palpation (GI): Soft to palpation Auscultation: normal bowel sounds General: Yes no CVA tenderness Back/Spine/Pelvis Back: no CVA tenderness Skin General skin exam: no rashes or lesions noted Neuro General: patient oriented x3 and moves all extremities Extrem General: Yes no pedal edema Results Reviewed Nephrology Results: Hgb, (12.0-16.0) 13.2 g/dl 08/28/25 WBC, (4.8-10.8) 4.3 X10*3/uL L 08/28/25 Plt Count, (160-400) 213 X10*3/uL 08/28/25 Sodium, (135-145) 138 mmol/L Today Potassium, (3.3-5.1) 4.1 mmol/L Today Chloride, (96-108) 104 mmol/L Today Carbon Dioxide, (22-29) 26 mmol/L Today BUN, (9-16) 22 mg/dL H Today Creatinine, (0.5-1.4) 1.07 mg/dL Today Calcium, (8.4-10.2) 8.5 mg/dL Today Phosphorus, (2.7-4.5) 3.7 mg/dL 08/28/25 PTH Intact, (8.7-77.1) 126.1 pg/mL H 08/28/25 Assessment & Plan Assessment & Plan (1) HTN (hypertension): Code(s): I10 - Essential (primary) hypertension Category: Medical Qualifiers: Hypertension type: primary hypertension Qualified Code(s): I10 - Essential (primary) hypertension (2) Kidney transplant recipient: Comment: 2019 Code(s): Z94.0 - Kidney transplant status Category: Surgical (3) Dysuria: Code(s): R30.0 - Dysuria Category: Medical Plan 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 ??Her?graft?function?has?been?stable.?Her blood?pressure?has?been?at?goal?on?current?medication?regimen.??She?has?dyslipid emia?and?is?on?lipid?lowering?agents.??She?has?secondary?hyperparathyroidism?and ?takes?cinacalcet.?She?has?not?seen ?a?pediatric speech language pathologist.??She?maintains?good?hydration?and?avoids?nonsteroidal?anti- inflammatories.??Her?tacrolimus?levels?are okay.?I?ordered?follow up lab work as well as urine culture today given dysuria symptoms. I did not make any medication changes today; F/U given Orders: Orders Urine Culture Today R30.0 - Dysuria Aspartate Amino Transferase 2 Months Z94.0 - Kidney transplant status Albumin Level 2 Months Z94.0 - Kidney transplant status Magnesium 2 Months Z94.0 - Kidney transplant status Phosphorus 2 Months Z94.0 - Kidney transplant status Parathyroid Hormone Intact 2 Months Z94.0 - Kidney transplant status Complete Blood Count Auto Diff 2 Months Z94.0 - Kidney transplant status Protein Creatinine Ratio, Ur 2 Months Z94.0 - Kidney transplant status Tacrolimus Prograf 2 Months Z94.0 - Kidney transplant status Alanine Aminotransferase 2 Months Z94.0 - Kidney transplant status Vitamin D 25-OH Total 2 Months Z94.0 - Kidney transplant status Coding Level of Care Code Est Pt Level 4 (30668) Diagnoses Primary hypertension I10 Hypertension type: primary hypertension Kidney transplant recipient Z94.0 Dysuria R30.0
[2025-08-31 15:51] VITALS: BP 116/70; PULSE 76; O2SAT 98; BMI 34.0
== END 2025-08-31 16:13 | disposition home or self-care (01) ==
LOC: HO.HKA 15:37
PROVIDERS: PCP Internal Medicine; Visit Provider Internal Medicine Nephrology
DX: I10 Essential (primary) hypertension (principal); Z94.0 Kidney transplant status; R30.0 Dysuria
CPT/HCPCS: 99214

== ENCOUNTER 2025-08-31 15:37 | Outpatient (REF) | payer OTHER, SELFPAY ==
[2025-08-31 17:23] LABS: Anion Gap 12 (12-20); Blood Urea Nitrogen 22 mg/dL (9-16); Calcium 8.5 mg/dL (8.4-10.2); Carbon Dioxide 26 mmol/L (22-29); Chloride 104 mmol/L (96-108); Estimated Glomerular Filt Rate 50; Potassium 4.1 mmol/L (3.3-5.1); Sodium 138 mmol/L (135-145)
== END 2025-08-31 15:38 | disposition home or self-care (01) ==
LOC: HO.LAB 15:37
PROVIDERS: PCP Internal Medicine; Visit Provider Internal Medicine Nephrology
DX: I10 Essential (primary) hypertension (principal); E78.5 Hyperlipidemia, unspecified; R30.0 Dysuria; Z94.0 Kidney transplant status
CPT/HCPCS: 36415; 80051; 82310; 82565; 84520; 87086; 99212

== ENCOUNTER 2025-11-07 09:45 | Outpatient (REF) | payer OTHER, SELFPAY ==
[2025-11-07 10:10] LABS: MANUAL DIFF FLAG NO
[2025-11-07 10:30] LABS: Hematocrit 43.3 % (37.0-47.0); Hemoglobin 13.7 g/dl (12.0-16.0); Imm Gran Abs Auto 0.00 X10*3/uL (0.00-0.03); Imm Gran Pct Auto 0.0 % (0.0-0.4); Lymphocytes Absolute Auto 1.0 X10*3/uL (1.2-4.9); Mean Corpuscular HGB Conc 31.6 g/dl (31.0-35.0); Mean Corpuscular Hemoglobin 25.6 pg (27.0-33.0); Mean Corpuscular Volume 80.9 fL (80.0-98.0); NRBC Abs Auto 0.000 X10*3/uL (0.0-0.012); NRBC Pct Auto 0.0 /100WBC (0.0-0.2); Platelet Count 211 X10*3/uL (160-400); Red Blood Count 5.35 X10*6/uL (4.20-5.50); White Blood Count 4.2 X10*3/uL (4.8-10.8)
[2025-11-07 11:31] LABS: Alanine Aminotransferase 14 U/L (0-31); Albumin Level 4.5 g/dL (3.5-5.0); Aspartate Amino Transferase 23 U/L (5-31); Cholesterol 149 mg/dL (<200); HDL Cholesterol 69 mg/dL (>40); Magnesium 1.6 mg/dL (1.6-2.6); Triglycerides 64 mg/dL (<150)
[2025-11-07 11:39] LABS: Parathyroid Hormone Intact 171.3 pg/mL (8.7-77.1)
[2025-11-07 14:45] LABS: Protein/Creatinine Ratio, Ur 0.07 (<0.2); Total Protein Urine Random 11 mg/dL (<12)
[2025-11-08 09:14] LABS: Tacrolimus Prograf 5.9 mcg/L
== END 2025-11-07 09:46 ==
LOC: HO.LAB 09:45
PROVIDERS: PCP Internal Medicine; Visit Provider Internal Medicine Nephrology
DX: Z51.81 Encounter for therapeutic drug level monitoring (principal); Z13.21 Encounter for screening for nutritional disorder; E78.2 Mixed hyperlipidemia; Z94.0 Kidney transplant status
CPT/HCPCS: 36415; 80061; 80197; 82040; 82306; 82570; 83735; 83970; 84100; 84156; 84450; 84460; 85025

== ENCOUNTER 2025-11-09 15:35 | Outpatient (AMB) | payer OTHER, SELFPAY ==
[2025-11-09 15:40] VITALS: BP 112/70; PULSE 72; O2SAT 99; BMI 33.8
--- NOTE | 2025-11-09 15:40 | HO.NEPHOV_ITS ---
Vital Signs 11/09/25 15:40 Height 4 ft 11 in Weight 167 lb 8 oz BMI 33.8 BP 112/70 Blood Pressure Location Lt brachial Position Sitting Pulse 72 Pulse Source Pulse Oximeter Pulse Oximetry (%) 99 Oxygen Delivery Method Room Air Intake Visit Reasons: 2mon f/u w/labs-LVM Bias Machine Operator Helper Required: Yes Bias Machine Operator Helper Language: Research Test Engine Evaluator Services: Bias Machine Operator Helper Offered & Declined ([facility] – [place], [place] Bias Machine Operator Helper services refused ) Accompanied by: Daughter Allergies No Known Allergies Allergy (Verified 11/09/25 15:41) HPI Comments Details: Koki?seen?in?followfor?transplant?care?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 She?was?never?on?dialysis.??She?claims?to?be?compliant?medications.??HerShe?was? accompanied?by?daughter?feels?h igherlevel?of?tacrolimus?was?not?tolerated?by?her?mother.??She?does?not?have?any ?vascular?or?cardiovascular?symptoms.??She?has?not?seen?a?taxi proprietor.??She?ames s?no?urinary?symptoms?or?side?effects?fr om?immunosuppression.??She?has?taken?the?flu?vaccination.??She?maintains?good?hy dration?and?avoids?nonsteroidal?anti-inflammatories.?Shedoes?not?have?any?nausea ,?vomiting,?diarrhea,?chest?pain,?shortn ess?of?breath,?paroxysmal?nocturnal?dyspnea,?orthopnea,?pedal?edema,?orthostatic ?symptoms,?hematuria.??She?has?not?had?any?antibiotics?recently.??She?denies?any ?hematuria.??She?feels?well. [facility] Medical History IgA nephropathy COVID-19 vaccine series completed AV fistula Gallstone HTN (hypertension) CKD (chronic kidney disease) Surgical History Hx of hysterectomy Hx of colonoscopy History of section Kidney transplant recipient Family History Brother History of prostate cancer Maternal Uncle History of colon cancer Maternal Grandmother History of stomach cancer Social History Household Members Other:: lives [place] Alcohol intake: never Patient Tobacco Use Status: Never used Tobacco Current occupational status: retired and disabled Review of Systems Const All systems reviewed & are unremarkable except as noted in HPI and below Physical Exam Vital Signs: Last Vital Signs Pulse 72 11/09/25 15:40 BP 112/70 11/09/25 15:40 Pulse Ox 99 11/09/25 15:40 Oxygen Delivery Method Room Air 11/09/25 15:40 BMI result Body Mass Index 33.8 Const General: comfortable and no acute distress Orientation/consciousness: patient oriented x3 HEENT Head: Yes normocephalic Mouth: Normal oral and palatal mucosa present Eyes EOM: EOMs intact bilaterally Neck Neck: Yes supple Resp Auscultation: clear to auscultation bilaterally Cardio Jugular venous distension: no JVD Rate: regular rate GI Palpation (GI): Soft to palpation Auscultation: normal bowel sounds General: Yes no CVA tenderness Back/Spine/Pelvis Back: no CVA tenderness Skin General skin exam: no rashes or lesions noted Neuro General: patient oriented x3 and moves all extremities Extrem General: Yes no pedal edema Results Reviewed Nephrology Results: Hgb, (12.0-16.0) 13.7 g/dl 11/07/25 WBC, (4.8-10.8) 4.2 X10*3/uL L 11/07/25 Plt Count, (160-400) 211 X10*3/uL 11/07/25 Sodium, (135-145) 138 mmol/L 08/31/25 Potassium, (3.3-5.1) 4.1 mmol/L 08/31/25 Chloride, (96-108) 104 mmol/L 08/31/25 Carbon Dioxide, (22-29) 26 mmol/L 08/31/25 BUN, (9-16) 22 mg/dL H 08/31/25 Creatinine, (0.5-1.4) 1.07 mg/dL 08/31/25 Calcium, (8.4-10.2) 8.5 mg/dL 08/31/25 Phosphorus, (2.7-4.5) 3.6 mg/dL 11/07/25 PTH Intact, (8.7-77.1) 171.3 pg/mL H 11/07/25 Urine Creatinine 160.64 mg/dL 11/07/25 Protein/Creatinin Ratio, (<0.2) 0.07 11/07/25 Assessment & Plan Assessment & Plan (1) HTN (hypertension): Code(s): I10 - Essential (primary) hypertension Category: Medical Qualifiers: Hypertension type: primary hypertension Qualified Code(s): I10 - Essential (primary) hypertension (2) Kidney transplant recipient: Comment: 2016 Code(s): Z94.0 - Kidney transplant status Category: Surgical Plan 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 ??Her?graft?function?has?been?stable.?Her blood?pressure?has?be en?at?goal?on?current?medication?regimen.??She?has?dyslipidemia?and?is?on?lipid? lowering?agents.??She?has?secondary?hyperparathyroidism?and?takes?cinacalcet.?Sh e?has?not?seen?a?taxi proprietor.??She?julius spivey?good?hydration?and?avoids?nonsteroidal?anti- inflammatories.??Her?tacrolimus?levels?are okay.?She has to go on blood sugar lowering medications if her A1c remains high. Orders: Orders Alanine Aminotransferase 2 Months I10 - Essential (primary) hypertension, Z94.0 - Kidney transplant status Tacrolimus Prograf 2 Months I10 - Essential (primary) hypertension, Z94.0 - Kidney transplant status Aspartate Amino Transferase 2 Months I10 - Essential (primary) hypertension, Z94.0 - Kidney transplant status Complete Blood Count Auto Diff 2 Months I10 - Essential (primary) hypertension, Z94.0 - Kidney transplant status Electrolytes 2 Months I10 - Essential (primary) hypertension, Z94.0 - Kidney transplant status Calcium 2 Months I10 - Essential (primary) hypertension, Z94.0 - Kidney transplant status Blood Urea Nitrogen 2 Months I10 - Essential (primary) hypertension, Z94.0 - Kidney transplant status Creatinine 2 Months I10 - Essential (primary) hypertension, Z94.0 - Kidney transplant status Phosphorus 2 Months I10 - Essential (primary) hypertension, Z94.0 - Kidney transplant status Coding Level of Care Code Est Pt Level 4 (65502) Diagnoses Primary hypertension I10 Hypertension type: primary hypertension Kidney transplant recipient Z94.0
== END 2025-11-09 16:03 | disposition home or self-care (01) ==
LOC: HO.HKA 15:36
PROVIDERS: PCP Internal Medicine; Visit Provider Internal Medicine Nephrology
DX: I10 Essential (primary) hypertension (principal); Z94.0 Kidney transplant status
CPT/HCPCS: 99214

== ENCOUNTER → 2025-11-09 15:35 | Outpatient (BNVA) | payer OTHER, SELFPAY | PROVIDERS: PCP Internal Medicine; Visit Provider Internal Medicine Nephrology | DX: I10 Essential (primary) hypertension (principal); Z94.0 Kidney transplant status | CPT/HCPCS: 99212 ==